=== PATIENT | female | born 1990 | race Two or more races ===

== ENCOUNTER 2024-09-26 23:12 | Emergency (ER) | payer MEDICAID, SELFPAY ==
[2024-09-26 23:12] VITALS: BMI 34.9
[2024-09-26 23:54] VITALS: BP 123/84; PULSE 135; RESP 19; TEMP 36.9; O2SAT 97
--- NOTE | 2024-09-27 00:02 | EKG_ITS ---
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
--- NOTE | 2024-09-27 00:05 | PD.EDRME ---
Rapid Medical Screening Exam RME Arrival date/time: 09/26/24 23:12 Dr. Mcginnis's note at 6 AM: Her EKG shows normal sinus rhythm, tachycardic, no acute ST-T wave changes, normal axis, no ectopy according to my interpretation. Chief Complaint: General Adult/Misc Complain Time Seen by Provider: 09/26/24 23:16 Vital signs: Vital Signs Temperature 98.5 F 09/26/24 23:54 Pulse Rate 135 H 09/26/24 23:54 Respiratory Rate 19 09/26/24 23:54 Blood Pressure 123/84 09/26/24 23:54 Pulse Oximetry (%) 97 09/26/24 23:54 Oxygen Delivery Method Room Air 09/26/24 23:54 Vital signs reviewed by provider: Yes RM Narrative: 34-year-old female presents for evaluation of alcohol withdrawal. She reports that her last drink was at 10 AM this morning. She reports that she normally drinks half bottle of wine daily. She endorses history of alcohol withdrawal without seizure-like activity. She endorses nausea without vomiting and diffuse tremors. Denies AH and VH.
[2024-09-27] MEDS: SODIUM CHLORIDE 0.9% 1000 ML 1,000 ML 999 ML IV ×2 (00:48→05:53)
[2024-09-27 00:53] LABS: Basophils % (Auto) 0 % (0-2.5); Eosinophils # (Auto) 0.1 Thou/mm3 (0.0-0.5); Eosinophils % (Auto) 1 % (0-10); Hematocrit 36.1 % (36.0-46.0); Hemoglobin 11.4 g/dL (12.0-16.0); Immature Granulocytes % (Auto) 0 % (0-0); Immature Granulocytes Auto 0.03 Thou/mm3 (0.00-0.00); Lymphocytes # (Auto) 3.5 Thou/mm3 (1.0-4.8); Lymphocytes % (Auto) 37 % (10-50); Mean Corpuscular HGB Conc 31.6 g/dl (31.0-37.0); Mean Corpuscular Hemoglobin 23.3 pg (25.0-35.0); Mean Corpuscular Volume 74 fL (80-100); Monocytes # (Auto) 0.6 Thou/mm3 (0.0-0.8); Monocytes % (Auto) 7 % (0-12); Neutrophils % (Auto) 54 % (37-80); Nucleated Red Blood Cell % 0 /100 WBC (0); Platelet Count 493 Thou/mm3 (140-440); RDW Standard Deviation 49.1 fL (36.4-46.3); White Blood Count 9.3 Thou/mm3 (3.6-11.0)
[2024-09-27 01:24] LABS: Alanine Aminotransferase 28 U/L (10-49); Albumin, Serum 4.8 gm/dL (3.5-5.0); Albumin/Globulin Ratio 1.2 (1.2-2.2); Alcohol, Blood Medical 12.1 mg/dL (0-10.0); Alkaline Phosphatase 158 U/L (46-116); Anion Gap 15 (7-16); Aspartate Amino Transferase 31 U/L (0-34); BUN/Creatinine Ratio 13 Ratio (12-20); Bilirubin,Total 0.3 mg/dL (0.3-1.2); Blood Urea Nitrogen 10 mg/dL (9-23); Calcium 9.8 mg/dL (8.3-10.6); Calcium (Corrected) 9.8 mg/dL (8.5-10.1); Carbon Dioxide 20.1 mMol/L (20.0-31.0); Chloride 103 mMol/L (98-107); Creatinine (Component) 0.8 mg/dL (0.6-1.3); Estimated Creatinine Clearance 98.3 mL/min (>60); Glucose 121 mg/dL (74-106); Lipase 54 U/L (12-53); Magnesium 1.9 mg/dL (1.6-2.6); Osmolality,Calculated 275 (275-295); Sodium 138 mMol/L (136-145); Total Protein 8.8 gm/dL (5.7-8.2); eGFR > 60 See Note
[2024-09-27] MEDS: LORazepam 2 MG/ML VIAL IVP (01:31)
[2024-09-27] MEDS: THIAMINE INJ 100 MG in SODIUM CHLORIDE 0.9% 100 ML 202 MG IV (01:32)
[2024-09-27 01:37] VITALS: BP 134/79; PULSE 130; RESP 20; O2SAT 100
[2024-09-27 02:00] VITALS: BP 121/78; PULSE 124; RESP 15; O2SAT 96
[2024-09-27 03:00] VITALS: BP 124/78; PULSE 129; RESP 14; O2SAT 96
[2024-09-27 05:00] VITALS: BP 119/76; PULSE 129; RESP 21; TEMP 37; O2SAT 99
--- NOTE | 2024-09-27 05:26 | EDNOTE_ITS ---
ED General RME/HPI General Chief complaint: General Adult/Misc Complain Stated complaint: NOT FEELING WELL Time Seen by Provider: 09/26/24 23:16 Arrival date/time: 09/26/24 23:12 RME / HPI RME / HPI narrative: 34-year-old female presents for evaluation of alcohol withdrawal. She reports that her last drink was at 10 AM this morning. She reports that she normally drinks half bottle of wine daily. She endorses history of alcohol withdrawal without seizure-like activity. She endorses nausea without vomiting and diffuse tremors. Denies AH and VH. ---- Dr. Mcginnis's Main ED Evaluation: 34yo female presents to the ED for a chief complaint of alcohol withdrawals. Patient states she last had a large glass of wine yesterday morning, reporting she's been having withdrawals since. She reports 2 associated episodes of N/V, shortness of breath, dizziness, and lightheadedness. Patient denies any diarrhea, hematemesis, fever, chills, sweating, chest pain, abdominal pain, UTI symptoms, SI, HI, hallucinations or any other associated symptoms. She denies any falls, injuries or loss of consciousness. She denies any illicit drug use. No known allergies. Patient states this is the third time she's tried to wean herself off of alcohol. Patient's sister notes the patient has had hemorrhoids, but has been embarrassed by them and does not want to be seen by a provider for them. PCP: [facility] in [place] Related Data Previous Rx's ?Medication ?Instructions ?Recorded chlordiazepoxide HCl 25 mg capsule 25 mg PO BID #14 caps 06/15/23 famotidine 20 mg tablet 20 mg PO BID #20 tabs 06/15/23 ondansetron 4 mg disintegrating 4 mg PO Q8H #14 tabs 06/15/23 tablet hydrocortisone acetate 25 mg 25 mg [place] BID #6 ea 09/27/24 rectal suppository (Anusol-HC) ondansetron 4 mg disintegrating 4 mg PO TID PRN nausea and 09/27/24 tablet vomiting 4 days #14 tabs Allergies Allergy/AdvReac Type Severity Reaction Status Date / Time No Known Allergies Allergy Verified 06/15/23 11:19 Review of Systems Review of Systems Systems Reviewed: All systems reviewed, normal except as documented Narrative Review of Systems: Gen: No fever, no chills, no weight loss EYES: No discharge, no visual changes, no pain HEENT: No ear pain, no congestion, no sore throat PULM: + shortness of breath, no cough, no congestion CV: No chest pain, no dyspnea on exertion, no palpitations GI: + nausea, + vomiting, no diarrhea, no pain, no constipation : No frequency, no urgency, no dysuria Musc/skel: No joint pain, no back pain Skin: No rash. Warm and dry. Psyc: No hallucinations, no depression Heme/Lymph: No easy bleeding or bruising tendencies Neuro: No weakness, no headache, + dizziness, + lightheadedness Past Medical History Past Medical History NEUROLOGIC: Negative Neurological Disorders CARDIAC: Negative Cardiac Disorders or Congestive Heart Failure RESPIRATORY: Negative Chronic Obstructive Pulmonary Disease (COPD) GASTROINTESTINAL: Negative Gastrointestinal Disorders, Hepatitis or Colorectal Cancer GENITOURINARY: Negative Genitourinary Disorders, Renal Disease or Prostate Cancer REPRODUCTIVE: Positive Previous Pregnancies; Negative Breast Cancer, Endometriosis, Pelvic Inflammatory Disease, Testicular Cancer or Uterine Prolapse MUSCULOSKELETAL: Negative Musculoskeletal Disorders or Bone Cancer ENDOCRINE: Negative Endocrine Disorders, Diabetes Mellitus Type 1 or Diabetes Mellitus Type 2 HEMATOLOGIC: Negative Blood Disorders OTHER HISTORY: Negative Hospitalization, Autoimmune Disease, Down Syndrome, Developmental Delay, Shingles, Falls, Blood Transfusions, Blood Transfusion Reaction, Anesthesia Reactions, Chemotherapy, Radiation Therapy, Hyperbaric Therapy, MRSA, VRSA, Vancomycin-Resistant Enterococci, Human Immunodeficiency Virus (HIV), Chicken Pox, Measles, Mumps, Rubella (Yoruba Measles), Pertussis, Clostridium Difficile, Breast Cancer, Cervical Cancer, Colorectal Cancer, Lung Cancer, Prostate Cancer or Testicular Cancer Family History FAMILY HISTORY: Negative Family Psychiatric Problems, Family Respiratory Disorders, Family Cardiac Disorders, Family Gastrointestinal Problems, Family Cancer, Family Surgery or Family Anesthesia Reaction Surgical History SURGICAL: Negative Section Social History SMOKING STATUS: Never smoker ED Exam Narrative Physical exam: GEN. APPEARANCE: Patient is alert awake oriented x3 under no distress, laying down comfortably at 30-45?; does not look ill/ toxic. Patient has good eye contact. Patient is cooperative. VITALS: All vitals were reviewed and the pulse ox is 96% on room air, which is normal according to my interpretation. HEENT: Normocephalic, atraumatic and nontender. Pupils are equal and reactive to light and accommodation. Oral mucosa are moist. NECK: Supple, nontender, no meningismus, no JVD. CHEST: Nontender on palpation, no deformity and no crepitus. CARDIOVASCULAR: Heart regular rhythm no murmur or gallop rub or extra beats; tachycardic. LUNGS: Clear to auscultation bilaterally with symmetrical chest rise. No laboring tachypnea or wheezing. No intercostal subcostal retraction. No rales and no rhonchi. ABDOMEN: Soft, flat, nontender at all, no guarding or rebound tenderness. There are no abnormal masses palpated. No pulsatile masses or bruits. Active and normal bowel sounds. GENITALIA: Not examined. RECTAL EXAM: Not done. EXTREMITIES: Nontender. No edema. No cyanosis. Patient is able to move all 4 extremities well. SKIN: Warm and dry, no rashes noted. MUSCULOSKELETAL: No lumbar or midline bony tenderness. There is no CVA tenderness. No paraspinal muscle spasm or tenderness. NEURO: Cranial nerves II through XII grossly intact. There is no focalization. GCS is 15. PSYCHIATRIC: Patient is somewhat anxious mood and affect, cooperative. LYMPHATICS: No major lymphadenopathy noted. Course Quality Measures none Orders Category Date Time Status EKG (ED ONLY) *Do not use* NOW Care 09/27/24 00:03 Completed Insert IV NOW Care 09/27/24 00:02 Active EKG (ED Only) Stat Exams 09/27/24 00:02 Draft Alcohol, Blood Medical Stat Lab 09/27/24 00:44 Completed CBC Stat Lab 09/27/24 00:44 Completed CMP [Comprehensive Metabolic Panel] Stat Lab 09/27/24 00:44 Completed HCG Qualitative,Urine Stat Lab 09/27/24 00:02 Ordered Lipase Stat Lab 09/27/24 00:44 Completed Mag [Magnesium] Stat Lab 09/27/24 00:44 Completed LORazepam [Ativan Inj] Med 09/27/24 00:02 Discontinued 2 mg IVP X1 ONE Multivitamin Inj [Infuvite Inj] Med 09/27/24 00:02 Discontinued 10 ml IV X1 ONE Sodium Chloride 0.9% 1000 ml [Ns] 1,000 ml Med 09/27/24 00:02 Discontinued IV 999 mls/hr Thiamine Inj [Vitamin B-1 Inj] 100 mg Med 09/27/24 00:05 Discontinued Sodium Chloride 0.9% [Ns] 100 ml IV X1 Vital Signs Vital signs: Vital Signs Temperature 98.5 F 09/26/24 23:54 Pulse Rate 135 H 09/26/24 23:54 Respiratory Rate 19 09/26/24 23:54 Blood Pressure 123/84 09/26/24 23:54 Pulse Oximetry (%) 97 09/26/24 23:54 Oxygen Delivery Method Room Air 09/26/24 23:54 MDM Patient data External records reviewed:: [facility] previous records (Per chart review, patient was seen here on 06/21/24 for hypokalemia.) Clinical information provided by:: patient Social determinants that could affect healthcare access:: alcohol use Patient has the following chronic illnesses:: none How is presenting disease/condition affected by chronic disease/condition?: no chronic disease Evaluation data The following diagnostics were reviewed and interpreted by me:: lab results and EKG tracing(s) Lab and/or radiology exams considered but not ordered:: none Interpretation Summary: See above under MDM narrative. Medications Medications considered but not ordered:: none Medication administrations:: Medication Administration History Discontinued Medications Sodium Chloride (Ns) 1,000 mls @ 999 mls/hr IV .Q1H1M ONE Stop: 09/27/24 01:02 Last Infusion: 09/27/24 02:17 Dose: Infused Documented By: Admin: 09/27/24 00:48 Dose: 999 mls/hr Documented By: JENIFER Thiamine HCl 100 mg/ Sodium (Chloride) 101 mls @ 202 mls/hr IV X1 ONE Stop: 09/27/24 00:34 Last Infusion: 09/27/24 02:17 Dose: Infused Documented By: Admin: 09/27/24 01:32 Dose: 202 mls/hr Documented By: ZIYAD Lorazepam (Lorazepam 2 Mg/Ml Vial) 2 mg IVP X1 ONE Stop: 09/27/24 00:03 Last Admin: 09/27/24 01:31 Dose: 2 mg Documented By: ZIYAD Multivitamins/Minerals (Multivitamin Inj 10 Ml Vial) 10 ml IV X1 ONE Stop: 09/27/24 00:03 Last Admin: 09/27/24 01:34 Dose: 10 ml Documented By: ZIYAD see above Consultations Consultation(s) initiated? (list below): No Diagnosis Differential Diagnosis ED Complaint MDM: alcohol withdrawal, acidosis, illicit drug abuse, depression, anxiety Most likely diagnosis given after review of the tests above:: see below Admission Indicated Admission indicated?: not indicated Explain why admission is indicated or not indicated:: Patient is stable for outpatient management. Admission Request Was there a request for admission?: No Disposition Plan Disposition Plan: Discharge Discharge Attestation Discharge Attestation: The patient and all family members were given an opportunity to ask questions and understood the discharge instructions. Discharge instructions specifically effects, indications for sooner follow up or return to the emergency department, and the expected course of current diagnosis. Patient condition: Stable Medical Decision Making MDM Narrative MDM Narrative: Scribe Attestation: 09/27/24 - Aleja Castro am scribing for and in the presence of Dr. Mcginnis. Patient comes in accompanied by her sister trying to go through withdrawal of alcohol. Patient is a chronic alcoholic for the last 2 years and she has tried to wean herself off for the third time this time and still cannot do it by himself. She has not followed up with her doctor as an outpatient nor she has had any AA meetings. She has been nauseated and vomited couple times without any diarrhea. Her sister tells me that patient is also suffering of hemorrhoids and passing blood clots from the rectum on and off. She has a cream but it is not helping her hemorrhoids. She denies any abdominal pain or UTI symptoms. She denies any fall or injuries or loss of consciousness. She did feel short of breath and dizzy today but she absolutely denies any suicidal ideations or homicidal ideations or hallucinations. She denies any plans of killing herself. She absolutely denies any drug abuse and her sister confirms that. She says that usually she drinks 3 large glasses of wine every day. She had a similar episode x 2 in the past and the last time was in June when she was here for similar problem. All her lab work is unremarkable. Patient will receive 2 L of fluids and then discharged home but I did tell her that she needs to follow-up with her clinic so they can refer her to a AA meetings. Provider Notation: Although this document has been carefully reviewed, there may still be some phonetic and other typographical errors. These errors are purely grammatical due to imperfections in the software program and should not be construed in any way to compromise the substance of the patient's medical care during this visit. Differential Diagnosis Differential Diagnosis: alcohol withdrawal, acidosis, illicit drug abuse, depression, anxiety Lab Data 09/27/24 00:44 09/27/24 00:44 Labs: Lab Results 09/27/24 Range/Units 00:44 WBC 9.3 (3.6-11.0) Thou/mm3 RBC 4.90 (4.00-5.20) Miln/mm3 Hgb 11.4 L (12.0-16.0) g/dL Hct 36.1 (36.0-46.0) % MCV 74 L (80-100) fL MCH 23.3 L (25.0-35.0) pg MCHC 31.6 (31.0-37.0) g/dl RDW Std Deviation 49.1 H (36.4-46.3) fL Plt Count 493 H (140-440) Thou/mm3 Neut % (Auto) 54 (37-80) % Lymph % (Auto) 37 (10-50) % [place] % (Auto) 7 (0-12) % Eos % (Auto) 1 (0-10) % Baso % (Auto) 0 (0-2.5) % Neut # (Auto) 5.0 (1.8-7.7) Thou/mm3 Lymph # (Auto) 3.5 (1.0-4.8) Thou/mm3 [place] # (Auto) 0.6 (0.0-0.8) Thou/mm3 Eos # (Auto) 0.1 (0.0-0.5) Thou/mm3 Baso # (Auto) 0.0 (0.0-0.2) Thou/mm3 Immature Gran # (Auto) 0.03 H (0.00-0.00) Thou/mm3 Absolute Nucleated RBC 0.00 (0.00-0.00) Thou/mm3 Immature Gran % 0 (0-0) % Nucleated RBC % 0 (0) /100 WBC Sodium 138 (136-145) mMol/L Potassium 4.0 (3.4-5.1) mMol/L Chloride 103 (98-107) mMol/L Carbon Dioxide 20.1 (20.0-31.0) mMol/L Anion Gap 15 (7-16) BUN 10 (9-23) mg/dL Creatinine 0.8 (0.6-1.3) mg/dL Estim Creat Clear Calc 98.3 (>60) mL/min eGFR > 60 (60 - ) See Note BUN/Creatinine Ratio 13 (12-20) Ratio Glucose 121 H (74-106) mg/dL Calculated Osmolality 275 (275-295) Calcium 9.8 (8.3-10.6) mg/dL Corrected Calcium 9.8 (8.5-10.1) mg/dL Magnesium 1.9 (1.6-2.6) mg/dL Total Bilirubin 0.3 (0.3-1.2) mg/dL AST 31 (0-34) U/L ALT 28 (10-49) U/L Alkaline Phosphatase 158 H (46-116) U/L Total Protein 8.8 H (5.7-8.2) gm/dL Albumin 4.8 (3.5-5.0) gm/dL Globulin 4.0 H (2.3-3.5) gm/dL Albumin/Globulin Ratio 1.2 (1.2-2.2) Lipase 54 H (12-53) U/L Ethyl Alcohol 12.1 H (0-10.0) mg/dL Discharge Plan Plan Patient Disposition: HOME (Self Care) Prescriptions/Referrals Prescriptions/Med Rec: New hydrocortisone acetate [Anusol-HC] 25 mg suppository 25 mg MA BID Qty: 6 0RF ondansetron 4 mg tablet,disintegrating 4 mg PO TID PRN (Reason: nausea and vomiting) 4 Days Qty: 14 0RF No Action ondansetron 4 mg tablet,disintegrating 4 mg PO Q8H Qty: 14 0RF chlordiazepoxide HCl 25 mg capsule 25 mg PO BID Qty: 14 0RF famotidine 20 mg tablet 20 mg PO BID Qty: 20 0RF Referrals: [facility] [Outside] - 09/28/24 10:00 am Problem List Clinical Impression: Alcohol withdrawal, Hemorrhoids, internal Patient/Caregiver Discharge Instructions Education Materials: Alcohol Withdrawal: What to Expect Additional Instructions: You need to stop drinking alcohol as soon as possible, before your liver is damaged. Take medications as prescribed for your nausea vomiting and also for your hemorrhoids. Do sitz baths for 20 minutes with warm water and then pat yourself dry and then insert the suppositories. Be sure to follow-up with your clinic and tell your doctors for help to stop drinking alcohol. Print Language: [place] Stand Alone Forms: Nicole Award Info., Patient Portal Info Letter
== END 2024-09-27 08:22 | disposition home or self-care (01) ==
PROVIDERS: Physician Assistant; Emergency Provider Emergency Medicine
DX: F10.939 Alcohol use, unspecified with withdrawal, unspecified (principal); K64.8 Other hemorrhoids; R00.0 Tachycardia, unspecified
CPT/HCPCS: 36415; 80053; 80320; 81025; 83690; 83735; 85025; 93005; 96361; 96365; 96375; 99284; J2060; J3411; J7030; J7050; G0480

== ENCOUNTER 2024-12-31 12:57 | Inpatient (IN) | payer SELFPAY ==
[2024-12-31 12:59] VITALS: BP 129/83; PULSE 128; RESP 18; TEMP 37.2; O2SAT 97
[2024-12-31 13:41] VITALS: PULSE 124; RESP 20; O2SAT 98; BMI 30.2
[2024-12-31 13:42] VITALS: BMI 26.4
--- NOTE | 2024-12-31 14:05 | EDNOTE_ITS ---
<Statement entered by Melodie Guerrier MD - 12/31/24 23:41> As co-signing physician, I was present and available for consult prn. I concur with the plan and care as documented by the midlevel provider. ED Psych RME/HPI General Chief Complaint: Suicidal Stated Complaint: ETOH Time Seen by Provider: 12/31/24 13:53 Arrival date/time: 12/31/24 12:57 RME / HPI RME / HPI Narrative: 34-year-old female patient came in for evaluation regarding suicidal thoughts. Patient told me that she has been having worsening depression, suicidal ideation, for several months, getting worse. Has been drinking every day also c onsuming more than 1 bottle of wine every day. Patient told me that she got more depressed after learning that the is cheating on her. Denies any homicidal ideation. She had no concrete plan to kill herself. Related Data Previous Rx's ?Medication ?Instructions ?Recorded chlordiazepoxide HCl 25 mg capsule 25 mg PO BID #14 ca ps 06/15/23 famotidine 20 mg tablet 20 mg PO BID #20 tabs ondansetron 4 mg disintegrating 4 mg PO Q8H #14 tabs 0 06/15/23 tablet hydrocortisone acetate 25 mg 25 mg [place] BID #6 ea rectal suppository (Anusol-HC) Allergies Allergy/AdvReac Type Severity Reaction Status Date / Time No Known Allergies Allergy Verified 12/31/24 13:45 Review of Systems Review of Systems Narrative Review of Systems: Review of system reviewed and within normal limits except mentioned in HPI Course Quality Measures none Orders Category Date Time Status 1799 Psychiatric Hold NOW Care 12/31/24 14:00 Ordered Acetaminophen Stat Lab 12/31/24 14:10 Completed Alcohol, Blood Medical Stat Lab 12/31/24 14:10 Completed CBC Stat Lab 12/31/24 14:10 Completed CMP [Comprehensive Metabolic Panel] Stat Lab 12/31/24 14:10 Completed Drug Screen,Urine Stat Lab 12/31/24 14:05 Completed HCG Qualitative,Urine Stat Lab 12/31/24 14:05 Completed Salicylate Stat Lab 12/31/24 14:10 Completed Urinalysis Stat Lab 12/31/24 14:05 Completed Vital Signs Vital signs: Vital Signs Temperature 98.9 F 12/31/24 12:59 Pulse Rate 128 H 12/31/24 12:59 Respiratory Rate 18 12/31/24 12:59 Blood Pressure 129/83 12/31/24 12:59 Pulse Oximetry (%) 97 12/31/24 12:59 Oxygen Delivery Method Room Air 12/31/24 12:59 Psych MDM Narrative [facility] Narrative:: 34-year-old female patient came in for evaluation regarding suicidal thoughts. Patient told me that she has been having worsening depression, suicidal ideation , for several months, getting worse. Has been drinking every day also consuming more than 1 bottle of wine every day. Patient told me that she got more depressed after learning that the is cheating on her. Denies any homicidal ideation. She had no concrete plan to kill herself. Patient was noted to have a alcohol level of 497. Negative for drug test AST ALT and alkaline phos slightly elevated may be related to alcohol. Patient is medically cleared for crisis intervention Care transferred to Dr Guerrier at 11 pm for final disposition Patient data External records reviewed:: None Clinical information provided by:: patient Social determinants that could affect healthcare access:: alcohol use Patient has the following chronic illnesses:: Alcohol abuse, depression How is presenting disease/condition affected by chronic disease/condition?: exacerbated by Evaluation data The following diagnostics were reviewed and interpreted by me:: lab results Lab and/or radiology exams considered but not ordered:: None Interpretation Summary: Results see in MDM Medications / Prescriptions Medications or Prescriptions considered but not ordered:: None Medication administrations:: None Consultations Consultation(s) initiated? (list below): No Diagnosis Psych Differential Diagnosis: acute psychosis, suicidal ideation and depression Most likely diagnosis given after review of the tests above:: Chronic alcoholism, suicidal ideation Admission Indicated Admission indicated?: not indicated Admission Request Was there a request for admission?: No Disposition Plan Disposition Plan: other (specify) Discharge Plan Prescriptions/Referrals Prescriptions/Med Rec: No Action ondansetron 4 mg tablet,disintegrating 4 mg PO Q8H Qty: 14 0RF chlordiazepoxide HCl 25 mg capsule 25 mg PO BID Qty: 14 0RF famotidine 20 mg tablet 20 mg PO BID Qty: 20 0RF hydrocortisone acetate [Anusol-HC] 25 mg suppository 25 mg [place] BID Qty: 6 0RF Referrals: No Primary/Family,Physician [Primary Care Provider] - In 1 week Problem List Clinical Impression: Suicidal ideation, Alcoholic intoxication Patient/Caregiver Discharge Instructions Print Language: Mexican
[2024-12-31 14:22] LABS: Collection Type, Urine Clean Catch
[2024-12-31 14:29] VITALS: BP 139/91; PULSE 119; RESP 18; TEMP 36.7; O2SAT 97
[2024-12-31 14:32] LABS: Basophils % (Auto) 1 % (0-2.5); Eosinophils # (Auto) 0.1 Thou/mm3 (0.0-0.5); Eosinophils % (Auto) 1 % (0-10); Hematocrit 33.1 % (36.0-46.0); Hemoglobin 10.5 g/dL (12.0-16.0); Immature Granulocytes % (Auto) 1 % (0-0); Immature Granulocytes Auto 0.03 Thou/mm3 (0.00-0.00); Lymphocytes # (Auto) 1.5 Thou/mm3 (1.0-4.8); Lymphocytes % (Auto) 26 % (10-50); Mean Corpuscular HGB Conc 31.7 g/dl (31.0-37.0); Mean Corpuscular Hemoglobin 23.8 pg (25.0-35.0); Mean Corpuscular Volume 75 fL (80-100); Monocytes # (Auto) 0.4 Thou/mm3 (0.0-0.8); Monocytes % (Auto) 7 % (0-12); Neutrophils # (Auto) 3.8 Thou/mm3 (1.8-7.7); Neutrophils % (Auto) 65 % (37-80); Nucleated Red Blood Cell % 0 /100 WBC (0); Platelet Count 223 Thou/mm3 (140-440); RDW Standard Deviation 47.6 fL (36.4-46.3); Red Blood Count 4.42 Miln/mm3 (4.00-5.20); White Blood Count 5.8 Thou/mm3 (3.6-11.0)
[2024-12-31 14:38] LABS: Bilirubin,Urine Negative (Negative); Blood,Urine Negative (Negative); Clarity,Urine Clear (Clear/Hazy); Glucose, Urine Negative (Negative); Ketones,Urine 1+ (Negative); Leukocyte Esterase,Urine Negative (Negative); Nitrite,Urine Negative (Negative); PH,Urine 6.5 (5.0-7.0); Protein,Urine Negative (Neg - Trace); RBC,Urine 1 /hpf (0-3); Specific Gravity,Urine 1.007 (1.001-1.035); Squamous Epithelial Cell,Urine 2 /hpf (0-5); Urobilinogen,Urine Negative mg/dL (0.0-1.0); WBC,Urine 1 /hpf (0-5)
[2024-12-31 14:41] LABS: HCG Qualitative,Urine Negative
[2024-12-31 14:46] LABS: Amphetamine/Methamp Scrn,U Negative (Negative); Barbiturate Screen,Urine Negative (Negative); Benzodiazepines Screen,Urine Negative (Negative); Benzoylecgonine Screen, Ur Negative (Negative); Fentanyl Screen,Urine Negative (Negative); Opiate Screen,Urine Negative (Negative); THC Screen,Urine Negative (Negative)
--- NOTE | 2024-12-31 14:54 | PC.CC ---
Cdl Dedicated Truck Driver, Rosa informed by highway truck driver-Sara that patient was making suicidal statements. SW met with patient [id number]. Patient appeared intoxicated. She was slurring her words. Patient continuously cried and reported, look at me, I'm ugly. Patient reported that she had four shots of tequila. Patient reported that she is unable to cope with her cheating on her and calling her a loser. Patient reported that she does not know what to do. Patient reported that she does not think she would kill herself because of her two sons (ages: 11 y/o and 6 y/o). Patient reported that her sons are with her , Rowdy Lynch ([phone]). Patient also reported, please don't take them away. It is unclear if her children witnessed patient being intoxicated at home. SW clarified that a MHE would be completed when she was sober.
[2024-12-31 14:57] LABS: Color,Urine Lt-Yellow (Lt Yel-Yel)
[2024-12-31 14:57] LABS: Acetaminophen < 2.0 mcg/mL (10.0-20.0); Alanine Aminotransferase 169 U/L (10-49); Albumin, Serum 4.4 gm/dL (3.5-5.0); Albumin/Globulin Ratio 1.2 (1.2-2.2); Alkaline Phosphatase 123 U/L (46-116); Anion Gap 19 (7-16); Aspartate Amino Transferase 317 U/L (0-34); BUN/Creatinine Ratio 23 Ratio (12-20); Bilirubin,Total 0.5 mg/dL (0.3-1.2); Blood Urea Nitrogen 16 mg/dL (9-23); Calcium 8.7 mg/dL (8.3-10.6); Calcium (Corrected) 8.7 mg/dL (8.5-10.1); Carbon Dioxide 18.3 mMol/L (20.0-31.0); Chloride 104 mMol/L (98-107); Creatinine (Component) 0.7 mg/dL (0.6-1.3); Estimated Creatinine Clearance 97.6 mL/min (>60); Globulin 3.6 gm/dL (2.3-3.5); Glucose 88 mg/dL (74-106); Osmolality,Calculated 281 (275-295); Potassium 3.7 mMol/L (3.4-5.1); Salicylate < 3.0 mg/dL; Sodium 141 mMol/L (136-145); eGFR > 60 See Note
[2024-12-31 14:59] LABS: Alcohol, Blood Medical 497.6 mg/dL (0-10.0)
[2024-12-31 18:15] VITALS: BP 116/84; PULSE 112; RESP 19; TEMP 36.8; O2SAT 98
[2024-12-31 20:44] VITALS: BP 118/78; PULSE 105; RESP 19; TEMP 37.2; O2SAT 96
[2024-12-31 23:49] VITALS: BP 117/72; PULSE 115; RESP 18; TEMP 36.7; O2SAT 97
[2025-01-01] VITALS (13 sets, daily range): BP systolic 122–151; BP diastolic 78–102; PULSE 87–125; RESP 16–24; TEMP 36.5–37.3; O2SAT 95–99; BMI 33.3
--- NOTE | 2025-01-01 00:23 | EKG_ITS ---
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
--- NOTE | 2025-01-01 00:25 | PC.NURSE ---
Pt informed RN she feels her heart beating fast and stating I cant breathing , vitals obtained and HR 115-120'S On vital machine and o2 saturations read 99% on RA. Pt appears anxious, fidgeting with linen, visible tremors noted to sandor hands and legs. pt denies n/v, headache. Pt states she has been drinking for the past few months approx 1 pint of tequila daily but states she only had 3/4 of the bottle of tequila the last time she drank. Informed Dr. Guerrier pt's CIWA is 9. New orders given by Dr. Guerrier.
[2025-01-01] MEDS: LORazepam 0.5 MG TABLET 2 MG PO (00:27)
--- NOTE | 2025-01-01 00:31 | PD.EDADDENDU ---
Emergency Room Addendum Addendum Narrative: 2300: Care assumed from Serena Flaherty. Past medical, surgical, social and family history reviewed. Vitals and home medications reviewed. Results and treatment plan discussed. I will assume the care of the patient at this time and will follow the patient, pending mental health evaluation and final disposition. Please refer to the emergency department record for history and examination from initial visit. The following addendum documentation note is intended to reflect any pending information, findings, or radiology results not included in the patient?s initial chart. Patient in observation for treatment and monitoring of psychiatric symptoms. Treatment plan includes psychiatric consult, reassessments, and possible placement into psychiatric facility. 0600: Care signed out to [facility] provider. Past medical, surgical, social and family history reviewed. Vitals and home medications reviewed. Results and treatment plan discussed. They will assume the care of the patient at this time and will follow the patient, pending mental health evaluation and final disposition. MD Attestation MD Attestation Scribe Attestation: I, David Meyers, am scribing for and in the presence of Dr. Guerrier. Provider Notation: Although this document has been carefully reviewed, there may still be some phonetic and other typographical errors. These errors are purely grammatical due to imperfections in the software program and should not be construed in any way to compromise the substance of the patient's medical care during this visit.
--- NOTE | 2025-01-01 00:50 | PC.NURSE ---
pt amublated with sitter to restroom, while in restroom sitter Carrie informed RN had an episode of emesis after recieving po meds. provider Fareed informed. new orders given.
[2025-01-01] MEDS: LORazepam 2 MG/ML VIAL IVP ×2 (01:04→08:39)
[2025-01-01] MEDS: SODIUM CHLORIDE 0.9% 1000 ML 1,000 ML 999 ML IV ×2 (01:04→13:26)
[2025-01-01] MEDS: ONDANSETRON INJ 2 MG/ML INJ 2 ML 4 MG IV ×2 (01:07→23:33)
--- NOTE | 2025-01-01 07:21 | PD.EDADDENDU ---
Emergency Room Addendum <Roseline Graff - Last Filed: 01/01/25 08:13> Addendum Narrative: 0600: Care assumed from Dr. Guerrier, the previous shift emergency physician. Past medical, surgical, social and family history reviewed. Vitals and home medications reviewed. I will assume the care of the patient at this time, pending mental health evaluation and final disposition. Please refer to the emergency department record for history and examination from initial visit.? Physical exam by me shows patient under no acute distress at this time. 0805: Mental health cleared the patient. Safety plan in place. <Brad Sinclair MD - Last Filed: 01/01/25 08:34> Addendum Narrative: 0600: Care assumed from Dr. Guerrier, the previous shift emergency physician. Past medical, surgical, social and family history reviewed. Vitals and home medications reviewed. I will assume the care of the patient at this time, pending mental health evaluation and final disposition. Please refer to the emergency department record for history and examination from initial visit.? Physical exam by me shows patient under no acute distress at this time. 0805: Mental health cleared the patient. Safety plan in place. At 0810 hrs. I am informed this patient is medically cleared from also informed that her heart rate is 138 and sinus tach on the monitor and I went back in the room the patient has been drinking alcohol heavily for the last several months including vodka tequila and wine and her blood alcohol level last night was 0.497 which is extremely high and patient has not drank any alcohol 24 hours and is starting to show signs of withdrawal with tachycardia tremulousness. Initially she evidently got 2 doses of Ativan earlier and was calm with a CIWA 1 3 hours ago. At 0830 hrs. patient CIWA is 9 despite the 4 mg Ativan we will give her another 2 and we will plan to admit her. Patient is alert awake there is no hallucinations she admits she has a serious alcohol problem and wants to stop drinking. Besides sinus tach she has no respiratory distress she is alert and awake her head and neck are unremarkable. Her breathing is normal. Her abdomen has no complaints. Lower extremities are warm and dry. I spoke with the resident about patient withdrawal and they will come down and admit the patient.
--- NOTE | 2025-01-01 07:34 | PC.CC ---
Patient is a 34 year-old female BIBA from home for Alcohol Intoxication and was reported that she made suicidal statements. ASWKarina made [id number] contact with patient. ASW introduced self, role, and reason for visit. Patient appeared alert and oriented to self, location, and situation.?Patient was tearful and regretful of yesterdays event that lead her to coming into the hospital. Patient was able to engage in assessment and made appropriate eye contact. Patient reports she is going through a separation of her , Rowdy Lynch whom she has been with for the past 12 years. She reports she is sad that this event is occurring in her life which has led her to drink to help her cope with the sadness. Patient does not recall making suicidal statements yesterday. ASW explored with patient is she has suicidal ideations. Patient stated, I have had suicidal thoughts when I am drinking but I would never do it because of my kids. Patient denied current suicidal and homicidal ideations, visual and auditory hallucinations. Patient denied past suicide attempts. Patient has never been placed on a 5150-hold. Patient is not connected to outpatient mental health services. Patient would like to be connected to mental health services. Patient provided consent to make contact with her , Rowdy Lynch for collateral information. Rowdy reports that patient was suppose to have an outing with her aunt, Radha yesterday and when Radha arrived to the home she found the patient heavily intoxicated and called 911. Per , patient has not mental health history and is not currently connected. He reports he and the patient are having relationship issues which has been causing her to drink. Per Rowdy, he is willing to milk pickup driver the patient and take her home. Upon clinical consultation with PACKAGING TECHMela patient does not meet criteria for 5150-hold. Patient and are willing to engage in safety plan. Safety plan is Rowdy will milk pickup driver the patient from the hospital and provide extra supervision for the next 72 hours, remove all sharps and lock medications in the home. Per Rowdy, there are no firearms in the home. Patient will be referred to [facility] for outpatient mental health services and AOD services. SW provided community resources: Warm Line and Crisis Line. ASW provided update discharge safety plan with Dr. Sinclair, Charge Lisset, and bedside RN.
[2025-01-01] MEDS: FOLIC ACID 1 MG TABLET PO ×2 (08:39→20:05)
[2025-01-01] MEDS: THIAMINE INJ 100 MG in SODIUM CHLORIDE 0.9% 100 ML 202 MG IV (08:41)
--- NOTE | 2025-01-01 09:15 | PC.NURSE ---
CONTACTED PHARMACY FOR MULTIVITAMIN. STAFF WILL BRING MEDICATION TO ED
[2025-01-01 09:28] LABS: Basophils % (Auto) 1 % (0-2.5); Eosinophils % (Auto) 1 % (0-10); Hematocrit 29.6 % (36.0-46.0); Hemoglobin 8.9 g/dL (12.0-16.0); Immature Granulocytes % (Auto) 0 % (0-0); Immature Granulocytes Auto 0.01 Thou/mm3 (0.00-0.00); Lymphocytes # (Auto) 0.5 Thou/mm3 (1.0-4.8); Lymphocytes % (Auto) 12 % (10-50); Mean Corpuscular HGB Conc 30.1 g/dl (31.0-37.0); Mean Corpuscular Hemoglobin 23.6 pg (25.0-35.0); Mean Corpuscular Volume 79 fL (80-100); Monocytes # (Auto) 0.3 Thou/mm3 (0.0-0.8); Monocytes % (Auto) 7 % (0-12); Neutrophils # (Auto) 3.5 Thou/mm3 (1.8-7.7); Neutrophils % (Auto) 80 % (37-80); Nucleated Red Blood Cell % 0 /100 WBC (0); Platelet Count 168 Thou/mm3 (140-440); RDW Standard Deviation 49.7 fL (36.4-46.3); Red Blood Count 3.77 Miln/mm3 (4.00-5.20); White Blood Count 4.4 Thou/mm3 (3.6-11.0)
[2025-01-01 09:39] LABS: Partial Thromboplastin Time 22.6 Seconds (22.0-36.0); Prothrombin Time 11.1 Seconds (9.0-12.2)
[2025-01-01 09:44] LABS: Alanine Aminotransferase 156 U/L (10-49); Albumin, Serum 3.9 gm/dL (3.5-5.0); Albumin/Globulin Ratio 1.2 (1.2-2.2); Alkaline Phosphatase 107 U/L (46-116); Anion Gap 18 (7-16); Aspartate Amino Transferase 292 U/L (0-34); BUN/Creatinine Ratio 25 Ratio (12-20); Bilirubin,Total 0.8 mg/dL (0.3-1.2); Blood Urea Nitrogen 15 mg/dL (9-23); Calcium 8.6 mg/dL (8.3-10.6); Calcium (Corrected) 8.7 mg/dL (8.5-10.1); Carbon Dioxide 17.1 mMol/L (20.0-31.0); Chloride 103 mMol/L (98-107); Creatinine (Component) 0.6 mg/dL (0.6-1.3); Estimated Creatinine Clearance 113.9 mL/min (>60); Globulin 3.3 gm/dL (2.3-3.5); Glucose 61 mg/dL (74-106); Osmolality,Calculated 274 (275-295); Potassium 3.7 mMol/L (3.4-5.1); Sodium 138 mMol/L (136-145); Thyroid Stimulating Hormone 3.98 uIU/mL (0.55-4.78); Total Protein 7.2 gm/dL (5.7-8.2); eGFR > 60 See Note
[2025-01-01] MEDS: SODIUM CHLORIDE 0.9% 1000 ML 1,000 ML 75 ML IV ×2 (09:48→17:48)
[2025-01-01] MEDS: chlordiazePOXIDE HCl 25 MG CAPSULE PO ×2 (09:53→20:04)
--- NOTE | 2025-01-01 10:10 | PC.NURSE ---
PATIENT IS RESTING, NO COMPLAINT OF PAIN OR ANXIETY AT THIS TIME. WILL CONTINUE TO MONITOR
[2025-01-01 10:12] LABS: T4 (Thyroxine) 6.6 mcg/dL (4.5-10.9)
--- NOTE | 2025-01-01 12:43 | ESHP_ITS ---
<Statement entered by Prabhjot Solis MD - 01/07/25 07:44> I reviewed above note and agree with findings and plans. I have also personally examined the patient with medicine team and went over assessment and plan with medical team including research program intern and resident physician. Documentation for date of: 01/01/25 HPI History of Present Illness Chief complaint: Alcohol withdrawal History of present illness: 34-year-old female with past medical history of prediabetes and anxiety was admitted to the hospital on 01/01/2025 after coming to the ED with complaints of suicidal ideation, depression, and alcohol withdrawal. Patient was cleared by crisis team today therefore patient was okay to be admitted to the hospital. Patient stated that she has been drinking alcohol for the past 2 months every day. She has been drinking around 2 to 3 glasses of wine every night, but for the last 4 days she has also been drinking around half a bottle of tequila every day. She stated that her last drink was yesterday morning before 11 AM. She mentioned that she has been using alcohol as a coping system for some personal stressors that she has which also has to do with her going through a divorce at this time. Patient mentioned that she was using buspirone for anxiety and propranolol as well, but she discontinued these 2 medications when she started drinking around 2 months ago. She mentions she has been having some nausea and vomiting along with some diarrhea, but all of this has been nonbloody. She stated she has not seen a counselor at this time and that prior to this she used to drink alcohol only socially. At this time she denies any hallucinations both visual or auditory, and states that she is not having any suicidal or homicidal ideation at this time. CIWA score was 9 on assessment. ED course: Initially patient was tachycardic and afebrile. Initial labs were relevant for low hemoglobin (10.5), high anion gap metabolic acidosis (bicarb 18.3), transaminitis (AST 317, ALT 169, alkaline phosphatase 123), and alcohol level of 497.6. Initial imaging included EKG which showed sinus tachycardia. FMH: Mother had diabetes, no history of alcohol abuse in the family Surgical Hx: None as per patient Social Hx: Denies any drugs, smoking, admits alcohol use Allergies: NKDA Medications: Prescribed propranolol Review of Systems Review of Systems Narrative Review of Systems: Constitutional: Denies sweats, Denies weight loss/gain, Denies fever, Denies chills. HEENT: Denies hearing loss, Denies ear pain, Denies postnasal drip, Denies double vision, Denies blurry vision. Respiratory: Denies shortness of breath, Denies cough, Denies wheezing. Cardiovascular: Denies chest pain, Denies palpitations, Denies sudden loss of consciousness. GI: Denies blood in stool, Denies constipation, Denies abdominal pain, Denies difficulty swallowing, Admits diarrhea, nausea and vomit. : Denies urinary incontinence, Denies pain while urinating, Denies increased urinary frequency. MSK: Denies joint pain, Denies joint swelling, Denies numbness. Skin: Denies rash, Denies itching, Denies easy bruising. Neuro: Denies headaches, Denies dizziness, Denies seizures. Past Medical History Past Medical History NEUROLOGIC: Negative Neurological Disorders CARDIAC: Negative Cardiac Disorders or Congestive Heart Failure RESPIRATORY: Negative Chronic Obstructive Pulmonary Disease (COPD) GASTROINTESTINAL: Negative Gastrointestinal Disorders, Hepatitis or Colorectal Cancer GENITOURINARY: Negative Genitourinary Disorders, Renal Disease or Prostate Cancer REPRODUCTIVE: Positive Previous Pregnancies; Negative Breast Cancer, Endometriosis, Pelvic Inflammatory Disease, Testicular Cancer or Uterine Prolapse MUSCULOSKELETAL: Negative Musculoskeletal Disorders or Bone Cancer ENDOCRINE: Negative Endocrine Disorders, Diabetes Mellitus Type 1 or Diabetes Mellitus Type 2 HEMATOLOGIC: Negative Blood Disorders OTHER HISTORY: Negative Hospitalization, Autoimmune Disease, Down Syndrome, Developmental Delay, Shingles, Falls, Blood Transfusions, Blood Transfusion Reaction, Anesthesia Reactions, Chemotherapy, Radiation Therapy, Hyperbaric Therapy, MRSA, VRSA, Vancomycin-Resistant Enterococci, Human Immunodeficiency Virus (HIV), Chicken Pox, Measles, Mumps, Rubella ([place]z Measles), Pertussis, Clostridium Difficile, Breast Cancer, Cervical Cancer, Colorectal Cancer, Lung Cancer, Prostate Cancer or Testicular Cancer Family History FAMILY HISTORY: Negative Family Psychiatric Problems, Family Respiratory Disorders, Family Cardiac Disorders, Family Gastrointestinal Problems, Family Cancer, Family Surgery or Family Anesthesia Reaction Surgical History SURGICAL: Negative Section Social History SMOKING STATUS: Never smoker Exam Vital Signs Temp Pulse Resp BP Pulse Ox O2 Del Method 97.9 F 98 16 140/87 H 98 Room Air 01/01/25 08:19 01/01/25 10:07 01/01/25 10:07 01/01/25 10:01/01/25 10:07 01/01/25 10:07 Narrative Exam General: A/O x3, anxious appearing Eyes: PERRL, EOMI. Anicteric, vision grossly intact. Ears: No ear pain, no ear discharge, Hearing grossly intact. Nose: No nasal discharge. Mouth/Throat: Moist mucous membranes, no redness, no lesions. Neck: Neck supple, non-tender, no cervical lymphadenopathy. Lungs: Clear SHAWNA to auscultation and percussion, No accessory muscle use. Cardio: Normal S1/S2, tachycardic, no murmurs, no JVD. Abdomen: Soft, non-tender, no palpable masses, peristalsis present, no guarding or rebound. Extremities: Symmetrical, no significant deformities, no peripheral edema , non-tender, peripheral pulses presents, visible tremors with extended SHAWNA UE Skin: No rashes, no lesions, warm to touch. Neuro: No focal neurological deficits. motor and sensory intact Psych: Anxious Results: Labs 01/01/25 09:16 01/01/25 09:16 Labs: Short CBC 12/31/24 01/01/25 Range/Units 14:10 09:16 WBC 5.8 4.4 (3.6-11.0) Thou/mm3 Hgb 10.5 L 8.9 L (12.0-16.0) g/dL Hct 33.1 L 29.6 L (36.0-46.0) % Plt Count 223 168 D (140-440) Thou/mm3 BMP 12/31/24 01/01/25 14:10 09:16 Sodium 141 138 Potassium 3.7 3.7 Chloride 104 103 Carbon Dioxide 18.3 L 17.1 L BUN 16 15 Creatinine 0.7 0.6 Glucose 88 61 L Calcium 8.7 8.6 Liver Function 12/31/24 01/01/25 Range/Units 14:10 09:16 Total Bilirubin 0.5 0.8 (0.3-1.2) mg/dL AST 317 H 292 H (0-34) U/L ALT 169 H 156 H (10-49) U/L Alkaline Phosphatase 123 H 107 (46-116) U/L Albumin 4.4 3.9 D (3.5-5.0) gm/dL Urine 12/31/24 Range/Units 14:05 Urine Color Lt-Yellow (Lt Yel-Yel) Urine Clarity Clear (Clear/Hazy) Urine pH 6.5 (5.0-7.0) Ur Specific Telephone 1.007 (1.001-1.035) Urine Protein Negative (Neg - Trace) Urine Glucose (UA) Negative (Negative) Quality Measures Quality Measures none Medications Home Medications and Allergies Allergies Allergy/AdvReac Type Severity Reaction Status Date / Time No Known Allergies Allergy Verified 12/31/24 13:45 Visit Medications Acetaminophen (Acetaminophen 325 Mg Tablet) 650 mg PO Q6H PRN PRN Reason: pain(1-3) and Fever >100.4 Stop: 01/31/25 09:07 Hydrocodone Bitart/Acetaminophen (Hydrocodone/Apap 5/325 Tablet) 1 tab PO Q4HR PRN PRN Reason: PAIN SCALE 4-10(Mod-Sev Stop: 01/06/25 09:07 Chlordiazepoxide HCl (Chlordiazepoxide Hcl 25 Mg Capsule) 25 mg PO BID [facility] Stop: 01/06/25 09:14 Last Admin: 01/01/25 09:53 Dose: 25 mg Folic Acid (Folic Acid 1 Mg Tablet) 1 mg PO BID [facility] Stop: 01/06/25 20:59 Sodium Chloride (Ns) 1,000 mls @ 75 mls/hr IV .[id number] [facility] Stop: 01/31/25 09:14 Last Admin: 01/01/25 09:48 Dose: 75 mls/hr Lorazepam (Lorazepam 2 Mg/Ml Vial) 0.5 mg IV Q2HR PRN PRN Reason: CIWA SCORE 8-13 Stop: 01/06/25 09:07 Lorazepam (Lorazepam 2 Mg/Ml Vial) 1 mg IV Q2HR PRN PRN Reason: CIWA SCORE 14-19 Stop: 01/06/25 09:07 Lorazepam (Lorazepam 2 Mg/Ml Vial) 2 mg IV Q2HR PRN PRN Reason: CIWA SCORE 20-25 Stop: 01/06/25 09:07 Lorazepam (Lorazepam 2 Mg/Ml Vial) 2 mg IVP X1 PRN PRN Reason: Breakthrough Agitation Ondansetron HCl (Ondansetron Inj 2 Mg/Ml Inj 2 Ml) 4 mg IV Q6H PRN; Protocol PRN Reason: NAUSEA OR VOMITING Stop: 01/31/25 09:07 Sennosides (Senna Tablet) 1 tab PO QDAY PRN; Protocol PRN Reason: constipation Stop: 01/31/25 09:07 Thiamine HCl (Thiamine 100 Mg Tablet) 100 mg PO BID CHYNA Stop: 01/06/25 20:59 Discontinued Medications Acetaminophen (Acetaminophen 325 Mg Tablet) 650 mg PO Q6H PRN PRN Reason: pain and Fever >100.4 Stop: 01/31/25 09:07 Folic Acid (Folic Acid 1 Mg Tablet) 1 mg PO X1 ONE Stop: 01/01/25 08:16 Last Admin: 01/01/25 08:39 Dose: 1 mg Sodium Chloride (Ns) 1,000 mls @ 999 mls/hr IV .Q1H1M ONE Stop: 01/01/25 01:48 Last Infusion: 01/01/25 02:10 Dose: Infused Sodium Chloride (Ns) 1,000 mls @ 999 mls/hr IV .Q1H1M ONE Stop: 01/01/25 09:15 Thiamine HCl 100 mg/ Sodium (Chloride) 101 mls @ 202 mls/hr IV X1 ONE Stop: 01/01/25 08:44 Last Infusion: 01/01/25 09:15 Dose: Infused Lorazepam (Lorazepam 0.5 Mg Tablet) 2 mg PO X1 ONE Stop: 01/01/25 00:24 Last Admin: 01/01/25 00:27 Dose: 2 mg Lorazepam (Lorazepam 2 Mg/Ml Vial) 2 mg IVP X1 ONE Stop: 01/01/25 00:49 Last Admin: 01/01/25 01:04 Dose: 2 mg Lorazepam (Lorazepam 2 Mg/Ml Vial) 2 mg IVP X1 ONE Stop: 01/01/25 08:28 Last Admin: 01/01/25 08:39 Dose: 2 mg Multivitamins (Multivitamins Tablet) 1 tab PO X1 ONE Stop: 01/01/25 08:16 Ondansetron HCl (Ondansetron Inj 2 Mg/Ml Inj 2 Ml) 4 mg IV X1 ONE; Protocol Stop: 01/01/25 00:50 Last Admin: 01/01/25 01:07 Dose: 4 mg Assessment & Plan Plan 34-year-old female with past medical history of prediabetes and anxiety was admitted to the hospital on 01/01/2025 for alcohol withdrawal. #Alcohol withdrawal #Transaminitis #Tachycardia #Hypertension ?Patient has been drinking around half a bottle of tequila for the past 4 days and prior to that she was drinking 2 to 3 glasses of wine every night for 2 months. ?AST 317, ALT 169, ALP 123 on admission ? CIWA score 9 on admission ? Visible tremors ? No visual or auditory hallucinations nor any suicidal or homicidal ideation. ?Madrey score -3.3 points Plan: ? Librium 25 mg twice daily ? CIWA protocol ordered ? IV fluids ? Continue to monitor #Prediabetes ?A1c for morning labs #Anxiety ? Will hold off on restarting patient's home medications at this time. Disposition: Patient admitted to [facility] for alcohol withdrawal continue CIWA and librium 25mg BID . Diet: clear liquid GI prophylaxis: protonix DVT prophylaxis: SCD Code: Full Case disclosed with Attending Dr. Will Jonas PGY1
[2025-01-01] MEDS: MULTIVITAMINS TABLET 1 TAB PO (13:26)
[2025-01-01] MEDS: PANTOPRAZOLE INJ 40 MG VIAL IV (15:21)
[2025-01-01] MEDS: THIAMINE 100 MG TABLET PO (20:04)
[2025-01-02] VITALS (8 sets, daily range): BP systolic 128–141; BP diastolic 83–95; PULSE 84–163; RESP 17–20; TEMP 36.2–36.6; O2SAT 97–99
[2025-01-02] MEDS: SODIUM CHLORIDE 0.9% 1000 ML 1,000 ML 75 ML IV ×2 (05:46→19:15)
[2025-01-02 06:11] LABS: Basophils % (Auto) 1 % (0-2.5); Eosinophils # (Auto) 0.1 Thou/mm3 (0.0-0.5); Eosinophils % (Auto) 3 % (0-10); Hematocrit 29.5 % (36.0-46.0); Hemoglobin 9.1 g/dL (12.0-16.0); Immature Granulocytes % (Auto) 0 % (0-0); Immature Granulocytes Auto 0.01 Thou/mm3 (0.00-0.00); Lymphocytes # (Auto) 1.2 Thou/mm3 (1.0-4.8); Lymphocytes % (Auto) 26 % (10-50); Mean Corpuscular HGB Conc 30.8 g/dl (31.0-37.0); Mean Corpuscular Hemoglobin 24.1 pg (25.0-35.0); Mean Corpuscular Volume 78 fL (80-100); Monocytes # (Auto) 0.4 Thou/mm3 (0.0-0.8); Monocytes % (Auto) 9 % (0-12); Neutrophils # (Auto) 2.7 Thou/mm3 (1.8-7.7); Neutrophils % (Auto) 61 % (37-80); Nucleated Red Blood Cell % 0 /100 WBC (0); Platelet Count 182 Thou/mm3 (140-440); RDW Standard Deviation 47.9 fL (36.4-46.3); Red Blood Count 3.78 Miln/mm3 (4.00-5.20); White Blood Count 4.4 Thou/mm3 (3.6-11.0)
[2025-01-02 06:20] LABS: Alanine Aminotransferase 137 U/L (10-49); Albumin/Globulin Ratio 1.3 (1.2-2.2); Alkaline Phosphatase 103 U/L (46-116); Anion Gap 15 (7-16); Aspartate Amino Transferase 228 U/L (0-34); BUN/Creatinine Ratio 20 Ratio (12-20); Bilirubin,Total 1.1 mg/dL (0.3-1.2); Blood Urea Nitrogen 10 mg/dL (9-23); Calcium 8.8 mg/dL (8.3-10.6); Calcium (Corrected) 8.8 mg/dL (8.5-10.1); Carbon Dioxide 20.2 mMol/L (20.0-31.0); Chloride 98 mMol/L (98-107); Cholesterol 225 mg/dL (132-200); Creatinine (Component) 0.5 mg/dL (0.6-1.3); Estimated Creatinine Clearance 153.4 mL/min (>60); Globulin 3.2 gm/dL (2.3-3.5); Glucose 77 mg/dL (74-106); HDL Cholesterol 115 mg/dL (40-60); LDL Cholesterol,Calculated 94 mg/dL (0-130); Magnesium 1.7 mg/dL (1.6-2.6); Osmolality,Calculated 264 (275-295); Potassium 3.9 mMol/L (3.4-5.1); Sodium 133 mMol/L (136-145); Total Protein 7.2 gm/dL (5.7-8.2); Triglycerides 79 mg/dL (30-150); eGFR > 60 See Note
[2025-01-02 06:51] LABS: Glucose Estimated Average 97 mg/dL (80-131)
[2025-01-02] MEDS: FOLIC ACID 1 MG TABLET PO ×2 (08:44→20:44)
[2025-01-02] MEDS: chlordiazePOXIDE HCl 25 MG CAPSULE PO ×2 (08:44→23:49)
[2025-01-02] MEDS: PANTOPRAZOLE INJ 40 MG VIAL IV (08:44)
[2025-01-02] MEDS: THIAMINE 100 MG TABLET PO ×2 (08:44→20:44)
--- NOTE | 2025-01-02 13:31 | ESPR_ITS ---
<Statement entered by Prabhjot Solis MD - 01/07/25 07:46> I reviewed above note and agree with findings and plans. I have also personally examined the patient with medicine team and went over assessment and plan with medical team including internal communications intern and resident physician. <Statement entered by Apoorva Jeter MD - 01/02/25 13:56> I discussed with and supervised my co-resident involved in the care of this patient. I agree with the assessment and plan as documented above. Patient no acute complaints at bedside. Last drink on Thursday. Will continue Librium and ativan per CIWA protocol. Apoorva Jeter MD PGY-3 Documentation for date of: 01/02/25 Subjective Subjective Interval history: Patient seen at bedside. No major complaints, endorsed excessive sweating overnight. CIWA score at bedside 2. Patient is able to get up and ambulate. Vitals are stable. Hemoglobin stable 9?10. No episodes of vomiting, diarrhea, hallucinations. Continue monitoring and scheduled Librium 25 twice daily. Exam Vital Signs Temp Pulse Resp BP Pulse Ox O2 Del Method 97.8 F 94 17 130/95 H 98 Room Air 01/02/25 12:00 01/02/25 12:00 01/02/25 12:00 01/02/25 12:00 01/02/25 12:00 01/02/25 12:00 Narrative Exam General: Young lady, overweight, no acute distress, cooperative HEENT: NCAT, No JVD noted. Mucosa moist. Pupils are equal and reactive to light bilaterally Cardiovascular: Normal S1 and S2. Regular rate and rhythm. Respiratory: Lungs are clear to auscultation bilaterally. No wheezing or crackles heard. Abdomen: Soft, nontender, not distended, normal bowel sounds. Skin: Warm to touch, dry, no rashes noted Musculoskeletal: No gross injuries. Able to move all 4 extremities. No pitting edema Neuro: Alert and oriented x3. No focal neuro deficits. Light tremor felt at fingertips b/L Psych: Normal affect and mood Objective Labs 01/02/25 04:56 01/02/25 04:56 Labs: Laboratory Results - last 24 hr 01/02/25 04:56 WBC 4.4 RBC 3.78 L Hgb 9.1 L Hct 29.5 L MCV 78 L MCH 24.1 L MCHC 30.8 L RDW Std Deviation 47.9 H Plt Count 182 Neut % (Auto) 61 Lymph % (Auto) 26 Hunt % (Auto) 9 Eos % (Auto) 3 Baso % (Auto) 1 Neut # (Auto) 2.7 Lymph # (Auto) 1.2 Hunt # (Auto) 0.4 Eos # (Auto) 0.1 Baso # (Auto) 0.0 Immature Gran # (Auto) 0.01 H Absolute Nucleated RBC 0.00 Immature Gran % 0 Nucleated RBC % 0 Sodium 133 L Potassium 3.9 Chloride 98 Carbon Dioxide 20.2 Anion Gap 15 BUN 10 Creatinine 0.5 L Estim Creat Clear Calc 153.4 eGFR > 60 BUN/Creatinine Ratio [address] Glu mg/dL 97 Hemoglobin A1c 5.0 Calculated Osmolality 264 L Calcium 8.8 Corrected Calcium 8.8 Magnesium 1.7 Total Bilirubin 1.1 AST 228 H ALT 137 H Alkaline Phosphatase 103 Total Protein 7.2 Albumin 4.0 Globulin 3.2 Albumin/Globulin Ratio 1.3 Triglycerides 79 Cholesterol 225 H LDL Cholesterol, Calc 94 HDL Cholesterol 115 H Cholesterol/HDL Ratio 2.0 L Quality Measures Quality Measures none Assessment & Plan Assessment Current Active Medications: Generic Name Dose Route Start Last Admin Trade Name Freq PRN Reason Stop Dose Admin Acetaminophen 650 mg 01/01/25 09:18 Acetaminophen 325 Mg Tablet PO 01/31/25 09:07 Q6H PRN pain(1-3) and Fever >100.4 Hydrocodone Bitart/Acetaminophen 1 tab 01/01/25 09:08 Hydrocodone/Apap 5/325 Tablet PO 01/06/25 09:07 Q4HR PRN PAIN SCALE 4-10(Mod-Sev Chlordiazepoxide HCl 25 mg 01/01/25 09:15 01/02/25 08:44 Chlordiazepoxide Hcl 25 Mg Capsule PO 01/06/25 09:14 25 mg BID CHYNA Administration Folic Acid 1 mg 01/01/25 21:00 01/02/25 08:44 Folic Acid 1 Mg Tablet PO 01/06/25 20:59 1 mg BID CHYNA Administration Sodium Chloride 1,000 mls @ 75 mls/hr 01/01/25 09:15 01/02/25 05:46 Ns IV 01/31/25 09:14 75 mls/hr .[id number] CHYNA Administration Lorazepam 0.5 mg 01/01/25 09:08 Lorazepam 2 Mg/Ml Vial IV 01/06/25 09:07 Q2HR PRN CIWA SCORE 8-13 Lorazepam 1 mg 01/01/25 09:08 Lorazepam 2 Mg/Ml Vial IV 01/06/25 09:07 Q2HR PRN CIWA SCORE 14-19 Lorazepam 2 mg 01/01/25 09:08 Lorazepam 2 Mg/Ml Vial IV 01/06/25 09:07 Q2HR PRN CIWA SCORE 20-25 Lorazepam 2 mg 01/01/25 09:08 Lorazepam 2 Mg/Ml Vial IVP X1 PRN Breakthrough Agitation Ondansetron HCl 4 mg 01/01/25 09:08 01/01/25 23:33 Ondansetron Inj 2 Mg/Ml Inj 2 Ml IV 01/31/25 09:07 4 mg Q6H PRN Administration NAUSEA OR VOMITING Protocol Pantoprazole Sodium 40 mg 01/01/25 13:30 01/02/25 08:44 Pantoprazole Inj 40 Mg Vial IV 01/31/25 13:29 40 mg QDAY CHYNA Administration Sennosides 1 tab 01/01/25 09:08 Senna Tablet PO 01/31/25 09:07 QDAY PRN constipation Protocol Thiamine HCl 100 mg 01/01/25 21:00 01/02/25 08:44 Thiamine 100 Mg Tablet PO 01/06/25 20:59 100 mg BID CHYNA Administration Plan Mary Jo Tinoco is 34-year-old female with past medical history of prediabetes and anxiety was admitted to the hospital on 01/01/2025 for alcohol withdrawal. #Alcohol withdrawal #Transaminitis #Hypertension Patient has been drinking around half a bottle of tequila for the past 4 days and prior to that she was drinking 2 to 3 glasses of wine every night for 2 months. AST 317, ALT 169, ALP 123 on admission. CIWA score 9 on admission. Madrey score -3.3 points ? Librium 25 mg twice daily ?Continue CIWA protocol ? IV fluids ? Continue to monitor #Hx Anxiety ? Will hold off on restarting patient's home medications at this time. Disposition: med [facility] for alcohol withdrawal, CIWA and librium 25mg BID . Diet: clear liquid GI prophylaxis: protonix DVT prophylaxis: SCD Code: Full The patient's management plan was discussed with my attending physician Dr. Obad. Galeas Read, PGY-1
[2025-01-02] MEDS: LORazepam 2 MG/ML VIAL 0.5 MG IV (17:58)
[2025-01-03] VITALS (10 sets, daily range): BP systolic 124–140; BP diastolic 89–94; PULSE 78–162; RESP 15–19; TEMP 36.1–36.9; O2SAT 98–100
--- NOTE | 2025-01-03 05:00 | PC.NURSE ---
tele stormior called rn 2x at [facility]. 1st was due to to=131's pt was in restroom, 2nd time was hd=064's pt was using bedside commode.
[2025-01-03 05:31] LABS: Basophils % (Auto) 1 % (0-2.5); Eosinophils # (Auto) 0.2 Thou/mm3 (0.0-0.5); Eosinophils % (Auto) 5 % (0-10); Hematocrit 28.2 % (36.0-46.0); Immature Granulocytes % (Auto) 0 % (0-0); Immature Granulocytes Auto 0.01 Thou/mm3 (0.00-0.00); Lymphocytes # (Auto) 0.9 Thou/mm3 (1.0-4.8); Lymphocytes % (Auto) 24 % (10-50); Mean Corpuscular HGB Conc 30.5 g/dl (31.0-37.0); Mean Corpuscular Hemoglobin 23.6 pg (25.0-35.0); Mean Corpuscular Volume 78 fL (80-100); Monocytes # (Auto) 0.3 Thou/mm3 (0.0-0.8); Monocytes % (Auto) 8 % (0-12); Neutrophils # (Auto) 2.4 Thou/mm3 (1.8-7.7); Neutrophils % (Auto) 62 % (37-80); Nucleated Red Blood Cell % 0 /100 WBC (0); Platelet Count 146 Thou/mm3 (140-440); RDW Standard Deviation 47.4 fL (36.4-46.3); Red Blood Count 3.64 Miln/mm3 (4.00-5.20); White Blood Count 3.9 Thou/mm3 (3.6-11.0)
[2025-01-03 05:37] LABS: Hemoglobin 8.6 g/dL (12.0-16.0)
[2025-01-03] MEDS: SODIUM CHLORIDE 0.9% 1000 ML 1,000 ML 75 ML IV (06:03)
[2025-01-03] MEDS: chlordiazePOXIDE HCl 25 MG CAPSULE PO ×2 (06:08→23:29)
[2025-01-03 07:16] LABS: Alanine Aminotransferase 132 U/L (10-49); Albumin, Serum 3.5 gm/dL (3.5-5.0); Albumin/Globulin Ratio 1.1 (1.2-2.2); Alkaline Phosphatase 102 U/L (46-116); Anion Gap 12 (7-16); Aspartate Amino Transferase 231 U/L (0-34); BUN/Creatinine Ratio 20 Ratio (12-20); Bilirubin,Total 0.6 mg/dL (0.3-1.2); Blood Urea Nitrogen 10 mg/dL (9-23); Calcium 8.7 mg/dL (8.3-10.6); Calcium (Corrected) 9.1 mg/dL (8.5-10.1); Carbon Dioxide 22.3 mMol/L (20.0-31.0); Chloride 102 mMol/L (98-107); Creatinine (Component) 0.5 mg/dL (0.6-1.3); Estimated Creatinine Clearance 153.4 mL/min (>60); Globulin 3.1 gm/dL (2.3-3.5); Glucose 103 mg/dL (74-106); Magnesium 1.6 mg/dL (1.6-2.6); Osmolality,Calculated 270 (275-295); Potassium 3.6 mMol/L (3.4-5.1); Sodium 136 mMol/L (136-145); Total Protein 6.6 gm/dL (5.7-8.2); eGFR > 60 See Note
[2025-01-03] MEDS: FOLIC ACID 1 MG TABLET PO ×2 (08:44→23:29)
[2025-01-03] MEDS: PANTOPRAZOLE INJ 40 MG VIAL IV (08:44)
[2025-01-03] MEDS: THIAMINE 100 MG TABLET PO ×2 (08:44→23:29)
--- NOTE | 2025-01-03 10:57 | CHAP ---
Patient was visited by a Spiritual Care Volunteer on 01/03/2025 between 0900 and 0948 and received comfort, encouragement, and/or prayer.
--- NOTE | 2025-01-03 11:55 | ESPR_ITS ---
<Statement entered by Prabhjot Solis MD - 01/07/25 07:48> I reviewed above note and agree with findings and plans. I have also personally examined the patient with medicine team and went over assessment and plan with medical team including integrated marketing intern and resident physician. <Statement entered by Apoorva Jeter MD - 01/03/25 13:33> I discussed with and supervised my co-resident involved in the care of this patient. I agree with the assessment and plan as documented above. Patient seen and examined at bedside. Some mild nausea food. No other acute complaints. Was notified does have episodes of tachycardia on the monitor whenever patient gets up, but not sustained and HR returns to normal. Patient wanted to leave today but was recommended to stay to ensure patient is outside of alcohol withdrawal delirium tremens timeframe window. Patient is agreeable. Endorses feeling safe at home. Will discontinue IVF as patient is tolerating oral intake, does not appear dehydrated. Will wean Librium down to 25 BID today and 25mg oral tomorrow before discharge. Apoorva Jeter MD PGY-3 Documentation for date of: 01/03/25 Subjective Subjective Interval history: Patient was seen at bedside this morning. Doing a lot better, but still some mild tremors with extended upper extremities. She was called today was 3. Patient did mention that she had some nausea, but has not vomited. She has no suicidal homicidal ideation and has not been having any hallucination at this time. Will decrease Librium to 25 twice daily today and tomorrow will transition to Librium times 1 in the morning. Patient for possible discharge. Patient wanted to leave today AMA, but agreed to stay to monitor overnight. No other complaints this time. Exam Vital Signs Temp Pulse Resp BP Pulse Ox O2 Del Method 97.7 F 91 16 124/89 H 98 Room Air 01/03/25 07:37 01/03/25 07:37 01/03/25 07:37 01/03/25 07:37 01/03/25 07:37 01/03/25 07:37 Narrative Exam General: A/O x3, no acute distress Eyes: PERRL, EOMI. Anicteric, vision grossly intact. Ears: No ear pain, no ear discharge, Hearing grossly intact. Nose: No nasal discharge. Mouth/Throat: Moist mucous membranes, no redness, no lesions. Neck: Neck supple, non-tender, no cervical lymphadenopathy. Lungs: Clear SHAWNA to auscultation and percussion, No accessory muscle use. Cardio: Normal S1/S2, tachycardic, no murmurs, no JVD. Abdomen: Soft, non-tender, no palpable masses, peristalsis present, no guarding or rebound. Extremities: Symmetrical, no significant deformities, no peripheral edema , non-tender, peripheral pulses presents, visible tremors with extended SHAWNA UE but improving Skin: No rashes, no lesions, warm to touch. Neuro: No focal neurological deficits. motor and sensory intact Psych: Cooperative Objective Labs 01/03/25 04:58 01/03/25 04:58 Labs: Laboratory Results - last 24 hr 01/03/25 04:58 WBC 3.9 RBC 3.64 L Hgb 8.6 L Hct 28.2 L MCV 78 L MCH 23.6 L MCHC 30.5 L RDW Std Deviation 47.4 H Plt Count 146 D Neut % (Auto) 62 Lymph % (Auto) 24 Braxton % (Auto) 8 Eos % (Auto) 5 Baso % (Auto) 1 Neut # (Auto) 2.4 Lymph # (Auto) 0.9 L Braxton # (Auto) 0.3 Eos # (Auto) 0.2 Baso # (Auto) 0.0 Immature Gran # (Auto) 0.01 H Absolute Nucleated RBC 0.00 Immature Gran % 0 Nucleated RBC % 0 Sodium 136 Potassium 3.6 Chloride 102 Carbon Dioxide 22.3 Anion Gap 12 BUN 10 Creatinine 0.5 L Estim Creat Clear Calc 153.4 eGFR > 60 BUN/Creatinine Ratio 20 Glucose 103 Calculated Osmolality 270 L Calcium 8.7 Corrected Calcium 9.1 Magnesium 1.6 Total Bilirubin 0.6 D AST 231 H ALT 132 H Alkaline Phosphatase 102 Total Protein 6.6 Albumin 3.5 D Globulin 3.1 Albumin/Globulin Ratio 1.1 L Quality Measures Quality Measures none Assessment & Plan Assessment Current Active Medications: Generic Name Dose Route Start Last Admin Trade Name Freq PRN Reason Stop Dose Admin Acetaminophen 650 mg 01/01/25 09:18 Acetaminophen 325 Mg Tablet PO 01/31/25 09:07 Q6H PRN pain(1-3) and Fever >100.4 Hydrocodone Bitart/Acetaminophen 1 tab 01/01/25 09:08 Hydrocodone/Apap 5/325 Tablet PO 01/06/25 09:07 Q4HR PRN PAIN SCALE 4-10(Mod-Sev Chlordiazepoxide HCl 25 mg 01/03/25 21:00 Chlordiazepoxide Hcl 25 Mg Capsule PO 01/08/25 20:59 BID CHYNA Folic Acid 1 mg 01/01/25 21:00 01/03/25 08:44 Folic Acid 1 Mg Tablet PO 01/06/25 20:59 1 mg BID CHYNA Administration Lorazepam 0.5 mg 01/01/25 09:08 01/02/25 17:58 Lorazepam 2 Mg/Ml Vial IV 01/06/25 09:07 0.5 mg Q2HR PRN Administration CIWA SCORE 8-13 Lorazepam 1 mg 01/01/25 09:08 Lorazepam 2 Mg/Ml Vial IV 01/06/25 09:07 Q2HR PRN CIWA SCORE 14-19 Lorazepam 2 mg 01/01/25 09:08 Lorazepam 2 Mg/Ml Vial IV 01/06/25 09:07 Q2HR PRN CIWA SCORE 20-25 Lorazepam 2 mg 01/01/25 09:08 Lorazepam 2 Mg/Ml Vial IVP X1 PRN Breakthrough Agitation Ondansetron HCl 4 mg 01/01/25 09:08 01/01/25 23:33 Ondansetron Inj 2 Mg/Ml Inj 2 Ml IV 01/31/25 09:07 4 mg Q6H PRN Administration NAUSEA OR VOMITING Protocol Pantoprazole Sodium 40 mg 01/01/25 13:30 01/03/25 08:44 Pantoprazole Inj 40 Mg Vial IV 01/31/25 13:29 40 mg QDAY CHYNA Administration Sennosides 1 tab 01/01/25 09:08 Senna Tablet PO 01/31/25 09:07 QDAY PRN constipation Protocol Thiamine HCl 100 mg 01/01/25 21:00 01/03/25 08:44 Thiamine 100 Mg Tablet PO 01/06/25 20:59 100 mg BID CHYNA Administration Plan 34-year-old female with past medical history of prediabetes and anxiety was admitted to the hospital on 01/01/2025 for alcohol withdrawal. #Alcohol withdrawal #Transaminitis #Tachycardia #Hypertension ?Patient has been drinking around half a bottle of tequila for the past 4 days and prior to that she was drinking 2 to 3 glasses of wine every night for 2 months. ?AST 317, ALT 169, ALP 123 on admission, downtrending ? CIWA score 3 today ? Visible tremors ? No visual or auditory hallucinations nor any suicidal or homicidal ideation. ?Madrey score -3.3 points Plan: ? Librium 25 mg twice daily, and qday tomorrow ? CIWA protocol ordered ? Continue to monitor #Prediabetes ?A1c 5% 12/2024 #Anxiety ? Will hold off on restarting patient's home medications at this time. Disposition: Pending DC in next 24-48 hrs. Diet: regular GI prophylaxis: protonix DVT prophylaxis: SCD Code: Full Case disclosed with Attending Dr. Solis and my senior Dr. Corona Jonas PGY1
[2025-01-04] VITALS: BP 119/81; PULSE 88; PULSE 91; RESP 17; TEMP 36.4; O2SAT 99
[2025-01-04 04:00] VITALS: BP 121/78; PULSE 90; RESP 17; TEMP 36.6; O2SAT 97
[2025-01-04 05:57] LABS: Basophils % (Auto) 1 % (0-2.5); Eosinophils # (Auto) 0.2 Thou/mm3 (0.0-0.5); Eosinophils % (Auto) 5 % (0-10); Hematocrit 29.3 % (36.0-46.0); Immature Granulocytes % (Auto) 0 % (0-0); Immature Granulocytes Auto 0.01 Thou/mm3 (0.00-0.00); Lymphocytes # (Auto) 1.1 Thou/mm3 (1.0-4.8); Lymphocytes % (Auto) 23 % (10-50); Mean Corpuscular HGB Conc 30.7 g/dl (31.0-37.0); Mean Corpuscular Hemoglobin 23.9 pg (25.0-35.0); Mean Corpuscular Volume 78 fL (80-100); Monocytes # (Auto) 0.4 Thou/mm3 (0.0-0.8); Monocytes % (Auto) 9 % (0-12); Neutrophils # (Auto) 2.9 Thou/mm3 (1.8-7.7); Neutrophils % (Auto) 63 % (37-80); Nucleated Red Blood Cell % 0 /100 WBC (0); Platelet Count 197 Thou/mm3 (140-440); RDW Standard Deviation 46.8 fL (36.4-46.3); Red Blood Count 3.76 Miln/mm3 (4.00-5.20); White Blood Count 4.7 Thou/mm3 (3.6-11.0)
[2025-01-04 06:22] LABS: Alanine Aminotransferase 133 U/L (10-49); Albumin, Serum 3.8 gm/dL (3.5-5.0); Albumin/Globulin Ratio 1.2 (1.2-2.2); Alkaline Phosphatase 107 U/L (46-116); Anion Gap 13 (7-16); Aspartate Amino Transferase 155 U/L (0-34); BUN/Creatinine Ratio 22 Ratio (12-20); Bilirubin,Total 0.5 mg/dL (0.3-1.2); Blood Urea Nitrogen 11 mg/dL (9-23); Calcium 9.2 mg/dL (8.3-10.6); Calcium (Corrected) 9.4 mg/dL (8.5-10.1); Carbon Dioxide 23.3 mMol/L (20.0-31.0); Chloride 102 mMol/L (98-107); Creatinine (Component) 0.5 mg/dL (0.6-1.3); Estimated Creatinine Clearance 153.4 mL/min (>60); Globulin 3.3 gm/dL (2.3-3.5); Glucose 117 mg/dL (74-106); Magnesium 1.6 mg/dL (1.6-2.6); Osmolality,Calculated 276 (275-295); Potassium 3.4 mMol/L (3.4-5.1); Sodium 138 mMol/L (136-145); Total Protein 7.1 gm/dL (5.7-8.2); eGFR > 60 See Note
[2025-01-04 07:45] VITALS: BP 124/84; PULSE 76; RESP 17; TEMP 36.2; O2SAT 97
[2025-01-04 08:00] VITALS: PULSE 77
--- NOTE | 2025-01-04 09:05 | ESDS_ITS ---
<Statement entered by Prabhjot Solis MD - 01/07/25 07:50> I reviewed above note and agree with findings and plans. I have also personally examined the patient with medicine team and went over assessment and plan with medical team including internal salesperson and resident physician. Planned Discharge Date 01/04/25 DS: Providers Provider Date of admission: 01/01/25 09:07 Primary care physician: Physician No Primary/Family Admitting Provider: Prabhjot Solis MD Attending Provider on Admission: Prabhjot Solis MD Consults: 01/01/25 17:44 Health Equity Referral - Utilities Routine Comment: Positive screening for utility assistance needs. Attending Provider on DC: Prabhjot Solis MD Discharging Provider: Prabhjot Solis MD DS: Diagnosis Problem List Completed Was Problem List Reviewed/Reconciled?: Yes Hospital Course Hospital Course Hospital course: 34-year-old female with past medical history of prediabetes and anxiety was admitted to the hospital on 01/01/2025 for alcohol withdrawal. Came in to the ED with complaints of suicidal ideation, depression, and alcohol withdrawal. Initially patient was tachycardic and afebrile. Initial labs were relevant for low hemoglobin (10.5), high anion gap metabolic acidosis (bicarb 18.3), transaminitis (AST 317, ALT 169, alkaline phosphatase 123), and alcohol level of 497.6. Initial imaging included EKG which showed sinus tachycardia. Patient was cleared by crisis team therefore she was admitted to the hospital. She had been drinking for the past 2 months every day around 2-3 wine glasses every night and for the last 4 days prior to admission she had been drinking around half a bottle of tequila. She came in with nausea and vomiting, but no blood. Initial CIWA score was 9. Patient was placed on Librium 25 mg twice daily initially which then was up trended to 3 times daily the next day and then titrated down to daily along with CIWA protocol. During the hospital stay patient remained stable and she did not require high doses of Ativan. On the second day of hospital stay patient wanted to go home, but she agreed to stay 1 more night as we want to keep her overnight to make sure that she did not withdraw she was in the 48 to 72-hour window. She remained stable without hallucination and no tremors. At the time of discharge patient was stable enough to be discharged home. Discharge plan: Please follow-up with your primary care physician within 1 week upon discharge Recommend to follow-up with your primary care physician on the possibility of seeing a counselor as outpatient. Recommend abstaining entirely from alcohol to avoid any further hospitalizations due to alcohol withdrawal or alcohol intoxication Please avoid using alcohol complains of any medication. Please come back to the ER if symptoms persist or worsen Problem list: #Alcohol withdrawal #Transaminitis #Tachycardia #Hypertension #Anxiety Case disclosed with Attending Dr. Solis and My senior Dr. Jeter PGY3. Jose Roberto Jonas PGY1 Status at Discharge Overall status at discharge: patient is progressing back to baseline Time Spent with Patient Time attestation: Total time spent providing and/or coordinating discharge services:>35 min Exam Vital Signs Temp Pulse Resp BP Pulse Ox O2 Del Method 97.2 F 76 17 124/84 97 Room Air 01/04/25 07:45 01/04/25 07:45 01/04/25 07:45 01/04/25 07:45 01/04/25 07:45 01/04/25 07:45 Narrative Exam General: A/O x3, no acute distress Eyes: PERRL, EOMI. Anicteric, vision grossly intact. Ears: No ear pain, no ear discharge, Hearing grossly intact. Nose: No nasal discharge. Mouth/Throat: Moist mucous membranes, no redness, no lesions. Neck: Neck supple, non-tender, no cervical lymphadenopathy. Lungs: Clear SHAWNA to auscultation and percussion, No accessory muscle use. Cardio: Normal S1/S2, tachycardic, no murmurs, no JVD. Abdomen: Soft, non-tender, no palpable masses, peristalsis present, no guarding or rebound. Extremities: Symmetrical, no significant deformities, no peripheral edema , non-tender, peripheral pulses presents, no visible tremors today Skin: No rashes, no lesions, warm to touch. Neuro: No focal neurological deficits. motor and sensory intact Psych: Cooperative Discharge Plan Plan Patient Disposition: HOME (Self Care) Care Plan Goals: Please follow-up with your primary care physician within 1 week upon discharge Recommend to follow-up with your primary care physician on the possibility of seeing a counselor as outpatient. Recommend abstaining entirely from alcohol to avoid any further hospitalizations due to alcohol withdrawal or alcohol intoxication Please avoid using alcohol complains of any medication. Please come back to the ER if symptoms persist or worsen Prescriptions/Referrals Prescriptions/Med Rec: Discontinued ondansetron 4 mg tablet,disintegrating 4 mg PO Q8H Qty: 14 0RF chlordiazepoxide HCl 25 mg capsule 25 mg PO BID Qty: 14 0RF famotidine 20 mg tablet 20 mg PO BID Qty: 20 0RF hydrocortisone acetate [Anusol-HC] 25 mg suppository 25 mg WI BID Qty: 6 0RF Referrals: No Primary/Family,Physician [Primary Care Provider] - Patient/Caregiver Discharge Instructions Other Discharge Activity Instructions:: Please follow-up with your primary care physician within 1 week upon discharge Recommend to follow-up with your primary care physician on the possibility of seeing a counselor as outpatient. Recommend abstaining entirely from alcohol to avoid any further hospitalizations due to alcohol withdrawal or alcohol intoxication Please avoid using alcohol complains of any medication. Please come back to the ER if symptoms persist or worsen Education Materials: ED Alcohol Withdrawal Print Language: Kinyarwanda Stand Alone Forms: Nicole Award Info., Patient Portal Info Letter Discharge Order Discharge Orders: Discharge (Routine); Ordered 01/04/25 Ordered By: Jose Roberto Jonas Quality Discharge Quality Measures VTE prophylaxis
== END 2025-01-04 11:34 | disposition home or self-care (01) | DRG 897 ==
LOC: SERX 01-01 08:26 → SERHOLD 01-01 09:19 → S3SX 01-01 17:22
PROVIDERS: Nurse Practitioner Family; Admitting Provider Internal Medicine; Emergency Provider Emergency Medicine; Visit Provider Internal Medicine
DX: F10.239 Alcohol dependence with withdrawal, unspecified (principal); R45.851 Suicidal ideations; F10.229 Alcohol dependence with intoxication, unspecified; Y90.8 Blood alcohol level of 240 mg/100 ml or more; R73.03 Prediabetes; F41.9 Anxiety disorder, unspecified; F32.A Depression, unspecified; R74.01 Elevation of levels of liver transaminase levels; I10 Essential (primary) hypertension; R25.1 Tremor, unspecified; Z63.5 Disruption of family by separation and divorce
CPT/HCPCS: 36415; 80053; 80061; 80307; 80320; 80329; 81001; 81025; 83036; 83735; 84436; 84443; 85025; 85610; 85730; 90839; 93005; 93225; 96127; 96361; 96365; 96375; 96376; 99285; J2060; J2405; J2470; J3411; J7030; J7050; A9270; G0480

== ENCOUNTER 2025-03-02 07:41 | Emergency (ER) | payer MEDICAID, SELFPAY ==
[2025-03-02 07:42] VITALS: BMI 34.0
[2025-03-02 08:09] VITALS: BP 138/91; PULSE 138; RESP 16; TEMP 37.1; O2SAT 97; BMI 31.8
--- NOTE | 2025-03-02 08:10 | EDNOTE_ITS ---
ED General RME/HPI General Chief complaint: General Adult/Misc Complain Stated complaint: DRINKING ETOH X2DAYS FEELS WEAK NOW Time Seen by Provider: 03/02/25 07:44 Source: patient Arrival date/time: 03/02/25 07:41 35-year-old female with no known medical history presents to the emergency room with a chief complaint of feeling weak and fatigued after drinking a large amount of alcohol 2 days ago. Mode of arrival: ambulatory Limitations: no limitations Related Data Previous Rx's ?Medication ?Instructions ?Recorded ferrous sulfate 325 mg (65 mg 325 mg PO Q OTHER DAY #1 4 tabs 03/02/25 iron) tablet (Iron (ferrous sulfate)) Allergies Allergy/AdvReac Type Severity Reaction Status Date / Time No Known Allergies Allergy Verified 03/02/25 07:44 Review of Systems Review of Systems Systems Reviewed: All systems reviewed, normal except as documented Constitutional Constitutional: Reports system reviewed and no additional complaints, except as documented, Denies fatigue, Denies fever(s), Denies headache(s) and Denies weakness Eyes Eyes: Reports system reviewed and no additional complaints, except as documented, Denies blurry vision and Denies change in vision ENT Ears, Nose, Mouth, and Throat: Reports system reviewed and no additional complaints, except as documented, Denies otalgia, Denies headache(s), Denies nasal congestion, Denies throat swelling and Denies vertigo Cardiovascular Cardiovascular: Reports system reviewed and no additional complaints, except as documented, Denies chest pain, Denies dyspnea and Denies dyspnea on exertion Respiratory Respiratory: Reports system reviewed and no additional complaints, except as documented, Denies chest congestion, Denies cough, Denies dyspnea, Denies dyspnea on exertion and Denies wheezing Gastrointestinal Gastrointestinal: Reports system reviewed and no additional complaints, except as documented, Denies abdominal pain, Denies cramping, Denies nausea and Denies vomiting Genitourinary Genitourinary: Reports system reviewed and no additional complaints, except as documented Musculoskeletal Musculoskeletal: Reports system reviewed and no additional complaints, except as documented and Denies back pain Integumentary/Breasts Skin/Breast: Reports system reviewed and no additional complaints, except as documented and Denies wounds Neurologic Neurologic: Reports system reviewed and no additional complaints, except as documented, Denies confusion, Denies headache(s), Denies lack of coordination, Denies vertigo and Denies weakness Psychiatric Psychiatric: Reports system reviewed and no additional complaints, except as documented, Denies anxiety, Denies confusion, Denies depression, Denies paranoia, Denies suicidal ideation and Denies tactile hallucinations Endocrine Endocrine: Reports system reviewed and no additional complaints, except as documented and Denies fatigue Hematologic/Lymphatic Hematologic/Lymphatic: Reports system reviewed and no additional complaints, except as documented and Denies lymphadenopathy Allergic/Immunologic Allergic/Immunologic: Reports system reviewed and no additional complaints, except as documented, Denies throat swelling, Denies urticaria and Denies wheezing Past Medical History Past Medical History NEUROLOGIC: Negative Neurological Disorders CARDIAC: Negative Cardiac Disorders or Congestive Heart Failure RESPIRATORY: Negative Chronic Obstructive Pulmonary Disease (COPD) GASTROINTESTINAL: Negative Gastrointestinal Disorders, Hepatitis or Colorectal Cancer GENITOURINARY: Negative Genitourinary Disorders, Renal Disease or Prostate Cancer REPRODUCTIVE: Positive Previous Pregnancies; Negative Breast Cancer, Endometriosis, Pelvic Inflammatory Disease, Testicular Cancer or Uterine Prolapse MUSCULOSKELETAL: Negative Musculoskeletal Disorders or Bone Cancer ENDOCRINE: Negative Endocrine Disorders, Diabetes Mellitus Type 1 or Diabetes Mellitus Type 2 HEMATOLOGIC: Negative Blood Disorders OTHER HISTORY: Negative Hospitalization, Autoimmune Disease, Down Syndrome, Developmental Delay, Shingles, Falls, Blood Transfusions, Blood Transfusion Reaction, Anesthesia Reactions, Chemotherapy, Radiation Therapy, Hyperbaric Therapy, MRSA, VRSA, Vancomycin-Resistant Enterococci, Human Immunodeficiency Virus (HIV), Chicken Pox, Measles, Mumps, Rubella ([place] Measles), Pertussis, Clostridium Difficile, Breast Cancer, Cervical Cancer, Colorectal Cancer, Lung Cancer, Prostate Cancer or Testicular Cancer Family History FAMILY HISTORY: Negative Family Psychiatric Problems, Family Respiratory Disorders, Family Cardiac Disorders, Family Gastrointestinal Problems, Family Cancer, Family Surgery or Family Anesthesia Reaction Surgical History SURGICAL: Negative Section Social History SMOKING STATUS: Never smoker ED Exam General Limitations: Present no limitations General appearance: Present alert and in no apparent distress Head Head exam: Present atraumatic Eye Eye exam: Present normal appearance, PERRL and EOMI ENT ENT exam: Present normal exam, normal oropharynx and mucous membranes moist Neck Neck exam: Present normal inspection, full ROM and trachea midline Chest Chest inspection: Present normal inspection and symmetric chest wall rise Respiratory Respiratory exam: Present normal lung sounds bilaterally Cardiovascular Cardiovascular exam: Present regular rate, normal rhythm and normal heart sounds; Absent bradycardia, tachycardia or irregular rhythm Abdominal Exam Abdominal exam: Present soft and normal bowel sounds; Absent distention, tenderness or guarding Extremities Exam Extremities exam: Present normal inspection and full ROM Back Exam Back exam: Present normal inspection and full ROM Neurological Exam Neurological exam: Present alert, oriented X3 and CN II-XII intact Psychiatric Psychiatric exam: Present normal affect and normal mood Skin Skin exam: Present warm, dry, intact and normal color Course Quality Measures none Orders Category Date Time Status Alcohol, Blood Medical Stat Lab 03/02/25 08:19 Completed CBC Stat Lab 03/02/25 08:19 Completed CMP [Comprehensive Metabolic Panel] Stat Lab 03/02/25 08:19 Completed Vital Signs Vital signs: Vital Signs Temperature 98.7 F 03/02/25 08:09 Pulse Rate 138 H 03/02/25 08:09 Respiratory Rate 16 03/02/25 08:09 Blood Pressure 138/91 H 03/02/25 08:09 Pulse Oximetry (%) 97 03/02/25 08:09 Oxygen Delivery Method Room Air 03/02/25 08:09 Discharge Plan Plan Patient Disposition: HOME (Self Care) Disposition Comment: Stable Prescriptions/Referrals Prescriptions/Med Rec: New ferrous sulfate [Iron (ferrous sulfate)] 325 mg (65 mg iron) tablet 325 mg PO Q OTHER DAY Qty: 14 0RF Referrals: No Primary/Family,Physician [Primary Care Provider] - In 1 week Problem List Clinical Impression: Alcoholic intoxication, Iron deficiency anemia Patient/Caregiver Discharge Instructions Education Materials: ED Anemia, Iron-Deficiency (Adult), ED Alcohol Intoxication Additional Instructions: Please follow-up with your primary care provider in the next 24 to 48 hours. Medication was sent to your pharmacy for your anemia please pick it up and take it as indicated as this could be one of the reasons you are having your symptoms. Please avoid drinking alcohol. For any evidence of worsening signs or symptoms return to the emergency room immediately Print Language: Czech Stand Alone Forms: [employer] Award Info., Work/School Release, Patient Portal Info Letter PA/IMPREGNATOR AND DRIER HELPER Supervising Physician PA/BIB Supervising Physician: Dr. Dottie BACA Patient Acuity Low Acuity (complete MDM as needed) Narrative: 35-year-old female with no known medical history presents to the emergency room with a chief complaint of feeling weak and fatigued after drinking a large amount of alcohol 2 days ago. Patient is hemodynamically stable and in no apparent distress. Patient states the large amount of alcohol was 2 days ago. CBC CMP were completed and there is no electrolyte imbalance. CBC does show some iron deficiency anemia anemia. Medication was sent to the patient's pharmacy Patient's alcohol level was still elevated. I had a talk with the patient and told her that she needs to stop drinking alcohol as this is a major cause of all the symptoms in her life right now. Patient at this point states she does not need any help trying to stop alcohol that she does not recreationally. Patient was discharged and educated to follow-up with primary care provider in the next 24 to 48 hours and return to the emergency room for any evidence of worsening signs or symptoms Clinical Information Provided by: none Medical Records reviewed None Meds/Rx considered, not ordered None Labs/Rad/Tests considered, not ordered None Chronic Illness/Social Conditions which may negatively complicate care or outcome(s)-explain: None or not applicable EKG EKG not done Labs Labs: Interpreted by me and none Imaging Imaging interpretation: none or see narrative above Medication Administration(s) none Diagnosis Differential Diagnosis ED Complaint MDM: Iron deficiency anemia/alcohol intoxication/electrolyte imbalance Diagnoses ruled out: Electrolyte imbalance
[2025-03-02 08:31] LABS: Basophils # (Auto) 0.1 Thou/mm3 (0.0-0.2); Basophils % (Auto) 1 % (0-2.5); Eosinophils % (Auto) 1 % (0-10); Hemoglobin 9.9 g/dL (12.0-16.0); Immature Granulocytes % (Auto) 0 % (0-0); Immature Granulocytes Auto 0.01 Thou/mm3 (0.00-0.00); Lymphocytes # (Auto) 1.8 Thou/mm3 (1.0-4.8); Lymphocytes % (Auto) 33 % (10-50); Mean Corpuscular Hemoglobin 20.5 pg (25.0-35.0); Mean Corpuscular Volume 68 fL (80-100); Monocytes # (Auto) 0.3 Thou/mm3 (0.0-0.8); Monocytes % (Auto) 6 % (0-12); Neutrophils # (Auto) 3.3 Thou/mm3 (1.8-7.7); Neutrophils % (Auto) 60 % (37-80); Nucleated Red Blood Cell % 0 /100 WBC (0); Platelet Count 308 Thou/mm3 (140-440); RDW Standard Deviation 40.2 fL (36.4-46.3); Red Blood Count 4.84 Miln/mm3 (4.00-5.20); White Blood Count 5.5 Thou/mm3 (3.6-11.0)
[2025-03-02 08:56] LABS: Alanine Aminotransferase 59 U/L (10-49); Albumin, Serum 4.6 gm/dL (3.5-5.0); Albumin/Globulin Ratio 1.2 (1.2-2.2); Alcohol, Blood Medical 238.2 mg/dL (0-10.0); Alkaline Phosphatase 117 U/L (46-116); Anion Gap 20 (7-16); Aspartate Amino Transferase 91 U/L (0-34); BUN/Creatinine Ratio 20 Ratio (12-20); Bilirubin,Total 0.7 mg/dL (0.3-1.2); Blood Urea Nitrogen 14 mg/dL (9-23); Calcium 8.8 mg/dL (8.3-10.6); Calcium (Corrected) 8.8 mg/dL (8.5-10.1); Carbon Dioxide 16.2 mMol/L (20.0-31.0); Chloride 101 mMol/L (98-107); Creatinine (Component) 0.7 mg/dL (0.6-1.3); Estimated Creatinine Clearance 105.9 mL/min (>60); Globulin 3.7 gm/dL (2.3-3.5); Glucose 77 mg/dL (74-106); Osmolality,Calculated 273 (275-295); Potassium 3.9 mMol/L (3.4-5.1); Sodium 137 mMol/L (136-145); Total Protein 8.3 gm/dL (5.7-8.2); eGFR > 60 See Note
[2025-03-02 10:22] VITALS: BP 118/85; PULSE 122; RESP 19; TEMP 36.7; O2SAT 99
--- NOTE | 2025-03-02 10:23 | PC.NURSE ---
ARIEL ROOF PANEL HANGER NOTIFIED THAT PT'S HR 122 BEFORE DISCHARGE; PER ARIEL GU, PT OK FOR DISCHARGE AT THIS TIME; PT RECOVERING FROM DRINKING ALCOHOL. PT EDUCATED TO DRINK MORE WATER AT HOME PRIOR TO DISCHARGE.
== END 2025-03-02 10:25 | disposition home or self-care (01) ==
PROVIDERS: Nurse Practitioner Family; Emergency Provider Emergency Medicine
DX: F10.129 Alcohol abuse with intoxication, unspecified (principal); D50.9 Iron deficiency anemia, unspecified; Y90.9 Presence of alcohol in blood, level not specified
CPT/HCPCS: 36415; 80053; 80320; 85025; 99283; G0480

== ENCOUNTER 2025-03-02 14:43 | Emergency (ER) | payer MEDICAID, SELFPAY ==
[2025-03-02 14:43] VITALS: BP 135/88; PULSE 124; RESP 19; TEMP 37.1; O2SAT 97
[2025-03-02 15:21] VITALS: PULSE 127; RESP 20; O2SAT 99; BMI 32.1
--- NOTE | 2025-03-02 15:22 | PD.EDSYNC ---
ED Syncope RME/HPI General Chief Complaint: Syncope / Near Syncope Stated Complaint: NEAR SYNCOPE Time Seen by Provider: 03/02/25 15:01 Arrival date/time: 03/02/25 14:43 RME / HPI RME / HPI narrative: 35-year old female patient was brought in by EMS for evaluation regarding near syncope. Patient admits to being alcoholic, last drink yesterday, been complaining of nausea, vomiting, near-syncope, and not feeling well. Patient was seen here earlier today for the same complaints. Patient did not totally lost her consciousness. Patient is denying any headache chest pain abdominal pain. Patient is not planning to stop drinking alcohol. Related Data Previous Rx's ?Medication ?Instructions ?Recorded chlordiazepoxide HCl 25 mg capsule 25 mg PO Q12H PRN alcohol 03/02/25 withdrawal #14 caps ferrous sulfate 325 mg (65 mg 325 mg PO Q OTHER DAY #14 tabs 03/02/25 iron) tablet (Iron (ferrous sulfate)) Allergies Allergy/AdvReac Type Severity Reaction Status Date / Time No Known Allergies Allergy Verified 03/02/25 07:44 Review of Systems Review of Systems Narrative Review of Systems: Review of system reviewed and within normal limits except mentioned in HPI ED Exam Narrative Physical exam: VITAL SIGNS: Reviewed. GENERAL APPEARANCE: Alert and interactive, follows commands, no acute distress, HEAD AND FACE: Non-traumatic. ENT: PERRL, pink conjunctivitis, eyelid no trauma, Mucous membrane moist. NECK: Supple, nontender, no nuchal rigidity. CHEST: No tenderness, no crepitus, no paradoxical movement, no retractions. LUNGS: Clear, well ventilated, symmetric, no rales, no wheezing, no ronchi, no stridor, good breath sounds bilaterally. HEART: Regular rate, regular rhythm, no murmur, no gallops. ABDOMEN: Soft, positive bowel sounds, nondistended, no guarding, nontender, no rebound, no masses, RECTAL: Deferred. GENITAL: Deferred. NEUROLOGICAL: Gross motor function intact sensory function intact, Appropriate for age. MUSCULOSKELETAL: low back nontender, full range of motion. EXTREMITIES: Nontender, full range of motion. SKIN: Color pink, dry, no rash, no lacerations, no abrasions, no contusions. LYMPHATICS: Deferred. Course Quality Measures none Orders Category Date Time Status EKG (ED ONLY) *Do not use* NOW Care 03/02/25 15:28 Completed Insert IV NOW Care 03/02/25 15:28 Active EKG (ED Only) Stat Exams 03/02/25 15:28 Draft Alcohol, Blood Medical Stat Lab 03/02/25 15:40 Completed Diazepam [Valium] Med 03/02/25 15:20 Discontinued 10 mg PO X1 ONE Ibuprofen Tab [Motrin Tab] Med 03/02/25 18:36 Discontinued 800 mg PO X1 ONE Ondansetron Odt [Zofran Odt] Med 03/02/25 15:21 Discontinued 4 mg PO X1 ONE Ringers Lactated 1000 ml [Lactated Ringers] 1,000 ml Med 03/02/25 15:20 Discontinued IV 999 mls/hr Vital Signs Vital signs: Vital Signs Temperature 98.7 F 03/02/25 14:43 Pulse Rate 124 H 03/02/25 14:43 Respiratory Rate 19 03/02/25 14:43 Blood Pressure 135/88 H 03/02/25 14:43 Pulse Oximetry (%) 97 03/02/25 14:43 Oxygen Delivery Method Room Air 03/02/25 14:43 Syncope MDM Narrative MDM Narrative:: 35-year old female patient was brought in by EMS for evaluation regarding near syncope. Patient admits to being alcoholic, last drink yesterday, been complaining of nausea, vomiting, near-syncope, and not feeling well. Patient was seen here earlier today for the same complaints. Patient did not totally lost her consciousness. Patient is denying any headache chest pain abdominal pain. Patient is not planning to stop drinking alcohol. EKG showed sinus tachycardia, ventricular rate of 114 bpm, no ST segment elevation or depression noted. Patient alcohol level was noted to be 40.8. Patient was given IV fluids, and Valium. Was tolerating p.o. fluids in the emergency room. Patient is ready to go home. Patient was advised to stop drinking alcohol. Was given Librium to help with the withdrawal. Patient data External records reviewed:: None Clinical information provided by:: patient Social determinants that could affect healthcare access:: alcohol use Patient has the following chronic illnesses:: Chronic alcoholism How is presenting disease/condition affected by chronic disease/condition?: exacerbated by Evaluation data The following diagnostics were reviewed and interpreted by me:: lab results and radiology exam(s) Lab and/or radiology exams considered but not ordered:: None Interpretation Summary: See results in MDM Medications / Prescriptions Medications or Prescriptions considered but not ordered:: None Medication administrations:: Medication Administration History Discontinued Medications Diazepam (Diazepam 5 Mg Tablet) 10 mg PO X1 ONE Stop: 03/02/25 15:21 Last Admin: 03/02/25 15:55 Dose: 10 mg Documented By: MASSIEL Lactated Ringer's (Lactated Ringers) 1,000 mls @ 999 mls/hr IV .Q1H1M ONE Stop: 03/02/25 16:20 Last Infusion: 03/02/25 16:53 Dose: Infused Documented By: Admin: 03/02/25 15:50 Dose: 999 mls/hr Documented By: MASSIEL Ibuprofen (Ibuprofen Tab 400 Mg Tablet) 800 mg PO X1 ONE Stop: 03/02/25 18:37 Ondansetron HCl (Ondansetron Odt 4 Mg Tabrap) 4 mg PO X1 ONE; Protocol Stop: 03/02/25 15:22 Last Admin: 03/02/25 15:50 Dose: 4 mg Documented By: MASSIEL Valium, IV fluids Motrin and Zofran Consultations Consultation(s) initiated? (list below): No Diagnosis Syncope Differential Diagnosis: vasovagal syncope and other Most likely diagnosis given after review of the tests above:: Dehydration, alcohol intoxication Admission Indicated Admission indicated?: not indicated Admission Request Was there a request for admission?: No Disposition Plan Disposition Plan: Discharge Discharge Attestation Discharge Attestation: The patient was given an opportunity to ask questions and understood the discharge instructions. Discharge instructions specifically effects, indications for sooner follow up or return to the emergency department, and the expected course of current diagnosis. Patient condition: Stable Discharge Plan Plan Patient Disposition: HOME (Self Care) Disposition Comment: Stable Prescriptions/Referrals Prescriptions/Med Rec: New chlordiazepoxide HCl 25 mg capsule 25 mg PO Q12H PRN (Reason: alcohol withdrawal) Qty: 14 0RF No Action ferrous sulfate [Iron (ferrous sulfate)] 325 mg (65 mg iron) tablet 325 mg PO Q OTHER DAY Qty: 14 0RF Referrals: No Primary/Family,Physician [Primary Care Provider] - In 1 week Problem List Clinical Impression: Alcoholic intoxication, Vasovagal syncope Patient/Caregiver Discharge Instructions Discharge Activity: activity as tolerated Education Materials: ED Alcohol Intoxication Additional Instructions: Thank you for the opportunity for serving you today. You are stable for discharged . You are advised to: Follow-up with your PCP in 1 to 2 days Return to ED for worsening of symptoms Increase oral fluids Take medication as prescribed Please stop abusing alcohol Print Language: Tajik Stand Alone Forms: Nicole Award Info., Patient Portal Info Letter PA/SOCIAL WORKER AIDE Supervising Physician JESSICA/SOCIAL WORKER AIDE Supervising Physician: MD Silvio
--- NOTE | 2025-03-02 15:28 | EKG_ITS ---
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
[2025-03-02] MEDS: RINGERS LACTATED 1000 ML 1,000 ML 999 ML IV (15:50)
[2025-03-02] MEDS: ONDANSETRON ODT 4 MG TABRAP PO (15:50)
[2025-03-02] MEDS: DIAZEPAM 5 MG TABLET 10 MG PO (15:55)
[2025-03-02 16:06] VITALS: BP 145/90; PULSE 103; RESP 19; TEMP 37.2; O2SAT 97
[2025-03-02 16:16] LABS: Alcohol, Blood Medical 40.8 mg/dL (0-10.0)
[2025-03-02 18:36] VITALS: BP 143/85; PULSE 116; RESP 17; TEMP 36.7; O2SAT 98
[2025-03-02] MEDS: IBUPROFEN TAB 400 MG TABLET 800 MG PO (19:09)
== END 2025-03-02 19:25 | disposition home or self-care (01) ==
PROVIDERS: Nurse Practitioner Family; Emergency Provider Emergency Medicine
DX: F10.129 Alcohol abuse with intoxication, unspecified (principal); Y90.9 Presence of alcohol in blood, level not specified; R55 Syncope and collapse
CPT/HCPCS: 36415; 80320; 93005; 96360; 99284; J7120; Q0162; A9270; G0480

== ENCOUNTER 2025-03-16 12:16 | Emergency (ER) | payer MEDICAID, SELFPAY ==
[2025-03-16] VITALS (10 sets, daily range): BP systolic 121–148; BP diastolic 75–100; PULSE 107–123; RESP 12–20; TEMP 36.7–37.3; O2SAT 94–99; BMI 32.1
--- NOTE | 2025-03-16 12:30 | PD.EDRME ---
Rapid Medical Screening Exam RME Arrival date/time: 03/16/25 12:16 Vital signs: Vital Signs Temperature 98.8 F 03/16/25 12:28 Pulse Rate 109 H 03/16/25 12:28 Respiratory Rate 16 03/16/25 12:28 Blood Pressure 127/80 03/16/25 12:28 Pulse Oximetry (%) 95 03/16/25 12:28 Oxygen Delivery Method Room Air 03/16/25 12:28 Vital signs reviewed by provider: Yes RME Narrative: 35-year-old female presents to the ED with a complaint of nausea, vomiting, dizziness/lightheadedness. Has been drinking alcohol heavily and has not eaten in the past 3 days.
[2025-03-16 13:05] LABS: Basophils % (Auto) 0 % (0-2.5); Eosinophils % (Auto) 0 % (0-10); Hematocrit 30.8 % (36.0-46.0); Hemoglobin 9.7 g/dL (12.0-16.0); Immature Granulocytes % (Auto) 0 % (0-0); Immature Granulocytes Auto 0.03 Thou/mm3 (0.00-0.00); Lymphocytes # (Auto) 0.8 Thou/mm3 (1.0-4.8); Lymphocytes % (Auto) 11 % (10-50); Mean Corpuscular HGB Conc 31.5 g/dl (31.0-37.0); Mean Corpuscular Volume 67 fL (80-100); Monocytes # (Auto) 0.3 Thou/mm3 (0.0-0.8); Monocytes % (Auto) 5 % (0-12); Neutrophils % (Auto) 84 % (37-80); Nucleated Red Blood Cell % 0 /100 WBC (0); Platelet Count 261 Thou/mm3 (140-440); RDW Standard Deviation 45.6 fL (36.4-46.3); Red Blood Count 4.63 Miln/mm3 (4.00-5.20); White Blood Count 7.1 Thou/mm3 (3.6-11.0)
[2025-03-16] MEDS: ONDANSETRON ODT 4 MG TABRAP PO (13:20)
[2025-03-16 13:27] LABS: Alanine Aminotransferase 229 U/L (10-49); Albumin, Serum 4.3 gm/dL (3.5-5.0); Albumin/Globulin Ratio 1.2 (1.2-2.2); Alcohol, Blood Medical 232.8 mg/dL (0-10.0); Alkaline Phosphatase 177 U/L (46-116); Amylase 30 U/L (30-118); Anion Gap 16 (7-16); Aspartate Amino Transferase 471 U/L (0-34); BUN/Creatinine Ratio 17 Ratio (12-20); Bilirubin,Total 0.9 mg/dL (0.3-1.2); Blood Urea Nitrogen 12 mg/dL (9-23); Calcium 8.5 mg/dL (8.3-10.6); Calcium (Corrected) 8.5 mg/dL (8.5-10.1); Chloride 100 mMol/L (98-107); Creatinine (Component) 0.7 mg/dL (0.6-1.3); Globulin 3.5 gm/dL (2.3-3.5); Glucose 78 mg/dL (74-106); Lipase 60 U/L (12-53); Osmolality,Calculated 270 (275-295); Potassium 4.9 mMol/L (3.4-5.1); Sodium 136 mMol/L (136-145); Total Protein 7.8 gm/dL (5.7-8.2); eGFR > 60 See Note
[2025-03-16 13:34] LABS: Ammonia < 10 uMol/L (11-32)
[2025-03-16 14:02] LABS: Path Review Blood Smear Sent to Pathologist
[2025-03-16] MEDS: THIAMINE 100 MG TABLET PO (15:32)
[2025-03-16] MEDS: FOLIC ACID 1 MG TABLET PO (15:32)
[2025-03-16] MEDS: SODIUM CHLORIDE 0.9% 1000 ML 1,000 ML 999 ML IV ×2 (15:44→18:15)
--- NOTE | 2025-03-16 16:01 | PD.EDADULT ---
ED General RME/HPI General Chief complaint: General Adult/Misc Complain Stated complaint: WEAKNESS, NAUSEA/VOMIT X 3 D AND HYPOTENSIVE Time Seen by Provider: 03/16/25 14:16 Arrival date/time: 03/16/25 12:16 35-year-old female presents to the ED with a complaint of weakness, nausea and vomiting, dizziness and lightheadedness for the past 3 days. She admits to drinking excessive amounts of alcohol. She has also not eaten in the past 3 days. RME / HPI RME / HPI narrative: 35-year-old female presents to the ED with a complaint of nausea, vomiting, dizziness/lightheadedness. Has been drinking alcohol heavily and has not eaten in the past 3 days. Related Data Allergies Allergy/AdvReac Type Severity Reaction Status Date / Time No Known Allergies Allergy Verified 04/15/25 01:07 Review of Systems Review of Systems Systems Reviewed: All systems reviewed, normal except as documented Past Medical History Past Medical History NEUROLOGIC: Negative Neurological Disorders or Seizures CARDIAC: Negative Cardiac Disorders or Congestive Heart Failure RESPIRATORY: Negative Chronic Obstructive Pulmonary Disease (COPD) GASTROINTESTINAL: Positive Ulcerative Colitis and Ulcer; Negative Hepatitis, Cirrhosis or Colorectal Cancer GENITOURINARY: Negative Genitourinary Disorders, Renal Disease or Prostate Cancer REPRODUCTIVE: Positive Previous Pregnancies; Negative Breast Cancer, Endometriosis, Pelvic Inflammatory Disease, Testicular Cancer or Uterine Prolapse MUSCULOSKELETAL: Negative Musculoskeletal Disorders or Bone Cancer ENDOCRINE: Negative Endocrine Disorders, Diabetes Mellitus Type 1 or Diabetes Mellitus Type 2 HEMATOLOGIC: Positive Anemia; Negative Blood Disorders PSYCHO/SOCIAL: Positive Anxiety; Negative Depression OTHER HISTORY: Negative Hospitalization, Autoimmune Disease, Down Syndrome, Developmental Delay, Shingles, Falls, Blood Transfusions, Anesthesia Reactions, Chemotherapy, Radiation Therapy, Hyperbaric Therapy, MRSA, VRSA, Vancomycin-Resistant Enterococci, Human Immunodeficiency Virus (HIV), Chicken Pox, Measles, Mumps, Rubella (Macedonian Measles), Pertussis, Clostridium Difficile, Breast Cancer, Cervical Cancer, Colorectal Cancer, Lung Cancer, Prostate Cancer or Testicular Cancer Family History FAMILY HISTORY: Negative Family Psychiatric Problems, Family Respiratory Disorders, Family Cardiac Disorders, Family Gastrointestinal Problems, Family Cancer, Family Surgery or Family Anesthesia Reaction Surgical History SURGICAL: Negative Section Social History SMOKING STATUS: Never smoker SECOND HAND EXPOSURE: Yes ED Exam General General appearance: Present alert and in no apparent distress Head Head exam: Present atraumatic Eye Eye exam: Present normal appearance, PERRL and EOMI ENT ENT exam: Present normal exam, normal oropharynx and mucous membranes moist Neck Neck exam: Present normal inspection, full ROM and trachea midline Chest Chest inspection: Present normal inspection and symmetric chest wall rise Respiratory Respiratory exam: Present normal lung sounds bilaterally Cardiovascular Cardiovascular exam: Present regular rate, normal rhythm and normal heart sounds; Absent bradycardia, tachycardia or irregular rhythm Abdominal Exam Abdominal exam: Present soft and normal bowel sounds; Absent distention, tenderness or guarding Extremities Exam Extremities exam: Present normal inspection and full ROM Back Exam Back exam: Present normal inspection and full ROM Neurological Exam Neurological exam: Present alert, oriented X3 and CN II-XII intact Psychiatric Psychiatric exam: Present normal affect and normal mood Skin Skin exam: Present warm, dry, intact and normal color Course Course Course Narrative: Labs reveal a normal white count of 7.1, low H&H of 9.7/30.8 with normal platelets. Chemistry panel reveals normal sodium, potassium, chloride, CO2, gap, BUN and creatinine, calcium and magnesium and normal total bilirubin of 0.9. AST/ALT are elevated at 471/229, alk phos elevated at 177, ammonia level less than 10. Amylase is normal at 30 and lipase is minimally elevated at 60. Urinalysis reveals turbid yellow urine with a specific gravity of 1.026 with 1+ protein, 4+ ketones, positive leukocyte esterase, negative nitrites, 45 WBCs, 3 RBCs and no bacteria. Urine hCG is negative. Urine tox screen is positive for benzodiazepines. Ethyl alcohol is significantly elevated at 232.8. Patient was hydrated with 2 L of sodium chloride. She was given folic acid 1 mg p.o., lorazepam 2 mg IVP, ondansetron 4 mg p.o., and thiamine 100 mg p.o. Quality Measures none Orders Category Date Time Status NPO STAT Care 03/16/25 12:31 Completed US abdomen Stat Exams 03/16/25 16:10 Completed Alcohol, Blood Medical Stat Lab 03/16/25 12:58 Completed Ammonia Stat Lab 03/16/25 12:58 Completed Amylase Stat Lab 03/16/25 12:58 Completed CBC Stat Lab 03/16/25 12:58 Completed CMP [Comprehensive Metabolic Panel] Stat Lab 03/16/25 12:58 Completed Drug Screen,Urine Stat Lab 03/16/25 16:25 Completed HCG Qualitative,Urine Stat Lab 03/16/25 16:25 Completed Lipase Stat Lab 03/16/25 12:58 Completed Magnesium Stat Lab 03/16/25 12:58 Completed Path Review Blood Smear Stat Lab 03/16/25 12:58 Completed Urinalysis Stat Lab 03/16/25 16:25 Completed Folic Acid Med 03/16/25 12:31 Discontinued 1 mg PO X1 ONE LORazepam [Ativan Inj] Med 03/16/25 18:02 Discontinued 2 mg IVP X1 ONE Ondansetron Odt [Zofran Odt] Med 03/16/25 12:31 Discontinued 4 mg PO X1 ONE Sodium Chloride 0.9% 1000 ml [Ns] 1,000 ml Med 03/16/25 12:31 Discontinued IV 999 mls/hr Sodium Chloride 0.9% 1000 ml [Ns] 1,000 ml Med 03/16/25 18:04 Discontinued IV 999 mls/hr Thiamine [Vitamin B-1] Med 03/16/25 12:31 Discontinued 100 mg PO X1 ONE Vital Signs Vital signs: Vital Signs Temperature 98.8 F 03/16/25 12:28 Pulse Rate 109 H 03/16/25 12:28 Respiratory Rate 16 03/16/25 12:28 Blood Pressure 127/80 03/16/25 12:28 Pulse Oximetry (%) 95 03/16/25 12:28 Oxygen Delivery Method Room Air 03/16/25 12:28 Discharge Plan Plan Patient Disposition: HOME (Self Care) Discharge Disposition comment: Stable and improved Prescriptions/Referrals Referrals: Rowdy Muse MD [Primary Care Provider] - In 1 week Problem List Clinical Impression: Alcoholic intoxication, 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 Return to the ED for any new or worsening symptoms. Print Language: Vietnamese Stand Alone Forms: Nicole Award Info., Patient Portal Info Letter PA/REPAIRER CONTROLLER TESTER Supervising Physician PA/BIB Supervising Physician: Dr. Cosme MDM Narrative MDM hospital course (for use when minimal MDM required): 35-year-old female presents to the ED with a complaint of weakness, nausea and vomiting, dizziness and lightheadedness for the past 3 days. She admits to drinking excessive amounts of alcohol. She has also not eaten in the past 3 days. Labs reveal a normal white count of 7.1, low H&H of 9.7/30.8 with normal platelets. Chemistry panel reveals normal sodium, potassium, chloride, CO2, gap, BUN and creatinine, calcium and magnesium and normal total bilirubin of 0.9. AST/ALT are elevated at 471/229, alk phos elevated at 177, ammonia level less than 10. Amylase is normal at 30 and lipase is minimally elevated at 60. Urinalysis reveals turbid yellow urine with a specific gravity of 1.026 with 1+ protein, 4+ ketones, positive leukocyte esterase, negative nitrites, 45 WBCs, 3 RBCs and no bacteria. Urine hCG is negative. Urine tox screen is positive for benzodiazepines. Ethyl alcohol is significantly elevated at 232.8. Abdominal ultrasound reveals: Normal gallbladder. Moderate hepatomegaly fatty liver. Patient was hydrated with 2 L of sodium chloride. She was given folic acid 1 mg p.o., lorazepam 2 mg IVP, ondansetron 4 mg p.o., and thiamine 100 mg p.o. She was discharged home in stable and improved condition. Clinical Information Provided by: patient Medical Records reviewed [facility] [place] Meds/Rx considered, not ordered None Labs/Rad/Tests considered, not ordered None Chronic Illness/Social Conditions which may negatively complicate care or outcome(s)-explain: ETOH/drugs/substance abuse and Liver disease Explain: EtOH abuse with fatty liver disease and alcoholic liver disease. EKG EKG not done Labs Lab(s) Interpretation(s): As above Imaging Imaging Interpretation(s): As above Medication Administration(s) Medication Administration History Discontinued Medications Folic Acid (Folic Acid 1 Mg Tablet) 1 mg PO X1 ONE Stop: 03/16/25 12:32 Last Admin: 03/16/25 15:32 Dose: 1 mg Documented By: GM Sodium Chloride (Ns) 1,000 mls @ 999 mls/hr IV .Q1H1M ONE Stop: 03/16/25 13:31 Last Infusion: 03/16/25 17:22 Dose: Infused Documented By: Admin: 03/16/25 15:44 Dose: 999 mls/hr Documented By: GM Sodium Chloride (Ns) 1,000 mls @ 999 mls/hr IV .Q1H1M ONE Stop: 03/16/25 19:04 Last Infusion: 03/16/25 19:24 Dose: Infused Documented By: Admin: 03/16/25 18:15 Dose: 999 mls/hr Documented By: CG Lorazepam (Lorazepam 2 Mg/Ml Vial) 2 mg IVP X1 ONE Stop: 03/16/25 18:03 Last Admin: 03/16/25 18:14 Dose: 2 mg Documented By: CG Ondansetron HCl (Ondansetron Odt 4 Mg Tabrap) 4 mg PO X1 ONE; Protocol Stop: 03/16/25 12:32 Last Admin: 03/16/25 13:20 Dose: 4 mg Documented By: Thiamine HCl (Thiamine 100 Mg Tablet) 100 mg PO X1 ONE Stop: 03/16/25 12:32 Last Admin: 03/16/25 15:32 Dose: 100 mg Documented By: GM As above Diagnosis Differential Diagnosis ED Complaint MDM: Anemia, alcoholic intoxication, liver disease, cholecystitis, pyelonephriti Diagnoses ruled out and/or further discussions: Cholecystitis, pyelonephritis
--- NOTE | 2025-03-16 16:10 | XR_ITS ---
Examination: Abdomen sonogram, complete Date and time of exam: March 16, 2025 1638 hours INDICATIONS: Elevated liver enzymes on laboratory examination today. Technique: Multiple real-time grayscale transabdominal sonographic images of the abdomen have been obtained. Findings: Normal gallbladder. Normal common bile duct 0.3 cm Pancreatic head 3.1 cm Aorta not enlarged. Liver 19.4 cm fatty infiltration Normal hepatopedal portal venous flow Patent IVC Right kidney 12.2 cm the cortex 1.5 cm Left kidney 10.7 cm renal cortex 1.5 cm Spleen 10.7 cm IMPRESSION: Normal gallbladder Moderate hepatomegaly fatty liver
[2025-03-16 16:43] LABS: Collection Type, Urine Clean Catch
[2025-03-16 17:01] LABS: HCG Qualitative,Urine Negative
[2025-03-16 17:03] LABS: Bilirubin,Urine Negative (Negative); Blood,Urine Negative (Negative); Clarity,Urine Turbid (Clear/Hazy); Color,Urine Yellow (Lt Yel-Yel); Glucose, Urine Negative (Negative); Hyaline Casts,Urine < 1 /hpf (0-1); Ketones,Urine 4+ (Negative); Leukocyte Esterase,Urine Positive (Negative); Nitrite,Urine Negative (Negative); Protein,Urine 1+ (Neg - Trace); RBC,Urine 3 /hpf (0-3); Specific Gravity,Urine 1.026 (1.001-1.035); Squamous Epithelial Cell,Urine 16 /hpf (0-5); Urobilinogen,Urine Negative mg/dL (0.0-1.0); WBC,Urine 45 /hpf (0-5)
[2025-03-16 17:19] LABS: Amphetamine/Methamp Scrn,U Negative (Negative); Barbiturate Screen,Urine Negative (Negative); Benzodiazepines Screen,Urine Positive (Negative); Benzoylecgonine Screen, Ur Negative (Negative); Fentanyl Screen,Urine Negative (Negative); Opiate Screen,Urine Negative (Negative); THC Screen,Urine Negative (Negative)
[2025-03-16] MEDS: LORazepam 2 MG/ML VIAL IVP (18:14)
== END 2025-03-16 20:30 | disposition home or self-care (01) ==
PROVIDERS: Physician Assistant; Emergency Provider Family Medicine; PCP Family Medicine
DX: F10.129 Alcohol abuse with intoxication, unspecified (principal); K76.0 Fatty (change of) liver, not elsewhere classified
CPT/HCPCS: 36415; 76700; 80053; 80307; 80320; 81001; 81025; 82140; 82150; 83690; 83735; 85025; 96361; 96374; 99284; J2060; J7030; Q0162; A9270; G0480

== ENCOUNTER 2025-03-28 22:04 | Emergency (ER) | payer MEDICAID, SELFPAY ==
[2025-03-28 22:14] VITALS: PULSE 114; RESP 16; O2SAT 98; BMI 32.1
[2025-03-28 22:23] VITALS: BP 136/76; PULSE 112; RESP 16; TEMP 37; O2SAT 98
--- NOTE | 2025-03-28 22:25 | PD.EDPSYCH ---
ED Psych RME/HPI General Chief Complaint: Psychiatric Symptoms Stated Complaint: VOLUNTARY Arrival date/time: 03/28/25 22:04 Limitations: no limitations RME / HPI RME / HPI Narrative: Dr. Braswell's Main ED Evaluation: 35yo female RIRI from home presents to the ED for a chief complaint of SI. Per EMS, patient has been drinking alcohol tonight and she sent a text message to her friend stating she wanted to harm herself. Patient currently denies any SI. She denies any HI or hallucinations. NKA. Related Data Previous Rx's ?Medication ?Instructions ?Recorded chlordiazepoxide HCl 25 mg capsule 25 mg PO Q12H PRN alcohol 03/02/25 withdrawal #14 caps ferrous sulfate 325 mg (65 mg 325 mg PO Q OTHER DAY #14 tabs 03/02/25 iron) tablet (Iron (ferrous sulfate)) Allergies Allergy/AdvReac Type Severity Reaction Status Date / Time No Known Allergies Allergy Verified 03/28/25 22:14 Review of Systems Review of Systems Systems Reviewed: All systems reviewed, normal except as documented Past Medical History Past Medical History NEUROLOGIC: Negative Neurological Disorders CARDIAC: Negative Cardiac Disorders or Congestive Heart Failure RESPIRATORY: Negative Chronic Obstructive Pulmonary Disease (COPD) GASTROINTESTINAL: Negative Gastrointestinal Disorders, Hepatitis or Colorectal Cancer GENITOURINARY: Negative Genitourinary Disorders, Renal Disease or Prostate Cancer REPRODUCTIVE: Positive Previous Pregnancies; Negative Breast Cancer, Endometriosis, Pelvic Inflammatory Disease, Testicular Cancer or Uterine Prolapse MUSCULOSKELETAL: Negative Musculoskeletal Disorders or Bone Cancer ENDOCRINE: Negative Endocrine Disorders, Diabetes Mellitus Type 1 or Diabetes Mellitus Type 2 HEMATOLOGIC: Positive Anemia; Negative Blood Disorders OTHER HISTORY: Negative Hospitalization, Autoimmune Disease, Down Syndrome, Developmental Delay, Shingles, Falls, Blood Transfusions, Blood Transfusion Reaction, Anesthesia Reactions, Chemotherapy, Radiation Therapy, Hyperbaric Therapy, MRSA, VRSA, Vancomycin-Resistant Enterococci, Human Immunodeficiency Virus (HIV), Chicken Pox, Measles, Mumps, Rubella (Italian Measles), Pertussis, Clostridium Difficile, Breast Cancer, Cervical Cancer, Colorectal Cancer, Lung Cancer, Prostate Cancer or Testicular Cancer Family History FAMILY HISTORY: Negative Family Psychiatric Problems, Family Respiratory Disorders, Family Cardiac Disorders, Family Gastrointestinal Problems, Family Cancer, Family Surgery or Family Anesthesia Reaction Surgical History SURGICAL: Negative Section Social History SMOKING STATUS: Never smoker ED Exam General Limitations: Present no limitations General appearance: Present alert and in no apparent distress Head Head exam: Present atraumatic Eye Eye exam: Present normal appearance, PERRL and EOMI ENT ENT exam: Present normal exam, normal oropharynx and mucous membranes moist Neck Neck exam: Present normal inspection, full ROM and trachea midline Chest Chest inspection: Present normal inspection and symmetric chest wall rise Respiratory Respiratory exam: Present normal lung sounds bilaterally Cardiovascular Cardiovascular exam: Present regular rate, normal rhythm and normal heart sounds Abdominal Exam Abdominal exam: Present soft and normal bowel sounds Extremities Exam Extremities exam: Present normal inspection and full ROM Back Exam Back exam: Present normal inspection and full ROM Neurological Exam Neurological exam: Present alert, oriented X3 and CN II-XII intact Psychiatric Psychiatric exam: Present normal affect and normal mood Skin Skin exam: Present warm, dry, intact and normal color Course Course Course Narrative: The patient was placed in ED observation care at 03/29/25 at 2220 hours. The patient was placed in ED observation care because of pending medical clearance for psychiatric evaluation. The patients past medical history, social history, and family history were reviewed. The plan of care will include serial examinations. Patient awake, alert, and ambulating. She is medically clear for crisis evaluation. 0600: Care signed out to Dr. Sinclair (emergency physician). Past medical, surgical, social and family history reviewed. Vitals and home medications reviewed. Results and treatment plan discussed. They will assume the care of the patient at this time and will follow the patient, pending crisis evaluation. At this time, observation has ended. Total time of observation: 7.5 hours. Quality Measures none Orders Category Date Time Status Alcohol, Blood Medical Stat Lab 03/28/25 23:18 Completed BMP [Basic Metabolic Panel] Stat Lab 03/28/25 23:18 Completed CBC Stat Lab 03/28/25 23:18 Completed Drug Screen,Urine Stat Lab 03/28/25 23:26 Completed Vital Signs Vital signs: Vital Signs Temperature 98.6 F 03/28/25 22:23 Pulse Rate 112 H 03/28/25 22:23 Respiratory Rate 16 03/28/25 22:23 Blood Pressure 136/76 H 03/28/25 22:23 Pulse Oximetry (%) 98 03/28/25 22:23 Oxygen Delivery Method Room Air 03/28/25 22:23 Psych MDM Narrative MDM Narrative:: Scribe Attestation: 03/28/25 - I, Aleja Faustino, am scribing for and in the presence of Dr. Braswell. Patient data External records reviewed:: [facility] previous records (Per chart review, patient was seen here on 03/16/25 for alcohol intoxication.) Clinical information provided by:: patient Social determinants that could affect healthcare access:: none Patient has the following chronic illnesses:: none How is presenting disease/condition affected by chronic disease/condition?: no chronic disease Evaluation data The following diagnostics were reviewed and interpreted by me:: lab results Lab and/or radiology exams considered but not ordered:: none Interpretation Summary: WBC count is normal, HnH 8.7/27.8 (which is chronic), BMP is negative, UDS is positive for benzodiazepines, Blood Alcohol is 356.1, according to my interpretation. Medications / Prescriptions Medications or Prescriptions considered but not ordered:: none Medication administrations:: none Consultations Consultation(s) initiated? (list below): No Diagnosis Psych Differential Diagnosis: suicidal ideation, depression and other (drug intoxication, alcohol intoxication) Most likely diagnosis given after review of the tests above:: see clinical impression below Admission Indicated Admission indicated?: not indicated Admission Request Was there a request for admission?: No Disposition Plan Disposition Plan: other (specify) (Signed out to Dr. Sinclair at 0600 pending crisis evaluation.) Discharge Plan Prescriptions/Referrals Prescriptions/Med Rec: No Action ferrous sulfate [Iron (ferrous sulfate)] 325 mg (65 mg iron) tablet 325 mg PO Q OTHER DAY Qty: 14 0RF chlordiazepoxide HCl 25 mg capsule 25 mg PO Q12H PRN (Reason: alcohol withdrawal) Qty: 14 0RF Referrals: No Primary/Family,Physician [Primary Care Provider] - In 1 week Problem List Clinical Impression: Suicidal ideation Patient/Caregiver Discharge Instructions Print Language: American
[2025-03-28 23:35] LABS: Basophils % (Auto) 1 % (0-2.5); Eosinophils # (Auto) 0.1 Thou/mm3 (0.0-0.5); Eosinophils % (Auto) 2 % (0-10); Hematocrit 27.8 % (36.0-46.0); Immature Granulocytes % (Auto) 0 % (0-0); Immature Granulocytes Auto 0.01 Thou/mm3 (0.00-0.00); Lymphocytes # (Auto) 1.9 Thou/mm3 (1.0-4.8); Lymphocytes % (Auto) 42 % (10-50); Mean Corpuscular HGB Conc 31.3 g/dl (31.0-37.0); Mean Corpuscular Volume 67 fL (80-100); Monocytes # (Auto) 0.3 Thou/mm3 (0.0-0.8); Monocytes % (Auto) 7 % (0-12); Neutrophils # (Auto) 2.1 Thou/mm3 (1.8-7.7); Neutrophils % (Auto) 48 % (37-80); Nucleated Red Blood Cell % 0 /100 WBC (0); Platelet Count 339 Thou/mm3 (140-440); RDW Standard Deviation 56.1 fL (36.4-46.3); Red Blood Count 4.15 Miln/mm3 (4.00-5.20); White Blood Count 4.5 Thou/mm3 (3.6-11.0)
[2025-03-28 23:39] LABS: Hemoglobin 8.7 g/dL (12.0-16.0)
[2025-03-28 23:46] LABS: Anion Gap 15 (7-16); BUN/Creatinine Ratio 12 Ratio (12-20); Blood Urea Nitrogen 7 mg/dL (9-23); Calcium 7.8 mg/dL (8.3-10.6); Carbon Dioxide 23.2 mMol/L (20.0-31.0); Chloride 110 mMol/L (98-107); Creatinine (Component) 0.6 mg/dL (0.6-1.3); Estimated Creatinine Clearance 124.1 mL/min (>60); Glucose 107 mg/dL (74-106); Osmolality,Calculated 292 (275-295); Potassium 3.8 mMol/L (3.4-5.1); Sodium 148 mMol/L (136-145); eGFR > 60 See Note
[2025-03-28 23:48] LABS: Amphetamine/Methamp Scrn,U Negative (Negative); Barbiturate Screen,Urine Negative (Negative); Benzodiazepines Screen,Urine Positive (Negative); Benzoylecgonine Screen, Ur Negative (Negative); Fentanyl Screen,Urine Negative (Negative); Opiate Screen,Urine Negative (Negative); THC Screen,Urine Negative (Negative)
[2025-03-28 23:55] LABS: Alcohol, Blood Medical 356.1 mg/dL (0-10.0)
--- NOTE | 2025-03-29 06:19 | EDNOTE_ITS ---
Emergency Room Addendum <Roseline Graff - Last Filed: 03/29/25 16:45> Addendum Narrative: 0600: Care assumed from Dr. Greco, the previous shift emergency physician. Past medical, surgical, social and family history reviewed. Vitals and home medications reviewed. I will assume the care of the patient at this time, pending mental health evaluation. Please refer to the emergency department record for history and examination from initial visit.? 1040: Patient is medically cleared, ready for mental health evaluation. The patient was placed in ED observation care at 03/29/2025 at 0600 hours. The patient was placed in ED observation care pending mental health evaluation. Then, mental health placed her on 1799 hold at 1110 hours and now on observation care because of undifferentiated decompensated behavioral health evaluation, no behavioral health bed available. The patients past medical history, social history, and family history were reviewed. The plan of care will include serial examinations. While in ED observation the patient will have access to water, food, and personal hygiene. If the patient takes home medication(s), they will be continued in ED observation. Physical exam by me shows patient under no acute distress at this time. 1110: patient on a 1799 hold after making suicidal statements, pending placement. 1240: [facility] Accepts the patient for placement. ETA is 2pm or later. 1334: Patient was already placed, but she began having more anxiety, possibly going through alcohol withdrawals; will keep her for a little more to observe her. 1437: Patient is feels better, not shaky anymore. Heart rate is 94. Patient can go to [facility] now. 1539: EMS here to pick the patient and transport to [facility]. ED observation care ended at 03/29/2025 at 1539 hours. <Brad Sinclair MD - Last Filed: 03/29/25 17:46> Addendum Narrative: 0600: Care assumed from Dr. Greco, the previous shift emergency physician. Past medical, surgical, social and family history reviewed. Vitals and home medications reviewed. I will assume the care of the patient at this time, pending mental health evaluation. Please refer to the emergency department record for history and examination from initial visit.? 1040: Patient is medically cleared, ready for mental health evaluation. The patient was placed in ED observation care at 03/29/2025 at 0600 hours. The patient was placed in ED observation care pending mental health evaluation. Then, mental health placed her on 1799 hold at 1110 hours and now on observation care because of undifferentiated decompensated behavioral health evaluation, no behavioral health bed available. The patients past medical history, social h istory, and family history were reviewed. The plan of care will include serial examinations. While in ED observation the patient will have access to water, food, and personal hygiene. If the patient takes home medication(s), they will be continued in ED observation. Physical exam by me shows patient under no acute distress at this time. 1110: patient on a 1799 hold after making suicidal statements, pending placement. 1240: [facility] Accepts the patient for placement. ETA is 2pm or later. 1334: Patient was already placed, but she began having more anxiety, possibly going through alcohol withdrawals; will keep her for a little more to observe her. 1437: Patient is feels better, not shaky anymore. Heart rate is 94. Patient can go to [facility] now. 1539: EMS here to pick the patient and transport to [facility]. ED observation care ended at 03/29/2025 at 1539 hours. Patient was calm throughout the day. Though the nurse approached me said the CIWA score was elevated after she was informed she was going to be sent to mental health facility for further treatment we observed the patient for 3045 minutes her heart rate was in the 90s she was much more calm it appears to be an anxiety attack and not actual alcohol withdrawal although she is a drinker and does drink.
[2025-03-29 06:26] VITALS: BP 99/64; PULSE 95; RESP 17; TEMP 36.6; O2SAT 98
[2025-03-29] MEDS: SODIUM CHLORIDE 0.9% 1000 ML 1,000 ML 999 ML IV ×2 (06:37→08:28)
--- NOTE | 2025-03-29 07:20 | PC.NURSE ---
PT RESTING W/EYES CLOSED UPON ASSUMPTION OF CARE, DENIES ANY SI AT THIS TIME. SITTER REMAINS IN PLACE.
[2025-03-29 07:47] LABS: B-Type Natriuretic Peptide < 20 pg/mL (0-100)
[2025-03-29 08:01] VITALS: BP 111/76; PULSE 83; RESP 19; TEMP 36.6; O2SAT 100
--- NOTE | 2025-03-29 08:19 | PC.NURSE ---
Pt is refusing breakfast tray. RN is aware
[2025-03-29] MEDS: ACETAMINOPHEN 500 MG TABLET 1000 MG PO (08:28)
--- NOTE | 2025-03-29 10:17 | PC.NURSE ---
PT AMBULATES TO BR W/STEADY GAIT. REFUSED BREAKFAST TRAY
--- NOTE | 2025-03-29 10:29 | PC.SS ---
PASSENGER SERVICE REPRESENTATIVE received phone call from patient's sister, America Tinoco ; stating receiving missed call from staff. PASSENGER SERVICE REPRESENTATIVE informed patient's sister that PASSENGER SERVICE REPRESENTATIVE will reach out to hospital social worker staff to informed assigned social work manager of sister's return call. Once assigned social work manager identified PASSENGER SERVICE REPRESENTATIVE will submit request to return call. PASSENGER SERVICE REPRESENTATIVE contacted ED coordinator left message requesting ED coordinator to follow up with patient's sister, America Tinoco.
[2025-03-29 11:01] VITALS: BP 126/78; PULSE 80; RESP 19; TEMP 36.9; O2SAT 98
--- NOTE | 2025-03-29 11:10 | PC.CC ---
Patient is a 35 year-old female who presents to the [facility] for mental health evaluation do to making suicidal statements to a friend. Patient was placed on a 1799 on 03/29/2025 at 0615. Sapphire and DIRECTOR INVESTOR RELATIONS Student, Karen met with patient [id number] to complete assessment. Patient provided verbal consent for student to remain in the room during assessment. ASW introduced self, role, and reason for assessment. ASW disclosed limits of confidentiality as well. Patient appeared alert and oriented to self, place, and situation. Patient made appropriate eye contact with this short story writer. Patients mood appeared to be euthymic remained engaged throughout assessment, patient had good insight and judgement. No signs of delusions, paranoid or V/h. Patient reports she had been drinking since Thursday and does not recall sending a text message regarding suicidal statements to a friend. Patient reports she made a comment to a friend stating, ?I felt in my life.? ASW explored with patient what she meant from this comment. Patient reports she feels depressed as she is going through a divorce from her of 14 years that was caused by an affair. Patient stated, ?I would never do anything to harm myself.? Mother reports she has two children and shares custody with the father. Per mother, she has an open Child Welfare Services case open. She reports the children are not in her care currently and have not been since Thursday but is supposed to get them back tomorrow as they are with their father. At the time of encounter patient is denying suicidal and homicidal ideations, and visual and auditory hallucinations. Patient reports she is not connected to outpatient mental health services, but would like to get connected. Patient denied past suicide attempts and past 5150-holds. Patient scored Low-Risk on the [place] Screening. Patient reports she would like to be discharged with safety plan; however, is unable to provide a viable safety plan. Patient provided friend Ritu Graves to call and get collateral. Patient has made suicidal statements to more than one person. Karina DE LA ROSA got collateral information from patient?s friend Ritu Graves. Ritu Graves reports that she picked up patient on Thursday and during that time patient continued to make suicidal statements. Patient stated multiple times, ?just let me I want to alone.? Her friend took her to her house where the patient did not have access to alcohol during that time, but yesterday the friend took the patient back home. The friend reports she emptied all the alcohol bottles that the patient had at home put the patient to sleep but two hours later the patient was under the influence of alcohol. Her friend got multiple phone calls from patient?s sister and mother that they were concerned about the patient as she did not sound okay over the phone. Patient?s friend reports she is willing to safety plan but does not know she can keep her safe as the patient is an adult. ASW attempted to get collateral from friend Maggie whom patient had made suicidal statements to but patient did not provide consent to make contact with this friend. Patient provided consent to make contact with her sister, Sam Tinoco . ASW made telephone contact with sister who reports she lives in [place]. She reports she has been contacted by multiple friends on [employer] messenger that they are concerned about the patient as she has been drinking and making suicidal statements. Sister reports the patient has a lot of childhood trauma processed. Sister stated, ?She is a big liar and does not follow through my sister needs help.? ASW filed a CWS SCAR Report with [employer]. ASW faxed report to . Upon clinical consultation with [facility], Deloris Husain patient will be placed on a 5150-hold for Danger to Self. Patient is unable to provide a viable safety plan and her friend Ely is sure she is able to keep patient safe. Patient has made suicidal statements to more than one person. Patient continues to drink excessively and family is concerned she is driving under the influence.
[2025-03-29 11:20] LABS: Lactate (Lactic Acid) 2.4 mMol/L (0.4-2.0)
--- NOTE | 2025-03-29 11:31 | PC.CC ---
ASW provided advisement to patient of [facility] and process. Patient was receptive to advisement. ASW provided update to Dr. Sinclair, fork assembler Shabnam, and bedside RN Roxana of [facility] and d/c plan to [facility] Facility. ASW made telephone contact with patient's sister Sam to provide her with update.
[2025-03-29 11:39] LABS: Alcohol, Blood Medical 60.6 mg/dL (0-10.0); Anion Gap 11 (7-16); BUN/Creatinine Ratio 14 Ratio (12-20); Blood Urea Nitrogen 7 mg/dL (9-23); Calcium 7.5 mg/dL (8.3-10.6); Carbon Dioxide 21.7 mMol/L (20.0-31.0); Chloride 110 mMol/L (98-107); Creatinine (Component) 0.5 mg/dL (0.6-1.3); Glucose 97 mg/dL (74-106); Osmolality,Calculated 282 (275-295); Potassium 4.2 mMol/L (3.4-5.1); Sodium 143 mMol/L (136-145); eGFR > 60 See Note
--- NOTE | 2025-03-29 12:07 | PC.NURSE ---
FRIEND AT BEDSIDE CONVERSATING W/ PT AT THIS TIME. SPOKE W/JIAN FROM [facility] ABOUT POSSIBLE ACCEPTANCE.
[2025-03-29 12:49] VITALS: BP 124/82; PULSE 85; RESP 16; TEMP 36.9; O2SAT 98
--- NOTE | 2025-03-29 13:36 | PC.NURSE ---
SPOKE W/, PT HAS +CIWA SCORE OF 19. PROVIDER CONCERNED IT COULD BE ANXIETY, WOULD LIKE TO MONITOR FOR ONE HOUR TO KNOW IF PT NEEDS TO BE ADMITTED OR CAN GO TO [facility].
--- NOTE | 2025-03-29 13:40 | PC.NURSE ---
Placed pt on cardiac montior
[2025-03-29 14:17] LABS: Reflex Lactate? Y
[2025-03-29 14:20] VITALS: BP 127/69; PULSE 94; RESP 16; TEMP 36.8; O2SAT 100
--- NOTE | 2025-03-29 14:23 | PC.NURSE ---
PT RESTING AFTER FRIEND LEFT, PT CALM, RESTING W/EYES CLOSED EVEN RISE AND FALL OF CHEST, VSS ON TELE. DENIES ANY SYMPTOMS, REPORTS SHE IS FEELING BETTER, BELIEVES SHE GOT WORKED UP WHEN FRIEND WAS HERE. SITTER REMAINS IN PLACE.
--- NOTE | 2025-03-29 14:32 | PC.CC ---
Patient was accepted to [facility]. Accepting information by [place], Dr. Mcclendon is accepting into [address]. ASW provided accepting information to patient and patient was receptive. ASW provided accepting information to Dr. Sinclair, engineering vice president Evelyne, and ANGELINA Cortés. Transportation was arranged with [facility] eta p/u 1530.
[2025-03-29 15:08] VITALS: BP 127/89; PULSE 98; RESP 16; TEMP 36.7; O2SAT 99
== END 2025-03-29 15:40 ==
PROVIDERS: Emergency Medicine; Emergency Provider Emergency Medicine
DX: Z04.6 Encounter for general psychiatric examination, requested by authority (principal); R45.851 Suicidal ideations; F41.0 Panic disorder [episodic paroxysmal anxiety]; Z75.1 Person awaiting admission to adequate facility elsewhere
CPT/HCPCS: 36415; 80048; 80307; 80320; 83605; 83880; 85025; 90839; 96127; 96360; 96361; 99285; J7030; A9270; G0480

== ENCOUNTER 2025-04-14 10:46 | Emergency (ER) | payer MEDICAID, SELFPAY ==
[2025-04-14 10:51] VITALS: BP 131/79; PULSE 100; RESP 18; TEMP 36.8; O2SAT 97
[2025-04-14 11:09] VITALS: PULSE 72; RESP 18; O2SAT 99; BMI 32.1
--- NOTE | 2025-04-14 11:43 | EKG_ITS ---
[facility] Test Date: 2025-04-14 Pat Name: JESSICA ADLER Department: Room: - Gender: Female [employer]: : 1990 Requested By: Juan Delgado Order Number: [id number] Reading MD: Juan Delgado Measurements Intervals [place] Rate: 84 P: 49 SD: 147 QRS: 67 QRSD: 90 T: 16 QT: 379 QTc: 448 Interpretive Statements SINUS RHYTHM WITH SINUS ARRHYTHMIA INDETERMINATE AXIS Compared to ECG 03/02/2025 15:29:59 Indeterminate axis now present Sinus tachycardia no longer present /store/S0/[id number].pdf
--- NOTE | 2025-04-14 11:48 | PD.EDALCOH ---
ED Alcohol RME/HPI General Chief Complaint: Alcohol Stated Complaint: NAUSEA FROM DRINKING Time Seen by Provider: 04/14/25 11:38 Source: patient Arrival date/time: 04/14/25 10:46 35-year-old female with no known medical history presents to the emergency room with a chief complaint of cramping to her hands. Patient states she has been drinking tequila the last 3 days. Mode of arrival: ambulatory Limitations: no limitations Related Data Previous Rx's ?Medication ?Instructions ?Recorded chlordiazepoxide HCl 25 mg capsule 25 mg PO Q12H PRN alcohol 03/02/25 withdrawal #14 caps ferrous sulfate 325 mg (65 mg 325 mg PO Q OTHER DAY #14 tabs 03/02/25 iron) tablet (Iron (ferrous sulfate)) Allergies Allergy/AdvReac Type Severity Reaction Status Date / Time No Known Allergies Allergy Verified 04/14/25 17:13 Review of Systems Review of Systems Systems Reviewed: All systems reviewed, normal except as documented Constitutional Constitutional: Reports system reviewed and no additional complaints, except as documented, Denies fatigue, Denies fever(s), Denies headache(s) and Denies weakness Eyes Eyes: Reports system reviewed and no additional complaints, except as documented, Denies blurry vision and Denies change in vision ENT Ears, Nose, Mouth, and Throat: Reports system reviewed and no additional complaints, except as documented, Denies otalgia, Denies headache(s), Denies nasal congestion, Denies throat swelling and Denies vertigo Cardiovascular Cardiovascular: Reports system reviewed and no additional complaints, except as documented, Denies chest pain, Denies dyspnea and Denies dyspnea on exertion Respiratory Respiratory: Reports system reviewed and no additional complaints, except as documented, Denies chest congestion, Denies cough, Denies dyspnea, Denies dyspnea on exertion and Denies wheezing Gastrointestinal Gastrointestinal: Reports system reviewed and no additional complaints, except as documented, Denies abdominal pain, Denies cramping, Denies nausea and Denies vomiting Genitourinary Genitourinary: Reports system reviewed and no additional complaints, except as documented Musculoskeletal Musculoskeletal: Reports system reviewed and no additional complaints, except as documented and Denies back pain Integumentary/Breasts Skin/Breast: Reports system reviewed and no additional complaints, except as documented and Denies wounds Neurologic Neurologic: Reports system reviewed and no additional complaints, except as documented, Denies confusion, Denies headache(s), Denies lack of coordination, Denies vertigo and Denies weakness Psychiatric Psychiatric: Reports system reviewed and no additional complaints, except as documented, Denies anxiety, Denies confusion, Denies depression, Denies paranoia, Denies suicidal ideation and Denies tactile hallucinations Endocrine Endocrine: Reports system reviewed and no additional complaints, except as documented and Denies fatigue Hematologic/Lymphatic Hematologic/Lymphatic: Reports system reviewed and no additional complaints, except as documented and Denies lymphadenopathy Allergic/Immunologic Allergic/Immunologic: Reports system reviewed and no additional complaints, except as documented, Denies throat swelling, Denies urticaria and Denies wheezing ED Exam General Limitations: Present no limitations General appearance: Present alert, in no apparent distress and appears intoxicated Head Head exam: Present atraumatic, normocephalic and normal inspection Eye Eye exam: Present normal appearance, PERRL and EOMI ENT ENT exam: Present normal exam, normal oropharynx and mucous membranes moist Neck Neck exam: Present normal inspection, full ROM and trachea midline Chest Chest inspection: Present normal inspection and symmetric chest wall rise Respiratory Respiratory exam: Present normal lung sounds bilaterally Cardiovascular Cardiovascular exam: Present regular rate, normal rhythm and normal heart sounds Abdominal Exam Abdominal exam: Present soft and normal bowel sounds; Absent tenderness Extremities Exam Extremities exam: Present normal inspection and full ROM Back Exam Back exam: Present normal inspection and full ROM Neurological Exam Neurological exam: Present alert, oriented X3 and CN II-XII intact Expanded Neurological Exam Patient oriented to: Present person, place and time Speech: Present fluid speech Coma scale eye opening: spontaneous Coma scale motor response: obeys commands Coma scale verbal response: oriented Coma scale total: 15 Psychiatric Psychiatric exam: Present normal affect and normal mood Skin Skin exam: Present warm, dry, intact and normal color Course Quality Measures none Orders Category Date Time Status EKG (ED ONLY) *Do not use* NOW Care 04/14/25 11:43 Completed EKG (ED Only) Stat Exams 04/14/25 11:43 Draft Alcohol, Blood Medical Stat Lab 04/14/25 11:58 Completed B-Type Natriuretic Peptide Stat Lab 04/14/25 11:58 Completed CBC Stat Lab 04/14/25 11:58 Completed Comprehensive Metabolic Panel Stat Lab 04/14/25 11:58 Completed Drug Screen,Urine Stat Lab 04/14/25 12:20 Completed Magnesium Stat Lab 04/14/25 11:58 Completed Troponin I Stat Lab 04/14/25 11:58 Completed Urinalysis Stat Lab 04/14/25 12:20 Completed Vital Signs Vital signs: Vital Signs Temperature 98.2 F 04/14/25 10:51 Pulse Rate 100 04/14/25 10:51 Respiratory Rate 18 04/14/25 10:51 Blood Pressure 131/79 H 04/14/25 10:51 Pulse Oximetry (%) 97 04/14/25 10:51 Oxygen Delivery Method Room Air 04/14/25 10:51 Discharge Plan Plan Patient Disposition: HOME (Self Care) Discharge Disposition comment: Stable Prescriptions/Referrals Prescriptions/Med Rec: No Action ferrous sulfate [Iron (ferrous sulfate)] 325 mg (65 mg iron) tablet 325 mg PO Q OTHER DAY Qty: 14 0RF chlordiazepoxide HCl 25 mg capsule 25 mg PO Q12H PRN (Reason: alcohol withdrawal) Qty: 14 0RF Referrals: No Primary/Family,Physician [Primary Care Provider] - In 1 week Problem List Clinical Impression: Alcoholic intoxication Patient/Caregiver Discharge Instructions Education Materials: ED Alcohol Intoxication Additional Instructions: Please follow-up with your primary care provider in the next 24 to 48 hours For any evidence of worsening signs or symptoms return to the emergency room immediately Print Language: Filipino Stand Alone Forms: [employer] Info., Patient Portal Info Letter PA/PRISON OFFICER Supervising Physician PA/PRISON OFFICER Supervising Physician: Dr. Sinclair Alcohol MDM Narrative MDM Narrative: 35-year-old female with no known medical history presents to the emergency room with a chief complaint of cramping to her hands. Patient states she has been drinking tequila the last 3 days. Patient is hemodynamically stable and in no apparent distress Patient is not tachycardic not tachypneic and O2 saturation is within normal limits. EKG shows normal sinus rhythm at [address] deviation. CBC CMP troponin are within normal limits Alcohol level was significantly elevated. I had the patient call a family member to come and pick her up. Family member came to package pick up the patient and patient was discharged Patient data External records reviewed:: [facility] previous records Clinical information provided by:: patient Social determinants that could affect healthcare access:: none Patient has the following chronic illnesses:: No chronic illness How is presenting disease/condition affected by chronic disease/condition?: no chronic disease Evaluation data The following diagnostics were reviewed and interpreted by me:: lab results and radiology exam(s) Lab and/or radiology exams considered but not ordered:: Labs and radiology exams considered in order Interpretation Summary: N/A Medications / Prescriptions Medications or Prescriptions considered but not ordered:: No medication given Medication administrations:: No medication given Consultations Consultation(s) initiated? (list below): No Diagnosis Differential diagnosis alcohol: alcohol withdrawal delirium, alcohol intoxication, alcohol withdrawal syndrome and alcohol withdrawal seizure Most likely diagnosis given after review of the tests above:: Alcohol intoxication Admission Indicated Admission indicated?: not indicated Admission Request Was there a request for admission?: No Disposition Plan Disposition Plan: Discharge Discharge Attestation Discharge Attestation: The patient and all family members were given an opportunity to ask questions and understood the discharge instructions. Discharge instructions specifically effects, indications for sooner follow up or return to the emergency department, and the expected course of current diagnosis. Patient condition: Stable
[2025-04-14 12:17] LABS: Basophils # (Auto) 0.1 Thou/mm3 (0.0-0.2); Basophils % (Auto) 2 % (0-2.5); Eosinophils # (Auto) 0.1 Thou/mm3 (0.0-0.5); Eosinophils % (Auto) 1 % (0-10); Hemoglobin 10.8 g/dL (12.0-16.0); Immature Granulocytes % (Auto) 0 % (0-0); Immature Granulocytes Auto 0.01 Thou/mm3 (0.00-0.00); Lymphocytes # (Auto) 1.9 Thou/mm3 (1.0-4.8); Lymphocytes % (Auto) 35 % (10-50); Mean Corpuscular Hemoglobin 21.3 pg (25.0-35.0); Mean Corpuscular Volume 71 fL (80-100); Monocytes # (Auto) 0.2 Thou/mm3 (0.0-0.8); Monocytes % (Auto) 4 % (0-12); Neutrophils # (Auto) 3.1 Thou/mm3 (1.8-7.7); Neutrophils % (Auto) 59 % (37-80); Nucleated Red Blood Cell % 0 /100 WBC (0); Platelet Count 496 Thou/mm3 (140-440); Red Blood Count 5.08 Miln/mm3 (4.00-5.20); White Blood Count 5.3 Thou/mm3 (3.6-11.0)
[2025-04-14 12:34] LABS: B-Type Natriuretic Peptide < 20 pg/mL (0-100)
[2025-04-14 12:35] LABS: Collection Type, Urine Clean Catch
[2025-04-14 12:42] LABS: Bilirubin,Urine Negative (Negative); Blood,Urine Negative (Negative); Clarity,Urine Clear (Clear/Hazy); Color,Urine Colorless (Lt Yel-Yel); Glucose, Urine Negative (Negative); Ketones,Urine Trace (Negative); Leukocyte Esterase,Urine Negative (Negative); Nitrite,Urine Negative (Negative); PH,Urine 6.5 (5.0-7.0); Protein,Urine Negative (Neg - Trace); RBC,Urine < 1 /hpf (0-3); Specific Gravity,Urine 1.004 (1.001-1.035); Squamous Epithelial Cell,Urine < 1 /hpf (0-5); Urobilinogen,Urine Negative mg/dL (0.0-1.0); WBC,Urine < 1 /hpf (0-5)
[2025-04-14 12:47] LABS: Alanine Aminotransferase 64 U/L (10-49); Albumin, Serum 4.5 gm/dL (3.5-5.0); Albumin/Globulin Ratio 1.3 (1.2-2.2); Alkaline Phosphatase 109 U/L (46-116); Anion Gap 21 (7-16); Aspartate Amino Transferase 66 U/L (0-34); BUN/Creatinine Ratio 9 Ratio (12-20); Bilirubin,Total 0.3 mg/dL (0.3-1.2); Blood Urea Nitrogen 6 mg/dL (9-23); Calcium 8.7 mg/dL (8.3-10.6); Calcium (Corrected) 8.7 mg/dL (8.5-10.1); Carbon Dioxide 20.7 mMol/L (20.0-31.0); Chloride 106 mMol/L (98-107); Creatinine (Component) 0.7 mg/dL (0.6-1.3); Estimated Creatinine Clearance 106.4 mL/min (>60); Globulin 3.5 gm/dL (2.3-3.5); Glucose 90 mg/dL (74-106); Magnesium 1.9 mg/dL (1.6-2.6); Osmolality,Calculated 291 (275-295); Potassium 3.4 mMol/L (3.4-5.1); Sodium 148 mMol/L (136-145); Troponin I < 0.002 ng/mL (0.0-0.045); eGFR > 60 See Note
[2025-04-14 12:50] LABS: Amphetamine/Methamp Scrn,U Negative (Negative); Barbiturate Screen,Urine Negative (Negative); Benzodiazepines Screen,Urine Negative (Negative); Benzoylecgonine Screen, Ur Negative (Negative); Fentanyl Screen,Urine Negative (Negative); Opiate Screen,Urine Negative (Negative); THC Screen,Urine Negative (Negative)
[2025-04-14 12:51] LABS: Alcohol, Blood Medical 449.4 mg/dL (0-10.0)
== END 2025-04-14 18:48 | disposition home or self-care (01) ==
PROVIDERS: Nurse Practitioner Family; Emergency Provider Emergency Medicine
DX: F10.129 Alcohol abuse with intoxication, unspecified (principal); I49.8 Other specified cardiac arrhythmias; Y90.8 Blood alcohol level of 240 mg/100 ml or more
CPT/HCPCS: 36415; 80053; 80307; 80320; 81001; 83735; 83880; 84484; 85025; 93005; 99283; G0480

== ENCOUNTER 2025-04-14 17:11 | Emergency (ER) | payer MEDICAID, SELFPAY ==
[2025-04-14 17:33] VITALS: BP 125/81; PULSE 116; RESP 18; TEMP 36.9; O2SAT 98; BMI 27.1
--- NOTE | 2025-04-14 17:39 | XR_ITS ---
Examination: CT brain head without contrast. 2-D sagittal coronal reconstructions Date and time of exam:April 14, 2025 1858 hours INDICATIONS: Headaches and visual spots beginning 2 days ago CTDI: vol (mGy):47 DLP: (mGycm):900 Technique: Multiple CT axial sections of the brain have been obtained, 5 mm slice thickness. Contrast has not been administered. 2-D sagittal, coronal reconstructions have been obtained Low dose protocols were performed. One or more of the following dose reduction techniques were used; automated exposure control, adjustment of the mA and/or KV according to patient size, use of iterative reconstruction technique. Findings: No significant ventricular enlargement. Intra-axial or extra-axial hemorrhage density is not seen. No mass effect or midline shift Basal cisterns are not remarkable. Fourth ventricle is midline. Cranial vault intact. Impression: Negative for acute hemorrhage, mass effect or midline shift Advise clinical correlation follow up accordingly
--- NOTE | 2025-04-14 17:40 | PD.EDDIZZY ---
ED Dizzyness RME/HPI General Chief Complaint: Dizziness Stated Complaint: I FEEL LIKE I'M GOING TO PASS OUT Time Seen by Provider: 04/14/25 17:41 Source: patient Arrival date/time: 04/14/25 17:11 35-year-old female with no known medical history presents to the emergency room with a chief complaint of feeling like she is going to pass out. Patient was seen here earlier today with a negative cardiac examination and was discharged with alcohol intoxication. Today the patient states she is having visual spots. Mode of arrival: ambulatory Limitations: no limitations Related Data Previous Rx's ?Medication ?Instructions ?Recorded chlordiazepoxide HCl 25 mg capsule 25 mg PO Q12H PRN alcohol 03/02/25 withdrawal #14 caps ferrous sulfate 325 mg (65 mg 325 mg PO Q OTHER DAY #14 tabs 03/02/25 iron) tablet (Iron (ferrous sulfate)) Allergies Allergy/AdvReac Type Severity Reaction Status Date / Time No Known Allergies Allergy Verified 04/14/25 17:13 Review of Systems Review of Systems Systems Reviewed: All systems reviewed, normal except as documented Constitutional Constitutional: Reports system reviewed and no additional complaints, except as documented, Denies fatigue, Denies fever(s), Denies headache(s) and Denies weakness Eyes Eyes: Reports system reviewed and no additional complaints, except as documented, Denies blurry vision and Denies change in vision ENT Ears, Nose, Mouth, and Throat: Reports system reviewed and no additional complaints, except as documented, Denies otalgia, Denies headache(s), Denies nasal congestion, Denies throat swelling and Denies vertigo Cardiovascular Cardiovascular: Reports system reviewed and no additional complaints, except as documented, Denies chest pain, Denies dyspnea and Denies dyspnea on exertion Respiratory Respiratory: Reports system reviewed and no additional complaints, except as documented, Denies chest congestion, Denies cough, Denies dyspnea, Denies dyspnea on exertion and Denies wheezing Gastrointestinal Gastrointestinal: Reports system reviewed and no additional complaints, except as documented, Denies abdominal pain, Denies cramping, Denies nausea and Denies vomiting Genitourinary Genitourinary: Reports system reviewed and no additional complaints, except as documented Musculoskeletal Musculoskeletal: Reports system reviewed and no additional complaints, except as documented and Denies back pain Integumentary/Breasts Skin/Breast: Reports system reviewed and no additional complaints, except as documented and Denies wounds Neurologic Neurologic: Reports system reviewed and no additional complaints, except as documented, Denies confusion, Denies headache(s), Denies lack of coordination, Denies vertigo and Denies weakness Psychiatric Psychiatric: Reports system reviewed and no additional complaints, except as documented, Denies anxiety, Denies confusion, Denies depression, Denies paranoia, Denies suicidal ideation and Denies tactile hallucinations Endocrine Endocrine: Reports system reviewed and no additional complaints, except as documented and Denies fatigue Hematologic/Lymphatic Hematologic/Lymphatic: Reports system reviewed and no additional complaints, except as documented and Denies lymphadenopathy Allergic/Immunologic Allergic/Immunologic: Reports system reviewed and no additional complaints, except as documented, Denies throat swelling, Denies urticaria and Denies wheezing Past Medical History Past Medical History NEUROLOGIC: Negative Neurological Disorders CARDIAC: Negative Cardiac Disorders or Congestive Heart Failure RESPIRATORY: Negative Chronic Obstructive Pulmonary Disease (COPD) GASTROINTESTINAL: Negative Gastrointestinal Disorders, Hepatitis or Colorectal Cancer GENITOURINARY: Negative Genitourinary Disorders, Renal Disease or Prostate Cancer REPRODUCTIVE: Positive Previous Pregnancies; Negative Breast Cancer, Endometriosis, Pelvic Inflammatory Disease, Testicular Cancer or Uterine Prolapse MUSCULOSKELETAL: Negative Musculoskeletal Disorders or Bone Cancer ENDOCRINE: Negative Endocrine Disorders, Diabetes Mellitus Type 1 or Diabetes Mellitus Type 2 HEMATOLOGIC: Positive Anemia; Negative Blood Disorders OTHER HISTORY: Negative Hospitalization, Autoimmune Disease, Down Syndrome, Developmental Delay, Shingles, Falls, Blood Transfusions, Blood Transfusion Reaction, Anesthesia Reactions, Chemotherapy, Radiation Therapy, Hyperbaric Therapy, MRSA, VRSA, Vancomycin-Resistant Enterococci, Human Immunodeficiency Virus (HIV), Chicken Pox, Measles, Mumps, Rubella ([place] Measles), Pertussis, Clostridium Difficile, Breast Cancer, Cervical Cancer, Colorectal Cancer, Lung Cancer, Prostate Cancer or Testicular Cancer Family History FAMILY HISTORY: Negative Family Psychiatric Problems, Family Respiratory Disorders, Family Cardiac Disorders, Family Gastrointestinal Problems, Family Cancer, Family Surgery or Family Anesthesia Reaction Surgical History SURGICAL: Negative Section Social History SMOKING STATUS: Never smoker ED Exam General Limitations: Present no limitations General appearance: Present alert and in no apparent distress Head Head exam: Present atraumatic, normocephalic and normal inspection Eye Eye exam: Present normal appearance, PERRL and EOMI ENT ENT exam: Present normal exam, normal oropharynx and mucous membranes moist Neck Neck exam: Present normal inspection, full ROM and trachea midline Chest Chest inspection: Present normal inspection and symmetric chest wall rise Respiratory Respiratory exam: Present normal lung sounds bilaterally Cardiovascular Cardiovascular exam: Present regular rate, normal rhythm and normal heart sounds Abdominal Exam Abdominal exam: Present soft and normal bowel sounds Extremities Exam Extremities exam: Present normal inspection and full ROM Back Exam Back exam: Present normal inspection and full ROM Neurological Exam Neurological exam: Present alert, oriented X3, CN II-XII intact, normal gait and reflexes normal Expanded Neurological Exam Patient oriented to: Present person, place and time Speech: Present fluid speech Cerebellar function: Present wide-based gait Coma scale eye opening: spontaneous Coma scale motor response: obeys commands Coma scale verbal response: oriented Coma scale total: 15 Psychiatric Psychiatric exam: Present normal affect and normal mood Skin Skin exam: Present warm, dry, intact and normal color Course Quality Measures none Orders Category Date Time Status CT head/brain wo con Stat Exams 04/14/25 17:39 Completed Vital Signs Vital signs: Vital Signs Temperature 98.4 F 04/14/25 17:33 Pulse Rate 116 H 04/14/25 17:33 Respiratory Rate 18 04/14/25 17:33 Blood Pressure 125/81 04/14/25 17:33 Pulse Oximetry (%) 98 04/14/25 17:33 Oxygen Delivery Method Room Air 04/14/25 17:33 O2 saturation 98% within normal limits Dizziness MDM Narrative MDM Narrative:: 35-year-old female with no known medical history presents to the emergency room with a chief complaint of feeling like she is going to pass out. Patient was seen here earlier today with a negative cardiac examination and was discharged with alcohol intoxication. Today the patient states she is having visual spots. Patient is hemodynamically stable and in no apparent distress Physical examination shows a normal neurological exam. Pupils are PERRLA EOMs are intact the patient is a GCS of 15 she is able to tell me where she is at. Patient states that when she went home she began feeling really dizzy with a headache and states she felt like passing out. The patient was seen here couple of hours ago and had a normal cardiac examination. A CT of the head and brain was ordered and was negative for any acute findings During reevaluation the patient was a lot more sober was able to ambulate normally and was ready for discharge stating that her symptoms of significantly improved Patient was discharged and educated to follow-up with primary care provider in the next 24 to 48 hours and return to the emergency room for any evidence of worsening signs or symptoms Patient data External records reviewed:: [facility] previous records Clinical information provided by:: patient Social determinants that could affect healthcare access:: none Patient has the following chronic illnesses:: No chronic illness How is presenting disease/condition affected by chronic disease/condition?: no chronic disease Evaluation data The following diagnostics were reviewed and interpreted by me:: lab results and radiology exam(s) Lab and/or radiology exams considered but not ordered:: Labs and radiology exams considered in Interpretation Summary: CT head and brain-indings: No significant ventricular enlargement. Intra-axial or extra-axial hemorrhage density is not seen. No mass effect or midline shift Basal cisterns are not remarkable. Fourth ventricle is midline. Cranial vault intact. Impression: Negative for acute hemorrhage, mass effect or midline shift Advise clinical correlation follow up accordingly Medications / Prescriptions Medications or Prescriptions considered but not ordered:: No medication given Medication administrations:: No medication given Consultations Consultation(s) initiated? (list below): No Diagnosis Dizziness Differential Diagnosis: benign paroxysmal positional vertigo, cerebrovascular accident and other Most likely diagnosis given after review of the tests above:: Alcohol intoxication Admission Indicated Admission indicated?: not indicated Admission Request Was there a request for admission?: No Disposition Plan Disposition Plan: Discharge Discharge Attestation Discharge Attestation: The patient and all family members were given an opportunity to ask questions and understood the discharge instructions. Discharge instructions specifically effects, indications for sooner follow up or return to the emergency department, and the expected course of current diagnosis. Patient condition: Stable Discharge Plan Plan Patient Disposition: HOME (Self Care) Discharge Disposition comment: Stable Prescriptions/Referrals Prescriptions/Med Rec: No Action ferrous sulfate [Iron (ferrous sulfate)] 325 mg (65 mg iron) tablet 325 mg PO Q OTHER DAY Qty: 14 0RF chlordiazepoxide HCl 25 mg capsule 25 mg PO Q12H PRN (Reason: alcohol withdrawal) Qty: 14 0RF Referrals: No Primary/Family,Physician [Primary Care Provider] - In 1 week Problem List Clinical Impression: Alcoholic intoxication Patient/Caregiver Discharge Instructions Education Materials: ED Alcohol Intoxication Additional Instructions: Please follow-up with your primary care provider in the next [address] of your head and brain was completed and was negative for any acute findings For any evidence of worsening signs or symptoms return to the emergency room immediately Print Language: Yi Stand Alone Forms: Nicole Award Info., Patient Portal Info Letter PA/AIRPORT UTILITY WORKER Supervising Physician PA/AIRPORT UTILITY WORKER Supervising Physician: Dr. Miranda
== END 2025-04-14 21:28 | disposition home or self-care (01) ==
PROVIDERS: Emergency Provider Emergency Medicine
DX: F10.129 Alcohol abuse with intoxication, unspecified (principal); R51.9 Headache, unspecified; Y90.9 Presence of alcohol in blood, level not specified
CPT/HCPCS: 70450; 99284

== ENCOUNTER 2025-04-15 00:59 | Inpatient (IN) | payer MEDICAID, SELFPAY ==
[2025-04-15] VITALS (9 sets, daily range): BP systolic 113–130; BP diastolic 72–90; PULSE 64–107; RESP 18–22; TEMP 35.9–37.1; O2SAT 97–100; BMI 30.2
--- NOTE | 2025-04-15 01:35 | EKG_ITS ---
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
--- NOTE | 2025-04-15 01:35 | EDNOTE_ITS ---
Nausea/Vomit./Diarrhea-RME/HPI General Chief complaint: Nausea/Vomiting/Diarrhea Stated complaint: NAUSEA VOMITING Time Seen by Provider: 04/15/25 01:28 Arrival date/time: 04/15/25 00:59 35F with history of alcohol abuse presents to ED with N/V, tremors, and generalized weakness. Patient last drank 2 days ago and usually drinks every day. Patient was here twice yesterday with normal head CT. Last lab shows elevated anion-gap. Limitations: no limitations Related Data Previous Rx's ?Medication ?Instructions ?Recorded chlordiazepoxide HCl 25 mg capsule 25 mg PO Q12H PRN a lcohol 03/02/25 withdrawal #14 caps ferrous sulfate 325 mg (65 mg 325 mg PO Q OTHER DAY #1 4 tabs 03/02/25 iron) tablet (Iron (ferrous sulfate)) Allergies Allergy/AdvReac Type Severity Reaction Status Date / Time No Known Allergies Allergy Verified 04/15/25 01:07 Review of Systems Review of Systems Systems Reviewed: All systems reviewed, normal except as documented Constitutional Constitutional: Reports system reviewed and no additional complaints, except as documented, Reports as per HPI, Denies fever(s), Denies headache(s) and Reports weakness ENT Ears, Nose, Mouth, and Throat: Denies disequilibrium and Denies headache(s) Cardiovascular Cardiovascular: Reports system reviewed and no additional complaints, except as documented, Denies chest pain and Denies dyspnea Respiratory Respiratory: Reports system reviewed and no additional complaints, except as documented, Denies cough and Denies dyspnea Gastrointestinal Gastrointestinal: Reports system reviewed and no additional complaints, except as documented, Reports as per HPI, Denies abdominal pain, Reports nausea and Reports vomiting Neurologic Neurologic: Reports system reviewed and no additional complaints, except as documented, Reports as per HPI, Denies confusion, Denies disequilibrium, Denies headache(s), Reports tremor(s) and Reports weakness Psychiatric Psychiatric: Denies confusion Past Medical History Past Medical History NEUROLOGIC: Negative Neurological Disorders CARDIAC: Negative Cardiac Disorders or Congestive Heart Failure RESPIRATORY: Negative Chronic Obstructive Pulmonary Disease (COPD) GASTROINTESTINAL: Negative Gastrointestinal Disorders, Hepatitis or Colorectal Cancer GENITOURINARY: Negative Genitourinary Disorders, Renal Disease or Prostate Cancer REPRODUCTIVE: Positive Previous Pregnancies; Negative Breast Cancer, Endometriosis, Pelvic Inflammatory Disease, Testicular Cancer or Uterine Prolapse MUSCULOSKELETAL: Negative Musculoskeletal Disorders or Bone Cancer ENDOCRINE: Negative Endocrine Disorders, Diabetes Mellitus Type 1 or Diabetes Mellitus Type 2 HEMATOLOGIC: Positive Anemia; Negative Blood Disorders OTHER HISTORY: Negative Hospitalization, Autoimmune Disease, Down Syndrome, Developmental Delay, Shingles, Falls, Blood Transfusions, Blood Transfusion Reaction, Anesthesia Reactions, Chemotherapy, Radiation Therapy, Hyperbaric Therapy, MRSA, VRSA, Vancomycin-Resistant Enterococci, Human Immunodeficiency Virus (HIV), Chicken Pox, Measles, Mumps, Rubella (Bhutanese Measles), Pertussis, Clostridium Difficile, Breast Cancer, Cervical Cancer, Colorectal Cancer, Lung Cancer, Prostate Cancer or Testicular Cancer Family History FAMILY HISTORY: Negative Family Psychiatric Problems, Family Respiratory Disorders, Family Cardiac Disorders, Family Gastrointestinal Problems, Family Cancer, Family Surgery or Family Anesthesia Reaction Surgical History SURGICAL: Negative Section Social History SMOKING STATUS: Current some day smoker ED Exam General Limitations: Present no limitations General appearance: Present alert, appears intoxicated and anxious Head Head exam: Present atraumatic Eye Eye exam: Present normal appearance, PERRL and EOMI ENT ENT exam: Present normal exam, normal oropharynx and mucous membranes moist Neck Neck exam: Present normal inspection, full ROM and trachea midline Chest Chest inspection: Present normal inspection and symmetric chest wall rise Respiratory Respiratory exam: Present normal lung sounds bilaterally Cardiovascular Cardiovascular exam: Present regular rate, normal rhythm and normal heart sounds Abdominal Exam Abdominal exam: Present soft and normal bowel sounds Extremities Exam Extremities exam: Present normal inspection and full ROM Back Exam Back exam: Present normal inspection and full ROM Psychiatric Psychiatric exam: Present normal affect and normal mood Skin Skin exam: Present warm, dry, intact and normal color Course Quality Measures none Orders Category Date Time Status Admit to Inpatient Status Routine Admission 04/15/25 04:34 Active Patient Condition Routine Admission 04/15/25 04:34 Ordered Activity as Tolerated Routine Care 04/15/25 04:35 Ordered COVID-19 Screening Questionnaire NOW Care 04/15/25 04:13 Active Decision to Admit X1 Care 04/15/25 04:13 Active EKG (ED ONLY) *Do not use* NOW Care 04/15/25 01:35 Completed Insert IV NOW Care 04/15/25 01:28 Active Notify provider NEEDED Care 04/15/25 04:34 Active Seizure precautions NOW Care 04/15/25 04:35 Active Diet Regular Diet 04/15/25 Breakfast Active EKG (ED Only) Stat Exams 04/15/25 01:35 Draft Acetaminophen Stat Lab 04/15/25 01:48 Completed Alcohol, Blood Medical Stat Lab 04/15/25 01:48 Completed Ammonia Stat Lab 04/15/25 01:48 Completed Beta Hydroxybutyrate Stat Lab 04/15/25 01:48 Completed CBC AM DRAW Lab 04/15/25 05:00 Ordered CBC AM DRAW Lab 04/16/25 05:00 Ordered CBC AM DRAW Lab 04/17/25 05:00 Ordered CBC Stat Lab 04/15/25 01:48 Completed CMP [Comprehensive Metabolic Panel] Stat Lab 04/15/25 01:48 Completed Comprehensive Metabolic Panel AM DRAW Lab 04/15/25 05:00 Ordered Comprehensive Metabolic Panel AM DRAW Lab 04/16/25 05:00 Ordered Comprehensive Metabolic Panel AM DRAW Lab 04/17/25 05:00 Ordered Drug Screen,Urine Stat Lab 04/15/25 01:29 Ordered HCG Qualitative,Urine Stat Lab 04/15/25 01:29 Ordered Lactate (Lactic Acid) Stat Lab 04/15/25 01:48 Results Lipase Stat Lab 04/15/25 01:48 Completed Magnesium AM DRAW Lab 04/15/25 05:00 Ordered Magnesium AM DRAW Lab 04/16/25 05:00 Ordered Magnesium AM DRAW Lab 04/17/25 05:00 Ordered Magnesium Stat Lab 04/15/25 01:48 Completed Phosphorous AM DRAW Lab 04/16/25 05:00 Ordered Phosphorous AM DRAW Lab 04/17/25 05:00 Ordered Phosphorous AM DRAW Lab 04/18/25 05:00 Ordered Procalcitonin Stat Lab 04/15/25 01:48 Completed Salicylate Stat Lab 04/15/25 01:48 Completed Urinalysis, C/S if Indicated Stat Lab 04/15/25 01:29 Ordered VBG [Venous Blood Gas] Stat Lab 04/15/25 01:48 Completed Acetaminophen Tab [Tylenol Tab] Med 04/15/25 04:34 Ordered 650 mg PO Q6H PRN Dextrose 5%-Ns [D5-Ns] 1,000 ml Med 04/15/25 04:45 Ordered IV 70 mls/hr Folic Acid Med 04/15/25 09:00 Ordered 1 mg PO BID Heparin Inj Med 04/15/25 09:00 Ordered 5,000 unit SC Q12HR LORazepam [Ativan Inj] Med 04/15/25 04:44 Ordered 0.5 mg IV Q2HR PRN LORazepam [Ativan Inj] Med 04/15/25 04:44 Ordered 1 mg IV Q2HR PRN LORazepam [Ativan Inj] Med 04/15/25 04:44 Ordered 2 mg IV Q2HR PRN LORazepam [Ativan Inj] Med 04/15/25 01:28 Discontinued 2 mg IVP X1 ONE LORazepam [Ativan Inj] Med 04/15/25 04:09 Discontinued 2 mg IVP X1 ONE Ondansetron Inj [Zofran Inj] Med 04/15/25 04:34 Ordered 4 mg IVP Q6H PRN Ringers Lactated 1000 ml [Lactated Ringers] 1,000 ml Med 04/15/25 03:04 Discontinued IV 999 mls/hr Thiamine Inj [Vitamin B-1 Inj] 100 mg Med 04/15/25 01:29 Discontinued Sodium Chloride 0.9% [Ns] 100 ml IV X1 Thiamine [Vitamin B-1] Med 04/15/25 09:00 Ordered 100 mg PO BID chlordiazePOXIDE HCl [Librium] Med 04/17/25 04:45 Ordered 25 mg PO Q6HR PRN Code Status Routine Oth 04/15/25 04:34 Ordered Vital Signs Vital signs: Vital Signs Temperature 98.2 F 04/15/25 01:14 Pulse Rate 99 04/15/25 01:14 Respiratory Rate 18 04/15/25 01:14 Blood Pressure 130/90 H 04/15/25 01:14 Pulse Oximetry (%) 99 04/15/25 01:14 Oxygen Delivery Method Room Air 04/15/25 01:14 O2 at 99% on RA and WNLs Nausea/Vomiting/Diarrhea MDM Narrative MDM Narrative:: 35F with history of alcohol abuse presents to ED with N/V, tremors, and generalized weakness. Patient last drank 2 days ago and usually drinks every day. Patient was here twice yesterday with normal head CT. Last lab shows el evated anion-gap. Physical exam reveals mildly dilated pupils, but normal ROM. Tremors noted. Patient is afebrile, intoxicated, and anxious. No leukocytosis. CMP remarkable for elevated anion-gap and mildly low bicarb. K mildly low. Mg mildly low. Lactate 6. CIWA 36. Spoke to IM resident who reports to Dr. Buenrostro, who will admit the patient. Patient data External records reviewed:: [facility] previous records Clinical information provided by:: patient Social determinants that could affect healthcare access:: alcohol use Patient has the following chronic illnesses:: alcohol use How is presenting disease/condition affected by chronic disease/condition?: caused by Evaluation data The following diagnostics were reviewed and interpreted by me:: lab results and EKG tracing(s) Lab and/or radiology exams considered but not ordered:: ordered Interpretation Summary: above Medications / Prescriptions Medications / Prescriptions considered but not ordered:: ordered Medication administrations:: Medication Administration History Acetaminophen (Acetaminophen 325 Mg Tablet) 650 mg PO Q6H PRN PRN Reason: Fever >100.4 or pain Stop: 05/15/25 04:33 Chlordiazepoxide HCl (Chlordiazepoxide Hcl 25 Mg Capsule) 25 mg PO Q6HR PRN PRN Reason: CIWA >9 Stop: 04/18/25 04:44 Folic Acid (Folic Acid 1 Mg Tablet) 1 mg PO BID CHYNA Stop: 04/20/25 08:59 Heparin Sodium (Porcine) (Heparin Sod Inj 5000 Unit/Ml Vial) 5,000 unit SC Q12HR CHYNA Stop: 04/29/25 08:59 Dextrose/Sodium Chloride (D5-Ns) 1,000 mls @ 70 mls/hr IV .[id number] [facility] Stop: 05/15/25 04:44 Lorazepam (Lorazepam 2 Mg/Ml Vial) 0.5 mg IV Q2HR PRN PRN Reason: CIWA SCORE 8-13 Stop: 04/20/25 04:43 Lorazepam (Lorazepam 2 Mg/Ml Vial) 1 mg IV Q2HR PRN PRN Reason: CIWA SCORE 14-19 Stop: 04/20/25 04:43 Lorazepam (Lorazepam 2 Mg/Ml Vial) 2 mg IV Q2HR PRN PRN Reason: CIWA SCORE 20-25 Stop: 04/20/25 04:43 Ondansetron HCl (Ondansetron Inj 2 Mg/Ml Inj 2 Ml) 4 mg IVP Q6H PRN; Protocol PRN Reason: NAUSEA OR VOMITING Stop: 05/15/25 04:33 Thiamine HCl (Thiamine 100 Mg Tablet) 100 mg PO BID CHYNA Stop: 04/20/25 08:59 Discontinued Medications Thiamine HCl 100 mg/ Sodium (Chloride) 101 mls @ 202 mls/hr IV X1 ONE Stop: 04/15/25 01:58 Lactated Ringer's (Lactated Ringers) 1,000 mls @ 999 mls/hr IV .Q1H1M ONE Stop: 04/15/25 04:04 Lorazepam (Lorazepam 2 Mg/Ml Vial) 2 mg IVP X1 ONE Stop: 04/15/25 01:29 Lorazepam (Lorazepam 2 Mg/Ml Vial) 2 mg IVP X1 ONE Stop: 04/15/25 04:10 above Consultations Consultation(s) initiated? (list below): No Diagnosis Nausea Differential Diagnosis: traveler's diarrhea, food poisoning, gastroenteritis, clostridium difficile infection, drug-induced nausea and vomiting, dehydration and other (alcohol withdrawal) Most likely diagnosis given after review of the tests above:: alcohol withdrawal Admission Indicated Admission indicated?: indicated Admission Request Was there a request for admission?: Yes Admission Attestation Admission request attestation: Discussed case with [Dr. Buenrostro] from Hospitalist service regarding admission. Discussed patients ED course, exam findings, labs, and radiology results. The Hospitalist [agrees] to accept the patient for admission. Disposition Plan Disposition Plan: Admit Discharge Plan Plan Patient Disposition: Admit Acute Care w/in Hospital Prescriptions/Referrals Prescriptions/Med Rec: No Action ferrous sulfate [Iron (ferrous sulfate)] 325 mg (65 mg iron) tablet 325 mg PO Q OTHER DAY Qty: 14 0RF chlordiazepoxide HCl 25 mg capsule 25 mg PO Q12H PRN (Reason: alcohol withdrawal) Qty: 14 0RF Referrals: Aleksandra Hogue FNP ([facility]) [Primary Care Provider] - In 1 week Problem List Clinical Impression: Alcohol withdrawal Patient/Caregiver Discharge Instructions Print Language: Hungarian Stand Alone Forms: Nicole Award Info., Patient Portal Info Letter
[2025-04-15 02:03] LABS: Base Excess, Venous -2 (-3-3); O2 Saturation, Venous 97 % (96-97); PCO2, Venous 24 mmHg (36-56); PO2, Venous 72 mmHg (15-58); pH, Venous 7.51 (7.33-7.66)
[2025-04-15 02:08] LABS: Basophils # (Auto) 0.1 Thou/mm3 (0.0-0.2); Basophils % (Auto) 1 % (0-2.5); Eosinophils % (Auto) 0 % (0-10); Hematocrit 32.8 % (36.0-46.0); Hemoglobin 10.1 g/dL (12.0-16.0); Immature Granulocytes % (Auto) 0 % (0-0); Immature Granulocytes Auto 0.01 Thou/mm3 (0.00-0.00); Lymphocytes # (Auto) 1.3 Thou/mm3 (1.0-4.8); Lymphocytes % (Auto) 20 % (10-50); Mean Corpuscular HGB Conc 30.8 g/dl (31.0-37.0); Mean Corpuscular Hemoglobin 21.5 pg (25.0-35.0); Mean Corpuscular Volume 70 fL (80-100); Monocytes # (Auto) 0.3 Thou/mm3 (0.0-0.8); Monocytes % (Auto) 5 % (0-12); Neutrophils # (Auto) 4.5 Thou/mm3 (1.8-7.7); Neutrophils % (Auto) 73 % (37-80); Nucleated Red Blood Cell % 0 /100 WBC (0); Platelet Count 462 Thou/mm3 (140-440); RDW Standard Deviation 61.1 fL (36.4-46.3); White Blood Count 6.1 Thou/mm3 (3.6-11.0)
[2025-04-15 02:31] LABS: Acetaminophen < 2.0 mcg/mL (10.0-20.0); Alanine Aminotransferase 60 U/L (10-49); Albumin, Serum 4.6 gm/dL (3.5-5.0); Albumin/Globulin Ratio 1.4 (1.2-2.2); Alcohol, Blood Medical 16.2 mg/dL (0-10.0); Alkaline Phosphatase 105 U/L (46-116); Ammonia < 10 uMol/L (11-32); Anion Gap 22 (7-16); BUN/Creatinine Ratio 11 Ratio (12-20); Bilirubin,Total 0.5 mg/dL (0.3-1.2); Blood Urea Nitrogen 8 mg/dL (9-23); Calcium 9.6 mg/dL (8.3-10.6); Calcium (Corrected) 9.6 mg/dL (8.5-10.1); Carbon Dioxide 19.8 mMol/L (20.0-31.0); Chloride 105 mMol/L (98-107); Creatinine (Component) 0.7 mg/dL (0.6-1.3); Estimated Creatinine Clearance 103.2 mL/min (>60); Globulin 3.3 gm/dL (2.3-3.5); Glucose 95 mg/dL (74-106); Lipase 54 U/L (12-53); Magnesium 1.5 mg/dL (1.6-2.6); Osmolality,Calculated 290 (275-295); Potassium 3.2 mMol/L (3.4-5.1); Salicylate < 3.0 mg/dL; Sodium 147 mMol/L (136-145); Total Protein 7.9 gm/dL (5.7-8.2); eGFR > 60 See Note
[2025-04-15 03:02] LABS: Beta Hydroxybutyrate 1.2 mmol/L (<0.6); Lactate (Lactic Acid) 6.1 mMol/L (0.4-2.0)
[2025-04-15 03:19] LABS: Procalcitonin 0.05 ng/ml (0.0-0.49)
--- NOTE | 2025-04-15 03:59 | PC.NURSE ---
PT IS IN LOBBY LAYING ON CHAIRS. WAITING FOR RM TO OPEN. CHARGE AWARE. CIWA 36.
--- NOTE | 2025-04-15 04:49 | PD.RESHP ---
Documentation for date of: 04/15/25 HPI History of Present Illness Chief complaint: Nausea, vomiting, tremors History of present illness: 35 y/o F with PMHx significant for alcohol abuse presents with chief complaint of nausea, vomiting, tremors x 1 day. Per patient she had a round of binge drinking that ended with a bottle of tequila night, the following day she developed nausea, vomiting, tremors. Patient presented to ED Thursday morning for the symptoms, reviewed head CT, was sent home but symptoms progressed until patient presented to ED again. Patient denies fever, chills, chest pain, shortness of breath, dysuria. Patient noted previous history of similar symptoms due to alcohol withdrawal in the past, denies any history of hallucinations or seizures. ED COURSE: Labs significant for: Anion gap 22, bicarb 19.8, lactic acid 6.1, ammonia 110, beta hydroxybutyrate 1.2, U tox positive for ethyl alcohol 16.2, serum glucose 95. Imaging significant for: CT head unremarkable. In the ED patient noted to have CIWA score 36, was given thiamine and Ativan. Patient received 1 L bolus normal saline. PMH: Alcohol abuse PSH: None SH: Denies illicit drug use or alcohol use. Endorses frequent alcohol use, binge drinking 1-2 times weekly. Allergies:?NKDA Medications: None Review of Systems Review of Systems Systems Reviewed: All systems reviewed, normal except as documented Past Medical History Past Medical History Comments PMH COMMENT: PMH: Alcohol abuse PSH: None SH: Denies illicit drug use or alcohol use. Endorses frequent alcohol use, binge drinking 1-2 times weekly. Allergies:?NKDA Medications: None Exam Vital Signs Temp Pulse Resp BP Pulse Ox O2 Del Method 98.2 F 99 18 130/90 H 99 Room Air 04/15/25 01:14 04/15/25 01:14 04/15/25 01:14 04/15/25 01:14 04/15/25 01:14 04/15/25 01:14 Narrative Exam PE: Gen: Well-developed and well-nourished. Ill-appearing. HEENT: NCAT, PERRLA, EOMI, MMM, anicteric conjunctivae. CVS: normal S1 and S2. RRR. No M/R/G. Resp: CTA B/L. No rhonchi, rales, crackles or wheezing. Abd: soft, non-tender, non-distended. MSK: Good ROM in BUE & BLE. No edema or rash. Neuro: CN II-XII grossly intact. Strength 5/5 in BUE & BLE. Alert and oriented x3. Significant diffuse tremors. Results: Labs 04/15/25 05:22 04/15/25 05:22 Labs: Short CBC 04/15/25 Range/Units 01:48 WBC 6.1 (3.6-11.0) Thou/mm3 Hgb 10.1 L (12.0-16.0) g/dL Hct 32.8 L (36.0-46.0) % Plt Count 462 H D (140-440) Thou/mm3 BMP 04/15/25 01:48 Sodium 147 H Potassium 3.2 L Chloride 105 Carbon Dioxide 19.8 L BUN 8 L Creatinine 0.7 Glucose 95 Calcium 9.6 Liver Function 04/15/25 Range/Units 01:48 Total Bilirubin 0.5 (0.3-1.2) mg/dL ALT 60 H (10-49) U/L Alkaline Phosphatase 105 (46-116) U/L Albumin 4.6 (3.5-5.0) gm/dL ABG Interpretation ABG results: 04/15/25 01:48 VBG pH 7.51 VBG pCO2 24 L VBG pO2 72 H VBG Base Excess -2 Quality Measures Quality Measures VTE prophylaxis Medications Home Medications and Allergies Allergies Allergy/AdvReac Type Severity Reaction Status Date / Time No Known Allergies Allergy Verified 04/15/25 01:07 Visit Medications Acetaminophen (Acetaminophen 325 Mg Tablet) 650 mg PO Q6H PRN PRN Reason: Fever >100.4 or pain Stop: 05/15/25 04:33 Chlordiazepoxide HCl (Chlordiazepoxide Hcl 25 Mg Capsule) 25 mg PO Q6HR PRN PRN Reason: CIWA >9 Stop: 04/18/25 04:44 Folic Acid (Folic Acid 1 Mg Tablet) 1 mg PO BID CHYNA Stop: 04/20/25 08:59 Heparin Sodium (Porcine) (Heparin Sod Inj 5000 Unit/Ml Vial) 5,000 unit SC Q12HR CHYNA Stop: 04/29/25 08:59 Dextrose/Sodium Chloride (D5-Ns) 1,000 mls @ 70 mls/hr IV .[id number] CHYNA Stop: 05/15/25 04:44 Lorazepam (Lorazepam 2 Mg/Ml Vial) 0.5 mg IV Q2HR PRN PRN Reason: CIWA SCORE 8-13 Stop: 04/20/25 04:43 Lorazepam (Lorazepam 2 Mg/Ml Vial) 1 mg IV Q2HR PRN PRN Reason: CIWA SCORE 14-19 Stop: 04/20/25 04:43 Lorazepam (Lorazepam 2 Mg/Ml Vial) 2 mg IV Q2HR PRN PRN Reason: CIWA SCORE 20-25 Stop: 04/20/25 04:43 Ondansetron HCl (Ondansetron Inj 2 Mg/Ml Inj 2 Ml) 4 mg IVP Q6H PRN; Protocol PRN Reason: NAUSEA OR VOMITING Stop: 05/15/25 04:33 Thiamine HCl (Thiamine 100 Mg Tablet) 100 mg PO BID COUNTS INCLUDE 234 BEDS AT [facility] Stop: 04/20/25 08:59 Discontinued Medications Thiamine HCl 100 mg/ Sodium (Chloride) 101 mls @ 202 mls/hr IV X1 ONE Stop: 04/15/25 01:58 Lactated Ringer's (Lactated Ringers) 1,000 mls @ 999 mls/hr IV .Q1H1M ONE Stop: 04/15/25 04:04 Lorazepam (Lorazepam 2 Mg/Ml Vial) 2 mg IVP X1 ONE Stop: 04/15/25 01:29 Lorazepam (Lorazepam 2 Mg/Ml Vial) 2 mg IVP X1 ONE Stop: 04/15/25 04:10 Assessment & Plan Plan 35 y/o F with PMHx significant for alcohol abuse presents with chief complaint of nausea, vomiting, tremors x 1 day, admitted for alcohol withdrawal with alcoholic ketosis. #Alcohol withdrawal #Alcohol ketosis #High anion gap metabolic acidosis Patient has known history of alcohol abuse. Presented with nausea, vomiting, tremors that started 1 day after her previous strength, 1 whole bottle of tequila. Patient reports history of binge drinking with similar symptoms in the past. Patient denies any history of hallucinations or seizures. Patient has labs showing elevated lactic acid 6.1, beta hydroxybutyrate 1.2, metabolic acidosis 19.8 with anion gap 22. Patient reports poor oral intake due to heavy drinking for the past 3-4 days. Patient received 100 mg thiamine IV x 1 in the ED. - CIWA protocol - Librium 25 mg p.o. 3 times daily - IVF: D5?NS at 70 mL/h - Telemetry - Folic acid 1 mg p.o. twice daily - Thiamine 100 mg p.o. twice daily DVT prophylaxis: Heparin GI prophylaxis: None Diet: Regular Lines: Peripheral IV Code status: Full code Plan of care discussed with attending Dr. Buenrostro. Beto Tovar MD PGY?1 Attending Provider Attestation/Addendum I have examined the patient, reviewed labs and imaging findings, discussed the case with the resident(s), and reviewed entered orders. I agree with the plan of care as outlined in this note, with these additional summaries/recommendations: 35-year-old female with history of alcohol use disorder presented to the ED with chief complaint of worsening tremors, nausea. She reports she has not eaten in several days and has only been drinking alcohol daily. She is interested in quitting and would like to be admitted today for management of alcohol withdrawal. Silviano Buenrostro MD
[2025-04-15] MEDS: RINGERS LACTATED 1000 ML 1,000 ML 999 ML IV (05:10)
[2025-04-15] MEDS: LORazepam 2 MG/ML VIAL IVP (05:10)
[2025-04-15] MEDS: THIAMINE INJ 100 MG in SODIUM CHLORIDE 0.9% 100 ML 202 MG IV (05:12)
[2025-04-15] MEDS: ONDANSETRON INJ 2 MG/ML INJ 2 ML 4 MG IVP ×2 (05:24→12:47)
[2025-04-15 05:38] LABS: Basophils # (Auto) 0.1 Thou/mm3 (0.0-0.2); Basophils % (Auto) 1 % (0-2.5); Eosinophils % (Auto) 0 % (0-10); Hematocrit 28.9 % (36.0-46.0); Immature Granulocytes % (Auto) 0 % (0-0); Immature Granulocytes Auto 0.01 Thou/mm3 (0.00-0.00); Lymphocytes # (Auto) 1.2 Thou/mm3 (1.0-4.8); Lymphocytes % (Auto) 18 % (10-50); Mean Corpuscular HGB Conc 30.4 g/dl (31.0-37.0); Mean Corpuscular Hemoglobin 21.4 pg (25.0-35.0); Mean Corpuscular Volume 70 fL (80-100); Monocytes # (Auto) 0.5 Thou/mm3 (0.0-0.8); Monocytes % (Auto) 8 % (0-12); Neutrophils # (Auto) 4.9 Thou/mm3 (1.8-7.7); Neutrophils % (Auto) 73 % (37-80); Nucleated Red Blood Cell % 0 /100 WBC (0); Platelet Count 403 Thou/mm3 (140-440); RDW Standard Deviation 61.7 fL (36.4-46.3); Red Blood Count 4.12 Miln/mm3 (4.00-5.20); White Blood Count 6.7 Thou/mm3 (3.6-11.0)
[2025-04-15 05:38] LABS: Reflex Lactate? Y
[2025-04-15 05:39] LABS: Hemoglobin 8.8 g/dL (12.0-16.0)
[2025-04-15 05:40] LABS: Lactic Acid, 3 HR 2.3 mMol/L (0.4-2.0)
[2025-04-15 06:17] LABS: Alanine Aminotransferase 49 U/L (10-49); Albumin, Serum 4.1 gm/dL (3.5-5.0); Albumin/Globulin Ratio 1.4 (1.2-2.2); Alkaline Phosphatase 92 U/L (46-116); Anion Gap 15 (7-16); BUN/Creatinine Ratio 11 Ratio (12-20); Bilirubin,Total 0.7 mg/dL (0.3-1.2); Blood Urea Nitrogen 8 mg/dL (9-23); Calcium 9.2 mg/dL (8.3-10.6); Calcium (Corrected) 9.2 mg/dL (8.5-10.1); Carbon Dioxide 25.3 mMol/L (20.0-31.0); Chloride 101 mMol/L (98-107); Creatinine (Component) 0.7 mg/dL (0.6-1.3); Estimated Creatinine Clearance 103.2 mL/min (>60); Globulin 2.9 gm/dL (2.3-3.5); Glucose 101 mg/dL (74-106); Magnesium 1.5 mg/dL (1.6-2.6); Osmolality,Calculated 279 (275-295); Potassium 3.9 mMol/L (3.4-5.1); Sodium 141 mMol/L (136-145); eGFR > 60 See Note
[2025-04-15] MEDS: DEXTROSE 5%-NS 1,000 ML 70 ML IV (06:26)
[2025-04-15] MEDS: THIAMINE 100 MG TABLET PO ×2 (08:25→20:31)
[2025-04-15] MEDS: FOLIC ACID 1 MG TABLET PO ×2 (08:25→20:31)
[2025-04-15] MEDS: HEPARIN SOD INJ 5000 UNIT/ML VIAL SC ×2 (08:25→20:31)
--- NOTE | 2025-04-15 08:26 | XR_ITS ---
Examination: Abdomen AP single view Technique: AP portable supine abdomen, single view Exam date and time: April 15, 2025 0839 hrs. Indications: Abdominal pain beginning 2 days ago. Findings: Mild air and stool throughout the colon. No obstruction No free air Intact osseous structures Impression: Nonobstructive bowel gas pattern
[2025-04-15] MEDS: Magnesium Sulfate 4 GM Ivpb 4 GM/50 ML BAG IV (09:10)
[2025-04-15] MEDS: HYDROmorphone INJ 2 MG/ML VIAL 0.5 MG IVP (09:10)
[2025-04-15] MEDS: DEXTROSE 5%-NS 1,000 ML 120 ML IV ×2 (09:41→17:19)
--- NOTE | 2025-04-15 09:43 | PC.NURSE ---
Pt stated felt numbness and weird in whole body after dilaudid, Dr. Sheth and team at bedside to assess. CIWA 12. BP 124/92 HR 101. Pt alert oriented. O2 sat 97 RA. Ordered to reassess CIWA at 1030 and hold librium until assessment.
[2025-04-15] MEDS: chlordiazePOXIDE HCl 25 MG CAPSULE PO ×3 (12:45→23:36)
--- NOTE | 2025-04-15 13:51 | ESPR_ITS ---
Documentation for date of: 04/15/25 Subjective Subjective Interval history: Patient is an overnight admit. Patient seen and examined at bedside this morning. Patient is very anxious and appears to be nervous about her symptoms. Patient also complaining of right upper quadrant pain KUB was ordered which just showed some gas pattern in the abdomen no signs of perforation or free air. Patient has not received any Ativan since last night her CIWA protocol this morning was 6 and repeat CIWA later was 12. Other than feeling anxious patient has no other complaints. Vitals are stable and labs are reviewed. Exam Vital Signs Temp Pulse Resp BP Pulse Ox O2 Del Method 98.0 F 81 18 121/80 97 Room Air 04/15/25 11:58 04/15/25 11:58 04/15/25 11:58 04/15/25 11:58 04/15/25 11:58 04/15/25 11:58 Narrative Exam GENERAL: young obese female, very anxious, cooperative NEURO: no focal neurological deficits noted other than tremors bilaterally in upper extremities HEENT: Atraumatic, Normocephalic. mucous membranes moist. Eyes open, symmetrical, & clear HEART: Normal Heart Sounds LUNGS: Clear to auscultation with no wheezing or crackles. ABDOMEN: soft, non-distended, non-tender, bowel sounds heard, no guarding or rebound tenderness SKIN: No Rash or ecchymoses EXTREMITIES: No edema, tenderness, able to move all 4 extremities, pedal pulses palpated Objective Labs 04/15/25 05:22 04/15/25 05:22 Labs: Laboratory Results - last 24 hr 04/15/25 04/15/25 04/15/25 01:48 01:48 05:22 WBC 6.1 6.7 RBC 4.70 4.12 Hgb 10.1 L 8.8 L Hct 32.8 L 28.9 L MCV 70 L 70 L MCH 21.5 L 21.4 L MCHC 30.8 L 30.4 L RDW Std Deviation 61.1 H 61.7 H Plt Count 462 H D 403 D Neut % (Auto) 73 73 Lymph % (Auto) 20 18 [place] % (Auto) 5 8 Eos % (Auto) 0 0 Baso % (Auto) 1 1 Neut # (Auto) 4.5 4.9 Lymph # (Auto) 1.3 1.2 [place] # (Auto) 0.3 0.5 Eos # (Auto) 0.0 0.0 Baso # (Auto) 0.1 0.1 Immature Gran # (Auto) 0.01 H 0.01 H Absolute Nucleated RBC 0.00 0.00 Immature Gran % 0 0 Nucleated RBC % 0 0 VBG pH 7.51 VBG pCO2 24 L VBG pO2 72 H VBG O2 Sat ([place]) 97 VBG Base Excess -2 Sodium 147 H 141 Potassium 3.2 L 3.9 D Chloride 105 101 Carbon Dioxide 19.8 L 25.3 Anion Gap 22 H 15 BUN 8 L 8 L Creatinine 0.7 0.7 Estim Creat Clear Calc 103.2 103.2 eGFR > 60 > 60 BUN/Creatinine Ratio 11 L 11 L Glucose 95 101 Calculated Osmolality 290 279 Lactic Acid 6.1 H* 2.3 H Calcium 9.6 9.2 Corrected Calcium 9.6 9.2 Magnesium 1.5 L 1.5 L Total Bilirubin 0.5 0.7 ALT 60 H 49 Alkaline Phosphatase 105 92 Ammonia < 10 L Total Protein 7.9 7.0 Albumin 4.6 4.1 D Globulin 3.3 2.9 Albumin/Globulin Ratio 1.4 1.4 Lipase 54 H Beta-Hydroxybutyrate/Acetoacetate 1.2 H Procalcitonin 0.05 Cancelled Salicylates < 3.0 Acetaminophen < 2.0 L Ethyl Alcohol 16.2 H ABG Interpretation ABG results: 04/15/25 01:48 VBG pH 7.51 VBG pCO2 24 L VBG pO2 72 H VBG Base Excess -2 Quality Measures Quality Measures VTE prophylaxis Assessment & Plan Assessment Current Active Medications: Generic Name Dose Route Start Last Admin Trade Name Osmanq PRN Reason Stop Dose Admin Acetaminophen 650 mg 04/15/25 04:34 Acetaminophen 325 Mg Tablet PO 05/15/25 04:33 Q6H PRN Fever >100.4 or pain Chlordiazepoxide HCl 25 mg 04/15/25 12:00 04/15/25 12:45 Chlordiazepoxide Hcl 25 Mg Capsule PO 04/16/25 11:59 25 mg Q6HR CHYNA Administration Folic Acid 1 mg 04/15/25 09:00 04/15/25 08:25 Folic Acid 1 Mg Tablet PO 04/20/25 08:59 1 mg BID CHYNA Administration Heparin Sodium (Porcine) 5,000 unit 04/15/25 09:00 04/15/25 08:25 Heparin Sod Inj 5000 Unit/Ml Vial SC 04/29/25 08:59 5,000 unit Q12HR CHYNA Administration Dextrose/Sodium Chloride 1,000 mls @ 120 mls/hr 04/15/25 09:17 04/15/25 09:41 D5-Ns IV 05/15/25 09:16 120 mls/hr .Q8H20M CHYNA Administration Lorazepam 0.5 mg 04/15/25 04:44 Lorazepam 2 Mg/Ml Vial IV 04/20/25 04:43 Q2HR PRN CIWA SCORE 8-13 Lorazepam 1 mg 04/15/25 04:44 Lorazepam 2 Mg/Ml Vial IV 04/20/25 04:43 Q2HR PRN CIWA SCORE 14-19 Lorazepam 2 mg 04/15/25 04:44 Lorazepam 2 Mg/Ml Vial IV 04/20/25 04:43 Q2HR PRN CIWA SCORE 20-25 Ondansetron HCl 4 mg 04/15/25 04:34 04/15/25 12:47 Ondansetron Inj 2 Mg/Ml Inj 2 Ml IVP 05/15/25 04:33 4 mg Q6H PRN Administration NAUSEA OR VOMITING Protocol Thiamine HCl 100 mg 04/15/25 09:00 04/15/25 08:25 Thiamine 100 Mg Tablet PO 04/20/25 08:59 100 mg BID CHYNA Administration Plan Ms. Tinoco is a 35 y/o F with PMHx significant for alcohol abuse presents with chief complaint of nausea, vomiting, tremors x 1 day, admitted for alcohol withdrawal with alcoholic ketosis. #Alcohol withdrawal #Alcohol ketosis #High anion gap metabolic acidosis Patient has known history of alcohol abuse. Presented with nausea, vomiting, tremors that started 1 day after her previous strength, 1 whole bottle of tequila. Patient reports history of binge drinking with similar symptoms in the past. Patient denies any history of hallucinations or seizures. Patient has labs showing elevated lactic acid 6.1, beta hydroxybutyrate 1.2, metabolic acidosis 19.8 with anion gap 22. Patient reports poor oral intake due to heavy drinking for the past 3-4 days. Patient received 100 mg thiamine IV x 1 in the ED. Blood alcohol level 16.2 - CIWA protocol in place - Librium 25mg p.o. Q6H (will change to TID tomorrow) - IVF: D5?NS at 70 mL/h - Telemetry monitoring - Folic acid 1 mg p.o. twice daily - Thiamine 100 mg p.o. twice daily #Microcytic Anemia -Hgb 8.8, Hct 28.9, MCV 70 -No signs of active bleeding, Pt denies hemetemesis, melena or hematochezia -Med rec is pending, but pt takes ferrous sulfate at home -Fecal occult ordered -Iron panel ordered DVT prophylaxis: Heparin GI prophylaxis: Protonix 40mg IV Qday Diet: Regular Lines: Peripheral IV Code status: Full code Assessment and plan discussed with my attending physician Dr. Elvia Sheth (PGY-1)- Internal medicine resident Attending Provider Attestation/Addendum I attest that I was physically present for the evaluation, physical examination, lab and imaging review of the patient with the residents. I discussed the case with the residents and agree with the findings and plans of care as documented above. Patient is a 35 years old female with past medical history of alcohol abuse who presented with complaint of nausea, vomiting, tremors. Was admitted overnight for management of alcohol withdrawal. At bedside today, patient was anxious. Her CIWA at that time was 12. Continues to be on CIWA protocol. Will continue with IV fluid D5 NS at 120 cc/h. Noted to have hemoglobin of 8.8, decreasing from 10.1 yesterday, likely dilutional, we will obtain FOBT and monitor hemoglobin level closely. Patient has magnesium of 1.5, repleted accordingly. She endorsed right upper quadrant pain, we will obtain x-ray KUB. Yovani Gan MD
[2025-04-15 16:01] LABS: HCG,Qualitative Serum Negative
[2025-04-15 18:39] LABS: Collection Type, Urine Clean Catch
[2025-04-15 18:54] LABS: HCG Qualitative,Urine Negative
[2025-04-15 18:59] LABS: Amorphous Crystals,Urine Present (Absent); Bacteria,Urine 4+; Bilirubin,Urine Negative (Negative); Blood,Urine Trace (Negative); Clarity,Urine Turbid (Clear/Hazy); Color,Urine Yellow (Lt Yel-Yel); Culture Indicated,Urine Contaminated; Glucose, Urine Negative (Negative); Ketones,Urine 1+ (Negative); Leukocyte Esterase,Urine Positive (Negative); Nitrite,Urine Positive (Negative); Protein,Urine Trace (Neg - Trace); RBC,Urine 7 /hpf (0-3); Specific Gravity,Urine 1.022 (1.001-1.035); Squamous Epithelial Cell,Urine 12 /hpf (0-5); Urobilinogen,Urine Negative mg/dL (0.0-1.0); WBC,Urine 50 /hpf (0-5)
[2025-04-15 19:06] LABS: Amphetamine/Methamp Scrn,U Negative (Negative); Barbiturate Screen,Urine Negative (Negative); Benzodiazepines Screen,Urine Positive (Negative); Benzoylecgonine Screen, Ur Negative (Negative); Fentanyl Screen,Urine Negative (Negative); Opiate Screen,Urine Positive (Negative); THC Screen,Urine Negative (Negative)
--- NOTE | 2025-04-15 19:06 | PC.NURSE ---
Notified Dr. Sheth that patient wants to have plan b pill. Ok to give plan b if patient family brings new box and pharmacy verified. Patients family at bedside with medication, notified Dr. Canales and ordered to hold until clarification with Dr. Mora. Pharmacy verified medication and Dr. Canales verified with Dr. Mora ok to give medication.
[2025-04-15] MEDS: LEVONORGESTREL 1.5 MG PO (19:38)
[2025-04-16] VITALS (7 sets, daily range): BP systolic 103–122; BP diastolic 69–87; PULSE 60–90; RESP 14–19; TEMP 36.3–36.8; O2SAT 98–100; BMI 30.7
[2025-04-16] MEDS: DEXTROSE 5%-NS 1,000 ML 120 ML IV ×3 (01:54→19:05)
[2025-04-16] MEDS: chlordiazePOXIDE HCl 25 MG CAPSULE PO ×3 (05:37→22:23)
[2025-04-16 06:22] LABS: Basophils % (Auto) 1 % (0-2.5); Eosinophils # (Auto) 0.1 Thou/mm3 (0.0-0.5); Eosinophils % (Auto) 4 % (0-10); Hematocrit 26.3 % (36.0-46.0); Immature Granulocytes % (Auto) 0 % (0-0); Immature Granulocytes Auto 0.01 Thou/mm3 (0.00-0.00); Lymphocytes # (Auto) 1.7 Thou/mm3 (1.0-4.8); Lymphocytes % (Auto) 48 % (10-50); Mean Corpuscular Hemoglobin 21.6 pg (25.0-35.0); Mean Corpuscular Volume 72 fL (80-100); Monocytes # (Auto) 0.3 Thou/mm3 (0.0-0.8); Monocytes % (Auto) 8 % (0-12); Neutrophils # (Auto) 1.4 Thou/mm3 (1.8-7.7); Neutrophils % (Auto) 40 % (37-80); Nucleated Red Blood Cell % 0 /100 WBC (0); Platelet Count 326 Thou/mm3 (140-440); RDW Standard Deviation 62.6 fL (36.4-46.3); Red Blood Count 3.66 Miln/mm3 (4.00-5.20); White Blood Count 3.6 Thou/mm3 (3.6-11.0)
[2025-04-16 06:25] LABS: Hemoglobin 7.9 g/dL (12.0-16.0)
[2025-04-16 07:18] LABS: Alanine Aminotransferase 31 U/L (10-49); Albumin, Serum 3.2 gm/dL (3.5-5.0); Albumin/Globulin Ratio 1.3 (1.2-2.2); Alkaline Phosphatase 74 U/L (46-116); Anion Gap 11 (7-16); BUN/Creatinine Ratio 12 Ratio (12-20); Bilirubin,Total 0.4 mg/dL (0.3-1.2); Blood Urea Nitrogen 7 mg/dL (9-23); Calcium 8.2 mg/dL (8.3-10.6); Calcium (Corrected) 8.8 mg/dL (8.5-10.1); Chloride 106 mMol/L (98-107); Creatinine (Component) 0.6 mg/dL (0.6-1.3); Estimated Creatinine Clearance 121.2 mL/min (>60); Globulin 2.5 gm/dL (2.3-3.5); Glucose 119 mg/dL (74-106); Osmolality,Calculated 285 (275-295); Phosphorous 2.9 mg/dL (2.4-5.1); Potassium 3.1 mMol/L (3.4-5.1); Sodium 144 mMol/L (136-145); Total Protein 5.7 gm/dL (5.7-8.2); eGFR > 60 See Note
[2025-04-16 07:34] LABS: Ferritin 15 ng/mL (7.3-270.7); Iron 76 mcg/dL (50-170); Percent Iron Saturation 22 % (20-55); Total Iron Binding Capacity 336 mcg/dL (250-425); Unsaturated Iron Binding 260 (225-295)
[2025-04-16] MEDS: FOLIC ACID 1 MG TABLET PO ×2 (08:14→22:23)
[2025-04-16] MEDS: PANTOPRAZOLE INJ 40 MG VIAL IVP (08:14)
[2025-04-16] MEDS: HEPARIN SOD INJ 5000 UNIT/ML VIAL SC (08:14)
[2025-04-16] MEDS: POTASSIUM CHLORIDE 10% 20 MEQ/15 ML UDC 40 MEQ PO (08:14)
[2025-04-16] MEDS: THIAMINE 100 MG TABLET PO ×2 (08:14→22:23)
[2025-04-16] MEDS: POLYETHYLENE GLYCOL 17 GM PACKET PO (10:57)
--- NOTE | 2025-04-16 13:51 | PC.SS ---
Mary Jo Tinoco is a 35-year-old female admitted to [facility] for Alcohol Withdrawal. SS conducted bedside contact with the patient to complete initial assessment and to discuss discharge planning. Role and reason explained. Patient confirmed demographic information. Patient identifies Rowdy Lynch [phone] as her surrogate decision maker. Pt states she is able to complete all ADL?s independently. No need for any source of DME. Pts PCP is Mariusz Rivero in [place] unsure of PCP. Pharmacy of choice is [facility]. Discharge options discussed and the pt wishes to return home.? Family will provide transportation upon DC. No further intervention required at this time, social service worker would be available to address any further concerns. DC Plan: Home Contact: Rowdy Address: Confirmed on face sheet PCP: Mariusz Clarke
--- NOTE | 2025-04-16 15:06 | ESPR_ITS ---
Documentation for date of: 04/16/25 Subjective Subjective Interval history: No overnight events, patient's CIWA down to 3, we will decrease Librium to 3 times daily. Patient's hemoglobin has continued to drop, it was 10.1 on admission, today 7.9. Patient refers noticing blood in stool in the past, however not recently, FOBT was done today which was positive. Gastroenterology Dr. Montemayor consulted, appreciate recommendations Exam Vital Signs Temp Pulse Resp BP Pulse Ox O2 Del Method 97.7 F 88 18 115/85 H 100 Room Air 04/16/25 12:00 04/16/25 12:00 04/16/25 12:00 04/16/25 12:00 04/16/25 12:00 04/16/25 12:00 Narrative Exam GENERAL: Awake, alert and oriented. No acute distress. HEENT: Normocephalic, atraumatic and nontender.? Pupils are equal and reactive to light and accommodation.? Oral mucosa moist. NECK: Supple without adenopathy. Traquea midline. Nontender, carotid pulse 2+ bilaterally without bruits, no JVD.? CHEST: Heart rate and rythm normal, no murmurs, gallops auscultated. S1 & 2 normal insensity. Nontender on palpation, no deformity and no crepitus. LUNGS: Lung sounds are clear.? No wheezing, rales or ronchi.? No intercostal subcostal retraction. Room air ABDOMEN: Soft,symmetric , nontender, no guarding or rebound tenderness. No abnormal masses palpated.? No pulsatile masses or bruits.? Bowel sounds are normoactive in all 4 quadrants. EXTREMITIES: Nontender.? No pitting edema.? No cyanosis.? Patient is able to move all 4 extremities. SKIN: No rashes noted. NEURO:? Cranial nerves intact.? There is no focalization.? GCS is 15. Objective Labs 04/16/25 05:16 04/16/25 05:16 Labs: Laboratory Results - last 24 hr 04/15/25 04/15/25 04/16/25 15:13 18:00 05:16 WBC 3.6 D RBC 3.66 L Hgb 7.9 L Hct 26.3 L MCV 72 L MCH 21.6 L MCHC 30.0 L RDW Std Deviation 62.6 H Plt Count 326 D Neut % (Auto) 40 Lymph % (Auto) 48 [place] % (Auto) 8 Eos % (Auto) 4 Baso % (Auto) 1 Neut # (Auto) 1.4 L Lymph # (Auto) 1.7 [place] # (Auto) 0.3 Eos # (Auto) 0.1 Baso # (Auto) 0.0 Immature Gran # (Auto) 0.01 H Absolute Nucleated RBC 0.00 Immature Gran % 0 Nucleated RBC % 0 Sodium 144 Potassium 3.1 L D Chloride 106 Carbon Dioxide 27.0 Anion Gap 11 BUN 7 L Creatinine 0.6 Estim Creat Clear Calc 121.2 eGFR > 60 BUN/Creatinine Ratio 12 Glucose 119 H Calculated Osmolality 285 Calcium 8.2 L Corrected Calcium 8.8 Phosphorus 2.9 Magnesium 2.0 Iron 76 TIBC 336 Iron Saturation 22 Unsat Iron Binding 260 Ferritin 15 Total Bilirubin 0.4 ALT 31 Alkaline Phosphatase 74 Total Protein 5.7 Albumin 3.2 L D Globulin 2.5 Albumin/Globulin Ratio 1.3 HCG, Qual Negative Ur Collection Type Clean Catch Urine Color Yellow Urine Clarity Turbid A Urine pH 6.0 Ur Specific [place] 1.022 Urine Protein Trace Urine Glucose (UA) Negative Urine Ketones 1+ A Urine Blood Trace Urine Nitrite Positive Urine Bilirubin Negative Urine Urobilinogen (Auto) Negative Ur Leukocyte Esterase Positive Urine RBC 7 H Urine WBC 50 H Ur Squamous Epith Cells 12 H Amorphous Crystals Present A Urine Bacteria 4+ A Ur Culture Indicated? Contaminated Urine HCG, Qual Negative Urine Opiates Screen Positive A Urine Fentanyl Screen Negative Ur Barbiturates Screen Negative U Amphetamin/Meth Scrn Negative U Benzodiazepines Scrn Positive A U Cocaine Metab Screen Negative U Marijuana (THC) Screen Negative ABG Interpretation ABG results: 04/15/25 01:48 VBG pH 7.51 VBG pCO2 24 L VBG pO2 72 H VBG Base Excess -2 Quality Measures Quality Measures VTE prophylaxis Assessment & Plan Assessment Current Active Medications: Generic Name Dose Route Start Last Admin Trade Name Freq PRN Reason Stop Dose Admin Acetaminophen 650 mg 04/15/25 04:34 Acetaminophen 325 Mg Tablet PO 05/15/25 04:33 Q6H PRN Fever >100.4 or pain Chlordiazepoxide HCl 25 mg 04/16/25 14:00 04/16/25 13:24 Chlordiazepoxide Hcl 25 Mg Capsule PO 04/17/25 13:59 25 mg TID CYHNA Administration Folic Acid 1 mg 06/07/25 09:00 04/16/25 08:14 Folic Acid 1 Mg Tablet PO 04/20/25 08:59 1 mg BID CHYNA Administration Heparin Sodium (Porcine) 5,000 unit 04/15/25 09:00 04/16/25 08:14 Heparin Sod Inj 5000 Unit/Ml Vial SC 04/29/25 08:59 5,000 unit Q12HR CHYNA Administration Dextrose/Sodium Chloride 1,000 mls @ 120 mls/hr 04/15/25 09:17 04/16/25 10:29 D5-Ns IV 05/15/25 09:16 120 mls/hr .Q8H20M CHYNA Administration Lorazepam 0.5 mg 04/15/25 04:44 Lorazepam 2 Mg/Ml Vial IV 04/20/25 04:43 Q2HR PRN CIWA SCORE 8-13 Lorazepam 1 mg 04/15/25 04:44 Lorazepam 2 Mg/Ml Vial IV 04/20/25 04:43 Q2HR PRN CIWA SCORE 14-19 Lorazepam 2 mg 04/15/25 04:44 Lorazepam 2 Mg/Ml Vial IV 04/20/25 04:43 Q2HR PRN CIWA SCORE 20-25 Ondansetron HCl 4 mg 04/15/25 04:34 04/15/25 12:47 Ondansetron Inj 2 Mg/Ml Inj 2 Ml IVP 05/15/25 04:33 4 mg Q6H PRN Administration NAUSEA OR VOMITING Protocol Pantoprazole Sodium 40 mg 04/17/25 09:00 Pantoprazole 40 Mg Tablet PO 05/17/25 08:59 QDAY CHYNA Protocol Thiamine HCl 100 mg 04/15/25 09:00 04/16/25 08:14 Thiamine 100 Mg Tablet PO 04/20/25 08:59 100 mg BID CHYNA Administration Plan Ms. Tinoco is a 35 y/o F with PMHx significant for alcohol abuse presents with chief complaint of nausea, vomiting, tremors x 1 day, admitted for alcohol withdrawal with alcoholic ketosis. #Acute Anemia -Hemglobin 10.1 on admission, today 7.9. Patient refers noticing blood in stool in the past, however not recently, -FOBT was done today which was positive. -Iron panel WNL -Gastroenterology Dr. Montemayor consulted, appreciate recommendations #Alcohol withdrawal #Alcohol ketosis, resolved #High anion gap metabolic acidosis, resolved Patient has known history of alcohol abuse. Presented with nausea, vomiting, tremors that started 1 day after her previous strength, 1 whole bottle of tequila. Patient reports history of binge drinking with similar symptoms in the past. Patient denies any history of hallucinations or seizures. Patient has labs showing elevated lactic acid 6.1, beta hydroxybutyrate 1.2, metabolic acidosis 19.8 with anion gap 22. Patient reports poor oral intake due to heavy drinking for the past 3-4 days. Patient received 100 mg thiamine IV x 1 in the ED. Blood alcohol level 16.2 - CIWA protocol in place - Librium 25mg p.o. TID - IVF: D5?NS at 120 mL/h - Telemetry monitoring - Folic acid 1 mg p.o. twice daily - Thiamine 100 mg p.o. twice daily DVT prophylaxis: Heparin GI prophylaxis: Protonix 40mg IV Qday Diet: Regular Lines: Peripheral IV Code status: Full code Assessment and plan discussed with my attending physician Dr. Elvia Estrada MD PGY3 Attending Provider Attestation/Addendum I attest that I was physically present for the evaluation, physical examination, lab and imaging review of the patient with the residents. I discussed the case with the residents and agree with the findings and plans of care as documented above. At bedside today, patient states she is feeling much better and denies new complaints. CIWA score this morning has been 3. We will decrease Librium dosing to 25 mg 3 times daily. Hemoglobin continued to downtrend, 7.9 today. Patient stated that she had noticed some blood in stool but not recently. FOBT was done today, was positive. We will monitor her hemoglobin closely and get GI consult. Continues to be on CIWA protocol along with IV hydration. Yovani Gan MD
--- NOTE | 2025-04-16 20:28 | PD.IMCONS ---
HPI Data of Consult Requesting Physician: Silviano Buenrostro MD Primary Care Provider: Physician No Primary/Family Consult Narrative Reason for consult: Nausea vomiting tremors History of present illness: 35 years old female presented to the hospital with nausea vomiting tremors and weakness Patient has been binge drinking tequila She was subsequently admitted Head CT was negative on the prior visit Abdominal ultrasound done on 03/16/2025 showed liver size to be 19.4 cm and fatty liver cc:: cc: Silviano Buenrostro MD Review of Systems Review of Systems ROS Unobtainable: unobtainable due to medical condition Past Medical History Surgical History OTHER SURGICAL HX: As in the history of present illness Meds Home Medications and Allergies Home Medications ?Medication ?Instructions ?Recorded ?Confirmed ?Type propranolol 20 mg tablet 20 mg PO QDAY PRN anxiety 04/16/25 04/16/25 History Allergies Allergy/AdvReac Type Severity Reaction Status Date / Time No Known Allergies Allergy Verified 04/15/25 01:07 Exam Vital Signs Temp Pulse Resp BP Pulse Ox O2 Del Method 97.3 F 68 19 122/82 98 Room Air 04/16/25 18:55 04/16/25 19:33 04/16/25 18:55 04/16/25 18:55 04/16/25 18:55 04/16/25 18:55 Routine Respiratory Exam Comments: Normal to auscultation Routine Abdominal Exam Comments: Soft nontender positive bowel sounds Results Labs 04/16/25 05:16 04/16/25 05:16 Labs: Short CBC 04/16/25 Range/Units 05:16 WBC 3.6 D (3.6-11.0) Thou/mm3 Hgb 7.9 L (12.0-16.0) g/dL Hct 26.3 L (36.0-46.0) % Plt Count 326 D (140-440) Thou/mm3 BMP 04/16/25 05:16 Sodium 144 Potassium 3.1 L D Chloride 106 Carbon Dioxide 27.0 BUN 7 L Creatinine 0.6 Glucose 119 H Calcium 8.2 L Liver Function 04/16/25 Range/Units 05:16 Total Bilirubin 0.4 (0.3-1.2) mg/dL ALT 31 (10-49) U/L Alkaline Phosphatase 74 (46-116) U/L Albumin 3.2 L D (3.5-5.0) gm/dL ABG Interpretation ABG results: 04/15/25 01:48 VBG pH 7.51 VBG pCO2 24 L VBG pO2 72 H VBG Base Excess -2 Assessment and Plan Additional Assessment & Plan Additional Plan: # Alcohol withdrawal manifesting as tremors # Nausea vomiting with drop in hemoglobin hematocrit but no clear evidence of bleeding plan # Fatty liver with hepatomegaly Plan Continue current management once more stable and out of alcohol withdrawal will consider upper endoscopy prior to discharge advised complete abstinence from alcohol Thank you very much for the opportunity to participate in the care of this patient
--- NOTE | 2025-04-16 21:22 | PC.NURSE ---
seen and examined by Dr. Hair greenberg/ bushra made and carried out.
[2025-04-17] VITALS (9 sets, daily range): BP systolic 115–136; BP diastolic 79–88; PULSE 57–82; RESP 17–18; TEMP 36.1–37; O2SAT 99–100; BMI 31.4
[2025-04-17] MEDS: DEXTROSE 5%-NS 1,000 ML 120 ML IV ×3 (03:36→21:57)
[2025-04-17 05:44] LABS: Basophils % (Auto) 1 % (0-2.5); Eosinophils # (Auto) 0.3 Thou/mm3 (0.0-0.5); Eosinophils % (Auto) 6 % (0-10); Hematocrit 26.7 % (36.0-46.0); Immature Granulocytes % (Auto) 0 % (0-0); Immature Granulocytes Auto 0.01 Thou/mm3 (0.00-0.00); Lymphocytes # (Auto) 1.9 Thou/mm3 (1.0-4.8); Lymphocytes % (Auto) 47 % (10-50); Mean Corpuscular HGB Conc 31.1 g/dl (31.0-37.0); Mean Corpuscular Hemoglobin 21.6 pg (25.0-35.0); Mean Corpuscular Volume 69 fL (80-100); Monocytes # (Auto) 0.3 Thou/mm3 (0.0-0.8); Monocytes % (Auto) 7 % (0-12); Neutrophils # (Auto) 1.6 Thou/mm3 (1.8-7.7); Neutrophils % (Auto) 39 % (37-80); Nucleated Red Blood Cell % 0 /100 WBC (0); Platelet Count 334 Thou/mm3 (140-440); RDW Standard Deviation 60.9 fL (36.4-46.3); Red Blood Count 3.85 Miln/mm3 (4.00-5.20)
[2025-04-17 06:04] LABS: Alanine Aminotransferase 26 U/L (10-49); Albumin, Serum 3.3 gm/dL (3.5-5.0); Albumin/Globulin Ratio 1.3 (1.2-2.2); Alkaline Phosphatase 74 U/L (46-116); Anion Gap 11 (7-16); BUN/Creatinine Ratio 10 Ratio (12-20); Bilirubin,Total 0.3 mg/dL (0.3-1.2); Blood Urea Nitrogen < 5 mg/dL (9-23); Calcium 8.4 mg/dL (8.3-10.6); Carbon Dioxide 23.4 mMol/L (20.0-31.0); Chloride 109 mMol/L (98-107); Creatinine (Component) 0.5 mg/dL (0.6-1.3); Estimated Creatinine Clearance 145.5 mL/min (>60); Globulin 2.5 gm/dL (2.3-3.5); Glucose 108 mg/dL (74-106); Magnesium 1.7 mg/dL (1.6-2.6); Osmolality,Calculated 283 (275-295); Potassium 3.4 mMol/L (3.4-5.1); Sodium 143 mMol/L (136-145); Total Protein 5.8 gm/dL (5.7-8.2); eGFR > 60 See Note
[2025-04-17 06:16] LABS: Hemoglobin 8.3 g/dL (12.0-16.0)
[2025-04-17] MEDS: chlordiazePOXIDE HCl 25 MG CAPSULE PO ×2 (06:53→21:25)
[2025-04-17 07:20] LABS: OBS Card Lot # 23001; OBS Developer Lot # 75023G; OBS Performed By MILLB; OBS QC OK? Yes; Occult Blood, Stool Positive (Negative)
[2025-04-17] MEDS: THIAMINE 100 MG TABLET PO ×2 (08:18→21:25)
[2025-04-17] MEDS: PANTOPRAZOLE 40 MG TABLET PO (08:18)
[2025-04-17] MEDS: FOLIC ACID 1 MG TABLET PO ×2 (08:18→21:25)
--- NOTE | 2025-04-17 09:45 | ESPR_ITS ---
Documentation for date of: 04/17/25 Subjective Subjective Interval history: No acute overnight events reported. Patient seen and examined at bedside this morning morning overnight events. Patient CIWA today is 0, decrease Librium to twice daily and will do Librium x 1 tomorrow. Patient states she feels significantly better denies any alcohol withdrawal symptoms. Patient is educated on staying abstinence from alcohol which patient is agreeable to. Patient is very remorseful regarding her drinking habit and wants to make permanent changes. Due to hemoglobin steadily dropping patient will undergo EGD today with Dr. Montemayor. Currently hemoglobin is 8.3 hematocrit 26.7 MCV 69. Will continue to monitor. Although patient does not have liver cirrhosis on imagining. Vitals are stable and labs are reviewed. Exam Vital Signs Temp Pulse Resp BP Pulse Ox O2 Del Method 97.0 F 75 18 127/87 H 100 Room Air 04/17/25 08:00 04/17/25 08:00 04/17/25 08:00 04/17/25 08:00 04/17/25 08:00 04/17/25 08:00 Narrative Exam GENERAL: young obese female, cooperative and calm, is not in acute distress. NEURO: no focal neurological deficits noted other than tremors bilaterally in upper extremities HEENT: Atraumatic, Normocephalic. mucous membranes moist. Eyes open, symmetrical, & clear HEART: Normal Heart Sounds LUNGS: Clear to auscultation with no wheezing or crackles. ABDOMEN: soft, non-distended, non-tender, bowel sounds heard, no guarding or rebound tenderness SKIN: No Rash or ecchymoses EXTREMITIES: No edema, tenderness, able to move all 4 extremities, pedal pulses palpated Objective Labs 04/18/25 04:52 04/18/25 04:52 Labs: Laboratory Results - last 24 hr 04/16/25 04/17/25 11:34 05:12 WBC 4.0 RBC 3.85 L Hgb 8.3 L Hct 26.7 L MCV 69 L MCH 21.6 L MCHC 31.1 RDW Std Deviation 60.9 H Plt Count 334 Neut % (Auto) 39 Lymph % (Auto) 47 [place] % (Auto) 7 Eos % (Auto) 6 Baso % (Auto) 1 Neut # (Auto) 1.6 L Lymph # (Auto) 1.9 [place] # (Auto) 0.3 Eos # (Auto) 0.3 Baso # (Auto) 0.0 Immature Gran # (Auto) 0.01 H Absolute Nucleated RBC 0.00 Immature Gran % 0 Nucleated RBC % 0 Sodium 143 Potassium 3.4 Chloride 109 H Carbon Dioxide 23.4 Anion Gap 11 BUN < 5 L Creatinine 0.5 L Estim Creat Clear Calc 145.5 eGFR > 60 BUN/Creatinine Ratio 10 L Glucose 108 H Calculated Osmolality 283 Calcium 8.4 Corrected Calcium 9.0 Phosphorus 3.0 Magnesium 1.7 Total Bilirubin 0.3 ALT 26 Alkaline Phosphatase 74 Total Protein 5.8 Albumin 3.3 L Globulin 2.5 Albumin/Globulin Ratio 1.3 Stool Occult Blood Positive A ABG Interpretation ABG results: 04/15/25 01:48 VBG pH 7.51 VBG pCO2 24 L VBG pO2 72 H VBG Base Excess -2 Quality Measures Quality Measures VTE prophylaxis Assessment & Plan Assessment Current Active Medications: Generic Name Dose Route Start Last Admin Trade Name Freq PRN Reason Stop Dose Admin Acetaminophen 650 mg 04/15/25 04:34 Acetaminophen 325 Mg Tablet PO 05/15/25 04:33 Q6H PRN Fever >100.4 or pain Chlordiazepoxide HCl 25 mg 04/17/25 21:00 Chlordiazepoxide Hcl 25 Mg Capsule PO 04/18/25 20:59 BID CHYNA Folic Acid 1 mg 04/15/25 09:00 04/17/25 08:18 Folic Acid 1 Mg Tablet PO 04/20/25 08:59 1 mg BID CHYNA Administration Heparin Sodium (Porcine) 5,000 unit 04/15/25 09:00 04/16/25 08:14 Heparin Sod Inj 5000 Unit/Ml Vial SC 04/29/25 08:59 5,000 unit Q12HR CHYNA Administration Dextrose/Sodium Chloride 1,000 mls @ 120 mls/hr 04/15/25 09:17 04/17/25 03:36 D5-Ns IV 05/15/25 09:16 120 mls/hr .Q8H20M CHYNA Administration Lorazepam 0.5 mg 04/15/25 04:44 Lorazepam 2 Mg/Ml Vial IV 04/20/25 04:43 Q2HR PRN CIWA SCORE 8-13 Lorazepam 1 mg 04/15/25 04:44 Lorazepam 2 Mg/Ml Vial IV 04/20/25 04:43 Q2HR PRN CIWA SCORE 14-19 Lorazepam 2 mg 04/15/25 04:44 Lorazepam 2 Mg/Ml Vial IV 04/20/25 04:43 Q2HR PRN CIWA SCORE 20-25 Ondansetron HCl 4 mg 04/15/25 04:34 04/15/25 12:47 Ondansetron Inj 2 Mg/Ml Inj 2 Ml IVP 05/15/25 04:33 4 mg Q6H PRN Administration NAUSEA OR VOMITING Protocol Pantoprazole Sodium 40 mg 04/17/25 09:00 04/17/25 08:18 Pantoprazole 40 Mg Tablet PO 05/17/25 08:59 40 mg QDAY CHYNA Administration Protocol Thiamine HCl 100 mg 04/15/25 09:00 04/17/25 08:18 Thiamine 100 Mg Tablet PO 04/20/25 08:59 100 mg BID CHYNA Administration Plan Ms. Tinoco is a 35 y/o F with PMHx significant for alcohol abuse presents with chief complaint of nausea, vomiting, tremors x 1 day, admitted for alcohol withdrawal with alcoholic ketosis. #Microcytic Anemia -Hgb 8.8, Hct 28.9, MCV 70 -No signs of active bleeding, Pt denies hemetemesis, melena or hematochezia -Pt. takes ferrous sulfate at home -Fecal occult positive -Iron panel within normal limit -Gastroenterology Dr. Montemayor consulted, appreciate recommendations -EGD pending #Alcohol withdrawal #Alcohol ketosis, resolved #High anion gap metabolic acidosis, resolved Patient has known history of alcohol abuse. Presented with nausea, vomiting, tremors that started 1 day after her previous strength, 1 whole bottle of tequila. Patient reports history of binge drinking with similar symptoms in the past. Patient denies any history of hallucinations or seizures. Patient has labs showing elevated lactic acid 6.1, beta hydroxybutyrate 1.2, metabolic acidosis 19.8 with anion gap 22. Patient reports poor oral intake due to heavy drinking for the past 3-4 days. Patient received 100 mg thiamine IV x 1 in the ED. Blood alcohol level 16.2 - CIWA protocol in place - Librium 25mg p.o. BID - Folic acid 1 mg p.o. twice daily - Thiamine 100 mg p.o. twice daily DVT prophylaxis: Heparin GI prophylaxis: Protonix 40mg IV Qday Diet: Regular Lines: Peripheral IV Code status: Full code Assessment and plan discussed with my attending physician Dr. Elvia Sheth (PGY-1)- Internal medicine resident Attending Provider Attestation/Addendum I attest that I was physically present for the evaluation, physical examination, lab and imaging review of the patient with the residents. I discussed the case with the residents and agree with the findings and plans of care as documented above. Yovani Gan MD
--- NOTE | 2025-04-17 10:03 | PC.SS ---
Follow up note: Still withdrawing. On CWAL protocol. GI consulting. Possible EGD tomorrow. Pt will return home upon dc.
--- NOTE | 2025-04-17 19:38 | ESPR_ITS ---
Documentation for date of: 04/17/25 Subjective Subjective Interval history: Patient was scheduled for an upper endoscopy She ate ice cream 2 hours ago I canceled the procedure because of that Clear liquid diet Endoscopy scheduled for tomorrow Exam Vital Signs Temp Pulse Resp BP Pulse Ox O2 Del Method 97.3 F 82 18 121/83 100 Room Air 04/17/25 16:00 04/17/25 16:00 04/17/25 16:00 04/17/25 16:00 04/17/25 16:00 04/17/25 12:00 Objective Labs 04/17/25 05:12 04/17/25 05:12 Labs: Laboratory Results - last 24 hr 04/16/25 04/17/25 11:34 05:12 WBC 4.0 RBC 3.85 L Hgb 8.3 L Hct 26.7 L MCV 69 L MCH 21.6 L MCHC 31.1 RDW Std Deviation 60.9 H Plt Count 334 Neut % (Auto) 39 Lymph % (Auto) 47 [place] % (Auto) 7 Eos % (Auto) 6 Baso % (Auto) 1 Neut # (Auto) 1.6 L Lymph # (Auto) 1.9 [place] # (Auto) 0.3 Eos # (Auto) 0.3 Baso # (Auto) 0.0 Immature Gran # (Auto) 0.01 H Absolute Nucleated RBC 0.00 Immature Gran % 0 Nucleated RBC % 0 Sodium 143 Potassium 3.4 Chloride 109 H Carbon Dioxide 23.4 Anion Gap 11 BUN < 5 L Creatinine 0.5 L Estim Creat Clear Calc 145.5 eGFR > 60 BUN/Creatinine Ratio 10 L Glucose 108 H Calculated Osmolality 283 Calcium 8.4 Corrected Calcium 9.0 Phosphorus 3.0 Magnesium 1.7 Total Bilirubin 0.3 ALT 26 Alkaline Phosphatase 74 Total Protein 5.8 Albumin 3.3 L Globulin 2.5 Albumin/Globulin Ratio 1.3 Stool Occult Blood Positive A Impressions Impression: # Nausea vomiting #alcohol withdrawal manifesting as tremors # Fatty liver Plan Clear liquid diet N.p.o. midnight tonight except p.o. meds ABG Interpretation ABG results: 04/15/25 01:48 VBG pH 7.51 VBG pCO2 24 L VBG pO2 72 H VBG Base Excess -2 Assessment & Plan A&P Narrative # Alcohol withdrawal manifesting as tremors # Nausea vomiting with drop in hemoglobin hematocrit but no clear evidence of bleeding plan # Fatty liver with hepatomegaly Plan Continue current management once more stable and out of alcohol withdrawal will consider upper endoscopy prior to discharge advised complete abstinence from alcohol Thank you very much for the opportunity to participate in the care of this patient Time Spent With Patient Time: Total time spent is greater than 50% in coordination of care (as documented) at patient's floor/unit and/or counseling patient:
--- NOTE | 2025-04-17 22:44 | PC.NURSE ---
Per Dr. Montemayor, patient to remain on clear liquid diet until 04/18/25 at 1100 and will be NPO thereafter.
[2025-04-18] VITALS (19 sets, daily range): BP systolic 100–131; BP diastolic 59–91; PULSE 60–88; RESP 13–20; TEMP 36.1–37.1; O2SAT 99–100; BMI 31.5
[2025-04-18 05:59] LABS: Phosphorous 3.7 mg/dL (2.4-5.1)
[2025-04-18] MEDS: DEXTROSE 5%-NS 1,000 ML 120 ML IV ×2 (06:24→14:39)
[2025-04-18] MEDS: PANTOPRAZOLE 40 MG TABLET PO (08:16)
[2025-04-18] MEDS: chlordiazePOXIDE HCl 25 MG CAPSULE PO (08:16)
[2025-04-18] MEDS: FOLIC ACID 1 MG TABLET PO ×2 (08:16→21:06)
[2025-04-18] MEDS: THIAMINE 100 MG TABLET PO ×2 (08:16→21:06)
[2025-04-18 08:35] LABS: Basophils % (Auto) 1 % (0-2.5); Eosinophils # (Auto) 0.2 Thou/mm3 (0.0-0.5); Eosinophils % (Auto) 6 % (0-10); Hematocrit 26.2 % (36.0-46.0); Immature Granulocytes % (Auto) 1 % (0-0); Immature Granulocytes Auto 0.02 Thou/mm3 (0.00-0.00); Lymphocytes # (Auto) 1.9 Thou/mm3 (1.0-4.8); Lymphocytes % (Auto) 47 % (10-50); Mean Corpuscular HGB Conc 30.9 g/dl (31.0-37.0); Mean Corpuscular Hemoglobin 21.3 pg (25.0-35.0); Mean Corpuscular Volume 69 fL (80-100); Monocytes # (Auto) 0.4 Thou/mm3 (0.0-0.8); Monocytes % (Auto) 9 % (0-12); Neutrophils # (Auto) 1.6 Thou/mm3 (1.8-7.7); Neutrophils % (Auto) 38 % (37-80); Nucleated Red Blood Cell % 0 /100 WBC (0); Platelet Count 291 Thou/mm3 (140-440); RDW Standard Deviation 60.4 fL (36.4-46.3); White Blood Count 4.1 Thou/mm3 (3.6-11.0)
--- NOTE | 2025-04-18 08:40 | CHAP ---
Visited briefly with patient and had prayer.
[2025-04-18 08:47] LABS: Alanine Aminotransferase 24 U/L (10-49); Albumin/Globulin Ratio 1.4 (1.2-2.2); Alkaline Phosphatase 70 U/L (46-116); Anion Gap 11 (7-16); BUN/Creatinine Ratio 8 Ratio (12-20); Bilirubin,Total 0.3 mg/dL (0.3-1.2); Blood Urea Nitrogen < 5 mg/dL (9-23); Calcium 7.9 mg/dL (8.3-10.6); Calcium (Corrected) 8.7 mg/dL (8.5-10.1); Carbon Dioxide 23.4 mMol/L (20.0-31.0); Chloride 111 mMol/L (98-107); Creatinine (Component) 0.6 mg/dL (0.6-1.3); Globulin 2.2 gm/dL (2.3-3.5); Glucose 187 mg/dL (74-106); Osmolality,Calculated 290 (275-295); Potassium 3.4 mMol/L (3.4-5.1); Sodium 145 mMol/L (136-145); Total Protein 5.2 gm/dL (5.7-8.2); eGFR > 60 See Note
[2025-04-18 08:57] LABS: Hemoglobin 8.1 g/dL (12.0-16.0)
[2025-04-18] MEDS: POTASSIUM CHLORIDE 20 mEq TABCR 40 MEQ PO (10:29)
--- NOTE | 2025-04-18 17:32 | PD.RESPRO ---
Documentation for date of: 04/18/25 Subjective Subjective Interval history: No acute overnight events reported. Patient seen and examined at bedside this morning. Patient has EGD yesterday was rescheduled for today because patient stated she ate ice cream by mistake. Patient was scheduled for EGD today. Patient CIWA score is 0 currently saturating on room air feeling great and does not complaints labs are reviewed. Exam Vital Signs Temp Pulse Resp BP Pulse Ox O2 Del Method 97.9 F 72 18 130/91 H 100 Room Air 04/18/25 16:00 04/18/25 16:04/18/25 16:04/18/25 16:04/18/25 16:04/18/25 16:00 Narrative Exam GENERAL: young obese female, cooperative and calm, is not in acute distress. NEURO: no focal neurological deficits noted other than tremors bilaterally in upper extremities HEENT: Atraumatic, Normocephalic. mucous membranes moist. Eyes open, symmetrical, & clear HEART: Normal Heart Sounds LUNGS: Clear to auscultation with no wheezing or crackles. ABDOMEN: soft, non-distended, non-tender, bowel sounds heard, no guarding or rebound tenderness SKIN: No Rash or ecchymoses EXTREMITIES: No edema, tenderness, able to move all 4 extremities, pedal pulses palpated Objective Labs 04/19/25 05:01 04/19/25 05:01 Labs: Laboratory Results - last 24 hr 04/18/25 04/18/25 04:52 04:54 WBC 4.1 RBC 3.80 L Hgb 8.1 L Hct 26.2 L MCV 69 L MCH 21.3 L MCHC 30.9 L RDW Std Deviation 60.4 H Plt Count 291 D Neut % (Auto) 38 Lymph % (Auto) 47 [place] % (Auto) 9 Eos % (Auto) 6 Baso % (Auto) 1 Neut # (Auto) 1.6 L Lymph # (Auto) 1.9 [place] # (Auto) 0.4 Eos # (Auto) 0.2 Baso # (Auto) 0.0 Immature Gran # (Auto) 0.02 H Absolute Nucleated RBC 0.00 Immature Gran % 1 H Nucleated RBC % 0 Sodium 145 Potassium 3.4 Chloride 111 H Carbon Dioxide 23.4 Anion Gap 11 BUN < 5 L Creatinine 0.6 Estim Creat Clear Calc 123.0 eGFR > 60 BUN/Creatinine Ratio 8 L Glucose 187 H D Calculated Osmolality 290 Calcium 7.9 L Corrected Calcium 8.7 Phosphorus 3.7 Total Bilirubin 0.3 ALT 24 Alkaline Phosphatase 70 Total Protein 5.2 L Albumin 3.0 L Globulin 2.2 L Albumin/Globulin Ratio 1.4 ABG Interpretation ABG results: 04/15/25 01:48 VBG pH 7.51 VBG pCO2 24 L VBG pO2 72 H VBG Base Excess -2 Quality Measures Quality Measures VTE prophylaxis Assessment & Plan Assessment Current Active Medications: Generic Name Dose Route Start Last Admin Trade Name Freq PRN Reason Stop Dose Admin Acetaminophen 650 mg 04/15/25 04:34 Acetaminophen 325 Mg Tablet PO 05/15/25 04:33 Q6H PRN Fever >100.4 or pain Chlordiazepoxide HCl 25 mg 04/17/25 21:00 04/18/25 08:16 Chlordiazepoxide Hcl 25 Mg Capsule PO 04/18/25 20:59 25 mg BID CHYNA Administration Folic Acid 1 mg 04/15/25 09:00 04/18/25 08:16 Folic Acid 1 Mg Tablet PO 04/20/25 08:59 1 mg BID CHYNA Administration Heparin Sodium (Porcine) 5,000 unit 04/15/25 09:00 04/16/25 08:14 Heparin Sod Inj 5000 Unit/Ml Vial SC 04/29/25 08:59 5,000 unit Q12HR CHYNA Administration Dextrose/Sodium Chloride 1,000 mls @ 120 mls/hr 04/15/25 09:17 04/18/25 14:39 D5-Ns IV 05/15/25 09:16 120 mls/hr .Q8H20M CHYNA Administration Lorazepam 0.5 mg 04/15/25 04:44 Lorazepam 2 Mg/Ml Vial IV 04/20/25 04:43 Q2HR PRN CIWA SCORE 8-13 Lorazepam 1 mg 04/15/25 04:44 Lorazepam 2 Mg/Ml Vial IV 04/20/25 04:43 Q2HR PRN CIWA SCORE 14-19 Lorazepam 2 mg 04/15/25 04:44 Lorazepam 2 Mg/Ml Vial IV 04/20/25 04:43 Q2HR PRN CIWA SCORE 20-25 Ondansetron HCl 4 mg 04/15/25 04:34 04/15/25 12:47 Ondansetron Inj 2 Mg/Ml Inj 2 Ml IVP 05/15/25 04:33 4 mg Q6H PRN Administration NAUSEA OR VOMITING Protocol Pantoprazole Sodium 40 mg 04/17/25 09:00 04/18/25 08:16 Pantoprazole 40 Mg Tablet PO 05/17/25 08:59 40 mg QDAY CHYNA Administration Protocol Thiamine HCl 100 mg 04/15/25 09:00 04/18/25 08:16 Thiamine 100 Mg Tablet PO 04/20/25 08:59 100 mg BID CHYNA Administration Plan Ms. Tinoco is a 35 y/o F with PMHx significant for alcohol abuse presents with chief complaint of nausea, vomiting, tremors x 1 day, admitted for alcohol withdrawal with alcoholic ketosis. #Microcytic Anemia -Hgb 8.8, Hct 28.9, MCV 70 -No signs of active bleeding, Pt denies hemetemesis, melena or hematochezia -Pt. takes ferrous sulfate at home -Fecal occult positive -Iron panel within normal limit -Gastroenterology Dr. Montemayor consulted, appreciate recommendations -EGD pending #Alcohol withdrawal #Alcohol ketosis, resolved #High anion gap metabolic acidosis, resolved Patient has known history of alcohol abuse. Presented with nausea, vomiting, tremors that started 1 day after her previous strength, 1 whole bottle of tequila. Patient reports history of binge drinking with similar symptoms in the past. Patient denies any history of hallucinations or seizures. Patient has labs showing elevated lactic acid 6.1, beta hydroxybutyrate 1.2, metabolic acidosis 19.8 with anion gap 22. Patient reports poor oral intake due to heavy drinking for the past 3-4 days. Patient received 100 mg thiamine IV x 1 in the ED. Blood alcohol level 16.2 - CIWA protocol in place - Discontinued Librium 25mg - Folic acid 1 mg p.o. twice daily - Thiamine 100 mg p.o. twice daily DVT prophylaxis: Heparin GI prophylaxis: Protonix 40mg IV Qday Diet: Regular Lines: Peripheral IV Code status: Full code Assessment and plan discussed with my attending physician Dr. Elvia Sheth (PGY-1)- Internal medicine resident Attending Provider Attestation/Addendum I attest that I was physically present for the evaluation, physical examination, lab and imaging review of the patient with the residents. I discussed the case with the residents and agree with the findings and plans of care as documented above. Yovani Gan MD
--- NOTE | 2025-04-18 18:51 | SUR.PHASEI ---
1851: Pt. AAOx4, vitals stable, breathing unlabored, no complaint of pain or nausea, no dressing in place, no active bleed noted, report received from Briseyda ALFARO.
--- NOTE | 2025-04-18 19:20 | SUR.PHASEI ---
1920: Pt. AAOx4, vitals stable, breathing unlabored, no complaint of pain or nausea, no dressing in place, no active bleed noted, report given to Xiang ALFARO prior to transfer to room 364.
[2025-04-19] VITALS: BP 95/61; PULSE 66; PULSE 70; RESP 15; TEMP 36.8; O2SAT 99
[2025-04-19] MEDS: DEXTROSE 5%-NS 1,000 ML 120 ML IV (01:00)
[2025-04-19 04:00] VITALS: BP 107/79; PULSE 66; PULSE 76; RESP 19; TEMP 36.3; O2SAT 100
[2025-04-19 05:26] VITALS: BMI 31.4
[2025-04-19 06:02] LABS: Basophils % (Auto) 1 % (0-2.5); Eosinophils # (Auto) 0.3 Thou/mm3 (0.0-0.5); Eosinophils % (Auto) 6 % (0-10); Hematocrit 27.7 % (36.0-46.0); Immature Granulocytes % (Auto) 0 % (0-0); Immature Granulocytes Auto 0.01 Thou/mm3 (0.00-0.00); Lymphocytes # (Auto) 2.1 Thou/mm3 (1.0-4.8); Lymphocytes % (Auto) 47 % (10-50); Mean Corpuscular Hemoglobin 21.7 pg (25.0-35.0); Mean Corpuscular Volume 70 fL (80-100); Monocytes # (Auto) 0.4 Thou/mm3 (0.0-0.8); Monocytes % (Auto) 8 % (0-12); Neutrophils # (Auto) 1.7 Thou/mm3 (1.8-7.7); Neutrophils % (Auto) 38 % (37-80); Nucleated Red Blood Cell % 0 /100 WBC (0); Platelet Count 292 Thou/mm3 (140-440); RDW Standard Deviation 62.2 fL (36.4-46.3); Red Blood Count 3.96 Miln/mm3 (4.00-5.20); White Blood Count 4.5 Thou/mm3 (3.6-11.0)
[2025-04-19 06:08] LABS: Hemoglobin 8.6 g/dL (12.0-16.0)
[2025-04-19 06:26] LABS: Alanine Aminotransferase 23 U/L (10-49); Albumin, Serum 3.2 gm/dL (3.5-5.0); Albumin/Globulin Ratio 1.4 (1.2-2.2); Alkaline Phosphatase 69 U/L (46-116); Anion Gap 10 (7-16); BUN/Creatinine Ratio 7 Ratio (12-20); Bilirubin,Total 0.3 mg/dL (0.3-1.2); Blood Urea Nitrogen < 5 mg/dL (9-23); Calcium 8.1 mg/dL (8.3-10.6); Calcium (Corrected) 8.7 mg/dL (8.5-10.1); Carbon Dioxide 23.8 mMol/L (20.0-31.0); Chloride 111 mMol/L (98-107); Creatinine (Component) 0.7 mg/dL (0.6-1.3); Estimated Creatinine Clearance 105.3 mL/min (>60); Globulin 2.3 gm/dL (2.3-3.5); Glucose 143 mg/dL (74-106); Osmolality,Calculated 287 (275-295); Potassium 3.9 mMol/L (3.4-5.1); Sodium 145 mMol/L (136-145); Total Protein 5.5 gm/dL (5.7-8.2); eGFR > 60 See Note
[2025-04-19 07:43] VITALS: PULSE 91
[2025-04-19 08:00] VITALS: BP 114/73; PULSE 79; RESP 18; TEMP 36.2; O2SAT 100
[2025-04-19] MEDS: FOLIC ACID 1 MG TABLET PO (08:48)
[2025-04-19] MEDS: PANTOPRAZOLE 40 MG TABLET PO (08:48)
[2025-04-19] MEDS: THIAMINE 100 MG TABLET PO (08:48)
--- NOTE | 2025-04-19 10:06 | PC.NURSE ---
Per MD patient is not ready for discharge yet, will be ready for discharge after team rounding, around noon.
--- NOTE | 2025-04-19 10:31 | ESPR_ITS ---
Documentation for date of: 04/19/25 Exam Vital Signs Temp Pulse Resp BP Pulse Ox O2 Del Method O2 Flow Rate 97.1 F 79 18 114/73 100 Room Air 3 04/19/25 08:00 04/19/25 08:00 04/19/25 08:00 04/19/25 08:00 04/19/25 08:00 04/19/25 08:00 04/18/25 18:45 Objective Labs 04/19/25 05:01 04/19/25 05:01 Labs: Laboratory Results - last 24 hr 04/19/25 05:01 WBC 4.5 RBC 3.96 L Hgb 8.6 L Hct 27.7 L MCV 70 L MCH 21.7 L MCHC 31.0 RDW Std Deviation 62.2 H Plt Count 292 Neut % (Auto) 38 Lymph % (Auto) 47 [place] % (Auto) 8 Eos % (Auto) 6 Baso % (Auto) 1 Neut # (Auto) 1.7 L Lymph # (Auto) 2.1 [place] # (Auto) 0.4 Eos # (Auto) 0.3 Baso # (Auto) 0.0 Immature Gran # (Auto) 0.01 H Absolute Nucleated RBC 0.00 Immature Gran % 0 Nucleated RBC % 0 Sodium 145 Potassium 3.9 D Chloride 111 H Carbon Dioxide 23.8 Anion Gap 10 BUN < 5 L Creatinine 0.7 Estim Creat Clear Calc 105.3 eGFR > 60 BUN/Creatinine Ratio 7 L Glucose 143 H Calculated Osmolality 287 Calcium 8.1 L Corrected Calcium 8.7 Total Bilirubin 0.3 ALT 23 Alkaline Phosphatase 69 Total Protein 5.5 L Albumin 3.2 L Globulin 2.3 Albumin/Globulin Ratio 1.4 ABG Interpretation ABG results: 04/15/25 01:48 VBG pH 7.51 VBG pCO2 24 L VBG pO2 72 H VBG Base Excess -2 Assessment & Plan A&P Narrative # Alcohol withdrawal manifesting as tremors # Nausea vomiting with drop in hemoglobin hematocrit but no clear evidence of bleeding plan # Fatty liver with hepatomegaly Plan Continue current management once more stable and out of alcohol withdrawal will consider upper endoscopy prior to discharge advised complete abstinence from alcohol Thank you very much for the opportunity to participate in the care of this patient Time Spent With Patient Time: Total time spent is greater than 50% in coordination of care (as documented) at patient's floor/unit and/or counseling patient:
[2025-04-19 11:56] VITALS: BP 123/88; PULSE 86; RESP 18; TEMP 36.3; O2SAT 100
--- NOTE | 2025-04-19 16:07 | PC.SS ---
SS met with pt and provided her with [facility]. Pt states she is aware of AA meetings and plans to attend.
--- NOTE | 2025-04-19 17:28 | ESDS_ITS ---
<Statement entered by Prabhjot Solis MD - 04/28/25 15:03> I reviewed above note and agree with findings and plans. I have also personally examined the patient with medicine team and went over assessment and plan with medical team including international manager and resident physician. Planned Discharge Date 04/19/25 DS: Providers Provider Date of admission: 04/15/25 04:34 Primary care physician: Physician No Primary/Family Admitting Provider: Silviano Buenrostro MD Attending Provider on Admission: Prabhjot Solis MD Consults: 04/16/25 11:39 Consult to Gastroenterology Routine Comment: rule out gi bleed Consulting Provider: Josette Montemayor Attending Provider on DC: Enrike Sheth MD Discharging Provider: Enrike Sheth MD DS: Diagnosis Problem List Completed Was Problem List Reviewed/Reconciled?: Yes Hospital Course Hospital Course Hospital course: Ms. Tinoco is a 35-year-old female with past medical history significant for alcohol abuse presents to [facility] ED on 04/15/2025 due to nausea, vomiting and tremors. Patient had been binge drinking for 2 days. Patient is admitted to the hospital for alcohol withdrawal. Patient was placed on CIWA protocol and received Librium. Patient's withdrawal symptoms subsided however over the course of hospitalization patient's hemoglobin was downtrending, due to concern for esophageal varices in the setting of alcohol abuse solutions executive [employer] was consulted patient underwent EGD on 04/18/2025. Findings were consistent with esophageal ulcers, esophagitis, and patchy severe inflammation and erosion in the stomach. Patient also had diffusing erythematous mucosa without any active bleeding in the duodenum. Patient's was started on pantoprazole twice daily and biopsies were taken. Patient is hemodynamically stable, labs are stable, CIWA protocol has remained 0 for 2 days, tolerating oral diet and ready to be discharged to home to self- care. Patient is advised if her symptoms worsen or return to probably return to the ED. Discharge Recommendations -Follow up outpatient with your primary care within 1 week after discharge -Please stop drinking alcohol completely -You have been prescribed pantoprazole to prevent gastric ulcers, please take the medication 30 minutes before eating -Return to the ED or call EMS if symptoms return and/or worsen Hospitalization Diagnosis #Microcytic Anemia #Alcohol withdrawal- resolved #Alcohol ketosis, resolved #High anion gap metabolic acidosis, resolved Assessment and plan discussed with my attending physician Dr. Will Sheth (PGY-1)- Internal medicine resident Time Spent with Patient Time attestation: Total time spent providing and/or coordinating discharge services: Time spent: Greater than 30 minutes Exam Vital Signs Temp Pulse Resp BP Pulse Ox O2 Del Method O2 Flow Rate 97.4 F 86 18 123/88 H 100 Room Air 3 04/19/25 11:56 04/19/25 11:56 04/19/25 11:56 04/19/25 11:56 04/19/25 11:56 04/19/25 11:56 04/18/25 18:45 Narrative Exam GENERAL: young obese female, cooperative and calm, is not in acute distress. NEURO: no focal neurological deficits noted other than tremors bilaterally in upper extremities HEENT: Atraumatic, Normocephalic. mucous membranes moist. Eyes open, symmetrical, & clear HEART: Normal Heart Sounds LUNGS: Clear to auscultation with no wheezing or crackles. ABDOMEN: soft, non-distended, non-tender, bowel sounds heard, no guarding or rebound tenderness SKIN: No Rash or ecchymoses EXTREMITIES: No edema, tenderness, able to move all 4 extremities, pedal pulses palpated Discharge Plan Plan Patient Disposition: HOME (Self Care) Care Plan Goals: -Follow up outpatient with your primary care within 1 week after discharge -Please stop drinking alcohol completely -You have been prescribed pantoprazole to prevent gastric ulcers, please take the medication 30 minutes before eating -Return to the ED or call EMS if symptoms return and/or worsen Prescriptions/Referrals Prescriptions/Med Rec: New pantoprazole [Protonix] 40 mg tablet,delayed release (DR/EC) 40 mg PO QDAY 30 Days Qty: 30 3RF Continued propranolol 20 mg tablet 20 mg PO QDAY PRN (Reason: anxiety) Patient Comments: TAKE 1 TABLET BY MOUTH EVERY DAY NEEDED ferrous sulfate [Iron (ferrous sulfate)] 325 mg (65 mg iron) tablet 325 mg PO Q OTHER DAY 30 Days Qty: 30 0RF Referrals: No Primary/Family,Physician [Primary Care Provider] - Patient/Caregiver Discharge Instructions Education Materials: Alcohol Withdrawal: What to Expect Print Language: Italian Stand Alone Forms: Nicole Award Info., Patient Portal Info Letter Discharge Order Discharge Orders: Discharge (Routine); Ordered 04/19/25 Ordered By: Enrike Sheth Quality Discharge Quality Measures VTE prophylaxis
== END 2025-04-19 13:22 | disposition home or self-care (01) | DRG 775 ==
LOC: SERX 04:18 → SERHOLD 05:30 → S2NX 06:01 → S3NX 04-17 06:27
PROVIDERS: Physician Assistant; Specialist; Admitting Provider Student in an Organized Health Care Education/Training Program; Emergency Provider Emergency Medicine; Visit Provider Internal Medicine
PROC: 0DB18ZX Excision of Upper Esophagus, Via Natural or Artificial Opening Endoscopic, Diagnostic (ICD-10-PCS; CPT 43239; principal; 2025-04-18 19:00)
DX: F10.139 Alcohol abuse with withdrawal, unspecified (principal); K22.11 Ulcer of esophagus with bleeding; E87.20 Acidosis, unspecified; D50.9 Iron deficiency anemia, unspecified; Y90.0 Blood alcohol level of less than 20 mg/100 ml; K76.0 Fatty (change of) liver, not elsewhere classified; F17.200 Nicotine dependence, unspecified, uncomplicated; K29.71 Gastritis, unspecified, with bleeding
CPT/HCPCS: 36415; 74018; 80053; 80307; 80320; 80329; 81001; 81025; 82010; 82140; 82270; 82728; 82803; 83540; 83550; 83605; 83690; 83735; 84100; 84145; 84703; 85025; 87081; 93005; 96374; 96375; 99285; J1171; J1200; J1644; J2060; J2250; J2405; J2470; J3010; J3411; J3475; J7042; J7050; J7120; A9270; G0480

== ENCOUNTER 2025-04-26 20:47 | Emergency (ER) | payer MEDICAID, SELFPAY ==
[2025-04-26 20:48] VITALS: BP 123/82; PULSE 101; RESP 18; TEMP 36.8; O2SAT 97
[2025-04-26 21:00] VITALS: BP 112/88; PULSE 105; RESP 18; TEMP 36.7; O2SAT 100
[2025-04-26] MEDS: RINGERS LACTATED 1000 ML 1,000 ML 999 ML IV (21:21)
--- NOTE | 2025-04-26 21:43 | PD.EDALCOH ---
ED Alcohol RME/HPI General Chief Complaint: Alcohol Stated Complaint: FEELS ILL Time Seen by Provider: 04/26/25 21:43 Arrival date/time: 04/26/25 20:47 RME / HPI RME / HPI narrative: 35-year-old female patient came in for evaluation regarding generalized body weakness. And not feeling well after patient was drinking a lot of tequila today. Patient denies any other complaints. Patient came with ambulance. Related Data Home Medications ?Medication ?Instructions ?Recorded ?Confirmed propranolol 20 mg tablet 20 mg PO QDAY PRN anxiety 04/16/25 04/16/25 Previous Rx's ?Medication ?Instructions ?Recorded ferrous sulfate 325 mg (65 mg 325 mg PO Q OTHER DAY 30 days #30 04/19/25 iron) tablet (Iron (ferrous tabs sulfate)) pantoprazole 40 mg tablet,delayed 40 mg PO QDAY 30 days #30 tabs 04/19/25 release (Protonix) ondansetron HCl 4 mg tablet 4 mg PO Q8H PRN nausea and 04/26/25 vomiting 5 days #10 tabs Allergies Allergy/AdvReac Type Severity Reaction Status Date / Time No Known Allergies Allergy Verified 04/15/25 01:07 Review of Systems Review of Systems Narrative Review of Systems: Review of system reviewed and within normal limits except mentioned in HPI ED Exam Narrative Physical exam: VITAL SIGNS: Reviewed. GENERAL APPEARANCE: Alert and interactive, follows commands, no acute distress, HEAD AND FACE: Non-traumatic. ENT: PERRL, pink conjunctivitis, eyelid no trauma, Mucous membrane moist. NECK: Supple, nontender, no nuchal rigidity. CHEST: No tenderness, no crepitus, no paradoxical movement, no retractions. LUNGS: Clear, well ventilated, symmetric, no rales, no wheezing, no ronchi, no stridor, good breath sounds bilaterally. HEART: Regular rate, regular rhythm, no murmur, no gallops. ABDOMEN: Soft, positive bowel sounds, nondistended, no guarding, nontender, no rebound, no masses, RECTAL: Deferred. GENITAL: Deferred. NEUROLOGICAL: Gross motor function intact sensory function intact, Appropriate for age. MUSCULOSKELETAL: low back nontender, full range of motion. EXTREMITIES: Nontender, full range of motion. SKIN: Color pink, dry, no rash, no lacerations, no abrasions, no contusions. LYMPHATICS: Deferred. Course Quality Measures none Orders Category Date Time Status Insert IV NOW Care 04/26/25 20:51 Active HCG,Qualitative Serum Stat Lab 04/26/25 21:10 Completed Ringers Lactated 1000 ml [Lactated Ringers] 1,000 ml Med 04/26/25 20:52 Discontinued IV 999 mls/hr Vital Signs Vital signs: Vital Signs Temperature 98.2 F 04/26/25 20:48 Pulse Rate 101 H 04/26/25 20:48 Respiratory Rate 18 04/26/25 20:48 Blood Pressure 123/82 04/26/25 20:48 Pulse Oximetry (%) 97 04/26/25 20:48 Oxygen Delivery Method Room Air 04/26/25 20:48 Discharge Plan Plan Patient Disposition: HOME (Self Care) Discharge Disposition comment: Stable Prescriptions/Referrals Prescriptions/Med Rec: New ondansetron HCl 4 mg tablet 4 mg PO Q8H PRN (Reason: nausea and vomiting) 5 Days Qty: 10 0RF No Action propranolol 20 mg tablet 20 mg PO QDAY PRN (Reason: anxiety) Patient Comments: TAKE 1 TABLET BY MOUTH EVERY DAY NEEDED pantoprazole [Protonix] 40 mg tablet,delayed release (DR/EC) 40 mg PO QDAY 30 Days Qty: 30 3RF ferrous sulfate [Iron (ferrous sulfate)] 325 mg (65 mg iron) tablet 325 mg PO Q OTHER DAY 30 Days Qty: 30 0RF Referrals: No Primary/Family,Physician [Primary Care Provider] - In 1 week Problem List Clinical Impression: Hangover effect Patient/Caregiver Discharge Instructions Discharge Activity: activity as tolerated Education Materials: ED Alcohol Abuse Additional Instructions: Thank you for the opportunity for serving you today. You are stable for discharged . You are advised to: Follow-up with your PCP in 1 to 2 days Return to ED for worsening of symptoms Increase oral fluids Take medication as prescribed Stop abusing alcohol Print Language: Yoruba Stand Alone Forms: Nicole Award Info., Patient Portal Info Letter PA/BIRDCAGE ASSEMBLER Supervising Physician JESSICA/BIRDCAGE ASSEMBLER Supervising Physician: MD Karen Alcohol MDM Narrative MDM Narrative: 35-year-old female patient came in for evaluation regarding generalized body weakness. And not feeling well after patient was drinking a lot of tequila today. Patient denies any other complaints. Patient came with ambulance. Patient history is for . Patient received IV fluids. With significant improvement of symptoms. Patient data External records reviewed:: None Clinical information provided by:: patient Social determinants that could affect healthcare access:: alcohol use Patient has the following chronic illnesses:: None How is presenting disease/condition affected by chronic disease/condition?: exacerbated by Evaluation data The following diagnostics were reviewed and interpreted by me:: lab results Lab and/or radiology exams considered but not ordered:: None Interpretation Summary: Negative for Medications / Prescriptions Medications or Prescriptions considered but not ordered:: none Medication administrations:: Medication Administration History Discontinued Medications Lactated Ringer's (Lactated Ringers) 1,000 mls @ 999 mls/hr IV .Q1H1M ONE Stop: 04/26/25 21:52 Last Infusion: 04/26/25 22:26 Dose: Infused Documented By: Admin: 04/26/25 21:21 Dose: 999 mls/hr Documented By: CVL IV fluids for hydration Consultations Consultation(s) initiated? (list below): No Diagnosis Differential diagnosis alcohol: alcohol intoxication and alcohol withdrawal seizure Most likely diagnosis given after review of the tests above:: Hangover effect Admission Indicated Admission indicated?: not indicated Admission Request Was there a request for admission?: No Disposition Plan Disposition Plan: Discharge Discharge Attestation Discharge Attestation: The patient was given an opportunity to ask questions and understood the discharge instructions. Discharge instructions specifically effects, indications for sooner follow up or return to the emergency department, and the expected course of current diagnosis. Patient condition: Stable
[2025-04-26 21:48] LABS: HCG,Qualitative Serum Negative
[2025-04-27 00:20] VITALS: BP 112/72; PULSE 97; RESP 16; TEMP 36.8; O2SAT 99
== END 2025-04-27 00:21 | disposition home or self-care (01) ==
PROVIDERS: Emergency Provider Emergency Medicine
DX: F10.129 Alcohol abuse with intoxication, unspecified (principal); Y90.9 Presence of alcohol in blood, level not specified
CPT/HCPCS: 36415; 84703; 96360; 99284; J7120

== ENCOUNTER 2025-04-27 19:57 | Emergency (ER) | payer MEDICAID, SELFPAY ==
[2025-04-27 19:58] VITALS: PULSE 116; O2SAT 97
[2025-04-27 21:25] VITALS: BP 132/85; PULSE 111; RESP 18; TEMP 36.4; O2SAT 95
[2025-04-27 22:39] VITALS: BP 126/91; PULSE 103; RESP 17; TEMP 36.3; O2SAT 98
--- NOTE | 2025-04-27 23:38 | EDRME_ITS ---
Rapid Medical Screening Exam [facility] Arrival date/time: 04/27/25 19:57 35F with history of psych/drug/alcohol abuse presents to ED with heart palps and SOB after drinking a lot of alcohol. Chief Complaint: Alcohol Vital signs: Vital Signs Temperature 97.5 F 04/27/25 21:25 Pulse Rate 111 H 04/27/25 21:25 Respiratory Rate 18 04/27/25 21:25 Blood Pressure 132/85 H 04/27/25 21:25 Pulse Oximetry (%) 95 04/27/25 21:25 Oxygen Delivery Method Room Air 04/27/25 21:25
--- NOTE | 2025-04-27 23:38 | EKG_ITS ---
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
[2025-04-28 00:54] LABS: Basophils % (Auto) 1 % (0-2.5); Eosinophils # (Auto) 0.1 Thou/mm3 (0.0-0.5); Eosinophils % (Auto) 1 % (0-10); Hematocrit 30.6 % (36.0-46.0); Hemoglobin 9.7 g/dL (12.0-16.0); Immature Granulocytes % (Auto) 0 % (0-0); Immature Granulocytes Auto 0.01 Thou/mm3 (0.00-0.00); Lymphocytes # (Auto) 2.2 Thou/mm3 (1.0-4.8); Lymphocytes % (Auto) 50 % (10-50); Mean Corpuscular HGB Conc 31.7 g/dl (31.0-37.0); Mean Corpuscular Hemoglobin 21.4 pg (25.0-35.0); Mean Corpuscular Volume 68 fL (80-100); Monocytes # (Auto) 0.4 Thou/mm3 (0.0-0.8); Monocytes % (Auto) 8 % (0-12); Neutrophils # (Auto) 1.7 Thou/mm3 (1.8-7.7); Neutrophils % (Auto) 40 % (37-80); Nucleated Red Blood Cell % 0 /100 WBC (0); Platelet Count 271 Thou/mm3 (140-440); Red Blood Count 4.53 Miln/mm3 (4.00-5.20); White Blood Count 4.3 Thou/mm3 (3.6-11.0)
[2025-04-28 01:17] LABS: Alanine Aminotransferase 114 U/L (10-49); Albumin, Serum 4.5 gm/dL (3.5-5.0); Albumin/Globulin Ratio 1.4 (1.2-2.2); Alcohol, Blood Medical 299.8 mg/dL (0-10.0); Alkaline Phosphatase 124 U/L (46-116); Anion Gap 15 (7-16); Aspartate Amino Transferase 156 U/L (0-34); BUN/Creatinine Ratio 13 Ratio (12-20); Bilirubin,Total 0.3 mg/dL (0.3-1.2); Blood Urea Nitrogen 8 mg/dL (9-23); Calcium 8.5 mg/dL (8.3-10.6); Calcium (Corrected) 8.5 mg/dL (8.5-10.1); Carbon Dioxide 21.5 mMol/L (20.0-31.0); Chloride 104 mMol/L (98-107); Creatinine (Component) 0.6 mg/dL (0.6-1.3); Globulin 3.3 gm/dL (2.3-3.5); Glucose 75 mg/dL (74-106); Osmolality,Calculated 276 (275-295); Potassium 3.6 mMol/L (3.4-5.1); Sodium 140 mMol/L (136-145); Total Protein 7.8 gm/dL (5.7-8.2); eGFR > 60 See Note
[2025-04-28 01:25] VITALS: BP 126/82; PULSE 100; RESP 18; TEMP 36.9; O2SAT 98
--- NOTE | 2025-04-28 01:42 | XR_ITS ---
Examination: PA lateral chest 2 views TECHNIQUE: Upright PA lateral chest 2 views Date and time: April 28, 2025 0152 hours INDICATIONS: Shortness breath chest pain today. FINDINGS: Normal heart size Lungs are clear. The osseous structures are intact IMPRESSION: No active disease
[2025-04-28] MEDS: DIAZEPAM 5 MG TABLET PO (01:49)
[2025-04-28 02:10] LABS: Troponin I < 0.002 ng/mL (0.0-0.045)
--- NOTE | 2025-04-28 02:41 | PD.EDALCOH ---
ED Alcohol RME/HPI General Chief Complaint: Alcohol Stated Complaint: TOO MUCH TO DRINK Arrival date/time: 04/27/25 19:57 RME / HPI RME / HPI narrative: 04/27/25 19:57 35F with history of psych/drug/alcohol abuse presents to ED with heart palps and SOB after drinking a lot of alcohol. DR. JONES MAIN ED EVALUATION: 35 y/o female with Hx of alcohol abuse presents to ED BIBA c/o dizziness, nausea, and shortness of breath. Patient has been drinking each day for approximately 3 months now, but is interested in becoming sober. She istates she would like assistance in becoming sober and in attending AA meetings to help with the sobering process. Patient usually takes 6-7 shots of liquor per day, reports he does it to feel better because she wakes up feeling unwell. No other concerns or complaints expressed at this time. Last drink: Just Prior to Arrival Related Data Previous Rx's ?Medication ?Instructions ?Recorded bismuth subcit K 140 3 cap PO Q6HR 10 days #120 caps 05/02/25 mg-metronidazole 125 mg-tetracycline 125 mg cap (Pylera) lansoprazole 30 mg capsule,delayed 30 mg PO BID 10 days #20 caps 05/02/25 release Allergies Allergy/AdvReac Type Severity Reaction Status Date / Time No Known Allergies Allergy Verified 04/15/25 01:07 Review of Systems Review of Systems Systems Reviewed: All systems reviewed, normal except as documented Past Medical History Past Medical History REPRODUCTIVE: Positive Previous Pregnancies HEMATOLOGIC: Positive Anemia Social History ALCOHOL: Current ALCOHOL FREQUENCY: 3 or More Drinks per Day ALCOHOL LAST INTAKE: Just Prior to Arrival ED Exam Narrative Physical exam: GEN. APPEARANCE: The patient is alert awake oriented X-3 in no distress, lying down comfortably, does not look ill/toxic. Patient has good eye contact. Patient is cooperative. Appears anxious. VITALS: All vitals were reviewed and the pulse ox is 98% on room air which is normal according to my interpretation. HEENT: Normocephalic, atraumatic. Pupils are equal and reactive. Oral mucosa is moist. Patent Nares NECK: Supple, nontender, no thyromegaly, no meningismus, no JVD CHEST: Symmetrical, atraumatic, and with equal expansion , Nontender on palpation no deformity and no crepitus. CARDIOVASCULAR: Heart regular rhythm no murmur or gallop rub or extra beats. LUNGS: Clear to auscultation bilaterally with symmetrical chest rise. No laboring tachypnea or wheezing. No intercostal subcostal retraction. No rales and no rhonchi. ABDOMEN: Soft, flat, nontender to palpation, no guarding or rebound tenderness. There are no abnormal masses palpated. Active and normal bowel sounds. EXTREMITIES: Nontender. No edema. No cyanosis. Patient is able to move all 4 extremities well, with full ROM and good CSM. SKIN: Warm and dry, no jaundice or rashes noted. NEURO: Patient is HALEY x 4, Cranial nerves II through XII grossly intact. There is no focal neurologic deficits noted. GCS is 15, PNS and INK BLENDER appear grossly intact. PSYCHIATRIC: Patient is in normal mood and affect. Course Course Course Narrative: CXR is ordered for determining the etiology of shortness of breath. Quality Measures none Orders Category Date Time Status EKG (ED ONLY) *Do not use* NOW Care 04/27/25 23:38 Completed CXR2 [XR chest 2V] Stat Exams 04/28/25 01:42 Completed EKG (ED Only) Stat Exams 04/27/25 23:38 Draft Alcohol, Blood Medical Stat Lab 04/27/25 00:37 Completed CBC Stat Lab 04/27/25 00:37 Completed CMP [Comprehensive Metabolic Panel] Stat Lab 04/27/25 00:37 Completed HCG,Qualitative Serum Stat Lab 04/27/25 00:37 Completed Troponin I Stat Lab 04/27/25 00:37 Completed Diazepam [Valium] Med 04/28/25 01:40 Discontinued 5 mg PO X1 ONE Vital Signs Vital signs: Vital Signs Temperature 97.5 F 04/27/25 21:25 Pulse Rate 111 H 04/27/25 21:25 Respiratory Rate 18 04/27/25 21:25 Blood Pressure 132/85 H 04/27/25 21:25 Pulse Oximetry (%) 95 04/27/25 21:25 Oxygen Delivery Method Room Air 04/27/25 21:25 Discharge Plan Plan Patient Disposition: HOME (Self Care) Prescriptions/Referrals Prescriptions/Med Rec: No Action bismuth subcit E-tcgpyojtg-aam [Pylera] 140-125-125 mg capsule 3 cap PO Q6HR 10 Days Qty: 120 0RF lansoprazole 30 mg capsule,delayed release(DR/EC) 30 mg PO BID 10 Days Qty: 20 0RF Referrals: No Primary/Family,Physician [Primary Care Provider] - In 1 week Problem List Clinical Impression: Alcohol use disorder, Transaminitis, Shortness of breath Patient/Caregiver Discharge Instructions Education Materials: Alcohol Addiction Additional Instructions: I recommend that you talk to her primary care doctor about resources for sobriety. I also recommend that you look up local alcoholic Anonymous meetings and plan on consistently following through with things to help you with your journey toward sobriety. Return immediately if you have worsening symptoms or new symptoms of concern Print Language: Maltese Stand Alone Forms: Nicole Award Info., Patient Portal Info Letter Alcohol MDM Narrative MDM Narrative: Scribe Attestation: I, Sis Saleh, am scribing for and in the presence of Dr. Jones. Provider Notation: Although this document has been carefully reviewed, there may still be some phonetic and other typographical errors.? These errors are purely grammatical due to imperfections in the software program and should not be construed in any way to? compromise the substance of the patient's medical care during this visit. No hematological abnormalities, no significant electrolyte abnormality. Does have a transgeminitis, drinks daily, no belly pain. Patient had a negative test yesterday in ED. She has an elevated blod alcohol level today however patient is clinically sober. Patient feels anxious right now. Providing medication for symptom relief. Feels like it is hard for her to breath. Ordered CXR and Troponin I. Troponin I normal. CXR with no cardiopulmonary abnormalities. Patient is hematologically and metabolically stable, tolerates PO well, and ambulates without difficulty. Patient data External records reviewed:: [facility] previous records (Reviewed prior ED records from 04/26/25. Patient was seen for Hangover effect.) and EMS form Clinical information provided by:: patient Social determinants that could affect healthcare access:: alcohol use Patient has the following chronic illnesses:: Alcohol use, Anemia How is presenting disease/condition affected by chronic disease/condition?: exacerbated by Evaluation data The following diagnostics were reviewed and interpreted by me:: lab results, radiology exam(s) and EKG tracing(s) (EKG done at 2342, 98 bpm, normal intervals, non-specific T-wave changes, not a cardiac alert. - Interpreted by Dr. Ena Jones.) Lab and/or radiology exams considered but not ordered:: None Interpretation Summary: RADIOLOGY Chest X-Ray: Pending official radiology report. Medications / Prescriptions Medications or Prescriptions considered but not ordered:: None Medication administrations:: Medication Administration History Discontinued Medications Diazepam (Diazepam 5 Mg Tablet) 5 mg PO X1 ONE Stop: 04/28/25 01:41 Last Admin: 04/28/25 01:49 Dose: 5 mg Documented By: CVL See above if any Consultations Consultation(s) initiated? (list below): No Diagnosis Differential diagnosis alcohol: alcohol withdrawal delirium, hypomagnesemia, alcohol intoxication, alcohol ketoacidosis and alcohol withdrawal syndrome Most likely diagnosis given after review of the tests above:: Transaminitis, Alcohol use disorder, shortness of breath. Admission Indicated Admission indicated?: not indicated Explain why admission is indicated or not indicated:: Patient does not meet admission criteria Admission Request Was there a request for admission?: No Disposition Plan Disposition Plan: Discharge Discharge Attestation Discharge Attestation: The patient and all family members were given an opportunity to ask questions and understood the discharge instructions. Discharge instructions specifically effects, indications for sooner follow up or return to the emergency department, and the expected course of current diagnosis. Patient condition: Stable
[2025-04-28 02:47] LABS: HCG,Qualitative Serum Negative
[2025-04-28 06:34] VITALS: RESP 16
--- NOTE | 2025-04-28 06:35 | PC.NURSE ---
PT BEEN SLEEPING AT [employer] WITHOUT PROBLEM.
== END 2025-04-28 06:36 | disposition home or self-care (01) ==
PROVIDERS: Physician Assistant; Emergency Provider Emergency Medicine
DX: F10.20 Alcohol dependence, uncomplicated (principal); R74.01 Elevation of levels of liver transaminase levels; R94.31 Abnormal electrocardiogram [ECG] [EKG]; R06.02 Shortness of breath; R07.9 Chest pain, unspecified; Y90.8 Blood alcohol level of 240 mg/100 ml or more
CPT/HCPCS: 36415; 71046; 80053; 80320; 84484; 84703; 85025; 93005; 99283; A9270; G0480

== ENCOUNTER 2025-04-28 14:00 | Emergency (ER) | payer MEDICAID, SELFPAY ==
[2025-04-28 14:02] VITALS: PULSE 108; RESP 18; O2SAT 98; BMI 26.6
[2025-04-28 14:22] VITALS: BP 124/82; PULSE 95; RESP 19; TEMP 36.9; O2SAT 97; BMI 30.2
--- NOTE | 2025-04-28 14:28 | PD.EDADULT ---
ED General RME/HPI General Chief complaint: Alcohol Stated complaint: ETOH Time Seen by Provider: 04/28/25 14:28 Arrival date/time: 04/28/25 14:00 RME / HPI RME / HPI narrative: DR. STEPHEN MAIN ED EVALUATION: 35 year old female with past medical history significant for alcoholism and liver problems presents to the Emergency Department [facility] with complaint of not feeling well after drinking x4 shots of Tequila today prior to arrival. She states that she wants to quit and needs help. She states she had an endoscopy a week ago here and that she vomiting blood yesterday morning. No fevers, chills, runny nose, congestion, cough, leg swelling, shortness of breath, fall, injury, loss of consciousness, or other symptoms at this time. Related Data Home Medications ?Medication ?Instructions ?Recorded ?Confirmed propranolol 20 mg tablet 20 mg PO QDAY PRN anxiety 04/16/25 04/16/25 Previous Rx's ?Medication ?Instructions ?Recorded ferrous sulfate 325 mg (65 mg 325 mg PO Q OTHER DAY 30 days #30 04/19/25 iron) tablet (Iron (ferrous tabs sulfate)) pantoprazole 40 mg tablet,delayed 40 mg PO QDAY 30 days #30 tabs 04/19/25 release (Protonix) ondansetron HCl 4 mg tablet 4 mg PO Q8H PRN nausea and 04/26/25 vomiting 5 days #10 tabs Allergies Allergy/AdvReac Type Severity Reaction Status Date / Time No Known Allergies Allergy Verified 04/15/25 01:07 Review of Systems Review of Systems Systems Reviewed: All systems reviewed, normal except as documented Narrative Review of Systems: Constitutional: DENIES: fevers; Eyes: DENIES: loss of vision; Head/Ear/Nose: DENIES: loss of hearing. Throat: DENIES: dysphagia. Cardiovascular: DENIES: chest pain, dyspnea, or syncope. Respiratory: DENIES: shortness of breath; Gastrointestinal: POSITIVES: vomiting blood yesterday morning (see HPI) DENIES: rectal bleeding or melena. Genitourinary: DENIES: dysuria (painful or difficult urination); Musculoskeletal: DENIES: arthralgia (pain in a joint); Skin: DENIES: rash; Neurological: DENIES: loss of function or movement; Psychiatric: DENIES: recent major life stressor, emotional problem, illicit drug use or abuse; Endocrinology: DENIES: weight change,; Hematologic/Lymphatic: DENIES: abnormal bruising. Allergic/Immunologic: DENIES: urticaria (hives). Past Medical History Past Medical History REPRODUCTIVE: Positive Previous Pregnancies HEMATOLOGIC: Positive Anemia Social History SMOKING STATUS: Never smoker ALCOHOL: Current ALCOHOL FREQUENCY: 3 or More Drinks per Day (4 shots of vodka) ALCOHOL LAST INTAKE: Just Prior to Arrival ED Exam Narrative Physical exam: Physical Exam: General: The vital signs were reviewed. Slurring her words appears under the influence of something engaging the patient is non-toxic, in no apparent distress and appears healthy with a patent airway, no respiratory distress and has no apparent circulatory problems. Head & Scalp: Normocephalic, atraumatic. Face: Appears normal and is without lesions, deformity. Ears: Left external pinna appears normal. Right external pinna appears normal. Eyes: The sclera is anicteric. No obvious photophobia. The Left and Right Orbit/Lid/Conjunctiva appears normal without swelling, discoloration or injection. Nose: The nose is without deformity, discharge or tenderness; Throat: Appears normal. The mucous membranes are pink and moist without exudates, redness or mass seen. The tongue appears normal. Neck: The neck is supple and no apparent mass or adenopathy. Chest: The chest wall is normal in size and symmetry and has no chest wall tenderness or crepitus. The patient displays normal ventilator effort without retractions, accessory muscle use and has adequate air movement bilaterally with no wheezes and no rales. Cardiovascular: Regular rate and rhythm; No murmurs, rubs, or gallops; Gastrointestinal: The abdomen appears normal. No obvious hernias or mass. The abdomen is soft and benign, non-distended, with no pain, no guarding and no rebound tenderness. Bowel sounds are present and normal sounding. No CVA tenderness. Genitourinary: Back/Spine: Nontender Extremities/Musculoskeletal/lymphatic: The bilateral upper and lower extremities are warm. There is no evidence of arterial insufficiency. There is no evidence of venous insufficiency/edema. The patient spontaneously moves bilateral upper and lower extremities with no pain and no limitation of movement. There is no apparent, injury or trauma. Skin: The skin is warm, dry and intact. No rashes. No petechia. No purpura. No abnormal bruising. The color is appropriate with no cyanosis. Mental status/Psychiatric: Mental status is appropriate for age. The patient has no apparent delusions, visual hallucinations, no apparent audible hallucinations. The patient has no apparent suicidal thoughts/ideation and no apparent homicidal thoughts/ideation. Neurological: The patient is awake, alert, interactive, cordial, cooperative and is oriented to name and situation. The patient follows commands and answers historical question with no impairment. There is no visual disturbance apparent. The pupils are equal and reactive bilaterally with normal eye movements and no diplopia The bilateral upper and lower extremities have normal strength, normal range of motion and normal functioning. The gait, station and balance were not tested due to the patient is highly likely to be alcohol intoxicated Course Quality Measures none Orders Category Date Time Status Insert IV NOW Care 04/28/25 14:29 Active Insert IV NOW Care 04/28/25 14:29 Active Miscellaneous Nursing Order NOW Care 04/28/25 14:29 Active XR chest 1V portable Stat Exams 04/28/25 14:29 Completed Blood Culture (Lab) Stat Lab 04/28/25 15:20 Received CBC Stat Lab 04/28/25 15:09 Completed Comprehensive Metabolic Panel Stat Lab 04/28/25 15:09 Completed Lactate (Lactic Acid) Stat Lab 04/28/25 15:09 Results Lipase Stat Lab 04/28/25 15:09 Completed Prothrombin Time with INR Stat Lab 04/28/25 16:00 Completed Type and Screen Stat Lab 04/28/25 16:00 Received Urinalysis Stat Lab 04/28/25 15:00 Completed Venous Blood Gas Stat Lab 04/28/25 15:09 Completed Folic Acid Med 04/28/25 14:28 Discontinued 1 mg PO X1 ONE Multivitamin. Med 04/28/25 14:28 Discontinued 1 tab PO X1 ONE Sodium Chloride 0.9% 1000 ml [Ns] 1,000 ml Med 04/28/25 14:28 Discontinued IV 999 mls/hr Sodium Chloride 0.9% 1000 ml [Ns] 1,000 ml Med 04/28/25 14:28 Discontinued IV 999 mls/hr Thiamine Inj [Vitamin B-1 Inj] Med 04/28/25 14:28 Discontinued 100 mg IVP X1 ONE Vital Signs Vital signs: Vital Signs Temperature 98.4 F 04/28/25 14:22 Pulse Rate 95 04/28/25 14:22 Respiratory Rate 19 04/28/25 14:22 Blood Pressure 124/82 04/28/25 14:22 Pulse Oximetry (%) 97 04/28/25 14:22 Oxygen Delivery Method Room Air 04/28/25 14:22 Discharge Plan Prescriptions/Referrals Prescriptions/Med Rec: No Action propranolol 20 mg tablet 20 mg PO QDAY PRN (Reason: anxiety) Patient Comments: TAKE 1 TABLET BY MOUTH EVERY DAY NEEDED pantoprazole [Protonix] 40 mg tablet,delayed release (DR/EC) 40 mg PO QDAY 30 Days Qty: 30 3RF ferrous sulfate [Iron (ferrous sulfate)] 325 mg (65 mg iron) tablet 325 mg PO Q OTHER DAY 30 Days Qty: 30 0RF ondansetron HCl 4 mg tablet 4 mg PO Q8H PRN (Reason: nausea and vomiting) 5 Days Qty: 10 0RF Referrals: No Primary/Family,Physician [Primary Care Provider] - In 1 week Problem List Clinical Impression: Alcoholic intoxication, Acute dehydration, Elevated lactic acid level, Chronic anemia, Elevated transaminase level, History of behavioral and mental health problems Patient/Caregiver Discharge Instructions Print Language: St Helenian MDM Narrative MDM hospital course: Patient was here late last night and evidently left and her blood alcohol was 0.299 and she comes back appears to be still intoxicated. She has got a chronic microcytic anemia with a hemoglobin of 9.7 MCV is 68. PT/INR within normal limits pH is 7.38 and pCO2 of 40 and a venous blood gas chemistry show sodium 143 potassium 5.1 chloride 107 CO2 21.7 anion gap is 14 BUN is 5 creatinine is 0.6 lactic acid is elevated at 3.2 there is mild transaminase elevation with AST 153 and ALT of 113. Total bilirubin is normal at 0.5. Lipase is minimally above the negative range at 69. Urinalysis shows specific gravity to be dilute at 1.003. Chest x-ray shows no infiltrates no effusion normal heart. This patient reported having cortical coffee-ground emesis when she arrived but states she has never had a GI bleed before there was no evidence of coffee-ground or blood on her face or body. So she will need a second hemoglobin as she appears to have a chronic anemia and the hemoglobin is basically in the same range as always. And will need to be observed until her lactic acid normalizes. Care will go to Dr. Miranda at 1800 hrs. to follow-up on the lactic acid to confirm there is no GI bleeding and observe her until she is sober. She we note this patient was recently here a month ago was sent to mental health facility and currently is not claiming any suicidal or homicidal thoughts. Care to Dr. Miranda at 1800 hrs. as mentioned above. Clinical Information Provided by patient and EMS Medical Records Reviewed [facility] and EMS Meds/Rx Considered, not Ordered None Labs/Rad/Tests considered, not Ordered None Chronic Illness/Social Conditions Add or document further as needed: alcoholism and liver problems EKG EKG not done Lab Interpretation Labs: see narrative above Imaging Imaging interpretation: see narrative above Radiology reports / interpretation(s): Procedure(s): XR chest 1V portable Accession Number(s): [id number] cc: Brad Stephen MD; Brandin Kelsey MD~ Examination: AP chest single view TECHNIQUE: AP portable upright chest single view Date and time: April 28, 2025 1522 hours INDICATIONS: Fever chest pain shortness of breath beginning today FINDINGS: Normal heart size Lungs are clear The osseous structures are mildly demineralized IMPRESSION: No active disease Dictated By: Brandin Kelsey MD Medication Administration(s) Medication Administration History Discontinued Medications Folic Acid (Folic Acid 1 Mg Tablet) 1 mg PO X1 ONE Stop: 04/28/25 14:29 Last Admin: 04/28/25 15:29 Dose: 1 mg Documented By: ER Sodium Chloride (Ns) 1,000 mls @ 999 mls/hr IV .Q1H1M ONE Stop: 04/28/25 15:28 Last Admin: 04/28/25 15:26 Dose: 999 mls/hr Documented By: ER Sodium Chloride (Ns) 1,000 mls @ 999 mls/hr IV .Q1H1M ONE Stop: 04/28/25 15:28 Last Admin: 04/28/25 15:26 Dose: 999 mls/hr Documented By: ER Multivitamins (Multivitamins Tablet) 1 tab PO X1 ONE Stop: 04/28/25 14:29 Last Admin: 04/28/25 16:19 Dose: 1 tab Documented By: Thiamine HCl (Thiamine Inj 100 Mg/Ml Vial 2 Ml) 100 mg IVP X1 ONE Stop: 04/28/25 14:29 Last Admin: 04/28/25 15:27 Dose: 100 mg Documented By: ER Diagnosis Differential diagnosis: alcoholism, liver cirrhosis, dehydration
[2025-04-28 15:06] VITALS: BP 143/77; PULSE 94; RESP 18; TEMP 36.6; O2SAT 98
[2025-04-28 15:10] LABS: Collection Type, Urine Clean Catch
[2025-04-28] MEDS: SODIUM CHLORIDE 0.9% 1000 ML 1,000 ML 999 ML IV ×2 (15:26)
[2025-04-28 15:27] LABS: Base Excess, Venous -2 (-3-3); O2 Saturation, Venous 66 % (96-97); PCO2, Venous 40 mmHg (36-56); PO2, Venous 41 mmHg (15-58); pH, Venous 7.38 (7.33-7.66)
[2025-04-28] MEDS: THIAMINE INJ 100 MG/ML VIAL 2 ML IVP (15:27)
[2025-04-28 15:28] LABS: Lactate (Lactic Acid) 3.2 mMol/L (0.4-2.0)
[2025-04-28] MEDS: FOLIC ACID 1 MG TABLET PO (15:29)
[2025-04-28 15:34] LABS: Basophils # (Auto) 0.1 Thou/mm3 (0.0-0.2); Basophils % (Auto) 1 % (0-2.5); Eosinophils # (Auto) 0.1 Thou/mm3 (0.0-0.5); Eosinophils % (Auto) 2 % (0-10); Hematocrit 31.3 % (36.0-46.0); Hemoglobin 9.7 g/dL (12.0-16.0); Immature Granulocytes % (Auto) 0 % (0-0); Immature Granulocytes Auto 0.02 Thou/mm3 (0.00-0.00); Lymphocytes # (Auto) 2.3 Thou/mm3 (1.0-4.8); Lymphocytes % (Auto) 43 % (10-50); Mean Corpuscular Hemoglobin 21.2 pg (25.0-35.0); Mean Corpuscular Volume 68 fL (80-100); Monocytes # (Auto) 0.3 Thou/mm3 (0.0-0.8); Monocytes % (Auto) 6 % (0-12); Neutrophils # (Auto) 2.6 Thou/mm3 (1.8-7.7); Neutrophils % (Auto) 48 % (37-80); Nucleated Red Blood Cell % 0 /100 WBC (0); Platelet Count 274 Thou/mm3 (140-440); RDW Standard Deviation 60.1 fL (36.4-46.3); Red Blood Count 4.58 Miln/mm3 (4.00-5.20); White Blood Count 5.3 Thou/mm3 (3.6-11.0)
--- NOTE | 2025-04-28 15:41 | PC.NURSE ---
CONTACTED PHARMACY FOR MULTIVITAMIN. RASHAD STATES SHE WILL SEND TO ED.
[2025-04-28 15:46] LABS: Alanine Aminotransferase 113 U/L (10-49); Albumin, Serum 4.5 gm/dL (3.5-5.0); Albumin/Globulin Ratio 1.4 (1.2-2.2); Alkaline Phosphatase 120 U/L (46-116); Anion Gap 14 (7-16); Aspartate Amino Transferase 157 U/L (0-34); BUN/Creatinine Ratio 8 Ratio (12-20); Bilirubin,Total 0.5 mg/dL (0.3-1.2); Blood Urea Nitrogen 5 mg/dL (9-23); Calcium 8.7 mg/dL (8.3-10.6); Calcium (Corrected) 8.7 mg/dL (8.5-10.1); Carbon Dioxide 21.7 mMol/L (20.0-31.0); Chloride 107 mMol/L (98-107); Creatinine (Component) 0.6 mg/dL (0.6-1.3); Estimated Creatinine Clearance 120.4 mL/min (>60); Globulin 3.3 gm/dL (2.3-3.5); Glucose 75 mg/dL (74-106); Lipase 69 U/L (12-53); Osmolality,Calculated 281 (275-295); Potassium 5.1 mMol/L (3.4-5.1); Sodium 143 mMol/L (136-145); Total Protein 7.8 gm/dL (5.7-8.2); eGFR > 60 See Note
[2025-04-28 16:06] LABS: Bilirubin,Urine Negative (Negative); Blood,Urine Negative (Negative); Clarity,Urine Clear (Clear/Hazy); Color,Urine Colorless (Lt Yel-Yel); Glucose, Urine Negative (Negative); Ketones,Urine 1+ (Negative); Leukocyte Esterase,Urine Negative (Negative); Nitrite,Urine Negative (Negative); PH,Urine 6.5 (5.0-7.0); Protein,Urine Negative (Neg - Trace); RBC,Urine 1 /hpf (0-3); Specific Gravity,Urine 1.003 (1.001-1.035); Squamous Epithelial Cell,Urine < 1 /hpf (0-5); Urobilinogen,Urine Negative mg/dL (0.0-1.0); WBC,Urine < 1 /hpf (0-5)
[2025-04-28 16:19] VITALS: BP 125/88; PULSE 92; RESP 16; TEMP 36.4; O2SAT 100
[2025-04-28] MEDS: MULTIVITAMINS TABLET 1 TAB PO (16:19)
[2025-04-28 16:37] LABS: Prothrombin Time 10.9 Seconds (9.0-12.2)
[2025-04-28 17:45] LABS: Ferritin 16 ng/mL (7.3-270.7); Iron 21 mcg/dL (50-170); Total Iron Binding Capacity 425 mcg/dL (250-425)
[2025-04-28 17:46] LABS: Folate 10.51 ng/mL (>5.38); Vitamin B12 865 pg/mL (211-911)
--- NOTE | 2025-04-28 18:04 | PD.EDADDENDU ---
Emergency Room Addendum <Aleja Harmon - Last Filed: 04/29/25 04:57> Addendum Narrative: I took over the care from Dr. Sinclair at 6 PM on 04/28/2025, see his notes for complete H&P and ED course. I was asked to take over the patient pending metabolize to freedom. Patient has remained stable while under my observation. Patient is signed out to Dr. Sinclair at 0600 on 04/29/2025 pending metabolize to freedom. <Anastacio Miranda MD - Last Filed: 04/29/25 05:38> Addendum Narrative: I took over the care from Dr. Sinclair at 6 PM on 04/28/2025, see his notes for complete H&P and ED course. Diagnoses include alcohol intoxication. Care of the patient transferred to Dr. Sinclair at 0600 on 04/29/2025. During my watch, the patient received more IV fluid and remained stable. Anastacio Miranda MD
[2025-04-28 18:12] LABS: Alcohol, Blood Medical 449.6 mg/dL (0-10.0)
--- NOTE | 2025-04-28 18:17 | PC.NURSE ---
PATIENT SLEEPING AT THIS TIME WITH NO COMPLAINTS
[2025-04-28 18:23] LABS: Reflex Lactate? Y
[2025-04-28 18:38] VITALS: BP 124/79; PULSE 86; RESP 18; TEMP 36.6; O2SAT 100
[2025-04-28 18:59] LABS: Lactic Acid, 3 HR 2.4 mMol/L (0.4-2.0)
--- NOTE | 2025-04-28 19:44 | PC.NURSE ---
ASSUMED CARE OF PATIENT, PT APPEARS TO BE ASLEEP AND IN NO ACUTE DISTRESS, PT WAITING FOR RE-EVAL FROM ER MD AND TO METABOLIZE HER ALCOHOL. WILL CONTINUE WITH PLAN OF CARE
[2025-04-28 22:51] VITALS: BP 108/75; PULSE 87; RESP 18; TEMP 36.5; O2SAT 100
[2025-04-29] VITALS (8 sets, daily range): BP systolic 106–135; BP diastolic 65–90; PULSE 78–108; RESP 15–18; TEMP 36.2–37.1; O2SAT 96–99
[2025-04-29] MEDS: SODIUM CHLORIDE 0.9% 1000 ML 1,000 ML 999 ML IV (00:44)
--- NOTE | 2025-04-29 06:20 | PC.NURSE ---
NO ISSUES OCCURED THROUGHOUT THE NIGHT, WAITING FOR PATIENT TO METABOLIZE THE ALCOHOL AND THEN HAVE SOME ONE PICK HER UP. WILL CONTINUE WITH PLAN OF CARE
--- NOTE | 2025-04-29 06:32 | PD.EDADDENDU ---
Emergency Room Addendum <Roseline Graff - Last Filed: 04/29/25 06:32> Addendum Narrative: 0600: Care assumed from Dr. Miranda, the previous shift emergency physician. Past medical, surgical, social and family history reviewed. Vitals and home medications reviewed. I will assume the care of the patient at this time. Please refer to the emergency department record for history and examination from initial visit.? Physical exam by me shows patient under no acute distress at this time. <Brad Sinclair MD - Last Filed: 04/29/25 11:39> Addendum Narrative: 0600: Care assumed from Dr. Miranda, the previous shift emergency physician. Past medical, surgical, social and family history reviewed. Vitals and home medications reviewed. I will assume the care of the patient at this time. Please refer to the emergency department record for history and examination from initial visit.? Physical exam by me shows patient under no acute distress at this time. Patient was sleeping most of the night is comfortable this morning she is concerned about withdrawals her blood alcohol level was rechecked and is now down to 0.074 and last night it was 0.15. Patient at the time of discharge she has been drinking fluids walking around appears to be safe for discharge. She has no suicidal homicidal thoughts as of 1130 hrs.
[2025-04-29 10:24] LABS: Alcohol, Blood Medical 73.5 mg/dL (0-10.0)
[2025-04-29] MEDS: ACETAMINOPHEN 500 MG TABLET 1000 MG PO (10:56)
== END 2025-04-29 12:47 | disposition home or self-care (01) ==
PROVIDERS: Emergency Medicine; Emergency Provider Emergency Medicine
DX: F10.129 Alcohol abuse with intoxication, unspecified (principal); E86.0 Dehydration; R74.02 Elevation of levels of lactic acid dehydrogenase [LDH]; E87.20 Acidosis, unspecified; D64.9 Anemia, unspecified; R74.01 Elevation of levels of liver transaminase levels; R50.9 Fever, unspecified; R07.9 Chest pain, unspecified; R06.02 Shortness of breath; Y90.3 Blood alcohol level of 60-79 mg/100 ml
CPT/HCPCS: 36415; 71045; 80053; 80320; 81001; 82607; 82728; 82746; 82803; 83540; 83550; 83605; 83690; 85025; 85610; 86850; 86900; 86901; 87040; 96361; 96374; 99284; J3411; J7030; A9270; G0480

== ENCOUNTER 2025-04-29 20:23 | Inpatient (IN) | payer MEDICAID, SELFPAY ==
[2025-04-29 20:27] VITALS: BP 144/73; PULSE 103; PULSE 93; RESP 18; O2SAT 98
[2025-04-29 21:32] VITALS: BMI 30.2
[2025-04-29 22:26] VITALS: BP 138/97; PULSE 94; RESP 17; TEMP 37.2; O2SAT 97
--- NOTE | 2025-04-29 22:50 | EDNOTE_ITS ---
ED Abdominal Pain RME/HPI General Chief Complaint: Alcohol Stated complaint: ALCOHOL WITHDRAWALS Time seen by provider: 04/29/25 21:52 Arrival date/time: 04/29/25 20:23 RME / HPI RME / HPI narrative: This section includes all my notes and documentations, including HPI, PE, and ED course. Anastacio Miranda MD HPI: 35 y/o female with Hx of Alcohol use disorder, Cirrhosis, Anxiety, and Depression presents with severe RUQ abdominal pain that radiates to the back and vomiting x few hours. Reports severe shaking. Patient's last drink was yesterday, denies any today. Denies sugical history of the abdomen and any chance of being . Denies history of seizure due to alcohol withdrawal. Reports drinking heavily daily for about a month, except yesterday. Denies visual or auditory hallucinations. Denies HI/SI. No other complaints. ROS: All negative except as documented in HPI. Physical Exam: General:? Alert and oriented.? Severe tremors noted. Eyes:? Conjunctivae and lids clear.? EOMI.? PERRL. ENT:? No nasal congestion.? Neck:? Supple.? No carotid bruit.? No JVD.?? Heart: Sinus tachycardia noted. Lungs:? No respiratory distress.? Good air movement.? No rhonchi, wheezing, rales.?? Abdomen:? Soft and nontender.? Normal bowel sounds.? No distension.? No rebound or guarding.?? Back:? No CVA tenderness.?? Skin:? Warm and dry.?? Neuro:? Alert and oriented X 3.? Cranial Nerves II-XII grossly intact.? No peripheral motor deficits. Musculoskeletal:? All major joints and bones are not tender with no limited ROM. I reviewed all diagnostic test results: My review of the US report is no acute distress. My review of the Chest/Abdomen/Pelvis CT report is no acute distress Blood tests and urine tests remarkable for K 3.3, anion gap 20, beta hydroxybutyrate 6.2, and LFT elevation. VBG showed pH 7.28 and pCO2 14.3. Influenza: Negative. At this point, diagnoses include: Starvation ketoacidosis, Alcohol withdrawal. Treatment here included: Ativan 2 mg IV, thiamine 100 mg IV, Zofran 4 mg IV, and IV fluid. I discussed the case with our hospitalist. About the presentation and exam and diagnostics and treatments here. And need of further care in the hospital. Will accept the patient. Anastacio Miranda MD Related Data Home Medications ?Medication ?Instructions ?Recorded ?Confirmed propranolol 20 mg tablet 20 mg PO QDAY PRN anxiety 04/16/25 Previous Rx's ?Medication ?Instructions ?Recorded ferrous sulfate 325 mg (65 mg 325 mg PO Q OTHER DAY 30 days #30 04/19/25 iron) tablet (Iron (ferrous tabs sulfate)) pantoprazole 40 mg tablet,delayed 40 mg PO QDAY 30 day s #30 tabs 04/19/25 release (Protonix) ondansetron HCl 4 mg tablet 4 mg PO Q8H PRN nausea and 04/26/25 vomiting 5 days #10 tabs Allergies Allergy/AdvReac Type Severity Reaction Status Date / Time No Known Allergies Allergy Verified 04/15/25 01:07 Review of Systems Review of Systems Systems Reviewed: All systems reviewed, normal except as documented Past Medical History Past Medical History GASTROINTESTINAL: Positive Cirrhosis and Ulcerative Colitis REPRODUCTIVE: Positive Previous Pregnancies HEMATOLOGIC: Positive Anemia PSYCHO/SOCIAL: Positive Depression and Anxiety ED Exam Narrative Physical exam: Refer to HPI. Course Quality Measures none Orders Category Date Time Status Bedside Influenza A&B Antigen Test NOW Care 04/29/25 22:50 Completed COVID-19 Screening Questionnaire NOW Care 04/30/25 03:04 Active Decision to Admit X1 Care 04/30/25 03:04 Completed Saline [Insert IV] NOW Care 04/29/25 22:[address] chest abdomen pelvis wo Stat Exams 04/29/25 22:52 Completed US gall bladder Stat Exams 04/30/25 02:38 Completed Acetaminophen Stat Lab 04/29/25 23:12 Completed Alcohol, Blood Medical Stat Lab 04/29/25 23:12 Completed Ammonia Stat Lab 04/29/25 23:12 Completed Amylase Stat Lab 04/29/25 23:12 Completed BNP [B-Type Natriuretic Peptide] Stat Lab 04/29/25 23:12 Completed Beta Hydroxybutyrate Stat Lab 04/29/25 23:12 Completed Bilirubin,Direct Stat Lab 04/29/25 23:12 Completed Blood Culture (Lab) Stat Lab 04/29/25 23:17 Received CBC Stat Lab 04/29/25 23:12 Completed CMP [Comprehensive Metabolic Panel] Stat Lab 04/29/25 23:12 Completed CRP [C-Reactive Protein] Stat Lab 04/29/25 23:12 Completed Drug Screen,Urine Stat Lab 04/30/25 01:07 Completed ESR [Sed Rate (ESR)] Stat Lab 04/29/25 23:12 Completed Free T4 (Free Thyroxine) Stat Lab 04/29/25 23:12 Completed HCG Qualitative,Urine Stat Lab 04/30/25 01:07 Completed HCG,Qualitative Serum Stat Lab 04/29/25 23:12 Completed Lactate (Lactic Acid) Stat Lab 04/29/25 23:12 Completed Lipase Stat Lab 04/29/25 23:12 Completed Magnesium Stat Lab 04/29/25 23:12 Completed PT [Prothrombin Time with INR] Stat Lab 04/29/25 23:12 Completed PTT [Partial Thromboplastin Time] Stat Lab 04/29/25 23:12 Completed Procalcitonin Stat Lab 04/29/25 23:12 Completed Salicylate Stat Lab 04/29/25 23:12 Completed TSH [Thyroid Stimulating Hormone] Stat Lab 04/29/25 23:12 Completed UA, C/S IF [Urinalysis, C/S if Indicated] Stat Lab 04/30/25 01:07 Completed VBG [Venous Blood Gas] Stat Lab 04/29/25 23:12 Completed LORazepam [Ativan Inj] Med 04/29/25 22:50 Discontinued 2 mg IVP X1 ONE Ondansetron Inj [Zofran Inj] Med 04/29/25 22:50 Discontinued 4 mg IVP X1 ONE POTASSIUM CHL 10 mEq IVPB [Kcl Ivpb] Med 04/30/25 02:36 Discontinued 10 meq in 100 ml IV X1 Sodium Chloride 0.9% 1000 ml [Ns] 1,000 ml Med 04/29/25 22:50 Discontinued IV 999 mls/hr Thiamine Inj [Vitamin B-1 Inj] 100 mg Med 04/29/25 22:50 Discontinued Sodium Chloride 0.9% [Ns] 100 ml IV X1 Vital Signs Vital signs: Vital Signs Pulse Rate 93 04/29/25 20:27 Respiratory Rate 18 04/29/25 20:27 Blood Pressure 144/73 H 04/29/25 20:27 Pulse Oximetry (%) 98 04/29/25 20:27 Oxygen Delivery Method Room Air 04/29/25 20:27 Abdominal Pain MDM MDM Narrative MDM Narrative:: Scribe Attestation: I, Sis Saleh, am scribing for and in the presence of Dr. Miranda. Provider Notation: Although this document has been carefully reviewed, there may still be some phonetic and other typographical errors.? These errors are purely grammatical due to imperfections in the software program and should not be construed in any way to? compromise the substance of the patient's medical care during this visit. 35 y/o female with Hx of Alcohol use disorder, Cirrhosis, Anxiety, and Depression presents with severe RUQ abdominal pain that radiates to the back and vomiting x few hours. Reports severe shaking. Patient's last drink was yesterday, denies any today. Denies sugical history of the abdomen and any chance of being . Denies history of seizure due to alcohol withdrawal. Reports drinking heavily daily for about a month, except yesterday. Denies visual or auditory hallucinations. Denies HI/SI. No other complaints. Patient data External records reviewed:: [facility] previous records (Reviewed prior ED records from 04/29/2025. Patient as seen for Acute dehydration.) Clinical information provided by:: patient Social determinants that could affect healthcare access:: alcohol use Patient has the following chronic illnesses:: Cirrhosis, Ulcerative Colitis, Anemia, Depression and Anxiety How is presenting disease/condition affected by chronic disease/condition?: exacerbated by Evaluation data The following diagnostics were reviewed and interpreted by me:: lab results and radiology exam(s) Lab and/or radiology exams considered but not ordered:: None Interpretation Summary: I reviewed all diagnostic test results: My review of the US report is no acute distress. My review of the Chest/Abdomen/Pelvis CT report is no acute distress Blood tests and urine tests remarkable for K 3.3, anion gap 20, beta hydroxybutyrate 6.2, and LFT elevation. VBG showed pH 7.28 and pCO2 14.3. Influenza: Negative. Medications / Prescriptions Medications or Prescriptions considered but not ordered:: None Medication administrations:: Medication Administration History Acetaminophen (Acetaminophen 325 Mg Tablet) 650 mg PO Q6H PRN PRN Reason: Fever >99.5 Stop: 05/30/25 04:04 Acetaminophen (Acetaminophen 325 Mg Tablet) 1,000 mg PO Q6H PRN PRN Reason: PAIN SCALE 1-3 (mild Stop: 05/30/25 04:04 Bismuth Subsalicylate (Bismuth Subsalicyl 1 Tablet (Pepto-Bismol)) 2 tab PO Q6HR CHYNA Stop: 05/14/25 11:59 Last Admin: 04/30/25 17:39 Dose: 2 tab Documented By: Admin: 04/30/25 12:55 Dose: 2 tab Documented By: EF Chlordiazepoxide HCl (Chlordiazepoxide Hcl 25 Mg Capsule) 25 mg PO Q6HR [facility] Stop: 05/05/25 11:59 Last Admin: 04/30/25 17:39 Dose: 25 mg Documented By: Admin: 04/30/25 12:54 Dose: 25 mg Documented By: EF Folic Acid (Folic Acid 1 Mg Tablet) 1 mg PO BID [facility] Stop: 05/05/25 08:59 Last Admin: 04/30/25 10:24 Dose: 1 mg Documented By: DO Dextrose/Sodium Chloride (D5-Ns) 1,000 mls @ 125 mls/hr IV .Q8H [facility] Stop: 05/31/25 09:59 Last Admin: 04/30/25 19:23 Dose: 125 mls/hr Documented By: BETHANY(2) Infusion: 04/30/25 18:29 Dose: Infused Documented By: BETHANY(2) Admin: 04/30/25 10:29 Dose: 125 mls/hr Documented By: DO Lansoprazole (Lansoprazole 30 Mg Tab.Rap) 30 mg PO BID [facility] Stop: 05/14/25 10:14 Last Admin: 04/30/25 12:55 Dose: 30 mg Documented By: EF Lorazepam (Lorazepam 0.5 Mg Tablet) 0.5 mg PO Q4HR PRN PRN Reason: CIWA Score 2-6 Stop: 05/05/25 04:06 Last Admin: 04/30/25 08:55 Dose: 0.5 mg Documented By: LF Lorazepam (Lorazepam 2 Mg/Ml Vial) 0.5 mg IV Q2HR PRN PRN Reason: CIWA SCORE 7-13 Stop: 05/05/25 04:06 Lorazepam (Lorazepam 2 Mg/Ml Vial) 1 mg IV Q2HR PRN PRN Reason: CIWA SCORE 14-19 Stop: 05/05/25 04:06 Lorazepam (Lorazepam 2 Mg/Ml Vial) 2 mg IV Q2HR PRN PRN Reason: CIWA SCORE - Stop: 05/05/25 04:06 Metronidazole (Metronidazole 250 Mg Tablet) 500 mg PO QID [facility] Stop: 05/14/25 11:59 Last Admin: 04/30/25 17:39 Dose: 500 mg Documented By: Admin: 04/30/25 12:54 Dose: 500 mg Documented By: EF Ondansetron HCl (Ondansetron Inj 2 Mg/Ml Inj 2 Ml) 4 mg IVP Q6H PRN; Protocol PRN Reason: NAUSEA OR VOMITING Stop: 05/30/25 04:04 Last Admin: 04/30/25 08:55 Dose: 4 mg Documented By: DOREEN Tetracycline HCl (Tetracycline 250 Mg Capsule) 500 mg PO QID [facility] Stop: 05/14/25 11:59 Last Admin: 04/30/25 17:40 Dose: 500 mg Documented By: Admin: 04/30/25 12:56 Dose: 500 mg Documented By: HERB Thiamine HCl (Thiamine 100 Mg Tablet) 100 mg PO BID [facility] Stop: 05/05/25 08:59 Last Admin: 04/30/25 10:24 Dose: 100 mg Documented By: DO Discontinued Medications Sodium Chloride (Ns) 1,000 mls @ 999 mls/hr IV .Q1H1M ONE Stop: 04/29/25 23:50 Last Infusion: 04/30/25 00:22 Dose: Infused Documented By: Admin: 04/29/25 23:16 Dose: 999 mls/hr Documented By: LASHONDA Thiamine HCl 100 mg/ Sodium (Chloride) 101 mls @ 202 mls/hr IV X1 ONE Stop: 04/29/25 23:19 Last Infusion: 04/29/25 23:53 Dose: Infused Documented By: Admin: 04/29/25 23:15 Dose: 202 mls/hr Documented By: LASHONDA Potassium Chloride (Kcl Ivpb) 10 meq in 100 mls @ 100 mls/hr IV X1 ONE Stop: 04/30/25 03:35 Last Infusion: 04/30/25 04:06 Dose: Infused Documented By: Admin: 04/30/25 03:02 Dose: 100 mls/hr Documented By: LASHONDA Sodium Chloride (Ns) 1,000 mls @ 100 mls/hr IV .Q10H [facility] Stop: 05/30/25 04:14 Lactated Ringer's (Lactated Ringers) 1,000 mls @ 125 mls/hr IV .Q8H [facility] Stop: 05/30/25 04:07 Last Infusion: 04/30/25 14:15 Dose: Infused Documented By: Admin: 04/30/25 05:57 Dose: 125 mls/hr Documented By: LASHONDA Lorazepam (Lorazepam 2 Mg/Ml Vial) 2 mg IVP X1 ONE Stop: 04/29/25 22:51 Last Admin: 04/29/25 23:15 Dose: 2 mg Documented By: LASHONDA Ondansetron HCl (Ondansetron Inj 2 Mg/Ml Inj 2 Ml) 4 mg IVP X1 ONE; Protocol Stop: 04/29/25 22:51 Last Admin: 04/29/25 23:17 Dose: 4 mg Documented By: LASHONDA Pantoprazole Sodium (Pantoprazole Inj 40 Mg Vial) 40 mg IVP QDAY [facility] Stop: 05/30/25 08:59 Last Admin: 04/30/25 14:15 Dose: Not Given Documented By: BETHANY Non-Admin Reason: Cancelled by Provider Treatment here from me included: Ativan 2 mg IV, thiamine 100 mg IV, Zofran 4 mg IV, and IV fluid. I discussed the case with our hospitalist. About the presentation and exam and diagnostics and treatments here. And need of further care in the hospital. Will accept the patient. Consultations Consultation(s) initiated? (list below): Yes Consultation #1 (Physician, Specialty, Details): I discussed the case with our hospitalist. About the presentation and exam and diagnostics and treatments here. And need of further care in the hospital. Will accept the patient. Diagnosis Differential diagnosis abdominal pain: abdominal pain, acute appendicitis, calculus of kidney, constipation, diverticulitis, endometriosis, gastroenteritis, pancreatitis and small bowel obstruction Most likely diagnosis given after review of the tests above:: Starvation ketoacidosis, Alcohol withdrawal. Admission Indicated Admission indicated?: indicated Explain why admission is indicated or not indicated:: Starvation ketoacidosis, Alcohol withdrawal. Admission Request Was there a request for admission?: Yes Admission Attestation Admission request attestation: Discussed case with Hospitalist service regarding admission. Discussed patients ED course, exam findings, labs, and radiology results. The Hospitalist [agrees] to accept the patient for admission. Disposition Plan Disposition Plan: Admit Discharge Plan Plan Patient Disposition: Admit Acute Care w/in Hospital Problem List Clinical Impression: Starvation ketoacidosis, Alcohol withdrawal
--- NOTE | 2025-04-29 22:52 | XR_ITS ---
Examination: CT chest, without intravenous contrast. CT abdomen, without intravenous contrast. CT pelvis, without intravenous contrast. 2-D sagittal and coronal reconstructions. 3-D reconstructions. Date and time of exam:April 30, 2025 0055 hours INDICATIONS: Generalized abdominal pain shortness of the chest pain today CTDI vol (mgy) 7.13 DLP (MGycm)529 Technique: Multiple CT images, 3.0 mm slice thickness, obtained chest, abdomen, pelvis, with the high-resolution 64 slice scanner.. Sagittal and coronal 2-D reconstructions are obtained. 3-D reconstructions Low dose protocols were performed. One or more of the following dose reduction techniques were used; automated exposure control, adjustment of the mA and/or KV according to patient size, use of iterative reconstruction technique. Findings: No thoracic aortic aneurysm dilatation Pulmonary artery segments are not enlarged No paratracheal tracheobronchial or bronchopulmonary adenopathy. No pneumonia or pulmonary edema or pleural disease Severe fatty infiltration throughout the liver Hyperdense gallbladder Spleen not enlarged No pancreatic mass No renal or ureteral calculi, no hydronephrosis 15 mm fat-containing umbilical hernia Normal appendix Distended urinary bladder No pelvic mass Intact osseous structures IMPRESSION: No mediastinal lymphadenopathy. No pneumonia pulmonary edema or pleural disease Severe fatty infiltration throughout the liver. Recommend hepatobiliary sonography follow-up to assess hyperdense gallbladder
[2025-04-29] MEDS: LORazepam 2 MG/ML VIAL IVP (23:15)
[2025-04-29] MEDS: THIAMINE INJ 100 MG in SODIUM CHLORIDE 0.9% 100 ML 202 MG IV (23:15)
[2025-04-29] MEDS: SODIUM CHLORIDE 0.9% 1000 ML 1,000 ML 999 ML IV (23:16)
[2025-04-29] MEDS: ONDANSETRON INJ 2 MG/ML INJ 2 ML 4 MG IVP (23:17)
[2025-04-29 23:23] LABS: Lactate (Lactic Acid) 1.4 mMol/L (0.4-2.0)
[2025-04-29 23:32] LABS: Beta Hydroxybutyrate 6.2 mmol/L (<0.6)
[2025-04-29 23:36] LABS: Basophils # (Auto) 0.1 Thou/mm3 (0.0-0.2); Basophils % (Auto) 1 % (0-2.5); Eosinophils # (Auto) 0.1 Thou/mm3 (0.0-0.5); Eosinophils % (Auto) 1 % (0-10); Hematocrit 32.4 % (36.0-46.0); Hemoglobin 9.7 g/dL (12.0-16.0); Immature Granulocytes % (Auto) 0 % (0-0); Immature Granulocytes Auto 0.02 Thou/mm3 (0.00-0.00); Lymphocytes % (Auto) 28 % (10-50); Mean Corpuscular HGB Conc 29.9 g/dl (31.0-37.0); Mean Corpuscular Hemoglobin 21.1 pg (25.0-35.0); Mean Corpuscular Volume 71 fL (80-100); Monocytes # (Auto) 0.5 Thou/mm3 (0.0-0.8); Monocytes % (Auto) 6 % (0-12); Neutrophils # (Auto) 4.5 Thou/mm3 (1.8-7.7); Neutrophils % (Auto) 64 % (37-80); Nucleated Red Blood Cell % 0 /100 WBC (0); Platelet Count 274 Thou/mm3 (140-440); Red Blood Count 4.59 Miln/mm3 (4.00-5.20); White Blood Count 7.1 Thou/mm3 (3.6-11.0)
[2025-04-29 23:42] LABS: Sed Rate (ESR) 97 mm/hr (0-20)
[2025-04-29 23:43] LABS: B-Type Natriuretic Peptide < 20 pg/mL (0-100)
[2025-04-29 23:44] LABS: INR 1.1 (0.9-1.3); Partial Thromboplastin Time 22.8 Seconds (22.0-36.0); Prothrombin Time 11.5 Seconds (9.0-12.2)
[2025-04-30] VITALS (13 sets, daily range): BP systolic 125–139; BP diastolic 82–96; PULSE 76–98; RESP 14–100; TEMP 36–37.1; O2SAT 96–100
[2025-04-30 00:06] LABS: HCG,Qualitative Serum Negative
[2025-04-30 00:07] LABS: Ammonia < 10 uMol/L (11-32)
[2025-04-30 00:57] LABS: Base Excess, Venous -12 (-3-3); O2 Saturation, Venous 60 % (96-97); PCO2, Venous 30 mmHg (36-56); PO2, Venous 36 mmHg (15-58); pH, Venous 7.28 (7.33-7.66)
[2025-04-30 01:03] LABS: Acetaminophen < 2.0 mcg/mL (10.0-20.0); Alanine Aminotransferase 135 U/L (10-49); Albumin/Globulin Ratio 1.4 (1.2-2.2); Alcohol, Blood Medical < 3.0 mg/dL (0-10.0); Alkaline Phosphatase 125 U/L (46-116); Anion Gap 20 (7-16); Aspartate Amino Transferase 164 U/L (0-34); BUN/Creatinine Ratio 8 Ratio (12-20); Bilirubin,Direct 0.4 mg/dL (0.0-0.3); Bilirubin,Total 1.2 mg/dL (0.3-1.2); Blood Urea Nitrogen 6 mg/dL (9-23); Calcium 10.9 mg/dL (8.3-10.6); Calcium (Corrected) 10.9 mg/dL (8.5-10.1); Chloride 97 mMol/L (98-107); Creatinine (Component) 0.8 mg/dL (0.6-1.3); Estimated Creatinine Clearance 90.3 mL/min (>60); Free T4 (Free Thyroxine) 1.33 ng/dL (0.89-1.76); Globulin 3.5 gm/dL (2.3-3.5); Glucose 72 mg/dL (74-106); Lipase 56 U/L (12-53); Magnesium 1.8 mg/dL (1.6-2.6); Osmolality,Calculated 259 (275-295); Potassium 3.3 mMol/L (3.4-5.1); Procalcitonin 0.12 ng/ml (0.0-0.49); Salicylate < 3.0 mg/dL; Sodium 131 mMol/L (136-145); Thyroid Stimulating Hormone 6.75 uIU/mL (0.55-4.78); Total Protein 8.5 gm/dL (5.7-8.2); eGFR > 60 See Note
[2025-04-30 01:33] LABS: Collection Type, Urine Clean Catch
[2025-04-30 01:43] LABS: Bilirubin,Urine Negative (Negative); Blood,Urine Negative (Negative); Clarity,Urine Clear (Clear/Hazy); Color,Urine Lt-Yellow (Lt Yel-Yel); Culture Indicated,Urine Not Indicated; Glucose, Urine Negative (Negative); Hyaline Casts,Urine < 1 /hpf (0-1); Ketones,Urine 4+ (Negative); Leukocyte Esterase,Urine Negative (Negative); Nitrite,Urine Negative (Negative); PH,Urine 6.5 (5.0-7.0); Protein,Urine 1+ (Neg - Trace); RBC,Urine 3 /hpf (0-3); Specific Gravity,Urine 1.024 (1.001-1.035); Squamous Epithelial Cell,Urine 1 /hpf (0-5); Urobilinogen,Urine Negative mg/dL (0.0-1.0); WBC,Urine 4 /hpf (0-5)
[2025-04-30 01:53] LABS: HCG Qualitative,Urine Negative
[2025-04-30 01:54] LABS: Amphetamine/Methamp Scrn,U Negative (Negative); Barbiturate Screen,Urine Negative (Negative); Benzodiazepines Screen,Urine Positive (Negative); Benzoylecgonine Screen, Ur Negative (Negative); Fentanyl Screen,Urine Negative (Negative); Opiate Screen,Urine Negative (Negative); THC Screen,Urine Negative (Negative)
[2025-04-30 01:54] LABS: Amylase 31 U/L (30-118); C-Reactive Protein < 0.5 mg/dL (0.0-0.9)
[2025-04-30 02:32] LABS: Carbon Dioxide 14.3 mMol/L (20.0-31.0)
--- NOTE | 2025-04-30 02:36 | PRELIM_ITS ---
CT scan of the chest, abdomen and pelvis without intravenous contrast (axial sections with sagittal and coronal reformats) April 30, 2025 at 0055 hours Clinical History: Chest/abdominal pain. Comparison: No prior study is available for comparison. Findings: The lungs are clear. There is no pleural effusion or pneumothorax. The aorta is unremarkable on this noncontrast study. No evidence of mediastinal mass or lymphadenopathy. There is no pericardial effusion. There is mild hepatomegaly with fatty infiltration. Gallbladder is partially distended. There is small hyperdense lesion in the right kidney measuring 4 mm, possibly hyperdense cyst. No evidence of renal/ureteric calculus or hydroureteronephrosis. The spleen, pancreas and adrenals are unremarkable on t his noncontrast study. A small hiatal hernia is present. No evidence of bowel obstruction. The appendix is within normal limits (axial images [id number]). The urinary bladder is unremarkable. Uterus and adnexa are within normal limits. There is a hypodense elongated air containing structure in the cervical canal, possibly a tampoon. There is no free fluid or free air. There is transitional vertebra at lumbosacral junction with pseudoarticulation of L5 transverse process with sacrum on the left side. Impression: 1. No evidence of acute intrathoracic, intraabdominal or pelvic pathology on this noncontrast study. 2. Hepatic steatosis. 3. Other findings as described above. Report Electronically Signed By: Miguel Salinas 04/30/2025 2:35:30 AM [EST]
--- NOTE | 2025-04-30 02:38 | XR_ITS ---
Examination: Abdomen sonogram, Limited Date and time of exam: April 30, 2025 0247 hours INDICATIONS: Right upper abdominal pain beginning 2 days ago Technique: Real-time turner scale transabdominal sonographic images of the upper abdomen obtained. Findings: Normal gallbladder Normal common bile duct 0.3 cm Pancreatic a 2.8 cm Liver 18.0 cm fatty infiltration Normal hepatopedal portal venous flow Patent IVC IMPRESSION: Hepatomegaly with fatty liver
[2025-04-30] MEDS: POTASSIUM CHL 10 mEq IVPB 10 MEQ/100 ML BAG 100 MEQ IV (03:02)
--- NOTE | 2025-04-30 04:06 | PRELIM_ITS ---
Right upper quadrant abdominal ultrasound. April 30, 2025 0247 hours Clinical history: Right upper quadrant tenderness Technique: Grayscale and color flow images of the right upper quadrant are provided. Hepatic and portal veins were also imaged with color flow images. Comparison: Correlated with prior CT chest, abdomen and pelvis study performed earlier today. Findings: The liver is enlarged, measuring 18 cm in length and demonstrates increased echogenicity. The main portal vein is patent and demonstrates hepatopetal flow. No intrahepatic biliary ductal dilatation. No gallbladder calculus, wall thickening or pericholecystic fluid is demonstrated. The common bile duct is normal in caliber at 3 mm. The pancreas is unremarkable to the extent visualized. The inferior vena cava is patent. Impression: No sonographic evidence of cholelithiasis, acute cholecystitis or biliary obstruction. Mild hepatomegaly with fatty infiltration. Report Electronically Signed By: Miguel Salinas 04/30/2025 4:05:41 AM [EST]
--- NOTE | 2025-04-30 04:09 | ESHP_ITS ---
<Statement entered by Capri Sheth MD - 04/30/25 07:15> I Capri Sheth MD reviewed the note and agree with the resident's assessment & plan with exceptions as below. I have personally reviewed labs, imaging, home meds/prior records, examined the patient, formulated and discussed management plan with the IM team. 35-year-old female with history of EtOH use, fatty liver presented to ED with right upper quadrant abdominal pain along with recent history of melanic stools and some evidence of hematemesis though had no summer blood. She is noted to have tachycardia, significant anemia with hemoglobin 8.4 and electrolyte derangements. Beta hydroxybutyrate elevated likely related to starvation ketosis. Admitted for alcohol withdrawal and intractable right upper quadrant pain with a recent history of melena concerning for upper GI bleed. Will place on CIWA protocol, continue IV fluid resuscitation with aggressive electrolyte replacement. Resume home dose of propranolol, consider GI consult for potential endoscopy to evaluate for anemia caused by gastritis/esophagitis/PUD. Obtain iron studies to evaluate for IV iron infusions. Documentation for date of: 04/30/25 HPI History of Present Illness Chief complaint: Abdominal pain History of present illness: 35-year-old female with past medical history of anemia, gastritis, alcohol use disorder who presented to the ED due to abdominal pain. Patient states that she has been drinking for the past 2 weeks at least 5 shots a day. Patient has been coming to the hospital almost every day during this month. Last admission patient came in with low hemoglobin had GI workup done found with esophageal ulcers and gastritis. She also endorses some chills but no fevers and some shortness of breath due to the abdominal pain. She also states that she sees bugs crawling around her skin as well as some visual hallucinations at nighttime evaluation. At this time patient denies fever, chest pain, palpitations, sick contacts, recent travel. ED course: ED vitals: BP 1 4473, HR 93, saturating 98% on room air ED labs: Hemoglobin 9.7, ESR 97, VBG shows acidosis, 7.931, potassium 3.3, bicarb 14.3, glucose 72, corrected calcium 10.9, direct bili 0.4, AST 164, ALT 135, alk phos 125, ammonia less than 10, lipase 56, BHB 6.2 CT abdomen pelvis and gallbladder ultrasound just showed fatty liver PMHx: As above SX Hx: None Social Hx: Drinks at least 5 shots daily, denies cigarette use, denies illicit substances including THC FH X: Unknown Review of Systems Review of Systems Systems Reviewed: All systems reviewed, normal except as documented Narrative Review of Systems: All 12 systems reviewed and found negative unless otherwise stated in the HPI. Exam Vital Signs Temp Pulse Resp BP Pulse Ox O2 Del Method 98.7 F 78 18 127/90 H 100 Room Air 04/30/25 02:10 04/30/25 03:07 04/30/25 03:07 04/30/25 03:07 04/30/25 03:07 04/30/25 03:07 Narrative Exam Physical Exam GENERAL: NAD, AAOx3, CIWA: 10?12 HEENT: Moist mucosa. Eyes open, symmetrical, & clear CARDIO: Heart RRR, no obvious murmurs PULM: No noted coughing/dyspnea CTA B/L, no R/W/R GI: Abdomen soft, nondistended, pain on palpation on all 4 quadrants. BSx4 SKIN/MSK/EXT: No wounds/rashes/edema/amputations, no pain on palpation. Pedal pulses present B/L Results: Labs 04/29/25 23:12 04/29/25 23:12 Labs: Short CBC 04/29/25 Range/Units 23:12 WBC 7.1 (3.6-11.0) Thou/mm3 Hgb 9.7 L (12.0-16.0) g/dL Hct 32.4 L (36.0-46.0) % Plt Count 274 (140-440) Thou/mm3 BMP 04/29/25 23:12 Sodium 131 L D Potassium 3.3 L D Chloride 97 L Carbon Dioxide 14.3 L* BUN 6 L Creatinine 0.8 Glucose 72 L Calcium 10.9 H D Liver Function 04/29/25 Range/Units 23:12 Total Bilirubin 1.2 D (0.3-1.2) mg/dL Direct Bilirubin 0.4 H (0.0-0.3) mg/dL AST 164 H (0-34) U/L ALT 135 H (10-49) U/L Alkaline Phosphatase 125 H (46-116) U/L Albumin 5.0 D (3.5-5.0) gm/dL Urine 04/30/25 Range/Units 01:07 Urine Color Lt-Yellow (Lt Yel-Yel) Urine Clarity Clear (Clear/Hazy) Urine pH 6.5 (5.0-7.0) Ur Specific [place] 1.024 (1.001-1.035) Urine Protein 1+ A (Neg - Trace) Urine Glucose (UA) Negative (Negative) ABG Interpretation ABG results: 04/29/25 23:12 VBG pH 7.28 L VBG pCO2 30 L D VBG pO2 36 VBG Base Excess -12 L Quality Measures Quality Measures none Medications Home Medications and Allergies Home Medications ?Medication ?Instructions ?Recorded ?Confirmed ?Type propranolol 20 mg tablet 20 mg PO QDAY PRN anxiety 04/16/25 History Allergies Allergy/AdvReac Type Severity Reaction Status Date / Time No Known Allergies Allergy Verified 04/15/25 01:07 Visit Medications Acetaminophen (Acetaminophen 325 Mg Tablet) 650 mg PO Q6H PRN PRN Reason: Fever >99.5 Stop: 05/30/25 04:04 Acetaminophen (Acetaminophen 325 Mg Tablet) 1,000 mg PO Q6H PRN PRN Reason: PAIN SCALE 1-3 (mild Stop: 05/30/25 04:04 Folic Acid (Folic Acid 1 Mg Tablet) 1 mg PO BID CHYNA Stop: 05/05/25 08:59 Lactated Ringer's (Lactated Ringers) 1,000 mls @ 125 mls/hr IV .Q8H CHYNA Stop: 05/30/25 04:07 Lorazepam (Lorazepam 0.5 Mg Tablet) 0.5 mg PO Q4HR PRN PRN Reason: CIWA Score 2-6 Stop: 05/05/25 04:06 Lorazepam (Lorazepam 2 Mg/Ml Vial) 0.5 mg IV Q2HR PRN PRN Reason: CIWA SCORE 7-13 Stop: 05/05/25 04:06 Lorazepam (Lorazepam 2 Mg/Ml Vial) 1 mg IV Q2HR PRN PRN Reason: CIWA SCORE 14-19 Stop: 05/05/25 04:06 Lorazepam (Lorazepam 2 Mg/Ml Vial) 2 mg IV Q2HR PRN PRN Reason: CIWA SCORE 20-25 Stop: 05/05/25 04:06 Ondansetron HCl (Ondansetron Inj 2 Mg/Ml Inj 2 Ml) 4 mg IVP Q6H PRN; Protocol PRN Reason: NAUSEA OR VOMITING Stop: 05/30/25 04:04 Pantoprazole Sodium (Pantoprazole Inj 40 Mg Vial) 40 mg IVP QDAY [facility] Stop: 05/30/25 08:59 Thiamine HCl (Thiamine 100 Mg Tablet) 100 mg PO BID CHYNA Stop: 05/05/25 08:59 Discontinued Medications Sodium Chloride (Ns) 1,000 mls @ 999 mls/hr IV .Q1H1M ONE Stop: 04/29/25 23:50 Last Infusion: 04/30/25 00:22 Dose: Infused Thiamine HCl 100 mg/ Sodium (Chloride) 101 mls @ 202 mls/hr IV X1 ONE Stop: 04/29/25 23:19 Last Infusion: 04/29/25 23:53 Dose: Infused Potassium Chloride (Kcl Ivpb) 10 meq in 100 mls @ 100 mls/hr IV X1 ONE Stop: 04/30/25 03:35 Last Infusion: 04/30/25 04:06 Dose: Infused Sodium Chloride (Ns) 1,000 mls @ 100 mls/hr IV .Q10H CHYNA Stop: 05/30/25 04:14 Lorazepam (Lorazepam 2 Mg/Ml Vial) 2 mg IVP X1 ONE Stop: 04/29/25 22:51 Last Admin: 04/29/25 23:15 Dose: 2 mg Ondansetron HCl (Ondansetron Inj 2 Mg/Ml Inj 2 Ml) 4 mg IVP X1 ONE; Protocol Stop: 04/29/25 22:51 Last Admin: 04/29/25 23:17 Dose: 4 mg Assessment & Plan Plan 35-year-old female with past medical history of gastritis and anemia who presented to the ED due to abdominal pain. Patient will be admitted for alcohol withdrawal. #Alcohol use disorder #Starvation ketosis #Elevated liver enzymes Patient has been drinking every day for the past 2 weeks drinks at least 5 shots daily Presented with generalized abdominal pain, nausea, vomiting with decreased p.o. intake for the past [address] abdomen pelvis shows fatty liver Gallbladder ultrasound shows fatty liver Current CIWA at my time evaluation of 10?12, currently seeing things in the room feeling bugs crawling around her skin ? LR at 125 cc/h ? Thiamine ? Folic acid ? CIWA protocol in place #Microcytic anemia Patient had previous very recent admission and had GI workup done showed esophageal ulceration and gastritis Currently stable at this time compared to the past few days ? Monitor for now Health Maintenance: Disposition: Telemetry, CIWA protocol Fluids: LR Feeding: Regular Thrombo prophylaxis: SCDs Gastric Ulcer prophylaxis: Pantoprazole CODE STATUS: Full code Case discussed with my attending Dr. Domenic Harmon MD PGY-1 Disclaimer: Despite multiple revisions, due to the dictation software being used, the document bellow may not be free of grammatical errors including phonetic/typographic errors. However, this does not deter from our commitment to providing health care in the patient's best interest in mind.
[2025-04-30 05:14] LABS: Basophils % (Auto) 1 % (0-2.5); Eosinophils # (Auto) 0.1 Thou/mm3 (0.0-0.5); Eosinophils % (Auto) 2 % (0-10); Immature Granulocytes % (Auto) 0 % (0-0); Monocytes # (Auto) 0.4 Thou/mm3 (0.0-0.8); Nucleated Red Blood Cell % 0 /100 WBC (0); White Blood Count 4.9 Thou/mm3 (3.6-11.0)
[2025-04-30 05:16] LABS: Hematocrit 28.3 % (36.0-46.0); Hemoglobin 8.4 g/dL (12.0-16.0); Immature Granulocytes Auto 0.01 Thou/mm3 (0.00-0.00); Lymphocytes # (Auto) 1.1 Thou/mm3 (1.0-4.8); Lymphocytes % (Auto) 23 % (10-50); Mean Corpuscular HGB Conc 29.7 g/dl (31.0-37.0); Mean Corpuscular Hemoglobin 21.2 pg (25.0-35.0); Mean Corpuscular Volume 72 fL (80-100); Monocytes % (Auto) 7 % (0-12); Neutrophils # (Auto) 3.3 Thou/mm3 (1.8-7.7); Neutrophils % (Auto) 67 % (37-80); Platelet Count 198 Thou/mm3 (140-440); RDW Standard Deviation 60.8 fL (36.4-46.3); Red Blood Count 3.96 Miln/mm3 (4.00-5.20)
[2025-04-30 05:52] LABS: Alanine Aminotransferase 98 U/L (10-49); Albumin, Serum 3.9 gm/dL (3.5-5.0); Albumin/Globulin Ratio 1.4 (1.2-2.2); Alkaline Phosphatase 100 U/L (46-116); Anion Gap 15 (7-16); Aspartate Amino Transferase 105 U/L (0-34); BUN/Creatinine Ratio 7 Ratio (12-20); Bilirubin,Total 0.8 mg/dL (0.3-1.2); Blood Urea Nitrogen < 5 mg/dL (9-23); Calcium 8.9 mg/dL (8.3-10.6); Carbon Dioxide 16.7 mMol/L (20.0-31.0); Chloride 103 mMol/L (98-107); Creatinine (Component) 0.7 mg/dL (0.6-1.3); Estimated Creatinine Clearance 103.2 mL/min (>60); Globulin 2.8 gm/dL (2.3-3.5); Glucose 72 mg/dL (74-106); Magnesium 1.6 mg/dL (1.6-2.6); Osmolality,Calculated 266 (275-295); Sodium 135 mMol/L (136-145); Total Protein 6.7 gm/dL (5.7-8.2); eGFR > 60 See Note
[2025-04-30] MEDS: RINGERS LACTATED 1000 ML 1,000 ML 125 ML IV (05:57)
[2025-04-30] MEDS: ONDANSETRON INJ 2 MG/ML INJ 2 ML 4 MG IVP (08:55)
[2025-04-30] MEDS: LORazepam 0.5 MG TABLET PO (08:55)
--- NOTE | 2025-04-30 09:56 | ESPR_ITS ---
Documentation for date of: 04/30/25 Subjective Subjective Interval history: Overnight admission. Seen and examined at bedside in ED and patient has very slight tremor when holding hands outstretched and endorses bugs crawling on her skin . Thus far CIWA scores have been 10 and 6 and was started on chlordiazepoxide every 6 hours scheduled and will likely start tapering tomorrow. Additionally, pathology report from previous admission EGD showed intestinal metaplasia at stomach antrum as well as suspicion for rare H. pylori- like organisms by immunohistochemistry and so patient was started on bismuth quadruple therapy. Exam Vital Signs Temp Pulse Resp BP Pulse Ox O2 Del Method 98.6 F 96 16 137/94 H 99 Room Air 04/30/25 07:58 04/30/25 07:58 04/30/25 07:58 04/30/25 07:58 04/30/25 07:58 04/30/25 07:58 Narrative Exam General: AOx3, no acute distress, able to speak full sentences HEENT: NC/AT, mucous membranes moist, bilateral sclera anicteric Cardiovascular: regular rate and rhythm, S1/S2 present, no murmurs appreciated Pulmonary: clear to auscultation bilaterally, no rales/rhonchi/wheezes Abdominal: Jones's positive, epigastric tenderness, non-distended, no rebound/guarding, normal bowel sounds present Musculoskeletal: normal ROM, no peripheral edema Skin: warm and dry, intact, no rashes Neuro: CN II-XII intact, no focal deficits Objective Labs 04/30/25 05:00 04/30/25 05:00 Labs: Laboratory Results - last 24 hr 04/29/25 04/30/25 04/30/25 23:12 01:07 05:00 WBC 7.1 4.9 RBC 4.59 3.96 L Hgb 9.7 L 8.4 L Hct 32.4 L 28.3 L MCV 71 L 72 L MCH 21.1 L 21.2 L MCHC 29.9 L 29.7 L RDW Std Deviation 62.0 H 60.8 H Plt Count 274 198 D Neut % (Auto) 64 67 Lymph % (Auto) 28 23 [place] % (Auto) 6 7 Eos % (Auto) 1 2 Baso % (Auto) 1 1 Neut # (Auto) 4.5 3.3 Lymph # (Auto) 2.0 1.1 [place] # (Auto) 0.5 0.4 Eos # (Auto) 0.1 0.1 Baso # (Auto) 0.1 0.0 Immature Gran # (Auto) 0.02 H 0.01 H Absolute Nucleated RBC 0.00 0.00 Immature Gran % 0 0 Nucleated RBC % 0 0 ESR 97 H PT 11.5 INR 1.1 APTT 22.8 VBG pH 7.28 L VBG pCO2 30 L D VBG pO2 36 VBG O2 Sat ([place]) 60 L VBG Base Excess -12 L Sodium 131 L D 135 L Potassium 3.3 L D 4.0 D Chloride 97 L 103 Carbon Dioxide 14.3 L* 16.7 L Anion Gap 20 H 15 BUN 6 L < 5 L Creatinine 0.8 0.7 Estim Creat Clear Calc 90.3 103.2 eGFR > 60 > 60 BUN/Creatinine Ratio 8 L 7 L Glucose 72 L 72 L Calculated Osmolality 259 L 266 L Lactic Acid 1.4 Calcium 10.9 H D 8.9 D Corrected Calcium 10.9 H D 9.0 D Magnesium 1.8 1.6 Total Bilirubin 1.2 D 0.8 Direct Bilirubin 0.4 H AST 164 H 105 H ALT 135 H 98 H Alkaline Phosphatase 125 H 100 D Ammonia < 10 L C-Reactive Prot, Quant < 0.5 B-Natriuretic Peptide < 20 Total Protein 8.5 H 6.7 Albumin 5.0 D 3.9 D Globulin 3.5 2.8 Albumin/Globulin Ratio 1.4 1.4 Amylase 31 Lipase 56 H Beta-Hydroxybutyrate/Acetoacetate 6.2 H Procalcitonin 0.12 TSH 6.75 H Free T4 1.33 HCG, Qual Negative Ur Collection Type Clean Catch Urine Color Lt-Yellow Urine Clarity Clear Urine pH 6.5 Ur Specific [place] 1.024 Urine Protein 1+ A Urine Glucose (UA) Negative Urine Ketones 4+ A Urine Blood Negative Urine Nitrite Negative Urine Bilirubin Negative Urine Urobilinogen (Auto) Negative Ur Leukocyte Esterase Negative Urine RBC 3 Urine WBC 4 Ur Squamous Epith Cells 1 Urine Bacteria None Hyaline Casts < 1 Ur Culture Indicated? Not Indicated Urine HCG, Qual Negative Salicylates < 3.0 Urine Opiates Screen Negative Urine Fentanyl Screen Negative Acetaminophen < 2.0 L Ur Barbiturates Screen Negative U Amphetamin/Meth Scrn Negative U Benzodiazepines Scrn Positive A U Cocaine Metab Screen Negative U Marijuana (THC) Screen Negative Ethyl Alcohol < 3.0 ABG Interpretation ABG results: 04/29/25 23:12 VBG pH 7.28 L VBG pCO2 30 L D VBG pO2 36 VBG Base Excess -12 L Quality Measures Quality Measures none Assessment & Plan Assessment Current Active Medications: Generic Name Dose Route Start Last Admin Trade Name Freq PRN Reason Stop Dose Admin Acetaminophen 650 mg 04/30/25 04:05 Acetaminophen 325 Mg Tablet PO 05/30/25 04:04 Q6H PRN Fever >99.5 Acetaminophen 1,000 mg 04/30/25 04:05 Acetaminophen 325 Mg Tablet PO 05/30/25 04:04 Q6H PRN PAIN SCALE 1-3 (mild Folic Acid 1 mg 04/30/25 09:00 Folic Acid 1 Mg Tablet PO 05/05/25 08:59 BID CHYNA Lactated Ringer's 1,000 mls @ 125 mls/hr 04/30/25 04:08 04/30/25 05:57 Lactated Ringers IV 05/30/25 04:07 125 mls/hr .Q8H CHYNA Administration Lorazepam 0.5 mg 04/30/25 04:07 04/30/25 08:55 Lorazepam 0.5 Mg Tablet PO 05/05/25 04:06 0.5 mg Q4HR PRN Administration CIWA Score 2-6 Lorazepam 0.5 mg 04/30/25 04:07 Lorazepam 2 Mg/Ml Vial IV 05/05/25 04:06 Q2HR PRN CIWA SCORE 7-13 Lorazepam 1 mg 04/30/25 04:07 Lorazepam 2 Mg/Ml Vial IV 05/05/25 04:06 Q2HR PRN CIWA SCORE 14-19 Lorazepam 2 mg 04/30/25 04:07 Lorazepam 2 Mg/Ml Vial IV 05/05/25 04:06 Q2HR PRN CIWA SCORE 20-25 Ondansetron HCl 4 mg 04/30/25 04:05 04/30/25 08:55 Ondansetron Inj 2 Mg/Ml Inj 2 Ml IVP 05/30/25 04:04 4 mg Q6H PRN Administration NAUSEA OR VOMITING Protocol Pantoprazole Sodium 40 mg 04/30/25 09:00 Pantoprazole Inj 40 Mg Vial IVP 05/30/25 08:59 QDAY CHYNA Thiamine HCl 100 mg 04/30/25 09:00 Thiamine 100 Mg Tablet PO 05/05/25 08:59 BID CHYNA Plan Mary Jo Tinoco is [id number] female with past medical history of gastritis and anemia who presented to the ED due to abdominal pain nausea, vomiting and admitted for alcohol drawl. #Alcohol use disorder #Alcohol withdrawal #Starvation versus alcoholic ketosis #Elevated liver enzymes Last drink was on Thursday, drank 6 shots of tequila. Presents with generalized abdominal pain, nausea, and nonbloody emesis with decreased p.o. intake. CT A/P showed fatty liver and gallbladder ultrasound showed fatty liver as well. Initial HCO3 14, AG 20, beta hydroxybutyrate 6.2. HCO3 and AG improved after IVF. ? CIWA protocol, thiamine and folic acid daily ? Chlordiazepoxide 25 mg p.o. every 6 hours ? D5/NS at 125 cc/h #Helicobacter pylori #Gastric ulcer #Gastritis Pathology report from previous admission EGD showed intestinal metaplasia at stomach antrum as well as suspicion for rare H. pylori-like organisms by immunohistochemistry. ? Bismuth quadruple therapy (04/30-05/14): ? Bismuth subsalicylate 2 tabs p.o. every 6 hours ? Lansoprazole 30 mg p.o. twice daily ? Metronidazole 5 mg p.o. 4 times daily ? Tetracycline 500 mg p.o. 4 times daily #Microcytic anemia Patient had recent admission and had GI workup done showed esophageal ulceration and gastritis Currently stable at this time compared to the past few days ? Monitor for now Health Maintenance: Disposition: Telemetry, CIWA protocol Fluids: D5/NS Feeding: Regular Thrombo prophylaxis: SCDs Gastric Ulcer prophylaxis: Lansoprazole CODE STATUS: Full code ----- Plan discussed with attending physician Dr. Elvia Burns MD PGY-1 Internal Medicine Attending Provider Attestation/Addendum I attest that I was physically present for the evaluation, physical examination, lab and imaging review of the patient with the residents. I discussed the case with the residents and agree with the findings and plans of care as documented above. Patient is a 35 years old female with past medical history of anemia, gastritis, alcohol abuse who presented to the ED with complaint of abdominal pain. She was then admitted overnight for alcohol abuse, starvation ketoacidosis. At bedside today, she states that her abdominal pain have been improving. Continues to have some withdrawal symptoms including tactile hallucinations. CIWA score overnight was 10, improved to 6 this morning. Vital signs are stable. Lab results show hemoglobin of 8.4 compared to 9.7 yesterday. No signs of active bleeding. Potassium level improved from 3.3-4.0. Bicarbonate is 14.3 yesterday, improved to 16.7 today. Initially had lactic acidosis, improved after fluid. Liver function slightly improved compared to presentation. Lipase was 56. Started on chlordiazepoxide 25 mg 4 times daily. We will continue with IV hydration D5 NS at 125 cc/h. Continues to be on CIWA protocol. Her pathology report from last endoscopy shows suspicion for H. pylori-like organisms by immunohistochemistry and positive intestinal metaplasia. We will start her on quadruple therapy. Yovani Gan MD
[2025-04-30] MEDS: FOLIC ACID 1 MG TABLET PO ×2 (10:24→21:27)
[2025-04-30] MEDS: THIAMINE 100 MG TABLET PO ×2 (10:24→21:27)
[2025-04-30] MEDS: DEXTROSE 5%-NS 1,000 ML 125 ML IV ×2 (10:29→19:23)
[2025-04-30] MEDS: chlordiazePOXIDE HCl 25 MG CAPSULE PO ×3 (12:54→23:46)
[2025-04-30] MEDS: metroNIDAZOLE 250 MG TABLET 500 MG PO ×3 (12:54→21:27)
[2025-04-30] MEDS: BISMUTH SUBSALICYL 1 TABLET (Pepto-Bismol) 2 TAB PO ×3 (12:55→23:46)
[2025-04-30] MEDS: LANSOPRAZOLE 30 MG TAB.RAP.DR PO ×2 (12:55→21:27)
[2025-04-30] MEDS: TETRACYCLINE 250 MG CAPSULE 500 MG PO ×3 (12:56→21:27)
[2025-05-01] VITALS (8 sets, daily range): BP systolic 117–148; BP diastolic 71–103; PULSE 76–110; RESP 14–100; TEMP 36.2–36.9; O2SAT 97–99; BMI 31.4
[2025-05-01] MEDS: DEXTROSE 5%-NS 1,000 ML 125 ML IV ×3 (03:37→22:22)
[2025-05-01] MEDS: TETRACYCLINE 250 MG CAPSULE 500 MG PO ×4 (05:08→21:34)
[2025-05-01] MEDS: chlordiazePOXIDE HCl 25 MG CAPSULE PO ×3 (05:08→21:36)
[2025-05-01] MEDS: metroNIDAZOLE 250 MG TABLET 500 MG PO ×4 (05:08→21:35)
[2025-05-01] MEDS: BISMUTH SUBSALICYL 1 TABLET (Pepto-Bismol) 2 TAB PO ×3 (05:08→18:00)
[2025-05-01 07:17] LABS: Basophils % (Auto) 1 % (0-2.5); Eosinophils # (Auto) 0.2 Thou/mm3 (0.0-0.5); Eosinophils % (Auto) 5 % (0-10); Hematocrit 26.5 % (36.0-46.0); Immature Granulocytes % (Auto) 0 % (0-0); Immature Granulocytes Auto 0.01 Thou/mm3 (0.00-0.00); Lymphocytes # (Auto) 1.3 Thou/mm3 (1.0-4.8); Lymphocytes % (Auto) 28 % (10-50); Mean Corpuscular HGB Conc 31.3 g/dl (31.0-37.0); Mean Corpuscular Hemoglobin 21.3 pg (25.0-35.0); Mean Corpuscular Volume 68 fL (80-100); Monocytes # (Auto) 0.3 Thou/mm3 (0.0-0.8); Monocytes % (Auto) 7 % (0-12); Neutrophils # (Auto) 2.6 Thou/mm3 (1.8-7.7); Neutrophils % (Auto) 60 % (37-80); Nucleated Red Blood Cell % 0 /100 WBC (0); Platelet Count 198 Thou/mm3 (140-440); RDW Standard Deviation 58.4 fL (36.4-46.3); Red Blood Count 3.89 Miln/mm3 (4.00-5.20); White Blood Count 4.4 Thou/mm3 (3.6-11.0)
[2025-05-01 07:21] LABS: Hemoglobin 8.3 g/dL (12.0-16.0)
[2025-05-01 07:25] LABS: Alanine Aminotransferase 69 U/L (10-49); Albumin, Serum 3.7 gm/dL (3.5-5.0); Albumin/Globulin Ratio 1.3 (1.2-2.2); Alkaline Phosphatase 92 U/L (46-116); Anion Gap 10 (7-16); Aspartate Amino Transferase 53 U/L (0-34); BUN/Creatinine Ratio 10 Ratio (12-20); Bilirubin,Total 0.4 mg/dL (0.3-1.2); Blood Urea Nitrogen < 5 mg/dL (9-23); Calcium 8.4 mg/dL (8.3-10.6); Calcium (Corrected) 8.6 mg/dL (8.5-10.1); Carbon Dioxide 22.7 mMol/L (20.0-31.0); Chloride 106 mMol/L (98-107); Creatinine (Component) 0.5 mg/dL (0.6-1.3); Estimated Creatinine Clearance 147.3 mL/min (>60); Globulin 2.8 gm/dL (2.3-3.5); Glucose 127 mg/dL (74-106); Magnesium 1.2 mg/dL (1.6-2.6); Osmolality,Calculated 276 (275-295); Phosphorous 2.2 mg/dL (2.4-5.1); Potassium 3.4 mMol/L (3.4-5.1); Sodium 139 mMol/L (136-145); Total Protein 6.5 gm/dL (5.7-8.2); eGFR > 60 See Note
[2025-05-01 08:25] LABS: Ferritin 28 ng/mL (7.3-270.7); Iron 22 mcg/dL (50-170); Percent Iron Saturation 5 % (20-55); Total Iron Binding Capacity 375 mcg/dL (250-425); Unsaturated Iron Binding 353 (225-295)
[2025-05-01] MEDS: NAPH,KPH MBDB 1 PACKET (1.5 GM) PO (08:55)
--- NOTE | 2025-05-01 09:06 | ESPR_ITS ---
Documentation for date of: 05/01/25 Subjective Subjective Interval history: No acute overnight events. Seen and examined at bedside and patient states that she still has some abdominal pain but denies any visual, auditory, or tactile hallucinations, mild tremor when holding hands upward. Will continue with CIWA protocol but CIWA scores have been minimal so will decrease librium from QID to BID and likely will continue to downtrend tomorrow. Given that her CIWA scores have been minimal, anticipate discharge within next 24-48 hours. Noted to have HR 109 but otherwise VSS. CBC panel stable/unremarkable. Chem panel showed resolution in acidosis and low phosphorus and magnesium that were repleted. Exam Vital Signs Temp Pulse Resp BP Pulse Ox O2 Del Method 97.4 F 78 16 148/103 H 99 Room Air 05/01/25 08:00 05/01/25 08:00 05/01/25 08:00 05/01/25 08:00 05/01/25 08:00 05/01/25 08:00 Narrative Exam General: AOx3, no acute distress, able to speak full sentences HEENT: NC/AT, mucous membranes moist, bilateral sclera anicteric Cardiovascular: regular rate and rhythm, S1/S2 present, no murmurs appreciated Pulmonary: clear to auscultation bilaterally, no rales/rhonchi/wheezes Abdominal: RUQ and epigastric tenderness, non-distended, no rebound/guarding, normal bowel sounds present Musculoskeletal: normal ROM, no peripheral edema Skin: warm and dry, intact, no rashes Neuro: CN II-XII intact, no focal deficits Objective Labs 05/01/25 06:36 05/01/25 06:36 Labs: Laboratory Results - last 24 hr 05/01/25 05/01/25 04:59 06:36 WBC 4.4 RBC 3.89 L Hgb 8.3 L Hct 26.5 L MCV 68 L MCH 21.3 L MCHC 31.3 RDW Std Deviation 58.4 H Plt Count 198 Neut % (Auto) 60 Lymph % (Auto) 28 [place] % (Auto) 7 Eos % (Auto) 5 Baso % (Auto) 1 Neut # (Auto) 2.6 Lymph # (Auto) 1.3 [place] # (Auto) 0.3 Eos # (Auto) 0.2 Baso # (Auto) 0.0 Immature Gran # (Auto) 0.01 H Absolute Nucleated RBC 0.00 Immature Gran % 0 Nucleated RBC % 0 Sodium 139 Potassium 3.4 D Chloride 106 Carbon Dioxide 22.7 Anion Gap 10 BUN < 5 L Creatinine 0.5 L Estim Creat Clear Calc 147.3 eGFR > 60 BUN/Creatinine Ratio 10 L Glucose 127 H D Calculated Osmolality 276 Calcium 8.4 Corrected Calcium 8.6 Phosphorus 2.2 L Magnesium 1.2 L Iron 22 L TIBC 375 Iron Saturation 5 L Unsat Iron Binding 353 H Ferritin 28 Total Bilirubin 0.4 AST 53 H ALT 69 H Alkaline Phosphatase 92 Total Protein 6.5 Albumin 3.7 Globulin 2.8 Albumin/Globulin Ratio 1.3 ABG Interpretation ABG results: 04/29/25 23:12 VBG pH 7.28 L VBG pCO2 30 L D VBG pO2 36 VBG Base Excess -12 L Quality Measures Quality Measures none Assessment & Plan Assessment Current Active Medications: Generic Name Dose Route Start Last Admin Trade Name Freq PRN Reason Stop Dose Admin Acetaminophen 650 mg 04/30/25 04:05 Acetaminophen 325 Mg Tablet PO 05/30/25 04:04 Q6H PRN Fever >99.5 Acetaminophen 1,000 mg 05/01/25 06:54 Acetaminophen 500 Mg Tablet PO 05/30/25 04:04 Q6H PRN PAIN SCALE 1-3 (mild Bismuth Subsalicylate 2 tab 04/30/25 12:00 05/01/25 05:08 Bismuth Subsalicyl 1 Tablet (Pepto-Bismol) PO 05/14/25 11:59 2 tab Q6HR CHYNA Administration Chlordiazepoxide HCl 25 mg 05/01/25 10:00 Chlordiazepoxide Hcl 25 Mg Capsule PO 05/06/25 09:59 Q12HR CHYNA Folic Acid 1 mg 04/30/25 09:00 04/30/25 21:27 Folic Acid 1 Mg Tablet PO 05/05/25 08:59 1 mg BID CHYNA Administration Dextrose/Sodium Chloride 1,000 mls @ 125 mls/hr 04/30/25 10:00 05/01/25 03:37 D5-Ns IV 05/31/25 09:59 125 mls/hr .Q8H CHYNA Administration Magnesium Sulfate 4 gm in 50 mls @ 12.5 mls/hr 05/01/25 07:58 Magnesium Sulfate Ivpb IV 05/01/25 11:57 X1 ONE Lansoprazole 30 mg 04/30/25 10:15 04/30/25 21:27 Lansoprazole 30 Mg Tab.Rap.Dr PO 05/14/25 10:14 30 mg BID CHYNA Administration Lorazepam 0.5 mg 04/30/25 04:07 04/30/25 08:55 Lorazepam 0.5 Mg Tablet PO 05/05/25 04:06 0.5 mg Q4HR PRN Administration CIWA Score 2-6 Lorazepam 1 mg 04/30/25 04:07 Lorazepam 2 Mg/Ml Vial IV 05/05/25 04:06 Q2HR PRN CIWA SCORE 14-19 Lorazepam 2 mg 04/30/25 04:07 Lorazepam 2 Mg/Ml Vial IV 05/05/25 04:06 Q2HR PRN CIWA SCORE 20-25 Lorazepam 0.5 mg 05/01/25 06:56 Lorazepam 2 Mg/Ml Vial IV 05/05/25 04:06 Q2HR PRN CIWA SCORE 7-13 Metronidazole 500 mg 04/30/25 12:00 05/01/25 05:08 Metronidazole 250 Mg Tablet PO 05/14/25 11:59 500 mg QID CHYNA Administration Ondansetron HCl 4 mg 04/30/25 04:05 04/30/25 08:55 Ondansetron Inj 2 Mg/Ml Inj 2 Ml IVP 05/30/25 04:04 4 mg Q6H PRN Administration NAUSEA OR VOMITING Protocol Tetracycline HCl 500 mg 04/30/25 12:00 05/01/25 05:08 Tetracycline 250 Mg Capsule PO 05/14/25 11:59 500 mg QID CHYNA Administration Thiamine HCl 100 mg 04/30/25 09:00 04/30/25 21:27 Thiamine 100 Mg Tablet PO 05/05/25 08:59 100 mg BID CHYNA Administration Plan Mary Jo Tinoco is [id number] female with past medical history of gastritis and anemia who presented to the ED due to abdominal pain nausea, vomiting and admitted for alcohol drawl. #Alcohol use disorder #Alcohol withdrawal #Starvation versus alcoholic ketosis #Elevated liver enzymes Last drink was on Thursday, drank 6 shots of tequila. Presents with generalized abdominal pain, nausea, and nonbloody emesis with decreased p.o. intake. CT A/P showed fatty liver and gallbladder ultrasound showed fatty liver as well. Initial HCO3 14, AG 20, beta hydroxybutyrate 6.2. HCO3 and AG improved after IVF. ? CIWA protocol, thiamine and folic acid daily ? Chlordiazepoxide 25 mg p.o. BID #Helicobacter pylori #Gastric ulcer #Gastritis Pathology report from previous admission EGD showed intestinal metaplasia at stomach antrum as well as suspicion for rare H. pylori-like organisms by immunohistochemistry. ? Bismuth quadruple therapy (04/30-05/14): ? Bismuth subsalicylate 2 tabs p.o. every 6 hours ? Lansoprazole 30 mg p.o. twice daily ? Metronidazole 5 mg p.o. 4 times daily ? Tetracycline 500 mg p.o. 4 times daily #Microcytic anemia Patient had recent admission and had GI workup done showed esophageal ulceration and gastritis. Currently stable at this time compared to the past few days. Iron panel showed iron of 22, normal TIBC, elevated unsaturated iron binding, and ferritin wnl. ? Monitor for now Health Maintenance: Disposition: Telemetry, CIWA protocol Fluids: D5/NS Feeding: Regular Thrombo prophylaxis: SCDs Gastric Ulcer prophylaxis: Lansoprazole CODE STATUS: Full code ----- Plan discussed with attending physician Dr. Elvia Burns MD PGY-1 Internal Medicine Attending Provider Attestation/Addendum I attest that I was physically present for the evaluation, physical examination, lab and imaging review of the patient with the residents. I discussed the case with the residents and agree with the findings and plans of care as documented above. At bedside today, patient states she is feeling better and denies any new complaints. Her abdominal tenderness has also decreased. Denies any nausea or vomiting. Has been tolerating diet well. Her tactile hallucination have resolved. CIWA score this morning was 1. We will decrease chlordiazepoxide dosing to 25 mg twice daily, continues to be on CIWA protocol, IV hydration, we will monitor her closely. Noted to have multiple electrolyte imbalances including hypokalemia, hypomagnesemia and hypophosphatemia, repleted accordingly. Yovani Gan MD
[2025-05-01] MEDS: LANSOPRAZOLE 30 MG TAB.RAP.DR PO ×2 (09:23→21:37)
[2025-05-01] MEDS: THIAMINE 100 MG TABLET PO ×2 (09:23→21:36)
[2025-05-01] MEDS: POTASSIUM CHLORIDE 20 mEq TABCR PO (09:30)
[2025-05-01] MEDS: FOLIC ACID 1 MG TABLET PO ×2 (09:30→21:37)
[2025-05-01] MEDS: Magnesium Sulfate 4 GM Ivpb 4 GM/50 ML BAG IV (11:00)
--- NOTE | 2025-05-01 11:31 | PC.SS ---
Rounding: Pt still on CIWA protocol, DC plan home when ready
--- NOTE | 2025-05-01 15:10 | PC.SS ---
Mary Jo Tinoco is a 35-year-old female admitted to Med Surg for Alcohol. SS conducted bedside contact with the patient to complete initial assessment and to discuss discharge planning. Role and reason explained. Patient confirmed demographic information. Patient identifies Rowdy Lynch [phone] as her surrogate decision maker. Pt states she is able to complete all ADL?s independently. No need for any source of DME. Pts PCP is Mariusz Ferrell. Pharmacy of choice is [facility]. Discharge options discussed and the pt wishes to return home. AOD resources talked about, pt not interested at this time Family will provide transportation upon DC. No further intervention required at this time, social services manager would be available to address any further concerns. DC Plan: Home Contact: Rowdy Address: Confirmed on face sheet PCP: Mariusz
[2025-05-02] VITALS: BP 127/80; PULSE 96; PULSE 98; RESP 15; TEMP 36.4; O2SAT 99
[2025-05-02] MEDS: BISMUTH SUBSALICYL 1 TABLET (Pepto-Bismol) 2 TAB PO ×2 (02:24→06:12)
[2025-05-02 04:00] VITALS: BP 122/86; PULSE 71; PULSE 79; RESP 19; TEMP 36.1; O2SAT 99
[2025-05-02 05:28] LABS: Basophils % (Auto) 0 % (0-2.5); Eosinophils # (Auto) 0.2 Thou/mm3 (0.0-0.5); Eosinophils % (Auto) 4 % (0-10); Hematocrit 24.3 % (36.0-46.0); Immature Granulocytes % (Auto) 0 % (0-0); Immature Granulocytes Auto 0.01 Thou/mm3 (0.00-0.00); Lymphocytes # (Auto) 1.4 Thou/mm3 (1.0-4.8); Lymphocytes % (Auto) 26 % (10-50); Mean Corpuscular HGB Conc 31.3 g/dl (31.0-37.0); Mean Corpuscular Hemoglobin 21.9 pg (25.0-35.0); Mean Corpuscular Volume 70 fL (80-100); Monocytes # (Auto) 0.4 Thou/mm3 (0.0-0.8); Monocytes % (Auto) 7 % (0-12); Neutrophils # (Auto) 3.4 Thou/mm3 (1.8-7.7); Neutrophils % (Auto) 62 % (37-80); Nucleated Red Blood Cell % 0 /100 WBC (0); Platelet Count 163 Thou/mm3 (140-440); RDW Standard Deviation 59.7 fL (36.4-46.3); Red Blood Count 3.47 Miln/mm3 (4.00-5.20); White Blood Count 5.5 Thou/mm3 (3.6-11.0)
[2025-05-02 05:35] LABS: Alanine Aminotransferase 53 U/L (10-49); Albumin, Serum 3.4 gm/dL (3.5-5.0); Albumin/Globulin Ratio 1.4 (1.2-2.2); Alkaline Phosphatase 83 U/L (46-116); Anion Gap 8 (7-16); Aspartate Amino Transferase 38 U/L (0-34); BUN/Creatinine Ratio 10 Ratio (12-20); Bilirubin,Total 0.2 mg/dL (0.3-1.2); Blood Urea Nitrogen < 5 mg/dL (9-23); Calcium 8.2 mg/dL (8.3-10.6); Calcium (Corrected) 8.7 mg/dL (8.5-10.1); Carbon Dioxide 24.3 mMol/L (20.0-31.0); Chloride 109 mMol/L (98-107); Creatinine (Component) 0.5 mg/dL (0.6-1.3); Estimated Creatinine Clearance 147.3 mL/min (>60); Globulin 2.5 gm/dL (2.3-3.5); Glucose 125 mg/dL (74-106); Magnesium 1.9 mg/dL (1.6-2.6); Osmolality,Calculated 279 (275-295); Phosphorous 2.9 mg/dL (2.4-5.1); Potassium 3.3 mMol/L (3.4-5.1); Sodium 141 mMol/L (136-145); Total Protein 5.9 gm/dL (5.7-8.2); eGFR > 60 See Note
[2025-05-02 05:37] LABS: Hemoglobin 7.6 g/dL (12.0-16.0)
[2025-05-02] MEDS: TETRACYCLINE 250 MG CAPSULE 500 MG PO (06:12)
[2025-05-02] MEDS: metroNIDAZOLE 250 MG TABLET 500 MG PO (06:12)
[2025-05-02 06:40] VITALS: PULSE 83; RESP 100; RESP 15
[2025-05-02 07:47] VITALS: BP 125/86; PULSE 92; RESP 15; TEMP 36.3; O2SAT 99
[2025-05-02 08:00] VITALS: PULSE 77
[2025-05-02] MEDS: POTASSIUM CHLORIDE 20 mEq TABCR 40 MEQ PO (09:51)
[2025-05-02] MEDS: LANSOPRAZOLE 30 MG TAB.RAP.DR PO (09:52)
[2025-05-02] MEDS: FOLIC ACID 1 MG TABLET PO (09:52)
[2025-05-02] MEDS: THIAMINE 100 MG TABLET PO (09:52)
--- NOTE | 2025-05-02 10:31 | PD.RESDS ---
Planned Discharge Date 05/02/25 DS: Providers Provider Date of admission: 04/30/25 04:05 Primary care physician: Physician No Primary/Family Admitting Provider: Capri Sheth MD Attending Provider on Admission: Oj Ramirez MD Attending Provider on DC: Heriberto Burns MD Discharging Provider: Heriberto Burns MD DS: Diagnosis Problem List Completed Was Problem List Reviewed/Reconciled?: Yes Hospital Course Hospital Course Hospital course: Mary Jo Tinoco is a 35-year-old female with past medical history of gastritis and anemia who presented to the ED due to abdominal pain nausea, vomiting and admitted for alcohol drawl. Specifically endorsed RUQ pain with recent history of melanotic stools and nonbloody emesis. Also noted to have been drinking about 5 shots of tequila per day for the last two weeks and initial CIWA of 10-12 and endorsed bugs crawling on her skin. She was started on CIWA protocol with addition of librium afterwards but was able to be weaned off within two days throughout hospital course. Of note, she was previously admitted and underwent EGD that showed linear esophageal ulcers at GE junction, esophagitis in lower third of esophagus, and patchy inflammation in entire stomach. Biopsies eventually showed suspicion for rare H. pylori-like organisms by immunohistochemistry and intestinal metaplasia in stomach antrum so patient was started on Bismuth quadruple therapy. No acute events occurred through hospitalizatoin and after initiaion of librium, CIWA was essentially zero and deemed stable for discharge but with strong recommendation to abstain from alcohol consumption. Additionally, instructed to follow-up with her PCP for follow-up regarding eradication of H. pylori especially since intestinal metaplasia was proven on biopsy. Prescribed 10 day course of Pylera and lansoprazole for treatment of H. pylori and recommend obtaining CBC within 1 week. Diagnoses during admission: #Alcohol use disorder #Alcohol withdrawal #Starvation versus alcoholic ketosis #Elevated liver enzymes #Helicobacter pylori #Gastric ulcer #Gastritis #Microcytic anemia Discharge instructions: ? Take bismuth quadruple therapy (3 capsules total) with lansoprazole four times per day for a total of 10 more days ? Continue taking all other home medications as prescribed ? Recommend to obtain CBC within 1 week ? Follow-up with PCP within 1-2 weeks of discharge to ensure that H. pylori infection is eradicated ? If you do not have a PCP, you can follow-up at the [facility] (you can call [phone] to make an appointment) ? If you wish to follow-up with Dr. Burns, schedule appointment on Thursday ? Return to ED if symptoms worsen or recur ----- Plan discussed with attending physician Dr. James Burns MD PGY-1 Internal Medicine Time Spent with Patient Time attestation: Total time spent providing and/or coordinating discharge services: Time spent: Greater than 30 minutes Exam Vital Signs Temp Pulse Resp BP Pulse Ox O2 Del Method 97.4 F 92 15 125/86 H 99 Room Air 05/02/25 07:47 05/02/25 07:47 05/02/25 07:47 05/02/25 07:47 05/02/25 07:47 05/02/25 07:47 Narrative Exam General: AOx3, no acute distress, able to speak full sentences HEENT: NC/AT, mucous membranes moist, bilateral sclera anicteric Cardiovascular: regular rate and rhythm, S1/S2 present, no murmurs appreciated Pulmonary: clear to auscultation bilaterally, no rales/rhonchi/wheezes Abdominal: RUQ and epigastric tenderness, non-distended, no rebound/guarding, normal bowel sounds present Musculoskeletal: normal ROM, no peripheral edema Skin: warm and dry, intact, no rashes Neuro: CN II-XII intact, no focal deficits Discharge Plan Plan Patient Disposition: HOME (Self Care) Care Plan Goals: ? Take bismuth quadruple therapy (3 capsules total) with lansoprazole four times per day for a total of 10 more days ? Continue taking all other home medications as prescribed ? Recommend to obtain CBC within 1 week ? Follow-up with PCP within 1-2 weeks of discharge to ensure that H. pylori infection is eradicated ? If you do not have a PCP, you can follow-up at the [facility] (you can call [phone] to make an appointment) ? If you wish to follow-up with Dr. Burns, schedule appointment on Thursday ? Return to ED if symptoms worsen or recur Prescriptions/Referrals Prescriptions/Med Rec: New bismuth subcit H-vefijhlzf-ywn [Pylera] 140-125-125 mg capsule 3 cap PO Q6HR 10 Days Qty: 120 0RF lansoprazole 30 mg capsule,delayed release(DR/EC) 30 mg PO BID 10 Days Qty: 20 0RF Referrals: No Primary/Family,Physician [Primary Care Provider] - Patient/Caregiver Discharge Instructions Education Materials: Alcohol Withdrawal: What to Expect Print Language: Luxembourger Stand Alone Forms: Nicole Award Info., Patient Portal Info Letter Discharge Order Discharge Orders: Discharge (Routine); Ordered 05/02/25 Ordered By: Heriberto Burns Quality Discharge Quality Measures VTE prophylaxis MD Attestestation MD Attestation I have examined the patient, reviewed labs and imaging findings, discussed the case with the resident(s), and reviewed entered orders. I agree with the plan of care as outlined in this note. Time Spent: [address] James MD
[2025-05-02 12:00] VITALS: BP 124/88; PULSE 98; RESP 16; TEMP 36.5; O2SAT 99
== END 2025-05-02 12:10 | disposition home or self-care (01) | DRG 775 ==
LOC: SERX 04-30 03:05 → SERHOLD 04-30 05:09 → S2NX 04-30 13:20 → S3NX 05-01 22:30
PROVIDERS: Student in an Organized Health Care Education/Training Program; Admitting Provider Student in an Organized Health Care Education/Training Program; Emergency Provider Emergency Medicine; Visit Provider Student in an Organized Health Care Education/Training Program
DX: F10.139 Alcohol abuse with withdrawal, unspecified (principal); K76.0 Fatty (change of) liver, not elsewhere classified; D50.9 Iron deficiency anemia, unspecified; E83.39 Other disorders of phosphorus metabolism; E83.42 Hypomagnesemia; E87.29 Other acidosis; E87.6 Hypokalemia; K25.9 Gastric ulcer, unspecified as acute or chronic, without hemorrhage or perforation; K29.70 Gastritis, unspecified, without bleeding; B96.81 Helicobacter pylori [H. pylori] as the cause of diseases classified elsewhere; K44.9 Diaphragmatic hernia without obstruction or gangrene
CPT/HCPCS: 36415; 71250; 74176; 76705; 80053; 80307; 80320; 80329; 81001; 81025; 82010; 82140; 82150; 82248; 82728; 82803; 83540; 83550; 83605; 83690; 83735; 83880; 84100; 84145; 84439; 84443; 84703; 85025; 85610; 85652; 85730; 86140; 87040; 87081; 87400; 93225; 96361; 96365; 96375; 96376; 99285; J2060; J2405; J3411; J3475; J3480; J7030; J7042; J7050; J7120; A9270; G0480

== ENCOUNTER 2025-05-25 01:09 | Emergency (ER) | payer MEDICAID, SELFPAY ==
[2025-05-25 01:15] VITALS: PULSE 127; RESP 17; O2SAT 96
[2025-05-25 01:18] VITALS: BP 123/85; PULSE 135; RESP 20; TEMP 37.2; O2SAT 95; BMI 30.2
--- NOTE | 2025-05-25 01:39 | EKG_ITS ---
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
--- NOTE | 2025-05-25 02:06 | XR_ITS ---
Examination: PA chest single view TECHNIQUE: Upright PA chest single view Date and time: May 25, 2025 0232 hours Comparison April 28, 2025 INDICATIONS: Epigastric pain today FINDINGS: Normal heart size Lungs are clear. Mild osteopenia IMPRESSION: No active disease.
--- NOTE | 2025-05-25 02:15 | PD.EDNV ---
Nausea/Vomit./Diarrhea-RME/HPI General Chief complaint: General Adult/Misc Complain Stated complaint: SOB Time Seen by Provider: 05/25/25 02:05 Arrival date/time: 05/25/25 01:09 35F with history of alcohol abuse presents to ED with epigastric pain and bloody N/V. This has been ongoing for her, most recently last month when she had EGD that showed ulceration and inflammation in UGI areas. Patient continues to drink alcohol. This time, patient has some SOB. . Limitations: no limitations Related Data Allergies Allergy/AdvReac Type Severity Reaction Status Date / Time No Known Allergies Allergy Verified 05/25/25 01:20 Review of Systems Review of Systems Systems Reviewed: All systems reviewed, normal except as documented Constitutional Constitutional: Reports system reviewed and no additional complaints, except as documented, Denies fever(s) and Denies headache(s) ENT Ears, Nose, Mouth, and Throat: Denies disequilibrium and Denies headache(s) Cardiovascular Cardiovascular: Reports system reviewed and no additional complaints, except as documented, Denies chest pain and Denies dyspnea Respiratory Respiratory: Reports system reviewed and no additional complaints, except as documented, Denies cough and Denies dyspnea Gastrointestinal Gastrointestinal: Reports system reviewed and no additional complaints, except as documented, Reports as per HPI, Reports abdominal pain, Reports nausea and Reports vomiting Neurologic Neurologic: Reports system reviewed and no additional complaints, except as documented, Denies confusion, Denies disequilibrium and Denies headache(s) Psychiatric Psychiatric: Denies confusion Past Medical History Past Medical History NEUROLOGIC: Negative Neurological Disorders or Seizures CARDIAC: Negative Cardiac Disorders or Congestive Heart Failure RESPIRATORY: Negative Chronic Obstructive Pulmonary Disease (COPD) GASTROINTESTINAL: Positive Ulcerative Colitis and Ulcer; Negative Hepatitis, Cirrhosis or Colorectal Cancer GENITOURINARY: Negative Genitourinary Disorders, Renal Disease or Prostate Cancer REPRODUCTIVE: Positive Previous Pregnancies; Negative Breast Cancer, Endometriosis, Pelvic Inflammatory Disease, Testicular Cancer or Uterine Prolapse MUSCULOSKELETAL: Negative Musculoskeletal Disorders or Bone Cancer ENDOCRINE: Negative Endocrine Disorders, Diabetes Mellitus Type 1 or Diabetes Mellitus Type 2 HEMATOLOGIC: Positive Anemia; Negative Blood Disorders PSYCHO/SOCIAL: Positive Anxiety; Negative Depression OTHER HISTORY: Negative Hospitalization, Autoimmune Disease, Down Syndrome, Developmental Delay, Shingles, Falls, Blood Transfusions, Anesthesia Reactions, Chemotherapy, Radiation Therapy, Hyperbaric Therapy, MRSA, VRSA, Vancomycin-Resistant Enterococci, Human Immunodeficiency Virus (HIV), Chicken Pox, Measles, Mumps, Rubella (Indonesian Measles), Pertussis, Clostridium Difficile, Breast Cancer, Cervical Cancer, Colorectal Cancer, Lung Cancer, Prostate Cancer or Testicular Cancer Family History FAMILY HISTORY: Negative Family Psychiatric Problems, Family Respiratory Disorders, Family Cardiac Disorders, Family Gastrointestinal Problems, Family Cancer, Family Surgery or Family Anesthesia Reaction Surgical History SURGICAL: Negative Section Social History SMOKING STATUS: Never smoker SECOND HAND EXPOSURE: Yes ED Exam General Limitations: Present no limitations General appearance: Present alert, in no apparent distress and anxious Head Head exam: Present atraumatic Eye Eye exam: Present normal appearance, PERRL and EOMI ENT ENT exam: Present normal exam, normal oropharynx and mucous membranes moist Neck Neck exam: Present normal inspection, full ROM and trachea midline Chest Chest inspection: Present normal inspection and symmetric chest wall rise Respiratory Respiratory exam: Present normal lung sounds bilaterally Cardiovascular Cardiovascular exam: Present regular rate, normal rhythm and normal heart sounds Abdominal Exam Abdominal exam: Present soft and normal bowel sounds Extremities Exam Extremities exam: Present normal inspection and full ROM Back Exam Back exam: Present normal inspection and full ROM Neurological Exam Neurological exam: Present alert, oriented X3 and CN II-XII intact Psychiatric Psychiatric exam: Present normal affect and normal mood Skin Skin exam: Present warm, dry, intact and normal color Course Quality Measures none Orders Category Date Time Status CT Screening NOW Care 05/25/25 03:57 Completed EKG (ED ONLY) *Do not use* NOW Care 05/25/25 01:39 Completed Insert IV NOW Care 05/25/25 02:[address] angio chest Stat Exams 05/25/25 03:57 Completed EKG (ED Only) Stat Exams 05/25/25 01:39 Draft XR chest 1V portable Stat Exams 05/25/25 02:06 Completed Alcohol, Blood Medical Stat Lab 05/25/25 02:40 Completed CBC Stat Lab 05/25/25 02:40 Completed Comprehensive Metabolic Panel Stat Lab 05/25/25 02:40 Completed D-Dimer Stat Lab 05/25/25 02:40 Completed HCG Qualitative,Urine Stat Lab 05/25/25 02:20 Completed Lipase Stat Lab 05/25/25 02:40 Completed Magnesium Stat Lab 05/25/25 02:40 Completed Partial Thromboplastin Time Stat Lab 05/25/25 02:40 Completed Path Review Blood Smear Stat Lab 05/25/25 02:40 Completed Prothrombin Time with INR Stat Lab 05/25/25 02:40 Completed Troponin I Stat Lab 05/25/25 02:40 Completed Urinalysis, C/S if Indicated Stat Lab 05/25/25 02:20 Completed VBG [Venous Blood Gas] Stat Lab 05/25/25 04:55 Completed LORazepam [Ativan Inj] Med 05/25/25 06:19 Discontinued 1 mg IVP X1 ONE Ondansetron Inj [Zofran Inj] Med 05/25/25 02:06 Discontinued 4 mg IV X1 ONE Pantoprazole Inj [Protonix Inj] Med 05/25/25 02:06 Discontinued 80 mg IVP X1 ONE Sodium Chloride 0.9% 1000 ml [Ns] 1,000 ml Med 05/25/25 02:07 Discontinued IV 999 mls/hr Sodium Chloride 0.9% 1000 ml [Ns] 1,000 ml Med 05/25/25 06:20 Discontinued IV 999 mls/hr Vital Signs Vital signs: Vital Signs Temperature 99.0 F 05/25/25 01:18 Pulse Rate 135 H 05/25/25 01:18 Respiratory Rate 20 05/25/25 01:18 Blood Pressure 123/85 H 05/25/25 01:18 Pulse Oximetry (%) 95 05/25/25 01:18 Oxygen Delivery Method Room Air 05/25/25 01:18 O2 at 95% on RA and WNLs Nausea/Vomiting/Diarrhea MDM Narrative MDM Narrative:: 35F with history of alcohol abuse presents to ED with epigastric pain and bloody N/V. This has been ongoing for her, most recently last month when she had EGD that showed ulceration and inflammation in UGI areas. Patient continues to drink alcohol. This time, patient has some SOB. Physical exam reveals anxious female. Patient is afebrile and alert. EKG is sinus tach of 119. No leukocytosis. Minimal anemia with HgB of 10. Coags normal. CMP unremarkable except for elevated anion-gap, but blood pH normal. Glucose normal. Alcohol elevated. Normal trop. D-dimer elevated. CIWA = 4. Care signed out to colleague pending CTA and dispo. Patient data External records reviewed:: [facility] previous records Clinical information provided by:: patient Social determinants that could affect healthcare access:: alcohol use Patient has the following chronic illnesses:: alcohol abuse How is presenting disease/condition affected by chronic disease/condition?: exacerbated by Evaluation data The following diagnostics were reviewed and interpreted by me:: lab results, radiology exam(s) and EKG tracing(s) Lab and/or radiology exams considered but not ordered:: ordered Interpretation Summary: above Medications / Prescriptions Medications / Prescriptions considered but not ordered:: ordered Medication administrations:: Medication Administration History Discontinued Medications Sodium Chloride (Ns) 1,000 mls @ 999 mls/hr IV .Q1H1M ONE Stop: 05/25/25 03:07 Last Infusion: 05/25/25 05:01 Dose: Infused Documented By: Admin: 05/25/25 03:42 Dose: 999 mls/hr Documented By: FF Sodium Chloride (Ns) 1,000 mls @ 999 mls/hr IV .Q1H1M ONE Stop: 05/25/25 07:20 Last Admin: 05/25/25 06:28 Dose: 999 mls/hr Documented By: NABEEL Lorazepam (Lorazepam 2 Mg/Ml Vial) 1 mg IVP X1 ONE Stop: 05/25/25 06:20 Last Admin: 05/25/25 06:27 Dose: 1 mg Documented By: NABEEL Ondansetron HCl (Ondansetron Inj 2 Mg/Ml Inj 2 Ml) 4 mg IV X1 ONE; Protocol Stop: 05/25/25 02:07 Last Admin: 05/25/25 03:35 Dose: 4 mg Documented By: NABEEL Pantoprazole Sodium (Pantoprazole Inj 40 Mg Vial) 80 mg IVP X1 ONE Stop: 05/25/25 02:07 Last Admin: 05/25/25 03:35 Dose: 80 mg Documented By: NABEEL above Consultations Consultation(s) initiated? (list below): No Diagnosis Nausea Differential Diagnosis: traveler's diarrhea, food poisoning, gastroenteritis, clostridium difficile infection, drug-induced nausea and vomiting, dehydration and other (gastritis, PE, alcohol abuse) Most likely diagnosis given after review of the tests above:: alcohol abuse Admission Indicated Admission indicated?: not indicated Admission Request Was there a request for admission?: No Disposition Plan Disposition Plan: Discharge Discharge Attestation Discharge Attestation: The patient and all family members were given an opportunity to ask questions and understood the discharge instructions. Discharge instructions specifically effects, indications for sooner follow up or return to the emergency department, and the expected course of current diagnosis. Patient condition: Stable Discharge Plan Plan Patient Disposition: HOME (Self Care) Discharge Disposition comment: Stable Prescriptions/Referrals Referrals: No Primary/Family,Physician [Primary Care Provider] - In 1 week Problem List Clinical Impression: Alcohol abuse Patient/Caregiver Discharge Instructions Education Materials: Alcohol Abuse Life [facility] [employer] Additional Instructions: Please follow up with your primary care doctor in the next 24-48hrs for any worsening symptoms return here immediately Print Language: Faroese Stand Alone Forms: Nicole Award Info., Patient Portal Info Letter PA/BIG DATA ADMIN Supervising Physician PA/BIG DATA ADMIN Supervising Physician: Dr. gotti
[2025-05-25 02:50] LABS: Collection Type, Urine Clean Catch; WBC,Urine 0 /hpf (0-5)
[2025-05-25 02:51] LABS: Basophils # (Auto) 0.1 Thou/mm3 (0.0-0.2); Basophils % (Auto) 1 % (0-2.5); Eosinophils # (Auto) 0.0 Thou/mm3 (0.0-0.5); Eosinophils % (Auto) 1 % (0-10); Hematocrit 33.3 % (36.0-46.0); Hemoglobin 10.3 g/dL (12.0-16.0); Immature Granulocytes Auto 0.01 Thou/mm3 (0.00-0.00); Lymphocytes # (Auto) 1.5 Thou/mm3 (1.0-4.8); Lymphocytes % (Auto) 25 % (10-50); Mean Corpuscular HGB Conc 30.9 g/dl (31.0-37.0); Mean Corpuscular Hemoglobin 20.7 pg (25.0-35.0); Mean Corpuscular Volume 67 fL (80-100); Monocytes # (Auto) 0.3 Thou/mm3 (0.0-0.8); Monocytes % (Auto) 5 % (0-12); Neutrophils # (Auto) 3.9 Thou/mm3 (1.8-7.7); Neutrophils % (Auto) 68 % (37-80); Nucleated Red Blood Cell # 0.00 Thou/mm3 (0.00-0.00); Nucleated Red Blood Cell % 0 /100 WBC (0); Platelet Count 493 Thou/mm3 (140-440); RDW Standard Deviation 53.2 fL (36.4-46.3); Red Blood Count 4.97 Miln/mm3 (4.00-5.20); White Blood Count 5.7 Thou/mm3 (3.6-11.0)
[2025-05-25 03:06] LABS: INR 1.0 (0.9-1.3); Partial Thromboplastin Time 23.4 Seconds (22.0-36.0); Prothrombin Time 11.0 Seconds (9.0-12.2)
[2025-05-25 03:16] LABS: Bacteria,Urine Rare; Bilirubin,Urine Negative (Negative); Blood,Urine 1+ (Negative); Clarity,Urine Turbid (Clear/Hazy); Color,Urine Yellow (Lt Yel-Yel); Culture Indicated,Urine Not Indicated; Glucose, Urine Negative (Negative); Hyaline Casts,Urine < 1 /hpf (0-1); Ketones,Urine 2+ (Negative); Leukocyte Esterase,Urine Negative (Negative); Nitrite,Urine Negative (Negative); PH,Urine 5.5 (5.0-7.0); Protein,Urine 1+ (Neg - Trace); RBC,Urine 4 /hpf (0-3); Specific Gravity,Urine 1.016 (1.001-1.035); Squamous Epithelial Cell,Urine 5 /hpf (0-5); Urobilinogen,Urine Negative mg/dL (0.0-1.0)
[2025-05-25 03:18] LABS: HCG Qualitative,Urine Negative
[2025-05-25 03:27] LABS: Alanine Aminotransferase 58 U/L (10-49); Albumin, Serum 5.0 gm/dL (3.5-5.0); Albumin/Globulin Ratio 1.2 (1.2-2.2); Alcohol, Blood Medical 295.8 mg/dL (0-10.0); Alkaline Phosphatase 147 U/L (46-116); Anion Gap 21 (7-16); Aspartate Amino Transferase 73 U/L (0-34); BUN/Creatinine Ratio 10 Ratio (12-20); Bilirubin,Total 0.5 mg/dL (0.3-1.2); Blood Urea Nitrogen 9 mg/dL (9-23); Calcium 9.2 mg/dL (8.3-10.6); Calcium (Corrected) 9.2 mg/dL (8.5-10.1); Carbon Dioxide 19.6 mMol/L (20.0-31.0); Chloride 100 mMol/L (98-107); Creatinine (Component) 0.9 mg/dL (0.6-1.3); Estimated Creatinine Clearance 80.2 mL/min (>60); Globulin 4.2 gm/dL (2.3-3.5); Glucose 82 mg/dL (74-106); Lipase 48 U/L (12-53); Magnesium 1.9 mg/dL (1.6-2.6); Osmolality,Calculated 278 (275-295); Potassium 4.2 mMol/L (3.4-5.1); Sodium 141 mMol/L (136-145); Total Protein 9.2 gm/dL (5.7-8.2); Troponin I < 0.020 ng/mL (0.0-0.045); eGFR > 60 See Note
[2025-05-25] MEDS: ONDANSETRON INJ 2 MG/ML INJ 2 ML 4 MG IV (03:35)
[2025-05-25] MEDS: SODIUM CHLORIDE 0.9% 1000 ML 1,000 ML 999 ML IV ×2 (03:42→06:28)
[2025-05-25 03:43] LABS: Path Review Blood Smear Sent to Pathologist
[2025-05-25 03:45] LABS: D-Dimer 1440 ng/mL (<600)
--- NOTE | 2025-05-25 03:57 | XR_ITS ---
Examination: CTA chest with intravenous contrast 2-D reconstructions 3-D reconstructions, vascular Date and time of exam: May 25, 2025 at 1745 hours INDICATIONS: Onset epigastric pain chest pain shortness of breath today CTDI: vol (mGy) 6.99. DLP: (mGycm) 246. Technique: Multiple axial sections of the thorax have been obtained. 3 mm slice thickness, from below the hemidiaphragms to above the apices of the lungs. Mediastinal and lung density settings have been obtained. 2-D sagittal and coronal reconstructions. 3-D angiographic renderings, 3-D volume renderings, 3D post processing, vascular maximum intensity projections obtained. Contrast administered is 100 cc Isovue-370.. Low dose protocols were performed. One or more of the following dose reduction techniques were used; automated exposure control, adjustment of the mA and/or KV according to patient size, use of iterative reconstruction technique. Findings: No thoracic aortic aneurysm dilatation or dissection. Pulmonary artery segments are not enlarged. No pulmonary artery filling defects. No paratracheal tracheobronchial or bronchopulmonary adenopathy. No pneumonia or pulmonary edema or pleural disease. Significant fatty infiltration throughout the liver Mildly hyperdense gallbladder No hydronephrosis Intact osseous structures IMPRESSION: Negative for pulmonary artery emboli No thoracic aortic aneurysmal dilatation or dissection. No pneumonia, pulmonary edema or pleural disease
[2025-05-25 04:45] VITALS: BP 118/79; PULSE 120; RESP 18; TEMP 36.8; O2SAT 99
[2025-05-25 05:16] LABS: Base Excess, Venous -5 (-3-3); O2 Saturation, Venous 66 % (96-97); PCO2, Venous 37 mmHg (36-56); PO2, Venous 41 mmHg (15-58); pH, Venous 7.35 (7.33-7.66)
[2025-05-25] MEDS: LORazepam 2 MG/ML VIAL 1 MG IVP (06:27)
[2025-05-25 07:13] VITALS: BP 118/77; PULSE 98; RESP 17; TEMP 36.7; O2SAT 97
--- NOTE | 2025-05-25 07:45 | PD.EDADDENDU ---
Emergency Room Addendum Addendum Narrative: 0600: Care assumed from my colleague. Past medical, surgical, social and family history reviewed. Vitals and home medications reviewed. I will assume the care of the patient at this time. At this time per my colleague we are waiting on CT angiogram to be resulted. Lab work no acute emergent findings noted Clinically patient well-appearing patient is not appear ill or toxic patient appears to be mildly anxious patient was given a liter of IV fluids as well as 1 mg of IV Ativan. At time of reevaluation patient hemodynamically stable heart rate is now 98 blood pressure 118/77 patient has no tachypnea or dyspnea no increased work of breathing CT angio resulted no acute emergent findings noted patient be discharged home at this time At time of discharge patient has no tremors no evidence of withdrawals I stressed to the patient that she needs to refrain from alcohol abuse and eventually if she does not this can kill her. At time of discharge patient walks steady gait no acute distress Patient discharged home in no distress to follow-up with primary care doctor in the next 24 to 48 hours and for any worsening symptoms to return to the ER immediately
[2025-05-25 08:17] VITALS: BP 123/87; PULSE 95; RESP 16; TEMP 36.7; O2SAT 96
--- NOTE | 2025-05-25 08:20 | PC.CC ---
ASWKarina was consulted by ANGELINA Polk for transportation for patient back home. Patient confirmed address on demographics. ASW attempted to set up [facility] but the lines are closed. [facility].
== END 2025-05-25 08:29 | disposition home or self-care (01) ==
PROVIDERS: Physician Assistant; Emergency Provider Emergency Medicine
DX: F10.10 Alcohol abuse, uncomplicated (principal); R10.13 Epigastric pain; R07.9 Chest pain, unspecified; R06.02 Shortness of breath; R00.0 Tachycardia, unspecified; Y90.8 Blood alcohol level of 240 mg/100 ml or more
CPT/HCPCS: 36415; 71045; 71275; 80053; 80320; 81001; 81025; 82803; 83690; 83735; 84484; 85025; 85379; 85610; 85730; 93005; 96374; 96375; 99284; A4649; J2060; J2405; J2470; J7030; Q9967; G0480

== ENCOUNTER 2025-06-06 04:52 | Inpatient (IN) | payer MEDICAID, SELFPAY ==
[2025-06-06] VITALS (15 sets, daily range): BP systolic 101–132; BP diastolic 67–88; PULSE 94–119; RESP 13–96; TEMP 36.3–37.2; O2SAT 96–99; BMI 30.2; BMI 30.3
--- NOTE | 2025-06-06 05:18 | EDRME_ITS ---
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 Patient reports abdominal pain has been ongoing for the last 2 years. Patient admits to alcohol consumption yesterday and feeling unwell, but insists it is not due to the alcohol.
--- NOTE | 2025-06-06 06:34 | EKG_ITS ---
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
--- NOTE | 2025-06-06 07:33 | PD.EDABDPN ---
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 Patient reports abdominal pain has been ongoing for the last 2 years. Patient admits to alcohol consumption yesterday and feeling unwell, but insists it is not due to the alcohol. DR. QUINTERO MAIN ED EVALUATION 35 year old female patient with history of anemia, gastritis, alcohol use disorder presents to the ED for evaluation of abdominal pain beginning 2 days ago. Described as aching in sensation that is located most across upper abdomen with radiation up her chest and mid back. States she has had similar pain intermittently over the last 2 years and has yet to find the cause of pain. Denies vomiting, diarrhea, constipation. Denies fever, chills, sweating. Denies cough, shortness of breath. Denies dysuria, urinary frequency and urgency. Related Data Allergies Allergy/AdvReac Type Severity Reaction Status Date / Time No Known Allergies Allergy Verified 05/25/25 01:20 Review of Systems Review of Systems Systems Reviewed: All systems reviewed, normal except as documented Past Medical History Past Medical History GASTROINTESTINAL: Positive Ulcerative Colitis and Ulcer REPRODUCTIVE: Positive Previous Pregnancies HEMATOLOGIC: Positive Blood Disorders and Anemia PSYCHO/SOCIAL: Positive Anxiety Family History FAMILY HISTORY: Negative Family Psychiatric Problems, Family Respiratory Disorders, Family Cardiac Disorders, Family Gastrointestinal Problems, Family Cancer, Family Surgery or Family Anesthesia Reaction Surgical History SURGICAL: Negative Section Social History SMOKING STATUS: Never smoker SECOND HAND EXPOSURE: Yes ED Exam Narrative Physical exam: GENERAL APPEARANCE: alert and oriented x 4, well-developed, well-nourished, no acute distress HEENT: Normocephalic, atraumatic; pupils equal, round, reactive to light; EOMI; mucous membranes pink, moist; oropharynx clear NECK: Supple LUNGS: CTABL; no wheezes, no rales, no rhonchi HEART: Regular rate, regular rhythm; normal S1, S2; no murmurs ABDOMEN: non distended; normal BS; soft, no tenderness, no guarding, no rebound; no masses, no organomegaly, no hernia BACK: no CVA tenderness EXTREMITIES: atraumatic; no edema NEUROLOGIC: awake; alert and oriented x4; cranial nerves II-XII grossly intact; no focal sensory or motor deficits PSYCHIATRIC: appropriate mood and affect SKIN: warm, dry, normal color; no rashes Course Quality Measures none Orders Category Date Time Status Admit to Inpatient Status Routine Admission 06/06/25 14:56 Active Patient Condition Routine Admission 06/06/25 14:56 Ordered Bedrest NOW Care 06/06/25 14:59 Active Pipe Fitter Supervisor NOW Care 06/06/25 06:30 Active EKG (ED ONLY) *Do not use* NOW Care 06/06/25 06:34 Completed Insert IV NOW Care 06/06/25 07:33 Active Miscellaneous Nursing Order NOW Care 06/06/25 15:05 Active NPO NOW Care 06/06/25 14:59 Active Neuro Check Q4H Care 06/06/25 14:56 Active Notify provider NEEDED Care 06/06/25 14:56 Active Obtain weight X1 Care 06/06/25 14:56 Active Seizure precautions NEEDED Care 06/06/25 14:59 Active Strict Intake and Output Routine Care 06/06/25 14:58 Ordered Vital Signs, Non-Routine Q4H Care 06/06/25 15:00 Ordered Vital Signs, Non-Routine Q4H Care 06/06/25 19:00 Ordered Vital Signs, Non-Routine Q4H Care 06/06/25 23:00 Ordered Diet NPO (NOW) Diet 06/06/25 14:59 Active EKG (ED Only) Stat Exams 06/06/25 06:34 Draft Alcohol, Blood Medical Stat Lab 06/06/25 07:25 Completed CBC AM DRAW Lab 06/07/25 05:00 Ordered CBC AM DRAW Lab 06/08/25 05:00 Ordered CBC AM DRAW Lab 06/09/25 05:00 Ordered CBC Stat Lab 06/06/25 07:25 Completed Comprehensive Metabolic Panel AM DRAW Lab 06/07/25 05:00 Ordered Comprehensive Metabolic Panel AM DRAW Lab 06/08/25 05:00 Ordered Comprehensive Metabolic Panel AM DRAW Lab 06/09/25 05:00 Ordered Comprehensive Metabolic Panel Stat Lab 06/06/25 07:25 Completed Drug Screen,Urine Stat Lab 06/06/25 07:55 Completed HCG Qualitative,Urine Stat Lab 06/06/25 07:55 Completed Hemoglobin A1C [Glycohemoglobin w (eAG)] AM DRAW Lab 06/07/25 05:00 Ordered Lactate (Lactic Acid) Stat Lab 06/06/25 07:25 Completed Lactic Acid, 3 HR Stat Lab 06/06/25 10:57 Completed Lipase Stat Lab 06/06/25 07:25 Completed Lipid Panel AM DRAW Lab 06/07/25 05:00 Ordered Magnesium AM DRAW Lab 06/07/25 05:00 Ordered Magnesium AM DRAW Lab 06/08/25 05:00 Ordered Magnesium AM DRAW Lab 06/09/25 05:00 Ordered Magnesium Stat Lab 06/06/25 07:25 Completed Partial Thromboplastin Time AM DRAW Lab 06/07/25 05:00 Ordered Phosphorous AM DRAW Lab 06/07/25 05:00 Ordered Phosphorous AM DRAW Lab 06/08/25 05:00 Ordered Phosphorous AM DRAW Lab 06/09/25 05:00 Ordered Prothrombin Time with INR AM DRAW Lab 06/07/25 05:00 Ordered Thyroid Stimulating Hormone AM DRAW Lab 06/07/25 05:00 Ordered UA, C/S IF [Urinalysis, C/S if Indicated] Stat Lab 06/06/25 07:55 Completed Acetaminophen Tab [Tylenol Tab] Med 06/06/25 14:56 Active 650 mg PO Q6H PRN Diazepam Inj [Valium Inj] Med 06/06/25 15:05 Active 10 mg IVP Q2HR PRN Diazepam Inj [Valium Inj] Med 06/06/25 15:05 Active 2.5 mg IVP Q2HR PRN Diazepam Inj [Valium Inj] Med 06/06/25 15:05 Active 5 mg IVP Q2HR PRN Docusate Sod [Colace] Med 06/06/25 15:01 Active 100 mg PO QDAY PRN HYDROcodone*/APAP 5/325 [[place] 5/325] Med 06/06/25 15:01 Active 1 tab PO Q4HR PRN Ibuprofen Tab [Motrin Tab] Med 06/06/25 07:15 Discontinued 600 mg PO X1 ONE LORazepam [Ativan] Med 06/06/25 11:39 Discontinued 2 mg PO X1 ONE Lidocaine 2% Viscous [Xylocaine 2% Viscous] Med 06/06/25 10:07 Discontinued 15 ml PO X1 ONE Morphine Inj Med 06/06/25 15:01 Active 2 mg IVP Q4HR PRN Ondansetron Inj [Zofran Inj] Med 06/06/25 15:01 Active 4 mg IVP Q6H PRN Pantoprazole Inj [Protonix Inj] Med 06/06/25 21:00 Active 40 mg IVP BID Ringers Lactated 1000 ml [Lactated Ringers] 1,000 ml Med 06/06/25 15:00 Active IV 150 mls/hr Sodium Chloride 0.9% 1000 ml [Ns] 1,000 ml Med 06/06/25 08:28 Discontinued IV 999 mls/hr Sodium Chloride 0.9% 1000 ml [Ns] 1,000 ml Med 06/06/25 08:28 Discontinued IV 999 mls/hr mg Hyd/Al Hyd/Ernestina Susp [Maalox Susp] Med 06/06/25 10:07 Discontinued 30 ml PO X1 ONE Code Status Routine Oth 06/06/25 14:56 Ordered Oxygen Delivery DAILY RT 06/06/25 14:59 Active Reevaluation(s) Reevaluation #1: Patient remains clinically stable throughout the emergency department visit. We reviewed all the results, analysis, and treatment plans. Strict return precautions were outlined. Time: 10:08 Reevaluation #2: Made aware by RN that the patient is now shaking and feels she is withdrawing from alcohol. HR 111 on telemetry. Patient reported while standing she felt very faint and dizzy. Denies having withdrawal seizures in the past. Plan to order 2mg po Ativan and reassess. Time: 11:36 Reevaluation #3: Patient was sleeping comfortably. Reports feeling improved. Will have RN stand and walk patient. Time: 12:45 Additional Reevaluation(s): 1315: RN reported the patient had complained of feeling dizzy while standing. Vital Signs Vital signs: Vital Signs Temperature 98.2 F 06/06/25 05:12 Pulse Rate 119 H 06/06/25 05:12 Respiratory Rate 19 06/06/25 05:12 Blood Pressure 130/88 H 06/06/25 05:12 Pulse Oximetry (%) 98 06/06/25 05:12 Oxygen Delivery Method Room Air 06/06/25 05:12 Pulse ox is 98% on room air which is adequate. Abdominal Pain MDM MDM Narrative MDM Narrative:: Naya Castro am scribing for and in the presence of Dr. Quintero. Patient data External records reviewed:: [facility] previous records (I reviewed ED visit from 05/25/2025 for alcohol abuse ) Clinical information provided by:: patient Social determinants that could affect healthcare access:: alcohol use Patient has the following chronic illnesses:: anemia, gastritis, alcohol use disorder How is presenting disease/condition affected by chronic disease/condition?: exacerbated by Evaluation data The following diagnostics were reviewed and interpreted by me:: lab results and EKG tracing(s) (06/06/2025 @ 06:48 AM. Sinus rhythm, rate 96, Q-wave in V1, flattening of ST segment in lead III and V1, poor R-wave progression, no acute ischemia. ) Lab and/or radiology exams considered but not ordered:: None Interpretation Summary: Urinalysis negative for infection Elevated alcohol level No leukocytosis, hgb 10.3 and chronically low Medications / Prescriptions Medications or Prescriptions considered but not ordered:: none Medication administrations:: Medication Administration History Acetaminophen (Acetaminophen 325 Mg Tablet) 650 mg PO Q6H PRN PRN Reason: Fever >100.4 or Pain 1-3 Stop: 07/06/25 14:55 Hydrocodone Bitart/Acetaminophen (Hydrocodone/Apap 5/325 Tablet) 1 tab PO Q4HR PRN PRN Reason: PAIN SCALE 4-6 (Moderate Stop: 06/11/25 15:00 Diazepam (Diazepam Inj 5 Mg/Ml Vial 2 Ml) 2.5 mg IVP Q2HR PRN PRN Reason: CIWA SCORE 8-13 Stop: 06/11/25 15:04 Diazepam (Diazepam Inj 5 Mg/Ml Vial 2 Ml) 5 mg IVP Q2HR PRN PRN Reason: CIWA SCORE 14-19 Stop: 06/11/25 15:04 Diazepam (Diazepam Inj 5 Mg/Ml Vial 2 Ml) 10 mg IVP Q2HR PRN PRN Reason: CIWA SCORE 20-25 Stop: 06/11/25 15:04 Docusate Sodium (Docusate Sod 100 Mg Capsule) 100 mg PO QDAY PRN; Protocol PRN Reason: CONSTIPATION Stop: 07/06/25 15:00 Lactated Ringer's (Lactated Ringers) 1,000 mls @ 150 mls/hr IV .Q6H40M CHYNA Stop: 07/06/25 14:59 Last Admin: 06/06/25 15:49 Dose: 150 mls/hr Documented By: GAYE Morphine Sulfate (Morphine Sulf Inj 10 Mg/Ml Vial) 2 mg IVP Q4HR PRN PRN Reason: PAIN SCALE 7-10 (Severe Stop: 06/11/25 15:00 Ondansetron HCl (Ondansetron Inj 2 Mg/Ml Inj 2 Ml) 4 mg IVP Q6H PRN; Protocol PRN Reason: NAUSEA OR VOMITING Stop: 07/06/25 15:00 Pantoprazole Sodium (Pantoprazole Inj 40 Mg Vial) 40 mg IVP BID CHYNA Stop: 07/06/25 20:59 Discontinued Medications Al Hydrox/Mg Hydrox/Simethicone (Mg Hyd/Al Hyd/Ernestina (Maalox Reg) Susp 30 Ml Udc) 30 ml PO X1 ONE Stop: 06/06/25 10:08 Last Admin: 06/06/25 10:23 Dose: 30 ml Documented By: MARIAH Sodium Chloride (Ns) 1,000 mls @ 999 mls/hr IV .Q1H1M ONE Stop: 06/06/25 09:28 Last Infusion: 06/06/25 11:00 Dose: Infused Documented By: Admin: 06/06/25 09:00 Dose: 999 mls/hr Documented By: MARIAH Sodium Chloride (Ns) 1,000 mls @ 999 mls/hr IV .Q1H1M ONE Stop: 06/06/25 09:28 Last Admin: 06/06/25 10:18 Dose: Not Given Documented By: GAYE Non-Admin Reason: Cancelled by Provider Ibuprofen (Ibuprofen Tab 600 Mg Tablet) 600 mg PO X1 ONE Stop: 06/06/25 07:16 Last Admin: 06/06/25 07:39 Dose: 600 mg Documented By: MARIAH Lidocaine HCl (Lidocaine Viscous 2% 15 Ml Udc) 15 ml PO X1 ONE Stop: 06/06/25 10:08 Last Admin: 06/06/25 10:23 Dose: 15 ml Documented By: MARIAH Lorazepam (Lorazepam 0.5 Mg Tablet) 2 mg PO X1 ONE Stop: 06/06/25 11:40 Last Admin: 06/06/25 11:42 Dose: 2 mg Documented By: GAYE See above Consultations Consultation(s) initiated? (list below): Yes Consultation #1 (Physician, Specialty, Details): Discussed test HPI, PMHx, lab, radiology results and/or management with resident working with the hospitalist. Will admit for further evaluation and management. Accepts patient for admission. Time: 14:50 Diagnosis Differential diagnosis abdominal pain: abdominal pain, gastroenteritis, pancreatitis and other (gastritis ) Most likely diagnosis given after review of the tests above:: Abdominal pain Alcohol intoxication Admission Indicated Admission indicated?: indicated Admission Request Was there a request for admission?: Yes Admission Attestation Admission request attestation: Discussed case with [] from Hospitalist service regarding admission. Discussed patients ED course, exam findings, labs, and radiology results. The Hospitalist [agrees,declines] to accept the patient for admission. Disposition Plan Disposition Plan: Admit Discharge Plan Plan Patient Disposition: Admit Acute Care w/in Hospital Problem List Clinical Impression: Abdominal pain, Alcohol intoxication
[2025-06-06 07:35] LABS: Lactate (Lactic Acid) 3.3 mMol/L (0.4-2.0)
[2025-06-06 07:37] LABS: Basophils # (Auto) 0.1 Thou/mm3 (0.0-0.2); Basophils % (Auto) 1 % (0-2.5); Eosinophils # (Auto) 0.0 Thou/mm3 (0.0-0.5); Eosinophils % (Auto) 1 % (0-10); Hematocrit 34.8 % (36.0-46.0); Hemoglobin 10.3 g/dL (12.0-16.0); Immature Granulocytes Auto 0.01 Thou/mm3 (0.00-0.00); Lymphocytes # (Auto) 1.7 Thou/mm3 (1.0-4.8); Lymphocytes % (Auto) 45 % (10-50); Mean Corpuscular HGB Conc 29.6 g/dl (31.0-37.0); Mean Corpuscular Hemoglobin 20.6 pg (25.0-35.0); Mean Corpuscular Volume 70 fL (80-100); Monocytes # (Auto) 0.2 Thou/mm3 (0.0-0.8); Monocytes % (Auto) 6 % (0-12); Neutrophils # (Auto) 1.7 Thou/mm3 (1.8-7.7); Neutrophils % (Auto) 47 % (37-80); Nucleated Red Blood Cell # 0.00 Thou/mm3 (0.00-0.00); Nucleated Red Blood Cell % 0 /100 WBC (0); Platelet Count 306 Thou/mm3 (140-440); RDW Standard Deviation 55.0 fL (36.4-46.3); Red Blood Count 5.00 Miln/mm3 (4.00-5.20); White Blood Count 3.7 Thou/mm3 (3.6-11.0)
[2025-06-06] MEDS: IBUPROFEN TAB 600 MG TABLET PO (07:39)
[2025-06-06 08:05] LABS: Collection Type, Urine Clean Catch
[2025-06-06 08:06] LABS: Alanine Aminotransferase 48 U/L (10-49); Albumin, Serum 4.8 gm/dL (3.5-5.0); Albumin/Globulin Ratio 1.1 (1.2-2.2); Alcohol, Blood Medical 312.8 mg/dL (0-10.0); Alkaline Phosphatase 155 U/L (46-116); Anion Gap 15 (7-16); Aspartate Amino Transferase 59 U/L (0-34); BUN/Creatinine Ratio 10 Ratio (12-20); Bilirubin,Total 0.3 mg/dL (0.3-1.2); Blood Urea Nitrogen 7 mg/dL (9-23); Calcium 8.9 mg/dL (8.3-10.6); Calcium (Corrected) 8.9 mg/dL (8.5-10.1); Carbon Dioxide 23.6 mMol/L (20.0-31.0); Chloride 104 mMol/L (98-107); Creatinine (Component) 0.7 mg/dL (0.6-1.3); Estimated Creatinine Clearance 103.2 mL/min (>60); Globulin 4.2 gm/dL (2.3-3.5); Glucose 90 mg/dL (74-106); Lipase 58 U/L (12-53); Magnesium 2.1 mg/dL (1.6-2.6); Osmolality,Calculated 282 (275-295); Potassium 4.5 mMol/L (3.4-5.1); Sodium 143 mMol/L (136-145); Total Protein 9.0 gm/dL (5.7-8.2); eGFR > 60 See Note
[2025-06-06 08:16] LABS: Bilirubin,Urine Negative (Negative); Blood,Urine Negative (Negative); Clarity,Urine Clear (Clear/Hazy); Color,Urine Lt-Yellow (Lt Yel-Yel); Culture Indicated,Urine Not Indicated; Glucose, Urine Negative (Negative); Hyaline Casts,Urine < 1 /hpf (0-1); Ketones,Urine Negative (Negative); Leukocyte Esterase,Urine Negative (Negative); Nitrite,Urine Negative (Negative); PH,Urine 5.5 (5.0-7.0); Protein,Urine Negative (Neg - Trace); RBC,Urine 1 /hpf (0-3); Specific Gravity,Urine 1.015 (1.001-1.035); Squamous Epithelial Cell,Urine 2 /hpf (0-5); Urobilinogen,Urine Negative mg/dL (0.0-1.0); WBC,Urine 1 /hpf (0-5)
[2025-06-06 08:37] LABS: HCG Qualitative,Urine Negative
[2025-06-06 08:53] LABS: Amphetamine/Methamp Scrn,U Negative (Negative); Barbiturate Screen,Urine Negative (Negative); Benzodiazepines Screen,Urine Negative (Negative); Benzoylecgonine Screen, Ur Negative (Negative); Fentanyl Screen,Urine Negative (Negative); Opiate Screen,Urine Negative (Negative); THC Screen,Urine Negative (Negative)
[2025-06-06] MEDS: SODIUM CHLORIDE 0.9% 1000 ML 1,000 ML 999 ML IV (09:00)
[2025-06-06] MEDS: MG HYD/AL HYD/SIME (Maalox Reg) SUSP 30 ML UDC PO (10:23)
[2025-06-06] MEDS: LIDOCAINE VISCOUS 2% 15 ML UDC PO (10:23)
[2025-06-06 10:35] LABS: Reflex Lactate? Y
[2025-06-06 11:09] LABS: Lactic Acid, 3 HR 2.5 mMol/L (0.4-2.0)
--- NOTE | 2025-06-06 11:19 | PC.CC ---
Addendum entered by Laverne Arechiga 06/06/25 12:28: ASW attempted to contact [employer] to cancel the transport 3 separate times, but no answer. [employer] arrived and ASW informed the driver education road instructor of the attempted cancelation and the driver education road instructor understood. Original Note: ASW arranged transportation for the pt via [employer] and spoke with Shadi Caballero to schedule the ride. Per Shadi, the pt will be picked up in about an hour or less. 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 Estimated p/u ETA 1230
--- NOTE | 2025-06-06 11:35 | PC.NURSE ---
Hold off on disharge per Dr. Guerrier, new orders recieved.
--- NOTE | 2025-06-06 11:35 | PC.LAC ---
Upon discharge, patient c/o feeling like she is gonna pass out, Dr. Guerrier made aware and will go to bedside, patient provided with water per her request.
--- NOTE | 2025-06-06 13:42 | PC.NURSE ---
Per Dr. Guerrier will call hospitalists to evaluate patient for admission for alcohol withdrawal, patient made aware and is ok with that.
--- NOTE | 2025-06-06 15:17 | ESHP_ITS ---
<Statement entered by Ama Richardson MD - 06/06/25 21:51> 35-year-old female coming with alcohol intoxication in the building likely acute GERD exacerbation versus pancreatitis, in addition to mild lactic acidosis. Continued on CIWA, fluids and PROTONIX. Initially she has a history of H. pylori diagnosed last month, we initiated treatment. I?ve reviewed the note and agree with the resident's assessment and plan, with the exceptions outlined above. I personally went over the labs, imaging, home medications, and prior records, and examined the patient. The case was also reviewed with the attending physician. Please note: this document was transcribed using voice recognition technology; minor inaccuracies may be present. Ama Richardson DO PGY II Documentation for date of: 06/06/25 HPI History of Present Illness History of present illness: 35-year-old female with a history of anemia, gastritis, esophagitis and alcohol use disorder, H. pylori incomplete treatment, presents to the Emergency Department for evaluation of abdominal pain that started two days ago. She describes the pain as an aching sensation located across her upper abdomen, which radiates to her ribs, mid-back, and upper back. She clarifies the abdominal pain is intermittent, coming and going, and is not worsened with eating. Last night, the pain was 7/10 in severity, though she denies any abdominal pain currently. She reports consuming three bottles of white wine in the past three days. She has experienced similar pain intermittently over the last two years and has yet to find a definitive cause. She was hospitalized one month ago for similar symptoms and was discharged with a 14-day treatment course for H. pylori, but she only completed three days of the prescribed regimen. She denies associated vomiting, diarrhea, constipation, fever, chills, sweating, cough, or shortness of breath. She also denies dysuria, urinary frequency, or urgency. She notes no blood in her stool, and her last meal was two days ago. Her last menstrual period was one month ago, and her periods are typically irregular. Past medical history: As stated above Past surgical history: No surgical history. Social history: Lives at home. Lives by herself with 2 kids. Currently not working. Lots of stressors in life, recently from since December of this year. [place] Prior to this week patient was drinking approximately 1 to 2 glasses of wine per day. No smoking, no drug use history. Family history: No family history of cancer ED course: Initial vitals T 98.2, HR 119, RR 19, O2 sat 98% on RA. Notable labs include hemoglobin 10.3, MCV 70, creatinine 0.7, lactic acid 3.3 --> 2.5, AST 59, alk phos 155, lipase 58. While in ED patient received ibuprofen 600 mg x 1, 1 L of NaCl bolus, lidocaine patch, lorazepam 2 mg x 1. Patient admitted for alcohol withdrawal and suspicion of pancreatitis. Review of Systems Review of Systems Narrative Review of Systems: All systems reviewed, negative unless stated otherwise above. Exam Vital Signs Temp Pulse Resp BP Pulse Ox O2 Del Method 98.3 F 97 16 119/80 98 Room Air 06/06/25 15:10 06/06/25 15:10 06/06/25 15:10 06/06/25 15:10 06/06/25 15:10 06/06/25 15:10 Narrative Exam GENERAL APPEARANCE: alert and oriented x 4, well-developed, well-nourished, no acute distress HEENT: Normocephalic, atraumatic; pupils equal, round, reactive to light; EOMI; mucous membranes pink, moist; oropharynx clear NECK: Supple LUNGS: CTABL; no wheezes, no rales, no rhonchi HEART: Regular rate, regular rhythm; normal S1, S2; no murmurs ABDOMEN: non distended; normal BS; soft, no tenderness, no guarding, no rebound; no masses, no organomegaly, no hernia BACK: no CVA tenderness EXTREMITIES: atraumatic; no edema NEUROLOGIC: awake; alert and oriented x4; cranial nerves II-XII grossly intact; no focal sensory or motor deficits PSYCHIATRIC: appropriate mood and affect SKIN: warm, dry, normal color; no rashes Results: Labs 06/07/25 04:28 06/07/25 04:28 Labs: Short CBC 06/06/25 Range/Units 07: WBC 3.7 (3.6-11.0) Thou/mm3 Hgb 10.3 L (12.0-16.0) g/dL Hct 34.8 L (36.0-46.0) % Plt Count 306 D (140-440) Thou/mm3 BMP 06/06/25 07:25 Sodium 143 Potassium 4.5 Chloride 104 Carbon Dioxide 23.6 BUN 7 L Creatinine 0.7 Glucose 90 Calcium 8.9 Liver Function 06/06/25 Range/Units 07:25 Total Bilirubin 0.3 (0.3-1.2) mg/dL AST 59 H (0-34) U/L ALT 48 (10-49) U/L Alkaline Phosphatase 155 H (46-116) U/L Albumin 4.8 (3.5-5.0) gm/dL Urine 06/06/25 Range/Units 07:55 Urine Color Lt-Yellow (Lt Yel-Yel) Urine Clarity Clear (Clear/Hazy) Urine pH 5.5 (5.0-7.0) Ur Specific [place] 1.015 (1.001-1.035) Urine Protein Negative (Neg - Trace) Urine Glucose (UA) Negative (Negative) Quality Measures Quality Measures none Medications Home Medications and Allergies Home Medications ?Medication ?Instructions ?Recorded ?Confirmed ?Type No Known Home Medications 06/06/2505/10 History Allergies Allergy/AdvReac Type Severity Reaction Status Date / Time No Known Allergies Allergy Verified 05/25/25 01:20 Visit Medications Acetaminophen (Acetaminophen 325 Mg Tablet) 650 mg PO Q6H PRN PRN Reason: Fever >100.4 or Pain 1-3 Stop: 07/06/25 14:55 Hydrocodone Bitart/Acetaminophen (Hydrocodone/Apap 5/325 Tablet) 1 tab PO Q4HR PRN PRN Reason: PAIN SCALE 4-6 (Moderate Stop: 06/11/25 15:00 Diazepam (Diazepam Inj 5 Mg/Ml Vial 2 Ml) 2.5 mg IVP Q2HR PRN PRN Reason: CIWA SCORE 8-13 Stop: 06/11/25 15:04 Diazepam (Diazepam Inj 5 Mg/Ml Vial 2 Ml) 5 mg IVP Q2HR PRN PRN Reason: CIWA SCORE 14-19 Stop: 06/11/25 15:04 Diazepam (Diazepam Inj 5 Mg/Ml Vial 2 Ml) 10 mg IVP Q2HR PRN PRN Reason: CIWA SCORE 20-25 Stop: 06/11/25 15:04 Docusate Sodium (Docusate Sod 100 Mg Capsule) 100 mg PO QDAY PRN; Protocol PRN Reason: CONSTIPATION Stop: 07/06/25 15:00 Lactated Ringer's (Lactated Ringers) 1,000 mls @ 150 mls/hr IV .Q6H40M CHYNA Stop: 07/06/25 14:59 Morphine Sulfate (Morphine Sulf Inj 10 Mg/Ml Vial) 2 mg IVP Q4HR PRN PRN Reason: PAIN SCALE 7-10 (Severe Stop: 06/11/25 15:00 Ondansetron HCl (Ondansetron Inj 2 Mg/Ml Inj 2 Ml) 4 mg IVP Q6H PRN; Protocol PRN Reason: NAUSEA OR VOMITING Stop: 07/06/25 15:00 Pantoprazole Sodium (Pantoprazole Inj 40 Mg Vial) 40 mg IVP BID CHYNA Stop: 07/06/25 20:59 Discontinued Medications Al Hydrox/Mg Hydrox/Simethicone (Mg Hyd/Al Hyd/Ernestina (Maalox Reg) Susp 30 Ml Udc) 30 ml PO X1 ONE Stop: 06/06/25 10:08 Last Admin: 06/06/25 10:23 Dose: 30 ml Sodium Chloride (Ns) 1,000 mls @ 999 mls/hr IV .Q1H1M ONE Stop: 06/06/25 09:28 Last Infusion: 06/06/25 11:00 Dose: Infused Sodium Chloride (Ns) 1,000 mls @ 999 mls/hr IV .Q1H1M ONE Stop: 06/06/25 09:28 Last Admin: 06/06/25 10:18 Dose: Not Given Ibuprofen (Ibuprofen Tab 600 Mg Tablet) 600 mg PO X1 ONE Stop: 06/06/25 07:16 Last Admin: 06/06/25 07:39 Dose: 600 mg Lidocaine HCl (Lidocaine Viscous 2% 15 Ml Udc) 15 ml PO X1 ONE Stop: 06/06/25 10:08 Last Admin: 06/06/25 10:23 Dose: 15 ml Lorazepam (Lorazepam 0.5 Mg Tablet) 2 mg PO X1 ONE Stop: 06/06/25 11:40 Last Admin: 06/06/25 11:42 Dose: 2 mg Assessment & Plan Plan Assessment: 35-year-old female with a history of anemia, gastritis, esophagitis and alcohol use disorder, H. pylori incomplete treatment admitted for alcohol withdrawal management and potential pancreatitis. #Alcohol withdrawal Patient has been consuming three bottles of white wine in the past three days. Currently no nausea/vomiting No tremors Plan ? CIWA protocol ? Neurochecks every 4 hours ? Seizure prophylaxis #?Pancreatitis Epigastric pain radiating to the back Lipase 58 No previous history of pancreatitis Plan ? Normal saline 150 cc an hour ? Lipid panel in a.m. ? No plan of CT abdomen at this stage, may consider later #History of H. pylori?incomplete eradication Patient did not complete H. pylori antibiotic course last month Plan ? Patient is currently n.p.o. ? Will resume antibiotics for eradication once out of n.p.o. ? Protonix 40 mg twice daily #Anemia #Likely iron deficiency Patient states has a history of iron deficiency anemia Plan ? Follow-up on iron panel ? Trend CBC Health Maintenance: Diet: N.p.o. GI prophylaxis: Protonix 40 mg twice daily DVT prophylaxis: None as Bebo score 0 Antibiotics: None at this stage CODE STATUS: Full Disposition: [facility] Case discussed with my attending Dr. Edwards, and senior resident, Dr. Debra Mccallum MD PGY-1 Attending Provider Attestation/Addendum 35-year-old female with alcohol use disorder admitted for epigastric pain radiating to her back. The patient has pancreatitis. She has history of H. pylori infection. She is also being admitted for alcohol withdrawal symptoms. I discussed with and supervised the resident physician who took care of this patient. I agree with the assessment and plan as above.
[2025-06-06] MEDS: RINGERS LACTATED 1000 ML 1,000 ML 150 ML IV ×2 (15:49→23:59)
--- NOTE | 2025-06-06 15:50 | PC.NURSE ---
Patient lying in gurney quietly with eyes closed, patient arouses to voice, patient alert, calm and cooperative, skin is warm dry and slightly pale, patient denies pain, patient admitted and is awaiting bed on floor, call light within reach, patient has no other needs at this time.
[2025-06-06] MEDS: DIAZEPAM INJ 5 MG/ML VIAL 2 ML 2.5 MG IVP (19:39)
--- NOTE | 2025-06-06 19:59 | PC.NURSE ---
Pt stating I feel like my heart is racing, current vital signs HR 110-113 blood pressure 132/83 RR 16, CIWA 8. Provided pt with Vaium per order and placed pt on pulse ox.
[2025-06-07] VITALS (7 sets, daily range): BP systolic 111–131; BP diastolic 82–85; PULSE 80–94; RESP 16–18; TEMP 36.2–36.8; O2SAT 97–100; BMI 30.3
[2025-06-07 05:33] LABS: Basophils # (Auto) 0.0 Thou/mm3 (0.0-0.2); Basophils % (Auto) 1 % (0-2.5); Eosinophils # (Auto) 0.0 Thou/mm3 (0.0-0.5); Eosinophils % (Auto) 1 % (0-10); Hematocrit 26.7 % (36.0-46.0); Immature Granulocytes Auto 0.01 Thou/mm3 (0.00-0.00); Lymphocytes # (Auto) 1.0 Thou/mm3 (1.0-4.8); Lymphocytes % (Auto) 33 % (10-50); Mean Corpuscular HGB Conc 30.3 g/dl (31.0-37.0); Mean Corpuscular Hemoglobin 21.3 pg (25.0-35.0); Mean Corpuscular Volume 70 fL (80-100); Monocytes # (Auto) 0.4 Thou/mm3 (0.0-0.8); Monocytes % (Auto) 12 % (0-12); Neutrophils # (Auto) 1.7 Thou/mm3 (1.8-7.7); Neutrophils % (Auto) 53 % (37-80); Nucleated Red Blood Cell # 0.00 Thou/mm3 (0.00-0.00); Nucleated Red Blood Cell % 0 /100 WBC (0); Platelet Count 219 Thou/mm3 (140-440); RDW Standard Deviation 54.8 fL (36.4-46.3); Red Blood Count 3.80 Miln/mm3 (4.00-5.20); White Blood Count 3.1 Thou/mm3 (3.6-11.0)
[2025-06-07 05:36] LABS: Glucose Estimated Average 120 mg/dL (80-131); Hemoglobin 8.1 g/dL (12.0-16.0); Hemoglobin A1C 5.8 % Hgb (4.8-6.0)
[2025-06-07 05:42] LABS: INR 1.0 (0.9-1.3); Partial Thromboplastin Time 24.2 Seconds (22.0-36.0); Prothrombin Time 11.4 Seconds (9.0-12.2)
[2025-06-07 06:05] LABS: Alanine Aminotransferase 30 U/L (10-49); Albumin, Serum 3.7 gm/dL (3.5-5.0); Albumin/Globulin Ratio 1.1 (1.2-2.2); Alkaline Phosphatase 115 U/L (46-116); Anion Gap 13 (7-16); Aspartate Amino Transferase 38 U/L (0-34); BUN/Creatinine Ratio 15 Ratio (12-20); Bilirubin,Total 0.9 mg/dL (0.3-1.2); Blood Urea Nitrogen 9 mg/dL (9-23); Calcium 8.6 mg/dL (8.3-10.6); Calcium (Corrected) 8.8 mg/dL (8.5-10.1); Carbon Dioxide 22.5 mMol/L (20.0-31.0); Cardiac Risk Estimate 2.1 RATIO (3.7-5.6); Chloride 103 mMol/L (98-107); Cholesterol 160 mg/dL (132-200); Creatinine (Component) 0.6 mg/dL (0.6-1.3); Estimated Creatinine Clearance 120.6 mL/min (>60); Globulin 3.3 gm/dL (2.3-3.5); Glucose 78 mg/dL (74-106); HDL Cholesterol 77 mg/dL (40-60); LDL Cholesterol,Calculated 77 mg/dL (0-130); Magnesium 1.5 mg/dL (1.6-2.6); Osmolality,Calculated 273 (275-295); Phosphorous 2.8 mg/dL (2.4-5.1); Potassium 4.0 mMol/L (3.4-5.1); Sodium 138 mMol/L (136-145); Thyroid Stimulating Hormone 5.38 uIU/mL (0.55-4.78); Total Protein 7.0 gm/dL (5.7-8.2); Triglycerides 31 mg/dL (30-150); eGFR > 60 See Note
[2025-06-07] MEDS: RINGERS LACTATED 1000 ML 1,000 ML 150 ML IV ×3 (06:24→21:26)
[2025-06-07] MEDS: DIAZEPAM INJ 5 MG/ML VIAL 2 ML 2.5 MG IVP (07:29)
[2025-06-07] MEDS: Magnesium Sulfate 2 GM Ivpb 2 GM/50 ML BAG IV (07:29)
[2025-06-07 08:23] LABS: Free T4 (Free Thyroxine) 1.31 ng/dL (0.89-1.76)
[2025-06-07 10:10] LABS: Iron 55 mcg/dL (50-170); Percent Iron Saturation 13 % (20-55); Total Iron Binding Capacity 412 mcg/dL (250-425); Unsaturated Iron Binding 357 (225-295)
--- NOTE | 2025-06-07 11:18 | XR_ITS ---
Examination: CT abdomen and pelvis without contrast. Coronal 3-D reconstructions. Sagittal 2-D reconstructions. Date and time of exam:June 07, [address] chest abdomen pelvis April 30, 2025 INDICATIONS: Generalized abdominal pain today CTDI: vol (mGy): 8.57 DLP: (mGycm): 482 Technique: Axial images of the abdomen have been obtained, 3 mm slice thickness Intravenous contrast material has not been administered. Low dose protocols were performed. One or more of the following dose reduction techniques were used; automated exposure control, adjustment of the mA and/or KV according to patient size, use of iterative reconstruction technique. Findings: Hepatomegaly 19 cm with severe diffuse fatty infiltration throughout the liver Contracted gallbladder No splenic pancreatic or adrenal mass No renal or ureteral calculi, no hydronephrosis Aorta normal size Normal appendix No bowel obstruction 6 mm fat-containing umbilical hernia No diverticulitis Anteverted uterus Contracted urinary bladder The osseous structures are intact IMPRESSION: Hepatomegaly, 19 cm with severe diffuse fatty infiltration throughout the liver No renal or ureteral calculi, no hydronephrosis Normal appendix No bowel obstruction diverticulitis or free air
--- NOTE | 2025-06-07 11:26 | ESPR_ITS ---
<Statement entered by Melissa Vincent MD - 06/08/25 15:29> I have reviewed the note and agree with the resident's assessment & plan with exceptions as below. I have personally reviewed labs, imaging, home meds/prior records, examined the patient, formulated and discussed management plan with the IM team. Patient examined bedside today. Patient reports she is doing well, and has been drinking more lately as she is going through some life stressors. Will advance patient's diet at this time with liquids. Will continue with IV fluids and will decrease rate. Will order CT abdomen pelvis as this was not ordered previously. There are some suspicion for pancreatitis, however we will continue to treat patient for it at this time. Repeat hematology and chemistry in the a.m. Melissa Vincent, PGY-2 Internal Medicine Documentation for date of: 06/07/25 Subjective Subjective Interval history: Patient seen at bedside. No acute overnight events. Patient denies any chest pain, shortness of breath, abdominal pain, nausea, vomiting, dizziness. Exam Vital Signs Temp Pulse Resp BP Pulse Ox O2 Del Method 97.9 F 85 16 131/84 H 99 Room Air 06/07/25 08:00 06/07/25 08:00 06/07/25 08:00 06/07/25 08:00 06/07/25 08:00 06/07/25 08:00 Narrative Exam GENERAL APPEARANCE: alert and oriented x 4, well-developed, well-nourished, no acute distress HEENT: Normocephalic, atraumatic; pupils equal, round, reactive to light; EOMI; mucous membranes pink, moist; oropharynx clear NECK: Supple LUNGS: CTABL; no wheezes, no rales, no rhonchi HEART: Regular rate, regular rhythm; normal S1, S2; no murmurs ABDOMEN: non distended; normal BS; soft, no tenderness, no guarding, no rebound; no masses, no organomegaly, no hernia BACK: no CVA tenderness EXTREMITIES: atraumatic; no edema NEUROLOGIC: awake; alert and oriented x4; cranial nerves II-XII grossly intact; no focal sensory or motor deficits PSYCHIATRIC: appropriate mood and affect SKIN: warm, dry, normal color; no rashes Objective Labs 06/08/25 04:20 06/08/25 04:20 Labs: Laboratory Results - last 24 hr 06/07/25 04:28 WBC 3.1 L RBC 3.80 L Hgb 8.1 L D Hct 26.7 L MCV 70 L MCH 21.3 L MCHC 30.3 L RDW Std Deviation 54.8 H Plt Count 219 D Neut % (Auto) 53 Lymph % (Auto) 33 Swift % (Auto) 12 Eos % (Auto) 1 Baso % (Auto) 1 Neut # (Auto) 1.7 L Lymph # (Auto) 1.0 Swift # (Auto) 0.4 Eos # (Auto) 0.0 Baso # (Auto) 0.0 Immature Gran # (Auto) 0.01 H Absolute Nucleated RBC 0.00 Immature Gran % 0 Nucleated RBC % 0 PT 11.4 INR 1.0 APTT 24.2 Sodium 138 Potassium 4.0 D Chloride 103 Carbon Dioxide 22.5 Anion Gap 13 BUN 9 Creatinine 0.6 Estim Creat Clear Calc 120.6 eGFR > 60 BUN/Creatinine Ratio [address] Glu mg/dL 120 Hemoglobin A1c 5.8 Calculated Osmolality 273 L Calcium 8.6 Corrected Calcium 8.8 Phosphorus 2.8 Magnesium 1.5 L Iron 55 TIBC 412 Iron Saturation 13 L Unsat Iron Binding 357 H Total Bilirubin 0.9 D AST 38 H ALT 30 Alkaline Phosphatase 115 D Total Protein 7.0 Albumin 3.7 D Globulin 3.3 Albumin/Globulin Ratio 1.1 L Triglycerides 31 Cholesterol 160 LDL Cholesterol, Calc 77 HDL Cholesterol 77 H Cholesterol/HDL Ratio 2.1 L TSH 5.38 H Free T4 1.31 Quality Measures Quality Measures none Assessment & Plan Assessment Current Active Medications: Generic Name Dose Route Start Last Admin Trade Name Sofi PRN Reason Stop Dose Admin Acetaminophen 650 mg 06/06/25 14:56 Acetaminophen 325 Mg Tablet PO 07/06/25 14:55 Q6H PRN Fever >100.4 or Pain 1-3 Hydrocodone Bitart/Acetaminophen 1 tab 06/06/25 15:01 Hydrocodone/Apap 5/325 Tablet PO 06/11/25 15:00 Q4HR PRN PAIN SCALE 4-6 (Moderate Diazepam 2.5 mg 06/06/25 15:05 06/07/25 07:29 Diazepam Inj 5 Mg/Ml Vial 2 Ml IVP 06/11/25 15:04 2.5 mg Q2HR PRN Administration CIWA SCORE 8-13 Diazepam 5 mg 06/06/25 15:05 Diazepam Inj 5 Mg/Ml Vial 2 Ml IVP 06/11/25 15:04 Q2HR PRN CIWA SCORE 14-19 Diazepam 10 mg 06/06/25 15:05 Diazepam Inj 5 Mg/Ml Vial 2 Ml IVP 06/11/25 15:04 Q2HR PRN CIWA SCORE 20-25 Docusate Sodium 100 mg 06/06/25 15:01 Docusate Sod 100 Mg Capsule PO 07/06/25 15:00 QDAY PRN CONSTIPATION Protocol Lactated Ringer's 1,000 mls @ 150 mls/hr 06/06/25 15:00 06/07/25 06:24 Lactated Ringers IV 07/06/25 14:59 150 mls/hr .Q6H40M CHYNA Administration Lorazepam 0.5 mg 06/07/25 09:52 Lorazepam 0.5 Mg Tablet PO 06/12/25 09:51 Q4HR PRN CIWA Score 2-6 Morphine Sulfate 2 mg 06/06/25 15:01 Morphine Sulf Inj 10 Mg/Ml Vial IVP 06/11/25 15:00 Q4HR PRN PAIN SCALE 7-10 (Severe Ondansetron HCl 4 mg 06/06/25 15:01 Ondansetron Inj 2 Mg/Ml Inj 2 Ml IVP 07/06/25 15:00 Q6H PRN NAUSEA OR VOMITING Protocol Pantoprazole Sodium 40 mg 06/06/25 21:00 06/07/25 08:20 Pantoprazole Inj 40 Mg Vial IVP 07/06/25 20:59 40 mg BID CHYNA Administration Plan Assessment: 35-year-old female with a history of anemia, gastritis, esophagitis and alcohol use disorder, H. pylori incomplete treatment admitted for alcohol withdrawal management and potential pancreatitis. #Alcohol withdrawal Patient has been consuming three bottles of white wine in the past three days. Currently no nausea/vomiting No tremors Plan ? CIWA protocol ? Neurochecks every 4 hours ? Seizure prophylaxis #Pancreatitis, improving Epigastric pain radiating to the back Lipase 58 No previous history of pancreatitis Lipid panel, normal CT abdomen showed: Hepatomegaly 19 cm with severe diffuse fatty infiltration throughout the liver Plan ? Normal saline 150 cc an hour, continue for 48hr in total #History of H. pylori?incomplete eradication Patient did not complete H. pylori antibiotic course last month Plan ? Started quadruple therapy (Bismuth, Metronidazole, Pantoprazole, Tetracycline) - Tetracycline to start tomorrow due to Pharm shortage #Anemia #Likely iron deficiency Patient states has a history of iron deficiency anemia Plan ? Follow-up on iron panel ? Trend CBC Health Maintenance: Diet: CLD, advance as tolerted GI prophylaxis: Protonix 40 mg twice daily DVT prophylaxis: None as Bebo score 0 Antibiotics: None at this stage CODE STATUS: Full Disposition: [facility] Case discussed with my attending Dr. Edwards, and senior resident, Dr. Debra Mccallum MD PGY-1 Attending Provider Attestation/Addendum Patient admitted for abdominal pain she has alcoholism and possible pancreatitis. CT scan showed fatty infiltration of the liver. Patient has no GI bleed. She has no melena. She has no jaundice. The patient is not encephalopathic. She was told to continue treatment for H. pylori infection. She will need to follow-up in the clinic. I discussed with and supervised the resident physician who took care of this patient. I agree with the assessment and plan as above.
--- NOTE | 2025-06-07 11:52 | PC.SS ---
Patient is alert/oriented. Patient was able to verify demographics. Patient states she resides with . Patient is independent with ADL's. No DME. Patient was admitted for ETOH withdrawal. Patient states she has not been in any alcohol rehab for in patient services or out patient services. Patient states she has a history of mental illness and has been on medication prior. Patient states she has been drinking more alcohol lately due to her going through a divorce. Patient states she's been drinking a lot of wine. She's been binge drinking. Patient states she has family to lean on for support. PCP: Mariusz Rivero in [place]. Last appt. was a year. Pharmacy: [facility]. D/c plan: home with family. transportation: family alt medical decision maker: , Rowdy Lynch,
[2025-06-07] MEDS: BISMUTH SUBSALICYL 1 TABLET (Pepto-Bismol) 1 TAB PO ×3 (12:55→21:25)
[2025-06-07] MEDS: PANTOPRAZOLE 40 MG TABLET PO (21:25)
[2025-06-08] VITALS: BP 124/89; PULSE 81; RESP 16; TEMP 36.3; O2SAT 99
[2025-06-08] MEDS: RINGERS LACTATED 1000 ML 1,000 ML 150 ML IV (03:45)
[2025-06-08 04:00] VITALS: BP 122/87; PULSE 82; RESP 16; TEMP 36.4; O2SAT 98
[2025-06-08 04:53] VITALS: PULSE 90; RESP 18; O2SAT 98
[2025-06-08 05:29] LABS: Basophils # (Auto) 0.0 Thou/mm3 (0.0-0.2); Basophils % (Auto) 1 % (0-2.5); Eosinophils # (Auto) 0.2 Thou/mm3 (0.0-0.5); Eosinophils % (Auto) 3 % (0-10); Hematocrit 27.4 % (36.0-46.0); Immature Granulocytes Auto 0.01 Thou/mm3 (0.00-0.00); Lymphocytes # (Auto) 1.0 Thou/mm3 (1.0-4.8); Lymphocytes % (Auto) 23 % (10-50); Mean Corpuscular HGB Conc 29.6 g/dl (31.0-37.0); Mean Corpuscular Hemoglobin 20.7 pg (25.0-35.0); Mean Corpuscular Volume 70 fL (80-100); Monocytes # (Auto) 0.4 Thou/mm3 (0.0-0.8); Monocytes % (Auto) 8 % (0-12); Neutrophils # (Auto) 2.9 Thou/mm3 (1.8-7.7); Neutrophils % (Auto) 65 % (37-80); Nucleated Red Blood Cell # 0.00 Thou/mm3 (0.00-0.00); Nucleated Red Blood Cell % 0 /100 WBC (0); Platelet Count 207 Thou/mm3 (140-440); RDW Standard Deviation 53.6 fL (36.4-46.3); Red Blood Count 3.92 Miln/mm3 (4.00-5.20); White Blood Count 4.4 Thou/mm3 (3.6-11.0)
[2025-06-08 05:56] LABS: Alanine Aminotransferase 26 U/L (10-49); Albumin, Serum 3.7 gm/dL (3.5-5.0); Albumin/Globulin Ratio 1.1 (1.2-2.2); Alkaline Phosphatase 107 U/L (46-116); Anion Gap 10 (7-16); Aspartate Amino Transferase 34 U/L (0-34); BUN/Creatinine Ratio 8 Ratio (12-20); Bilirubin,Total 0.6 mg/dL (0.3-1.2); Blood Urea Nitrogen < 5 mg/dL (9-23); Calcium 8.8 mg/dL (8.3-10.6); Calcium (Corrected) 9.0 mg/dL (8.5-10.1); Carbon Dioxide 23.7 mMol/L (20.0-31.0); Chloride 102 mMol/L (98-107); Creatinine (Component) 0.6 mg/dL (0.6-1.3); Estimated Creatinine Clearance 120.6 mL/min (>60); Globulin 3.3 gm/dL (2.3-3.5); Glucose 89 mg/dL (74-106); Magnesium 1.5 mg/dL (1.6-2.6); Osmolality,Calculated 268 (275-295); Phosphorous 2.5 mg/dL (2.4-5.1); Potassium 3.7 mMol/L (3.4-5.1); Sodium 136 mMol/L (136-145); Total Protein 7.0 gm/dL (5.7-8.2); eGFR > 60 See Note
[2025-06-08 05:57] LABS: Hemoglobin 8.1 g/dL (12.0-16.0)
[2025-06-08] MEDS: BISMUTH SUBSALICYL 1 TABLET (Pepto-Bismol) 1 TAB PO ×2 (06:07→12:13)
[2025-06-08 08:00] VITALS: BP 133/89; PULSE 84; RESP 18; TEMP 36.5; O2SAT 99
[2025-06-08] MEDS: PANTOPRAZOLE 40 MG TABLET PO (08:02)
[2025-06-08] MEDS: Magnesium Sulfate 2 GM Ivpb 2 GM/50 ML BAG IV (09:29)
[2025-06-08 12:00] VITALS: BP 129/83; PULSE 90; RESP 17; TEMP 36.4; O2SAT 99
--- NOTE | 2025-06-08 13:38 | ESDS_ITS ---
<Statement entered by Melissa Vincent MD - 06/08/25 15:44> I have reviewed the note and agree with the resident's assessment & plan with exceptions as below. I have personally reviewed labs, imaging, home meds/prior records, examined the patient, formulated and discussed management plan with the IM team. Patient examined at bedside today. Patient counseled on alcohol use and to avoid it, patient did not have withdrawal symptoms while inpatient but however patient still consult to stop alcohol. Patient reports drinking more as she is going through some life stressors at this time. Patient CT scan did not show pancreatitis findings, therefore the diagnosis of pancreatitis is unlikely at this time as patient only had abdominal pain rating to the back and lipase was not significantly elevated (3 times above normal limit). Patient to continue with quadruple therapy for H. pylori as it was resent to her pharmacy. Patient also informed to retest within 2 to 4 weeks after completing therapy at this can predispose her to future ulcers and worst-case scenario Jak Melissa Vincent, PGY-2 Internal Medicine Planned Discharge Date 06/08/25 DS: Providers Provider Date of admission: 06/06/25 15:22 Primary care physician: Physician No Primary/Family Admitting Provider: Jarvis Edwards MD Attending Provider on Admission: Jarvis Edwards MD Attending Provider on DC: Jarvis Edwards MD Discharging Provider: Jarvis Edwards MD DS: Diagnosis Problem List Completed Was Problem List Reviewed/Reconciled?: Yes Hospital Course Hospital Course Hospital course: 35-year-old female with a history of anemia, gastritis, esophagitis and alcohol use disorder, and H. pylori incomplete treatment admitted for alcohol withdrawal management and acute pancreatitis. Initial vitals in ED T 98.2, HR 119, RR 19, O2 sat 98% on RA. Notable labs include hemoglobin 10.3, MCV 70, creatinine 0.7, lactic acid 3.3, AST 59, alk phos 155, lipase 58. While in ED patient received ibuprofen 600 mg x 1, 1 L of NaCl bolus, lidocaine patch, lorazepam 2 mg x 1. Patient received supportive management for pancreatitis with fluid resuscitation and recovered well. Patient was started on quadruple therapy while inpatient with tetracycline, metronidazole, bismuth, pantoprazole and will continue this outpatient for total duration of 10 days. At time of discharge patient is stable. Patient advised to complete antibiotic course for eradication of H. pylori as prescribed and then check for test of cure 2 weeks after completion of antibiotic course. Patient has also been advised to stop drinking alcohol. Discharge Instructions: Follow up with your PCP within 1-2 weeks Take your medicines as prescribed I am resending you your h pylori medicines, take as prescribed Make sure you retest for h pylori with a urea breath test or a stool test within 2-4 weeks of completing h pylori Return to ER if your symptoms worsen or return Avoid drinking alcohol at all costs Admission diagnoses: #Alcohol withdrawal #Pancreatitis, resolved #Hx of H. pylori, incomplete eradication #Hx of Anemia Case discussed with my attending Dr. Edwards, and senior resident, Dr. Melisa Mccallum MD PGY-1 Time Spent with Patient Time attestation: Total time spent providing and/or coordinating discharge services: Time spent: Greater than 30 minutes Exam Vital Signs Temp Pulse Resp BP Pulse Ox O2 Del Method 97.5 F 90 17 129/83 99 Room Air 06/08/25 12:06/08/25 12:06/08/25 12:06/08/25 12:06/08/25 12:00 06/08/25 12:00 Narrative Exam GENERAL APPEARANCE: alert and oriented x 4, well-developed, well-nourished, no acute distress HEENT: Normocephalic, atraumatic; pupils equal, round, reactive to light; EOMI; mucous membranes pink, moist; oropharynx clear NECK: Supple LUNGS: CTABL; no wheezes, no rales, no rhonchi HEART: Regular rate, regular rhythm; normal S1, S2; no murmurs ABDOMEN: non distended; normal BS; soft, no tenderness, no guarding, no rebound; no masses, no organomegaly, no hernia BACK: no CVA tenderness EXTREMITIES: atraumatic; no edema NEUROLOGIC: awake; alert and oriented x4; cranial nerves II-XII grossly intact; no focal sensory or motor deficits PSYCHIATRIC: appropriate mood and affect SKIN: warm, dry, normal color; no rashes Discharge Plan Plan Patient Disposition: HOME (Self Care) Patient condition on transfer: Stable Care Plan Goals: Discharge Instructions: Follow up with your PCP within 1-2 weeks Take your medicines as prescribed I am resending you your h pylori medicines, take as prescribed Make sure you retest for h pylori with a urea breath test or a stool test within 2-4 weeks of completing h pylori Return to ER if your symptoms worsen or return Avoid drinking alcohol at all costs Prescriptions/Referrals Prescriptions/Med Rec: New lansoprazole 30 mg capsule,delayed release(DR/EC) 30 mg PO BID 10 Days Qty: 20 0RF Rx Instructions: Take one capsule by mouth twice a day bismuth subcit [id number] 140-125-125 mg capsule 3 cap PO QID 10 Days Qty: 120 0RF Rx Instructions: Take 3 capsules by mouth four times a day Referrals: No Primary/Family,Physician [Primary Care Provider] - Patient/Caregiver Discharge Instructions Discharge Activity: activity as tolerated Education Materials: Abdominal Pain, Understanding H. pylori and Ulcers, Alcohol Withdrawal: What to Expect, Understanding H Pylori and ... Print Language: Nepalese Stand Alone Forms: Nicole Award Info., Patient Portal Info Letter Discharge Order Discharge Orders: Discharge (Routine); Ordered 06/08/25 Ordered By: Melissa Vincent Quality Discharge Quality Measures VTE prophylaxis Attestestation Attestation I discussed with and supervised the resident physician who took care of this patient. I agree with the assessment and discharge plan as above.
== END 2025-06-08 13:05 | disposition home or self-care (01) | DRG 775 ==
LOC: SERX 10:08 → SERHOLD 15:24 → S3NX 18:08
PROVIDERS: Admitting Provider Internal Medicine; Emergency Provider Emergency Medicine; Visit Provider Internal Medicine
DX: F10.239 Alcohol dependence with withdrawal, unspecified (principal); Y90.8 Blood alcohol level of 240 mg/100 ml or more; B96.81 Helicobacter pylori [H. pylori] as the cause of diseases classified elsewhere; D50.9 Iron deficiency anemia, unspecified; K76.0 Fatty (change of) liver, not elsewhere classified; Z87.19 Personal history of other diseases of the digestive system; K29.70 Gastritis, unspecified, without bleeding
CPT/HCPCS: 36415; 74176; 80053; 80061; 80307; 80320; 81001; 81025; 83036; 83540; 83550; 83605; 83690; 83735; 84100; 84439; 84443; 85025; 85610; 85730; 87081; 93005; 96360; 96361; 99284; J2470; J3360; J3475; J3490; J7030; J7120; A9270; G0480

== ENCOUNTER 2025-06-08 17:06 | Emergency (ER) | payer MEDICAID, SELFPAY ==
[2025-06-08 17:17] VITALS: BP 124/88; PULSE 104; RESP 18; TEMP 37.2; O2SAT 98; BMI 30.2
--- NOTE | 2025-06-08 17:26 | PD.EDRME ---
Rapid Medical Screening Exam RME Arrival date/time: 06/08/25 17:06 Chief Complaint: Nausea/Vomiting/Diarrhea Vital signs: Vital Signs Temperature 99 F 06/08/25 17:17 Pulse Rate 104 H 06/08/25 17:17 Respiratory Rate 18 06/08/25 17:17 Blood Pressure 124/88 H 06/08/25 17:17 Pulse Oximetry (%) 98 06/08/25 17:17 Oxygen Delivery Method Room Air 06/08/25 17:17 Pulse ox 98% room air Vital signs reviewed by provider: Yes RME Narrative: Patient was admitted to the hospital for 3 days and then discharged at 1400 this afternoon. Patient tells me that she had a couple of episodes of blacking out, feels worse than when she was admitted.
[2025-06-08 17:49] LABS: Basophils # (Auto) 0.0 Thou/mm3 (0.0-0.2); Basophils % (Auto) 0 % (0-2.5); Eosinophils # (Auto) 0.2 Thou/mm3 (0.0-0.5); Eosinophils % (Auto) 3 % (0-10); Hematocrit 29.7 % (36.0-46.0); Immature Granulocytes Auto 0.01 Thou/mm3 (0.00-0.00); Lymphocytes # (Auto) 1.1 Thou/mm3 (1.0-4.8); Lymphocytes % (Auto) 18 % (10-50); Mean Corpuscular HGB Conc 29.3 g/dl (31.0-37.0); Mean Corpuscular Hemoglobin 20.5 pg (25.0-35.0); Mean Corpuscular Volume 70 fL (80-100); Monocytes # (Auto) 0.4 Thou/mm3 (0.0-0.8); Monocytes % (Auto) 6 % (0-12); Neutrophils # (Auto) 4.7 Thou/mm3 (1.8-7.7); Neutrophils % (Auto) 74 % (37-80); Nucleated Red Blood Cell # 0.00 Thou/mm3 (0.00-0.00); Nucleated Red Blood Cell % 0 /100 WBC (0); Platelet Count 236 Thou/mm3 (140-440); RDW Standard Deviation 53.1 fL (36.4-46.3); Red Blood Count 4.24 Miln/mm3 (4.00-5.20); White Blood Count 6.4 Thou/mm3 (3.6-11.0)
[2025-06-08 17:50] LABS: Hemoglobin 8.7 g/dL (12.0-16.0)
[2025-06-08 18:13] LABS: Alanine Aminotransferase 30 U/L (10-49); Albumin, Serum 4.2 gm/dL (3.5-5.0); Albumin/Globulin Ratio 1.2 (1.2-2.2); Alkaline Phosphatase 115 U/L (46-116); Anion Gap 10 (7-16); Aspartate Amino Transferase 37 U/L (0-34); BUN/Creatinine Ratio 7 Ratio (12-20); Bilirubin,Total 0.6 mg/dL (0.3-1.2); Blood Urea Nitrogen < 5 mg/dL (9-23); Calcium 9.1 mg/dL (8.3-10.6); Calcium (Corrected) 9.1 mg/dL (8.5-10.1); Carbon Dioxide 21.9 mMol/L (20.0-31.0); Chloride 104 mMol/L (98-107); Creatinine (Component) 0.7 mg/dL (0.6-1.3); Estimated Creatinine Clearance 103.2 mL/min (>60); Globulin 3.6 gm/dL (2.3-3.5); Glucose 104 mg/dL (74-106); LDH (Lactate Dehydrogenase) 164 U/L (120-246); Lipase 54 U/L (12-53); Osmolality,Calculated 269 (275-295); Potassium 3.8 mMol/L (3.4-5.1); Procalcitonin 0.06 ng/ml (0.0-0.49); Sodium 136 mMol/L (136-145); Total Protein 7.8 gm/dL (5.7-8.2); eGFR > 60 See Note
[2025-06-08 18:33] LABS: Collection Type, Urine Clean Catch
[2025-06-08 18:44] LABS: Amorphous Crystals,Urine Present (Absent); Bacteria,Urine Rare; Bilirubin,Urine Negative (Negative); Blood,Urine Negative (Negative); Clarity,Urine Turbid (Clear/Hazy); Color,Urine Yellow (Lt Yel-Yel); Glucose, Urine Negative (Negative); Hyaline Casts,Urine 1 /hpf (0-1); Ketones,Urine 2+ (Negative); Leukocyte Esterase,Urine Negative (Negative); Nitrite,Urine Negative (Negative); PH,Urine 8.0 (5.0-7.0); Protein,Urine Trace (Neg - Trace); RBC,Urine 2 /hpf (0-3); Specific Gravity,Urine 1.015 (1.001-1.035); Squamous Epithelial Cell,Urine 11 /hpf (0-5); Urobilinogen,Urine Negative mg/dL (0.0-1.0); WBC,Urine 3 /hpf (0-5)
--- NOTE | 2025-06-08 19:55 | PC.NURSE ---
PT LEAVING AMA, HAS TO GO [employer]. SIGNED AMA FORM BUT REFUSED TO TAKE COPY
== END 2025-06-08 19:58 | disposition left against medical advice (07) ==
LOC: SERX 17:30
PROVIDERS: Physician Assistant; Emergency Provider Family Medicine
DX: R11.2 Nausea with vomiting, unspecified (principal); R19.7 Diarrhea, unspecified; Z53.29 Procedure and treatment not carried out because of patient's decision for other reasons
CPT/HCPCS: 36415; 80053; 81001; 83615; 83690; 84145; 85025; 99283

== ENCOUNTER 2025-07-09 21:25 | Emergency (ER) | payer MEDICAID, SELFPAY ==
[2025-07-09 21:28] VITALS: BP 110/77; PULSE 98; RESP 18; TEMP 36.6; O2SAT 97
[2025-07-09 21:39] VITALS: PULSE 92; RESP 18; O2SAT 98
[2025-07-09 21:41] VITALS: BMI 30.2
--- NOTE | 2025-07-09 22:00 | PD.EDRME ---
Rapid Medical Screening Exam RME Arrival date/time: 07/09/25 21:25 This is a 35-year-old female that comes into the emergency room with complaints of alcohol intoxication. Patient was seen here and admitted for dehydration and GI bleed in the past. Patient states she does not know how many boxes of wine she drank today. Patient states she binge drinks. Patient states she wants to stop. Patient complains of abdominal pain. Patient reports that she had some blood in her vomit not today but yesterday she did. I have greeted and performed a focused initial assessment of this patient. Initial appropriate labs ordered at this time. A comprehensive ED assessment and evaluation of the patient and analysis of all test and completion of medical decision making process will be conducted by additional ED provider. Chief Complaint: Alcohol Time Seen by Provider: 07/09/25 21:50 Vital signs: Vital Signs Temperature 97.9 F 07/09/25 21:28 Pulse Rate 98 07/09/25 21:28 Respiratory Rate 18 07/09/25 21:28 Blood Pressure 110/77 07/09/25 21:28 Pulse Oximetry (%) 97 07/09/25 21:28 Oxygen Delivery Method Room Air 07/09/25 21:28
[2025-07-09 22:20] LABS: Basophils # (Auto) 0.0 Thou/mm3 (0.0-0.2); Basophils % (Auto) 1 % (0-2.5); Eosinophils # (Auto) 0.0 Thou/mm3 (0.0-0.5); Eosinophils % (Auto) 0 % (0-10); Hematocrit 31.4 % (36.0-46.0); Hemoglobin 9.4 g/dL (12.0-16.0); Immature Granulocytes Auto 0.02 Thou/mm3 (0.00-0.00); Lymphocytes # (Auto) 2.2 Thou/mm3 (1.0-4.8); Lymphocytes % (Auto) 32 % (10-50); Mean Corpuscular HGB Conc 29.9 g/dl (31.0-37.0); Mean Corpuscular Hemoglobin 19.9 pg (25.0-35.0); Mean Corpuscular Volume 66 fL (80-100); Monocytes # (Auto) 0.3 Thou/mm3 (0.0-0.8); Monocytes % (Auto) 4 % (0-12); Neutrophils # (Auto) 4.4 Thou/mm3 (1.8-7.7); Neutrophils % (Auto) 64 % (37-80); Nucleated Red Blood Cell # 0.00 Thou/mm3 (0.00-0.00); Nucleated Red Blood Cell % 0 /100 WBC (0); Platelet Count 321 Thou/mm3 (140-440); RDW Standard Deviation 47.4 fL (36.4-46.3); Red Blood Count 4.73 Miln/mm3 (4.00-5.20); White Blood Count 6.9 Thou/mm3 (3.6-11.0)
[2025-07-09 22:39] LABS: INR 1.0 (0.9-1.3); Prothrombin Time 11.4 Seconds (9.0-12.2)
--- NOTE | 2025-07-09 22:43 | PD.EDALCOH ---
ED Alcohol RME/HPI General Chief Complaint: Alcohol Stated Complaint: DIZZINESS Time Seen by Provider: 07/09/25 21:50 Arrival date/time: 07/09/25 21:25 RME / HPI RME / HPI narrative: 07/09/25 21:25 This is a 35-year-old female that comes into the emergency room with complaints of alcohol intoxication. Patient was seen here and admitted for dehydration and GI bleed in the past. Patient states she does not know how many boxes of wine she drank today. Patient states she binge drinks. Patient states she wants to stop. Patient complains of abdominal pain. Patient reports that she had some blood in her vomit not today but yesterday she did. I have greeted and performed a focused initial assessment of this patient. Initial appropriate labs ordered at this time. A comprehensive ED assessment and evaluation of the patient and analysis of all test and completion of medical decision making process will be conducted by additional ED provider. DR. MILLS MAIN ED EVALUATION: 35 y/o female with Hx of Alcohol Abuse presents to ED c/o alcohol intoxication x 1 day and vomiting blood x 2 days ago. Patient last consumed alcohol approximatelt 11 hours ago. No other concerns or complaints expressed at this time. MD complaint: alcohol intoxication Last drink: Hours (ago) (11) Chronic alcohol use: Yes Previous visits for alcohol intoxication: Yes Recent trauma: No Associated symptoms: vomiting Treatments prior to arrival: none Related Data Allergies Allergy/AdvReac Type Severity Reaction Status Date / Time No Known Allergies Allergy Verified 06/08/25 17:11 Review of Systems Review of Systems Systems Reviewed: All systems reviewed, normal except as documented Past Medical History Past Medical History GASTROINTESTINAL: Positive Ulcerative Colitis and Ulcer REPRODUCTIVE: Positive Previous Pregnancies HEMATOLOGIC: Positive Blood Disorders and Anemia PSYCHO/SOCIAL: Positive Anxiety Social History SECOND HAND EXPOSURE: Yes ALCOHOL: Current ALCOHOL FREQUENCY: 3 or More Drinks per Day ALCOHOL LAST INTAKE: Hours (ago) (11) ED Exam Narrative Physical exam: Generally patient is sleeping but easily arousable and in no obvious distress head is normocephalic atraumatic eyes pupils equal round reactive to light heart regular rate and rhythm lungs auscultation equal bilaterally abdomen soft bowel sounds present times and nontender skin is warm and dry neurologic exam patient is obviously intoxicated on alcohol without focal motor deficits. She obeys commands and answers questions appropriately. Course Quality Measures none Orders Category Date Time Status Alcohol, Blood Medical Stat Lab 07/09/25 22:12 Completed CBC Stat Lab 07/09/25 22:12 Completed Comprehensive Metabolic Panel Stat Lab 07/09/25 22:12 Completed PT [Prothrombin Time with INR] Stat Lab 07/09/25 22:12 Completed Type and Screen Stat Lab 07/09/25 22:12 Results Vital Signs Vital signs: Vital Signs Temperature 97.9 F 07/09/25 21:28 Pulse Rate 98 07/09/25 21:28 Respiratory Rate 18 07/09/25 21:28 Blood Pressure 110/77 07/09/25 21:28 Pulse Oximetry (%) 97 07/09/25 21:28 Oxygen Delivery Method Room Air 07/09/25 21:28 Discharge Plan Plan Patient Disposition: HOME (Self Care) Prescriptions/Referrals Referrals: No Primary/Family,Physician [Primary Care Provider] - In 1 week Problem List Clinical Impression: Alcohol intoxication Patient/Caregiver Discharge Instructions Education Materials: ED Alcohol Intoxication Additional Instructions: Decrease your alcohol consumption in the future. Patient is stable for discharge once she becomes ambulatory and has a safe ride home. Print Language: Mohawk Stand Alone Forms: Nicole Award Info., Patient Portal Info Letter Alcohol MDM Narrative MDM Narrative: Scribe Attestation: ISis, am scribing for and in the presence of Dr. Mills. Provider Notation: Although this document has been carefully reviewed, there may still be some phonetic and other typographical errors. These errors are purely grammatical due to imperfections in the software program and should not be construed in any way to compromise the substance of the patient's medical care during this visit. I interpreted all labs. Patient is not an alcoholic ketoacidosis. Blood alcohol level is 402. All of these labs were protocoled prior to me seeing the patient. Patient is obviously intoxicated. She will be allowed to sober up. Once she becomes ambulated and has a ride home she will be discharged. Patient data External records reviewed:: [facility] previous records (Reviewed prior ED records from 06/08/25. Patient was seen for Nausea with vomiting, unspecified.) and EMS form Clinical information provided by:: patient and EMS Social determinants that could affect healthcare access:: alcohol use Patient has the following chronic illnesses:: Ulcerative Colitis, Ulcer, Anemia, Anxiety How is presenting disease/condition affected by chronic disease/condition?: exacerbated by Evaluation data The following diagnostics were reviewed and interpreted by me:: lab results Lab and/or radiology exams considered but not ordered:: None Interpretation Summary: See MDM above. Medications / Prescriptions Medications or Prescriptions considered but not ordered:: None Medication administrations:: See above if any. Consultations Consultation(s) initiated? (list below): No Diagnosis Differential diagnosis alcohol: alcohol withdrawal delirium, hypomagnesemia, alcohol intoxication, alcohol ketoacidosis, alcohol withdrawal syndrome and alcohol withdrawal seizure Most likely diagnosis given after review of the tests above:: None Admission Indicated Admission indicated?: not indicated Admission Request Was there a request for admission?: No Disposition Plan Disposition Plan: Discharge Discharge Attestation Discharge Attestation: The patient and all family members were given an opportunity to ask questions and understood the discharge instructions. Discharge instructions specifically effects, indications for sooner follow up or return to the emergency department, and the expected course of current diagnosis. Patient condition: Stable
[2025-07-09 22:52] LABS: Alanine Aminotransferase 23 U/L (10-49); Albumin, Serum 4.0 gm/dL (3.5-5.0); Albumin/Globulin Ratio 1.1 (1.2-2.2); Alkaline Phosphatase 117 U/L (46-116); Anion Gap 16 (7-16); Aspartate Amino Transferase 39 U/L (0-34); BUN/Creatinine Ratio 14 Ratio (12-20); Bilirubin,Total 0.2 mg/dL (0.3-1.2); Blood Urea Nitrogen 10 mg/dL (9-23); Calcium 8.3 mg/dL (8.3-10.6); Calcium (Corrected) 8.3 mg/dL (8.5-10.1); Carbon Dioxide 20.7 mMol/L (20.0-31.0); Chloride 106 mMol/L (98-107); Creatinine (Component) 0.7 mg/dL (0.6-1.3); Estimated Creatinine Clearance 103.2 mL/min (>60); Globulin 3.8 gm/dL (2.3-3.5); Glucose 93 mg/dL (74-106); Osmolality,Calculated 283 (275-295); Potassium 3.8 mMol/L (3.4-5.1); Sodium 143 mMol/L (136-145); Total Protein 7.8 gm/dL (5.7-8.2); eGFR > 60 See Note
[2025-07-09 22:54] LABS: Alcohol, Blood Medical 402.8 mg/dL (0-10.0)
--- NOTE | 2025-07-10 01:40 | PC.NURSE ---
ASSUMED CARE OF PATIENT, PT APPEARS TO BE SLEEPING, PT CAME INTO ER INTOXICATED, PT HAS BEEN DISCHARGED PENDING PATIENT CAN AMBULATE AND WALK OUT OF DEPARTMENT ON HER OWN. PT STATES THAT SHE DOES NOT HAVE A RIDE. WILL RE-EVAL IN A FEW HOURS AND SEE HOW PATIENT IS DOING AND SEE IF SHE CAN FIND A RIDE IN AM OR WHEN DAYLIGHT.
[2025-07-10 03:30] VITALS: PULSE 90; RESP 18; O2SAT 99
--- NOTE | 2025-07-10 05:57 | PC.NURSE ---
THIS RN AMBULATED PT TO NURSING STATION. PT WAS ABLE TO AMBULATE WITHOUT ANY ISSUES. GAIT WAS STEADY. PT DENIES SOB OR DIZZINESS WHILE AMBULATING. PT DENIES N/V
[2025-07-10 05:58] VITALS: PULSE 97; RESP 18; O2SAT 98
== END 2025-07-10 05:59 | disposition home or self-care (01) ==
PROVIDERS: Nurse Practitioner Family; Emergency Provider Emergency Medicine
DX: F10.129 Alcohol abuse with intoxication, unspecified (principal); Y90.8 Blood alcohol level of 240 mg/100 ml or more
CPT/HCPCS: 36415; 80053; 80307; 80320; 81001; 81025; 85025; 85610; 86850; 86900; 86901; 99283; G0480

== ENCOUNTER 2025-07-10 10:32 | Emergency (ER) | payer MEDICAID, SELFPAY ==
--- NOTE | 2025-07-10 10:45 | EDNOTE_ITS ---
ED Weakness RME/HPI General Chief complaint: Weakness Stated complaint: WEAKNESS Time Seen by Provider: 07/10/25 10:45 Arrival date/time: 07/10/25 10:32 RME / HPI RME / HPI Narrative: 35 year old female with history of anemia, gastritis, esophagitis and alcohol use disorder presents to the ED for evaluation of abdominal pain this morning. Described as aching in sensation that is located most to the epigastric region without radiation. Accompanied by nausea and vomiting. Additionally complains of feeling I'm going to pass out . Denies fevers, chills, diarrhea, constipation. Denies cough, shortness of breath. Denies dysuria, urinary frequency and urgency. Related Data Previous Rx's ?Medication ?Instructions ?Recorded famotidine 40 mg tablet 40 mg PO .bedtime #30 tabs 0 07/10/25 folic acid 1 mg tablet 1 mg PO QDAY #90 tabs lorazepam 2 mg tablet (Ativan) 2 mg PO Q8H #9 tabs 12/03 multivitamin 1 tab PO QDAY #90 tabs 07/10 omeprazole 40 mg capsule,delayed 40 mg PO QDAY #30 cap s 07/10/25 release ondansetron 4 mg disintegrating 4 mg PO TID PRN nausea and 07/10/25 tablet vomiting 30 days #10 tabs thiamine HCl (vitamin B1) 50 mg 50 mg PO QDAY #90 tabs 07/10/25 tablet ferrous sulfate 325 mg (65 mg 325 mg PO Q OTHER DAY 30 days #15 07/21/25 iron) tablet tabs Allergies Allergy/AdvReac Type Severity Reaction Status Date / Time No Known Allergies Allergy Verified 07/19/25 14:48 Review of Systems Review of Systems Systems Reviewed: All systems reviewed, normal except as documented Past Medical History Past Medical History GASTROINTESTINAL: Positive Ulcerative Colitis and Ulcer REPRODUCTIVE: Positive Previous Pregnancies HEMATOLOGIC: Positive Blood Disorders and Anemia PSYCHO/SOCIAL: Positive Anxiety Family History FAMILY HISTORY: Negative Family Psychiatric Problems, Family Respiratory Disorders, Family Cardiac Disorders, Family Gastrointestinal Problems, Family Cancer, Family Surgery or Family Anesthesia Reaction Surgical History SURGICAL: Negative Section Social History SMOKING STATUS: Never smoker SECOND HAND EXPOSURE: Yes ED Exam Narrative Physical exam: GENERAL APPEARANCE: alert and oriented x 4, well-developed, well-nourished, no acute distress HEENT: Normocephalic, atraumatic; pupils equal, round, reactive to light; EOMI; mucous membranes pink, moist; oropharynx clear NECK: Supple LUNGS: CTABL; no wheezes, no rales, no rhonchi HEART: Regular rate, regular rhythm; normal S1, S2; no murmurs ABDOMEN: non distended; normal BS; soft, no tenderness, no guarding, no rebound; no masses, no organomegaly, no hernia BACK: no CVA tenderness EXTREMITIES: atraumatic; no edema NEUROLOGIC: awake; alert and oriented x4; cranial nerves II-XII grossly intact; no focal sensory or motor deficits PSYCHIATRIC: appropriate mood and affect SKIN: warm, dry, normal color; no rashes Course Quality Measures none Orders Category Date Time Status Bedside COVID-19 Antigen Test NOW Care 07/10/25 18:37 Completed Bedside Influenza A&B Antigen Test NOW Care 07/10/25 18:37 Completed Care Services Manager NOW Care 07/10/25 18:13 Completed EKG (ED ONLY) *Do not use* NOW Care 07/10/25 18:13 Completed Saline [Insert IV] NOW Care 07/10/25 18:37 Completed Straight [In and Out Catheter] X1 Care 07/10/25 18:37 Completed EKG (ED Only) Stat Exams 07/10/25 18:13 Draft XR chest 1V portable Stat Exams 07/10/25 18:13 Completed Alcohol, Blood Medical Stat Lab 07/10/25 18:27 Completed Amylase Stat Lab 07/10/25 18:27 Completed B-Type Natriuretic Peptide Stat Lab 07/10/25 18:27 Completed CBC Stat Lab 07/10/25 18:27 Completed Comprehensive Metabolic Panel Stat Lab 07/10/25 18:27 Completed Drug Screen,Urine Stat Lab 07/10/25 21:20 Completed HCG,Qualitative Serum Stat Lab 07/10/25 18:27 Completed Lipase Stat Lab 07/10/25 18:27 Completed Magnesium Stat Lab 07/10/25 18:27 Completed Partial Thromboplastin Time Stat Lab 07/10/25 18:27 Completed Prothrombin Time with INR Stat Lab 07/10/25 18:27 Completed Troponin I Stat Lab 07/10/25 18:27 Completed UA, C/S IF [Urinalysis, C/S if Indicated] Stat Lab 07/10/25 21:20 Completed Urine Culture Stat Lab 07/10/25 21:20 Completed Diazepam Inj [Valium Inj] Med 07/10/25 21:32 Discontinued 10 mg IVP X1 ONE Famotidine Inj [Pepcid Inj] Med 07/10/25 18:37 Discontinued 20 mg IVP X1 ONE LORazepam [Ativan] Med 07/10/25 10:46 Discontinued 1 mg PO X1 ONE Lidocaine 2% Viscous [Xylocaine 2% Viscous] Med 07/10/25 10:46 Discontinued 15 ml PO X1 ONE Ondansetron Inj [Zofran Inj] Med 07/10/25 18:37 Discontinued 4 mg IVP X1 ONE Ondansetron Inj [Zofran Inj] Med 07/10/25 21:32 Discontinued 4 mg IVP X1 ONE Ondansetron Odt [Zofran Odt] Med 07/10/25 10:46 Discontinued 4 mg PO X1 ONE Pantoprazole Inj [Protonix Inj] Med 07/10/25 18:37 Discontinued 40 mg IVP X1 ONE Sodium Chloride 0.9% 1000 ml [Ns] 1,000 ml Med 07/10/25 18:37 Discontinued IV 999 mls/hr Sodium Chloride 0.9% 1000 ml [Ns] 1,000 ml Med 07/10/25 21:32 Discontinued IV 999 mls/hr Thiamine Inj [Vitamin B-1 Inj] Med 07/10/25 18:37 Discontinued 100 mg IVP X1 ONE cefTRIAXone/D5w 1gm IV premix [Rocephin/D5w 1gm IV Med 07/10/25 22:40 Discontinued premix] 1 g in 50 ml IV X1 mg Hyd/Al Hyd/Ernestina Susp [Maalox Susp] Med 07/10/25 10:46 Discontinued 30 ml PO X1 ONE Vital Signs Vital signs: Vital Signs Temperature 98.2 F 07/10/25 10:53 Pulse Rate 62 07/10/25 10:53 Respiratory Rate 18 07/10/25 10:53 Blood Pressure 120/82 07/10/25 10:53 Pulse Oximetry (%) 98 07/10/25 10:53 Oxygen Delivery Method Room Air 07/10/25 10:53 Pulse ox is 98% on room air which is adequate. Weakness MDM Narrative MDM Narrative:: Naya Castro, emilie scribing for and in the presence of Dr. Guerrier. 1800: On reassessment, the patient reports no improvement after receiving medications. Reports feeling dizzy and intermittent torso pain. Patient signed out to Dr. Miranda pending final disposition. Patient data External records reviewed:: [facility] previous records (I reviewed ED visit from yesterday 07/09/2025 ) and EMS form Clinical information provided by:: patient and EMS Social determinants that could affect healthcare access:: alcohol use Patient has the following chronic illnesses:: anemia, gastritis, esophagitis and alcohol use disorder How is presenting disease/condition affected by chronic disease/condition?: exacerbated by Evaluation data The following diagnostics were reviewed and interpreted by me:: other (specify) (No diagnostics ordered ) Lab and/or radiology exams considered but not ordered:: None Interpretation Summary: N/A Medications / Prescriptions Medications or Prescriptions considered but not ordered:: None Medication administrations:: Medication Administration History Discontinued Medications Al Hydrox/Mg Hydrox/Simethicone (Mg Hyd/Al Hyd/Ernestina (Maalox Reg) Susp 30 Ml Udc) 30 ml PO X1 ONE Stop: 07/10/25 10:47 Last Admin: 07/10/25 10:56 Dose: 30 ml Documented By: JOSE J Diazepam (Diazepam Inj 5 Mg/Ml Vial 2 Ml) 10 mg IVP X1 ONE Stop: 07/10/25 21:33 Last Admin: 07/10/25 22:27 Dose: 10 mg Documented By: ESA Famotidine (Famotidine Inj 10 Mg/Ml Vial 2 Ml) 20 mg IVP X1 ONE Stop: 07/10/25 18:38 Last Admin: 07/10/25 19:30 Dose: 20 mg Documented By: ESA Sodium Chloride (Ns) 1,000 mls @ 999 mls/hr IV .Q1H1M ONE Stop: 07/10/25 19:37 Last Infusion: 07/10/25 20:45 Dose: Infused Documented By: Admin: 07/10/25 19:25 Dose: 999 mls/hr Documented By: ESA Sodium Chloride (Ns) 1,000 mls @ 999 mls/hr IV .Q1H1M ONE Stop: 07/10/25 22:32 Last Infusion: 07/10/25 23:32 Dose: Infused Documented By: Admin: 07/10/25 22:27 Dose: 999 mls/hr Documented By: ESA Ceftriaxone Sodium/Dextrose (Rocephin/D5w 1gm Iv Premix) 1 g in 50 mls @ 100 mls/hr IV X1 ONE Stop: 07/10/25 23:09 Last Infusion: 07/11/25 00:16 Dose: Infused Documented By: Admin: 07/10/25 23:32 Dose: 100 mls/hr Documented By: ESA Lidocaine HCl (Lidocaine Viscous 2% 15 Ml Udc) 15 ml PO X1 ONE Stop: 07/10/25 10:47 Last Admin: 07/10/25 10:56 Dose: 15 ml Documented By: JOSE J Lorazepam (Lorazepam 0.5 Mg Tablet) 1 mg PO X1 ONE Stop: 07/10/25 10:47 Last Admin: 07/10/25 10:56 Dose: 1 mg Documented By: JOSE J Ondansetron HCl (Ondansetron Odt 4 Mg Tabrap) 4 mg PO X1 ONE; Protocol Stop: 07/10/25 10:47 Last Admin: 07/10/25 10:56 Dose: 4 mg Documented By: JOSE J Ondansetron HCl (Ondansetron Inj 2 Mg/Ml Inj 2 Ml) 4 mg IVP X1 ONE; Protocol Stop: 07/10/25 18:38 Last Admin: 07/10/25 19:28 Dose: 4 mg Documented By: ESA Ondansetron HCl (Ondansetron Inj 2 Mg/Ml Inj 2 Ml) 4 mg IVP X1 ONE; Protocol Stop: 07/10/25 21:33 Last Admin: 07/10/25 22:27 Dose: Not Given Documented By: ESA Non-Admin Reason: Patient Refused Pantoprazole Sodium (Pantoprazole Inj 40 Mg Vial) 40 mg IVP X1 ONE Stop: 07/10/25 18:38 Last Admin: 07/10/25 19:33 Dose: 40 mg Documented By: ESA Thiamine HCl (Thiamine Inj 100 Mg/Ml Vial 2 Ml) 100 mg IVP X1 ONE Stop: 07/10/25 18:38 Last Admin: 07/10/25 19:25 Dose: 100 mg Documented By: ESA See above Consultations Consultation(s) initiated? (list below): No Diagnosis Weakness Differential Diagnosis: hypothyroidism, dehydration and other (alcohol intoxication, vertigo ) Most likely diagnosis given after review of the tests above:: Alcohol intoxication Admission Indicated Admission indicated?: not indicated Admission Request Was there a request for admission?: No Disposition Plan Disposition Plan: other (specify) (Signed out to Dr. Miranda ) Discharge Plan Prescriptions/Referrals Prescriptions/Med Rec: New multivitamin Tablet 1 tab PO QDAY Qty: 90 3RF famotidine 40 mg tablet 40 mg PO .bedtime Qty: 30 0RF omeprazole 40 mg capsule,delayed release(DR/EC) 40 mg PO QDAY Qty: 30 0RF lorazepam [Ativan] 2 mg tablet 2 mg PO Q8H Qty: 9 0RF folic acid 1 mg tablet 1 mg PO QDAY Qty: 90 3RF ondansetron 4 mg tablet,disintegrating 4 mg PO TID PRN (Reason: nausea and vomiting) 30 Days Qty: 10 0RF thiamine HCl (vitamin B1) 50 mg tablet 50 mg PO QDAY Qty: 90 1RF No Action ferrous sulfate 325 mg (65 mg iron) tablet 325 mg PO Q OTHER DAY 30 Days Qty: 15 0RF Referrals: No Primary/Family,Physician [Primary Care Provider] - In 1 week Problem List Clinical Impression: Alcohol abuse Patient/Caregiver Discharge Instructions Print Language: Jamaican
[2025-07-10 10:50] VITALS: BMI 28.3
[2025-07-10 10:53] VITALS: BP 120/82; PULSE 62; RESP 18; TEMP 36.8; O2SAT 98
[2025-07-10] MEDS: LIDOCAINE VISCOUS 2% 15 ML UDC PO (10:56)
[2025-07-10] MEDS: MG HYD/AL HYD/SIME (Maalox Reg) SUSP 30 ML UDC PO (10:56)
[2025-07-10] MEDS: ONDANSETRON ODT 4 MG TABRAP PO (10:56)
--- NOTE | 2025-07-10 11:03 | PC.NURSE ---
BIBA FROM HOME, DRANK WINE YESTERDAY, NOW HAVING, BANKS, DIZZINES AND ABD PAIN. ST ON TELE, BP ELEVATED
[2025-07-10 13:11] VITALS: BP 120/80; PULSE 101; RESP 18; TEMP 36.8; O2SAT 99
[2025-07-10 15:03] VITALS: BP 119/83; PULSE 107; RESP 18; O2SAT 99
[2025-07-10 18:08] VITALS: BP 114/83; PULSE 96; RESP 18; TEMP 36.8; O2SAT 100
--- NOTE | 2025-07-10 18:13 | EKG_ITS ---
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
--- NOTE | 2025-07-10 18:13 | XR_ITS ---
Examination: AP portable chest single view Technique: AP upright portable chest single view. Date and time: July 10, 2025 1816 hrs., Comparison May 25, 2025. Indications: Chest pain beginning 2 days ago. Findings: Normal heart size. Lungs are clear. Mild osteopenia. Impression: No active disease.
--- NOTE | 2025-07-10 18:40 | EDNOTE_ITS ---
Emergency Room Addendum <Sis Saleh - Last Filed: 07/10/25 23:51> Addendum Narrative: I took over the care from previous shift physician at 6 PM on 07/10/2025. See previous notes for complete H & P and ED course. I reviewed all diagnostic test results. My interpretation of the EKG: NSR (96 bpm) with no ST-T changes. My interpretation of the chest x-ray is NAD. Covid/Influenza: Negative. Diagnoses include: Alcohol Abuse. Treatment here included IVF, Vitamin B-1 100 mg, Protonix 40 mg, Zofran 4 mg. Recommended outpatient care. Based on my best medical judgment, made decision no further evaluation or treatment indicated at this time. Patient understands and agrees to the discharge instructions customized and printed, see below. Discharge Instructions from Dr. Miranda printed for you: 1. To help prevent alcohol withdrawal, take Ativan 2 mg every 8 hours as prescribed. 2. To prevent serious and potentially fatal future injuries and illnesses, quit alcohol at all cost. 3. Eat regular nutritious meals. For good hydration, increase oral fluid and maintain clear urine. If dark or yellow, increase oral fluid. Zofran for nausea/vomiting. Cefdinir for UTI. 4. Take multivitamin and folic acid and thiamine every day as prescribed. 5. Take omeprazole every morning and famotidine every evening for alcohol induced stomach ulcer. 6. See a private doctor on 07/11/2025 for recheck and further care. Ask for help to quit alcohol without alcohol withdrawal. You may need more prescription for Ativan. Ask to review all test results and official radiology reports, to make sure you receive all necessary followups and monitoring. To make sure there is no serious intra-abdominal condition, ask for help with more investigation not available here in the ER. Such as EGD or scoping the stomach, colonoscopy or scoping the colon, and referral to see architectural design professor. 7. Seek immediate medical care with worsening or with any concerns. Anastacio Miranda MD <Anastacio Miranda MD - Last Filed: 07/11/25 01:44> Addendum Narrative: I took over the care from previous shift physician at 6 PM on 07/10/2025. See previous notes for complete H & P and ED course. I reviewed all diagnostic test results. My interpretation of the EKG: NSR (96 bpm) with no ST-T changes. My interpretation of the chest x-ray is NAD. Blood tests unremarkable, including negative serum alcohol level. UA showed leukocyte esterase and RBC and WBC and bacteria. Covid/Influenza: Negative. Diagnoses include: History of severe alcohol abuse High risk for alcohol withdrawal UTI Treatment from me here included: IVF, thiamine 100 mg IV, Protonix 40 mg IV, famotidine 2 mg IV, Zofran 4 mg, Rocephin 1 g IV, and diazepam 10 mg IV Patient remained stable. Prescribed Ativan to prevent alcohol withdrawal and recommended more outpatient care. Based on my best medical judgment, made decision no further evaluation or treatment indicated at this time. Patient understands and agrees to the discharge instructions customized and printed, see below. Discharge Instructions from Dr. Miranda printed for you: 1. To help prevent alcohol withdrawal, take Ativan 2 mg every 8 hours as prescribed. 2. To prevent serious and potentially fatal future injuries and illnesses, quit alcohol at all cost. 3. Eat regular nutritious meals. For good hydration, increase oral fluid and maintain clear urine. If dark or yellow, increase oral fluid. Zofran for nausea/vomiting. Cefdinir for UTI. 4. Take multivitamin and folic acid and thiamine every day as prescribed. 5. Take omeprazole every morning and famotidine every evening for alcohol induced stomach ulcer. 6. See a private doctor on 07/11/2025 for recheck and further care. Ask for help to quit alcohol without alcohol withdrawal. You may need more prescription for Ativan. Ask to review all test results and official radiology reports, to make sure you receive all necessary followups and monitoring. To make sure there is no serious intra-abdominal condition, ask for help with more investigation not available here in the ER. Such as EGD or scoping the stomach, colonoscopy or scoping the colon, and referral to see architectural design professor. 7. Seek immediate medical care with worsening or with any concerns. Anastacio Miranda MD
[2025-07-10 18:46] LABS: Basophils # (Auto) 0.0 Thou/mm3 (0.0-0.2); Basophils % (Auto) 1 % (0-2.5); Eosinophils # (Auto) 0.0 Thou/mm3 (0.0-0.5); Eosinophils % (Auto) 0 % (0-10); Hematocrit 26.7 % (36.0-46.0); Immature Granulocytes Auto 0.01 Thou/mm3 (0.00-0.00); Lymphocytes # (Auto) 1.5 Thou/mm3 (1.0-4.8); Lymphocytes % (Auto) 30 % (10-50); Mean Corpuscular HGB Conc 30.0 g/dl (31.0-37.0); Mean Corpuscular Hemoglobin 19.9 pg (25.0-35.0); Mean Corpuscular Volume 66 fL (80-100); Monocytes # (Auto) 0.6 Thou/mm3 (0.0-0.8); Monocytes % (Auto) 11 % (0-12); Neutrophils # (Auto) 2.8 Thou/mm3 (1.8-7.7); Neutrophils % (Auto) 58 % (37-80); Nucleated Red Blood Cell # 0.00 Thou/mm3 (0.00-0.00); Nucleated Red Blood Cell % 0 /100 WBC (0); Platelet Count 227 Thou/mm3 (140-440); RDW Standard Deviation 47.8 fL (36.4-46.3); Red Blood Count 4.02 Miln/mm3 (4.00-5.20); White Blood Count 4.9 Thou/mm3 (3.6-11.0)
[2025-07-10 18:57] LABS: INR 1.1 (0.9-1.3); Partial Thromboplastin Time 22.8 Seconds (22.0-36.0); Prothrombin Time 11.7 Seconds (9.0-12.2)
[2025-07-10 18:58] LABS: Hemoglobin 8.0 g/dL (12.0-16.0)
[2025-07-10 19:00] LABS: B-Type Natriuretic Peptide < 20 pg/mL (0-100)
[2025-07-10 19:14] LABS: HCG,Qualitative Serum Negative
[2025-07-10] MEDS: SODIUM CHLORIDE 0.9% 1000 ML 1,000 ML 999 ML IV ×2 (19:25→22:27)
[2025-07-10] MEDS: THIAMINE INJ 100 MG/ML VIAL 2 ML IVP (19:25)
[2025-07-10] MEDS: ONDANSETRON INJ 2 MG/ML INJ 2 ML 4 MG IVP (19:28)
[2025-07-10] MEDS: FAMOTIDINE INJ 10 MG/ML VIAL 2 ML 20 MG IVP (19:30)
[2025-07-10 21:06] LABS: Alanine Aminotransferase 21 U/L (10-49); Albumin, Serum 3.9 gm/dL (3.5-5.0); Albumin/Globulin Ratio 1.1 (1.2-2.2); Alcohol, Blood Medical < 3.0 mg/dL (0-10.0); Alkaline Phosphatase 111 U/L (46-116); Anion Gap 12 (7-16); Aspartate Amino Transferase 34 U/L (0-34); BUN/Creatinine Ratio 28 Ratio (12-20); Bilirubin,Total 1.0 mg/dL (0.3-1.2); Blood Urea Nitrogen 17 mg/dL (9-23); Calcium 9.0 mg/dL (8.3-10.6); Calcium (Corrected) 9.1 mg/dL (8.5-10.1); Carbon Dioxide 23.3 mMol/L (20.0-31.0); Chloride 103 mMol/L (98-107); Creatinine (Component) 0.6 mg/dL (0.6-1.3); Estimated Creatinine Clearance 116.6 mL/min (>60); Globulin 3.4 gm/dL (2.3-3.5); Glucose 81 mg/dL (74-106); Lipase 29 U/L (12-53); Magnesium 1.7 mg/dL (1.6-2.6); Osmolality,Calculated 276 (275-295); Potassium 4.1 mMol/L (3.4-5.1); Sodium 138 mMol/L (136-145); Total Protein 7.3 gm/dL (5.7-8.2); Troponin I < 0.002 ng/mL (0.0-0.045); eGFR > 60 See Note
[2025-07-10 21:18] LABS: Amylase 23 U/L (30-118)
[2025-07-10 21:24] VITALS: BP 151/100; PULSE 103; RESP 19; TEMP 37.3; O2SAT 99
[2025-07-10 21:28] LABS: Collection Type, Urine Clean Catch
[2025-07-10 21:43] LABS: Amphetamine/Methamp Scrn,U Negative (Negative); Bacteria,Urine 1+; Barbiturate Screen,Urine Negative (Negative); Benzodiazepines Screen,Urine Negative (Negative); Benzoylecgonine Screen, Ur Negative (Negative); Bilirubin,Urine Negative (Negative); Blood,Urine Negative (Negative); Clarity,Urine Clear (Clear/Hazy); Color,Urine Yellow (Lt Yel-Yel); Fentanyl Screen,Urine Negative (Negative); Glucose, Urine Negative (Negative); Hyaline Casts,Urine < 1 /hpf (0-1); Ketones,Urine 4+ (Negative); Leukocyte Esterase,Urine Positive (Negative); Nitrite,Urine Negative (Negative); Opiate Screen,Urine Negative (Negative); PH,Urine 6.5 (5.0-7.0); Protein,Urine 1+ (Neg - Trace); RBC,Urine 14 /hpf (0-3); Specific Gravity,Urine 1.035 (1.001-1.035); Squamous Epithelial Cell,Urine 5 /hpf (0-5); THC Screen,Urine Negative (Negative); Urobilinogen,Urine Negative mg/dL (0.0-1.0); WBC,Urine 2 /hpf (0-5)
[2025-07-10 22:02] LABS: Culture Indicated,Urine Yes
[2025-07-10] MEDS: DIAZEPAM INJ 5 MG/ML VIAL 2 ML 10 MG IVP (22:27)
[2025-07-10 22:29] VITALS: BP 122/85; PULSE 80; RESP 16; O2SAT 98
[2025-07-10] MEDS: cefTRIAXone/D5w 1gm IV premix 1 G/50 ML BAG IV (23:32)
[2025-07-11 00:57] VITALS: BP 118/80; PULSE 89; RESP 16; TEMP 37.4; O2SAT 98
== END 2025-07-11 00:58 | disposition home or self-care (01) ==
PROVIDERS: Emergency Medicine; Emergency Provider Emergency Medicine
DX: F10.10 Alcohol abuse, uncomplicated (principal); N39.0 Urinary tract infection, site not specified; Y90.0 Blood alcohol level of less than 20 mg/100 ml; R11.2 Nausea with vomiting, unspecified; R07.9 Chest pain, unspecified; K25.9 Gastric ulcer, unspecified as acute or chronic, without hemorrhage or perforation; B96.89 Other specified bacterial agents as the cause of diseases classified elsewhere
CPT/HCPCS: 36415; 71045; 80053; 80307; 80320; 81001; 82150; 83690; 83735; 83880; 84484; 84703; 85025; 85610; 85730; 87086; 87400; 87811; 93005; 96361; 96365; 96375; 99284; J0696; J2405; J2470; J3360; J3411; J3490; J7030; Q0162; A9270; G0480

== ENCOUNTER 2025-07-19 14:09 | Observation (INO) | payer MEDICAID, SELFPAY ==
[2025-07-19 14:44] VITALS: BP 136/99; PULSE 113; PULSE 122; RESP 16; RESP 20; TEMP 36.7; O2SAT 96; O2SAT 99; BMI 29.2
[2025-07-19 15:00] VITALS: PULSE 110
--- NOTE | 2025-07-19 15:28 | EKG_ITS ---
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1990 Requested By: Shelia Canales Order Number: [id number] Reading MD: Shelia Canales Measurements Intervals [place] Rate: 107 P: 79 [place]: 189 QRS: 68 QRSD: 79 T: 32 QT: 361 QTc: 484 Interpretive Statements SINUS TACHYCARDIA INDETERMINATE AXIS LOW QRS VOLTAGE IN PRECORDIAL LEADS [QRS DEFLECTION < 1.0 mV IN CHEST LEADS] POSSIBLE RIGHT VENTRICULAR CONDUCTION DELAY [RSR (QR) IN V1/V2] SEPTAL MYOCARDIAL INFARCTION , OF INDETERMINATE AGE [40+ ms Q WAVE IN V1/V2] Compared to ECG 07/10/2025 18:49:07 Indeterminate axis now present Low QRS voltage now present Myocardial infarct finding now present Sinus rhythm no longer present /store/S0/[id number]
--- NOTE | 2025-07-19 15:28 | XR_ITS ---
Examination: AP chest single view Technique one AP portable semiupright chest single view Date and time: July 19, 2025 1557 hours INDICATIONS: Coughing choking today. FINDINGS: Normal heart size. No aspiration pneumonia. No pulmonary edema. Mild osteopenia IMPRESSION: Negative for aspiration pneumonia
--- NOTE | 2025-07-19 15:34 | PD.EDALCOH ---
ED Alcohol RME/HPI General Chief Complaint: Alcohol Stated Complaint: ALCOHOL INTOXICATION Time Seen by Provider: 07/19/25 14:39 Arrival date/time: 07/19/25 14:09 RME / HPI RME / HPI narrative: Ms. Tinoco is a 35-year-old female with past medical history of alcohol use disorder, pancreatitis gastritis, H. pylori and esophagitis presented to [facility] ED 07/19/2025 with a chief complaint of not feeling well. Patient reports that she drinks alcohol daily, reports that her last drink was earlier this morning, reports drinking 2 bottles of wine daily, reports drinking about 1 bottle of wine earlier this morning. Patient seems intoxicated currently unable to provide history, patient just reports that she is feeling unwell denies any abdominal pain, complains of some nausea, tachycardic and mildly hypertensive. MD complaint: alcohol intoxication Last drink: Hours (ago) (Earlier this morning) Amount of alcohol consumed: About 1 bottle of wine Chronic alcohol use: Yes Previous visits for alcohol intoxication: Yes Recent trauma: No Associated symptoms: nausea and vomiting Treatments prior to arrival: none Related Data Previous Rx's ?Medication ?Instructions ?Recorded cefdinir 300 mg capsule 300 mg PO BID #14 caps 07/10/25 famotidine 40 mg tablet 40 mg PO .bedtime #30 tabs 07/10/25 folic acid 1 mg tablet 1 mg PO QDAY #90 tabs 07/10/25 lorazepam 2 mg tablet (Ativan) 2 mg PO Q8H #9 tabs 07/10/25 multivitamin 1 tab PO QDAY #90 tabs 07/10/25 omeprazole 40 mg capsule,delayed 40 mg PO QDAY #30 caps 07/10/25 release ondansetron 4 mg disintegrating 4 mg PO TID PRN nausea and 07/10/25 tablet vomiting 30 days #10 tabs thiamine HCl (vitamin B1) 50 mg 50 mg PO QDAY #90 tabs 07/10/25 tablet Allergies Allergy/AdvReac Type Severity Reaction Status Date / Time No Known Allergies Allergy Verified 07/19/25 14:48 Review of Systems Review of Systems ROS Unobtainable: unobtainable due to mental status (Currently intoxicated) Past Medical History Past Medical History GASTROINTESTINAL: Positive Ulcerative Colitis and Ulcer REPRODUCTIVE: Positive Previous Pregnancies HEMATOLOGIC: Positive Blood Disorders and Anemia PSYCHO/SOCIAL: Positive Anxiety Family History FAMILY HISTORY: Negative Family Psychiatric Problems, Family Respiratory Disorders, Family Cardiac Disorders, Family Gastrointestinal Problems, Family Cancer, Family Surgery or Family Anesthesia Reaction Surgical History SURGICAL: Negative Section Social History SMOKING STATUS: Never smoker SECOND HAND EXPOSURE: Yes ALCOHOL LAST INTAKE: Hours (ago) (Earlier this morning) ED Exam Narrative Physical exam: GENERAL APPEARANCE: alert and oriented x 3, acutely intoxicated, well-developed, well-nourished, no acute distress HEENT: Normocephalic, atraumatic; pupils equal, round, reactive to light; EOMI; mucous membranes pink, moist; oropharynx clear NECK: Supple LUNGS: CTABL; no wheezes, no rales, no rhonchi HEART: Sinus tachycardia; normal S1, S2; no murmurs ABDOMEN: non distended; normal BS; soft, no tenderness, no guarding, no rebound; no masses, no organomegaly, no hernia BACK: no CVA tenderness EXTREMITIES: atraumatic; no edema NEUROLOGIC: awake; alert and oriented x3; cranial nerves II-XII grossly intact; no focal sensory or motor deficits PSYCHIATRIC: appropriate mood and affect SKIN: warm, dry, normal color; no rashes Course Quality Measures none Orders Category Date Time Status [employer] Manager Q4H START 00 Care 07/19/25 15:31 Active Continuous Pulse Oximetry NOW Care 07/19/25 15:31 Completed EKG (ED ONLY) *Do not use* NOW Care 07/19/25 15:28 Completed Fingerstick [Bedside Blood Glucose] NOW Care 07/19/25 15:31 Active CXRP [XR chest 1V portable] Stat Exams 07/19/25 15:28 Completed EKG (ED Only) Stat Exams 07/19/25 15:28 Draft Alcohol, Blood Medical Stat Lab 07/19/25 15:01 Results CBC Stat Lab 07/19/25 15:01 Completed CMP [Comprehensive Metabolic Panel] Stat Lab 07/19/25 15:01 Results Drug Screen,Urine Stat Lab 07/19/25 15:27 Ordered HCG Qualitative,Urine Stat Lab 07/19/25 15:27 Ordered HCG,Qualitative Serum Stat Lab 07/19/25 15:01 Results INR [Prothrombin Time with INR] Stat Lab 07/19/25 15:01 Completed Magnesium Stat Lab 07/19/25 15:01 Results PTT [Partial Thromboplastin Time] Stat Lab 07/19/25 15:01 Completed Phosphorous Stat Lab 07/19/25 15:01 Results Urinalysis, C/S if Indicated Stat Lab 07/19/25 15:27 Ordered Folic Acid Inj Med 07/19/25 15:30 Discontinued 1 mg IVP X1 ONE Magnesium Sulfate 2 GM Ivpb [Magnesium Sulfate Ivpb] Med 07/19/25 15:30 Discontinued 2 gm in 50 ml IV X1 Ondansetron Inj [Zofran Inj] Med 07/19/25 15:29 Discontinued 4 mg IVP X1 ONE Pantoprazole Inj [Protonix Inj] Med 07/19/25 15:29 Discontinued 40 mg IVP X1 ONE Ringers Lactated 1000 ml [Lactated Ringers] 1,000 ml Med 07/19/25 15:30 Discontinued IV 999 mls/hr Thiamine Inj [Vitamin B-1 Inj] Med 07/19/25 15:30 Discontinued 100 mg IVP X1 ONE Vital Signs Vital signs: Vital Signs Temperature 98.1 F 07/19/25 14:44 Pulse Rate 113 H 07/19/25 14:44 Respiratory Rate 20 07/19/25 14:44 Blood Pressure 136/99 H 07/19/25 14:44 Pulse Oximetry (%) 96 07/19/25 14:44 Oxygen Delivery Method Room Air 07/19/25 14:44 Discharge Plan Prescriptions/Referrals Prescriptions/Med Rec: No Action multivitamin Tablet 1 tab PO QDAY Qty: 90 3RF famotidine 40 mg tablet 40 mg PO .bedtime Qty: 30 0RF omeprazole 40 mg capsule,delayed release(DR/EC) 40 mg PO QDAY Qty: 30 0RF lorazepam [Ativan] 2 mg tablet 2 mg PO Q8H Qty: 9 0RF folic acid 1 mg tablet 1 mg PO QDAY Qty: 90 3RF ondansetron 4 mg tablet,disintegrating 4 mg PO TID PRN (Reason: nausea and vomiting) 30 Days Qty: 10 0RF cefdinir 300 mg capsule 300 mg PO BID Qty: 14 0RF thiamine HCl (vitamin B1) 50 mg tablet 50 mg PO QDAY Qty: 90 1RF Referrals: No Primary/Family,Physician [Primary Care Provider] - In 1 week Problem List Clinical Impression: Alcoholic intoxication Patient/Caregiver Discharge Instructions Print Language: Ukrainian Attestation Attestation I, Dr. Anguiano, have reviewed the history, exam, and assessment of the patient. I have evaluated the patient independently and agree with the plan of care documented by Dr. Canales. All diagnostic studies were reviewed and discussed. I confirm the diagnosis as documented by the Resident. I was present during the Medical Decision Making for this patient. The patient's plan of care was created between myself and the Resident and consistent with our discussion of the patient's case. Alcohol MDM Narrative MDM Narrative: #Acute alcohol intoxication #Alcohol use disorder Chief complaint of not feeling well. Patient reports that she drinks alcohol daily, reports that her last drink was earlier this morning, reports drinking 2 bottles of wine daily, reports drinking about 1 bottle of wine earlier this morning. Patient seems intoxicated currently unable to provide history, patient just reports that she is feeling unwell denies any abdominal pain, complains of some nausea, tachycardic and mildly hypertensive. CBC shows hemoglobin 8.9, hematocrit 29.9, MCV 68, MCH 20.1, MCHC 29.8, RDW 49.6 CMP pending, INR 1.0 normal, APTT 20.8 Chest x-ray negative for aspiration pneumonia, EKG pending Patient was given 1 mg IV folic acid, Zofran 4 mg IV x 1, thiamine 100 mg IV x 1, pantoprazole 40 mg IV x 1, magnesium sulfate 2 g, lactate 1 L bolus Signed off to Night ED Physician, labs pending Case discussed with Attending Physician Dr. Silvio Canales MD Internal Medicine PGY-2 Disclaimer: This note was dictated by speech recognition. Minor errors in skin washer may be present due to voice recognition software. Patient data External records reviewed:: [facility] previous records Clinical information provided by:: patient Social determinants that could affect healthcare access:: alcohol use Patient has the following chronic illnesses:: As Above How is presenting disease/condition affected by chronic disease/condition?: exacerbated by Evaluation data The following diagnostics were reviewed and interpreted by me:: lab results and radiology exam(s) Lab and/or radiology exams considered but not ordered:: None Interpretation Summary: CBC shows hemoglobin 8.9, hematocrit 29.9, MCV 68, MCH 20.1, MCHC 29.8, RDW 49.6 CMP pending, INR 1.0 normal, APTT 20.8 Chest x-ray negative for aspiration pneumonia, EKG pending Medications / Prescriptions Medications or Prescriptions considered but not ordered:: Not applicable Medication administrations:: Medication Administration History Discontinued Medications Folic Acid (Folic Acid Inj 1 Mg/0.2 Ml) 1 mg IVP X1 ONE Stop: 07/19/25 15:31 Last Admin: 07/19/25 15:58 Dose: 1 mg Documented By: GM Magnesium Sulfate (Magnesium Sulfate Ivpb) 2 gm in 50 mls @ 25 mls/hr IV X1 ONE Stop: 07/19/25 17:29 Last Admin: 07/19/25 16:11 Dose: 25 mls/hr Documented By: GM Lactated Ringer's (Lactated Ringers) 1,000 mls @ 999 mls/hr IV .Q1H1M ONE Stop: 07/19/25 16:30 Last Infusion: 07/19/25 17:21 Dose: Infused Documented By: Admin: 07/19/25 16:12 Dose: 999 mls/hr Documented By: Ondansetron HCl (Ondansetron Inj 2 Mg/Ml Inj 2 Ml) 4 mg IVP X1 ONE; Protocol Stop: 07/19/25 15:30 Last Admin: 07/19/25 16:01 Dose: 4 mg Documented By: Pantoprazole Sodium (Pantoprazole Inj 40 Mg Vial) 40 mg IVP X1 ONE Stop: 07/19/25 15:30 Last Admin: 07/19/25 16:07 Dose: 40 mg Documented By: Thiamine HCl (Thiamine Inj 100 Mg/Ml Vial 2 Ml) 100 mg IVP X1 ONE Stop: 07/19/25 15:31 Last Admin: 07/19/25 16:03 Dose: 100 mg Documented By: As above Consultations Consultation(s) initiated? (list below): No Diagnosis Differential diagnosis alcohol: alcohol intoxication and alcohol withdrawal syndrome Most likely diagnosis given after review of the tests above:: Alcohol intoxication Admission Indicated Admission indicated?: not indicated Admission Request Was there a request for admission?: No Disposition Plan Disposition Plan: other (specify) (Will be signed out to night ED physician pending CMP and EKG.)
[2025-07-19] MEDS: FOLIC ACID INJ 1 MG/0.2 ML IVP (15:58)
[2025-07-19] MEDS: ONDANSETRON INJ 2 MG/ML INJ 2 ML 4 MG IVP ×2 (16:01→20:20)
[2025-07-19] MEDS: THIAMINE INJ 100 MG/ML VIAL 2 ML IVP (16:03)
[2025-07-19] MEDS: Magnesium Sulfate 2 GM Ivpb 2 GM/50 ML BAG IV (16:11)
[2025-07-19] MEDS: RINGERS LACTATED 1000 ML 1,000 ML 999 ML IV (16:12)
[2025-07-19 16:18] LABS: Basophils # (Auto) 0.0 Thou/mm3 (0.0-0.2); Basophils % (Auto) 1 % (0-2.5); Eosinophils # (Auto) 0.0 Thou/mm3 (0.0-0.5); Eosinophils % (Auto) 0 % (0-10); Hematocrit 29.9 % (36.0-46.0); Hemoglobin 8.9 g/dL (12.0-16.0); Immature Granulocytes Auto 0.02 Thou/mm3 (0.00-0.00); Lymphocytes # (Auto) 1.5 Thou/mm3 (1.0-4.8); Lymphocytes % (Auto) 28 % (10-50); Mean Corpuscular HGB Conc 29.8 g/dl (31.0-37.0); Mean Corpuscular Hemoglobin 20.1 pg (25.0-35.0); Mean Corpuscular Volume 68 fL (80-100); Monocytes # (Auto) 0.3 Thou/mm3 (0.0-0.8); Monocytes % (Auto) 5 % (0-12); Neutrophils # (Auto) 3.4 Thou/mm3 (1.8-7.7); Neutrophils % (Auto) 65 % (37-80); Nucleated Red Blood Cell # 0.00 Thou/mm3 (0.00-0.00); Nucleated Red Blood Cell % 0 /100 WBC (0); Platelet Count 228 Thou/mm3 (140-440); RDW Standard Deviation 49.6 fL (36.4-46.3); Red Blood Count 4.43 Miln/mm3 (4.00-5.20); White Blood Count 5.2 Thou/mm3 (3.6-11.0)
[2025-07-19 16:31] LABS: HCG,Qualitative Serum Negative
[2025-07-19 16:36] LABS: INR 1.0 (0.9-1.3); Partial Thromboplastin Time 20.8 Seconds (22.0-36.0); Prothrombin Time 11.0 Seconds (9.0-12.2)
[2025-07-19 16:50] LABS: Alanine Aminotransferase 20 U/L (10-49); Albumin, Serum 4.3 gm/dL (3.5-5.0); Albumin/Globulin Ratio 1.3 (1.2-2.2); Alkaline Phosphatase 121 U/L (46-116); Anion Gap 18 (7-16); Aspartate Amino Transferase 30 U/L (0-34); BUN/Creatinine Ratio 10 Ratio (12-20); Bilirubin,Total 0.4 mg/dL (0.3-1.2); Blood Urea Nitrogen 6 mg/dL (9-23); Calcium 9.2 mg/dL (8.3-10.6); Calcium (Corrected) 9.2 mg/dL (8.5-10.1); Carbon Dioxide 23.3 mMol/L (20.0-31.0); Chloride 104 mMol/L (98-107); Creatinine (Component) 0.6 mg/dL (0.6-1.3); Estimated Creatinine Clearance 118.4 mL/min (>60); Globulin 3.4 gm/dL (2.3-3.5); Glucose 99 mg/dL (74-106); Magnesium 2.1 mg/dL (1.6-2.6); Osmolality,Calculated 286 (275-295); Phosphorous 3.6 mg/dL (2.4-5.1); Potassium 3.4 mMol/L (3.4-5.1); Sodium 145 mMol/L (136-145); Total Protein 7.7 gm/dL (5.7-8.2); eGFR > 60 See Note
[2025-07-19 18:03] LABS: Alcohol, Blood Medical 449.6 mg/dL (0-10.0)
--- NOTE | 2025-07-19 18:07 | PD.EDADDENDU ---
Emergency Room Addendum <Aleja Harmon - Last Filed: 07/20/25 05:07> Addendum Narrative: I took over the care from Dr. Canales, attending Dr. Anguiano at 6 PM on 07/19/2025, see his notes for complete H&P and ED course. I reviewed all diagnostic test results. At this point, diagnoses include: Alcohol withdrawal Treatment here included: IV fluid Zofran Valium 10mg IVP I discussed the case with our hospitalist. About the presentation and exam and diagnostics and treatments here. And need of further care in the hospital. Will accept the patient. Anastacio Miranda MD <Anastacio Miranda MD - Last Filed: 07/20/25 05:12> Addendum Narrative: I took over the care from Dr. Canales, attending Dr. Anguiano, at 6 PM on 07/19/2025, see his notes for complete H&P and ED course. I reviewed all diagnostic test results. At this point, diagnoses include: Alcohol intoxication at presentation Alcohol withdrawal as EtOH level decreased I discussed the case with our hospitalist. About the presentation and exam and diagnostics and treatments here. And need of further care in the hospital. Will accept the patient. Anastacio Miranda MD
[2025-07-19 18:24] VITALS: BP 118/74; PULSE 106; RESP 14; TEMP 36.7; O2SAT 97
[2025-07-19 19:19] LABS: Collection Type, Urine Clean Catch
[2025-07-19 19:28] VITALS: BP 114/85; PULSE 100; RESP 18; O2SAT 97
[2025-07-19 19:30] LABS: Amphetamine/Methamp Scrn,U Negative (Negative); Barbiturate Screen,Urine Negative (Negative); Benzodiazepines Screen,Urine Negative (Negative); Benzoylecgonine Screen, Ur Negative (Negative); Fentanyl Screen,Urine Negative (Negative); Opiate Screen,Urine Negative (Negative); THC Screen,Urine Negative (Negative)
[2025-07-19 19:31] LABS: Bacteria,Urine Rare; Bilirubin,Urine Negative (Negative); Blood,Urine Negative (Negative); Clarity,Urine Clear (Clear/Hazy); Color,Urine Colorless (Lt Yel-Yel); Culture Indicated,Urine Not Indicated; Glucose, Urine Negative (Negative); Ketones,Urine Negative (Negative); Leukocyte Esterase,Urine Negative (Negative); Nitrite,Urine Negative (Negative); PH,Urine 6.5 (5.0-7.0); Protein,Urine Negative (Neg - Trace); RBC,Urine 1 /hpf (0-3); Specific Gravity,Urine 1.008 (1.001-1.035); Squamous Epithelial Cell,Urine < 1 /hpf (0-5); Urobilinogen,Urine Negative mg/dL (0.0-1.0); WBC,Urine < 1 /hpf (0-5)
[2025-07-19] MEDS: RINGERS LACTATED 1000 ML 1,000 ML 100 ML IV (20:21)
[2025-07-19 20:34] LABS: Amylase 46 U/L (30-118)
[2025-07-19 20:36] LABS: HCG Qualitative,Urine Negative
[2025-07-19 21:23] VITALS: BP 115/84; PULSE 105; RESP 18; O2SAT 100
[2025-07-19 23:41] VITALS: BP 130/73; PULSE 110; RESP 20; TEMP 37.1; O2SAT 97
[2025-07-20] VITALS (10 sets, daily range): BP systolic 113–140; BP diastolic 75–94; PULSE 88–117; RESP 15–18; TEMP 36.3–36.9; O2SAT 96–99
[2025-07-20 00:32] LABS: Lipase 55 U/L (12-53)
[2025-07-20] MEDS: DIAZEPAM INJ 5 MG/ML VIAL 2 ML 10 MG IVP (02:07)
[2025-07-20 04:13] LABS: Alcohol, Blood Medical 51.3 mg/dL (0-10.0); Anion Gap 12 (7-16); BUN/Creatinine Ratio 12 Ratio (12-20); Blood Urea Nitrogen 6 mg/dL (9-23); Calcium 8.4 mg/dL (8.3-10.6); Carbon Dioxide 24.2 mMol/L (20.0-31.0); Chloride 107 mMol/L (98-107); Creatinine (Component) 0.5 mg/dL (0.6-1.3); Estimated Creatinine Clearance 142.1 mL/min (>60); Glucose 74 mg/dL (74-106); Osmolality,Calculated 281 (275-295); Potassium 4.0 mMol/L (3.4-5.1); Sodium 143 mMol/L (136-145); eGFR > 60 See Note
--- NOTE | 2025-07-20 05:00 | ESHP_ITS ---
<Statement entered by Marvin Calles MD - 07/20/25 05:26> I have discussed and was present for the essential components of the history, physical examination, diagnosis, and treatment plan with the resident. I agree with the patient's care as documented by the resident and amended herein by me. Marvin Calles MD FACP. Documentation for date of: 07/20/25 HPI History of Present Illness History of present illness: A 35-year-old female with a history of alcohol use disorder, pancreatitis, gastritis, H. pylori, and esophagitis presented to the [facility] ED on 07/19/2025 with a chief complaint of feeling unwell. The patient reports daily alcohol consumption, with her last drink earlier this morning. She states she typically drinks two bottles of wine daily, and had consumed about one bottle earlier today. The patient appears intoxicated and is unable to provide a detailed history, only mentioning that she feels unwell. She denies any abdominal pain but complains of mild nausea. On examination, she is tachycardic and mildly hypertensive. The patient reports heavy alcohol consumption, drinking three bottles of white wine in the past three days. She also mentions significant life stress, including recently from her . Her alcohol intake prior to this episode was about 1?2 glasses of wine per day. She denies smoking or drug use. Family history is unremarkable. In the ED, her vital signs showed tachycardia. Lab work indicated anemia and mild elevations in liver enzymes and lipase, suggesting chronic pancreatitis. She received IV fluids, ibuprofen, and lorazepam. She was admitted for alcohol withdrawal. Past Medical History: * As above. Past Surgical History: * None. Medications: * LANSOPRAZOLE 30 mg BID, bismuth subcit [id number] 140-125-125 mg capsule. Allergies: * NKA. Family History: * Noncontributory. Social History: * Lives at home. She has 2 kids but they live with her . Currently not working. Lots of stressors in life, recently from since December of this year[place] Prior to this week patient was drinking approximately 1 to 2 glasses of wine per day. No smoking, no drug use history. Reason for admission: Alcohol withdrawal with moderate CIWA. Exam Vital Signs Temp Pulse Resp BP Pulse Ox O2 Del Method 98.5 F 91 18 113/76 96 Room Air 07/20/25 01:51 07/20/25 04:07 07/20/25 04:07 07/20/25 04:07 07/20/25 04:07 07/20/25 04:07 Narrative Exam GENERAL APPEARANCE: alert and oriented x 4, well-developed, moderate CIWA HEENT: Normocephalic, atraumatic; pupils equal, round, reactive to light; EOMI; mucous membranes pink, moist; oropharynx clear NECK: Supple LUNGS: CTABL; no wheezes, no rales, no rhonchi HEART: Regular rate, regular rhythm; normal S1, S2; no murmurs ABDOMEN: non distended; normal BS; soft, no tenderness, no guarding, no rebound; no masses, no organomegaly, no hernia BACK: no CVA tenderness EXTREMITIES: atraumatic; no edema NEUROLOGIC: awake; alert and oriented x4; cranial nerves II-XII grossly intact; no focal sensory or motor deficits PSYCHIATRIC: appropriate mood and affect SKIN: warm, dry, normal color; no rashes Results: Labs 07/19/25 15:01 07/20/25 03:40 Labs: Short CBC 07/19/25 Range/Units 15:01 WBC 5.2 (3.6-11.0) Thou/mm3 Hgb 8.9 L (12.0-16.0) g/dL Hct 29.9 L (36.0-46.0) % Plt Count 228 (140-440) Thou/mm3 BMP 07/19/25 07/20/25 15:01 03:40 Sodium 145 143 Potassium 3.4 4.0 D Chloride 104 107 Carbon Dioxide 23.3 24.2 BUN 6 L 6 L Creatinine 0.6 0.5 L Glucose 99 74 Calcium 9.2 8.4 Liver Function 07/19/25 Range/Units 15:01 Total Bilirubin 0.4 (0.3-1.2) mg/dL AST 30 (0-34) U/L ALT 20 (10-49) U/L Alkaline Phosphatase 121 H (46-116) U/L Albumin 4.3 (3.5-5.0) gm/dL Urine 07/19/25 Range/Units 19:06 Urine Color Colorless A (Lt Yel-Yel) Urine Clarity Clear (Clear/Hazy) Urine pH 6.5 (5.0-7.0) Ur Specific [place] 1.008 (1.001-1.035) Urine Protein Negative (Neg - Trace) Urine Glucose (UA) Negative (Negative) Quality Measures Quality Measures none Medications Home Medications and Allergies Allergies Allergy/AdvReac Type Severity Reaction Status Date / Time No Known Allergies Allergy Verified 07/19/25 14:48 Visit Medications Lactated Ringer's (Lactated Ringers) 1,000 mls @ 100 mls/hr IV .Q10H ONE Stop: 07/20/25 05:55 Last Infusion: 07/20/25 04:57 Dose: Infused Discontinued Medications Diazepam (Diazepam Inj 5 Mg/Ml Vial 2 Ml) 10 mg IVP X1 ONE Stop: 07/20/25 01:54 Last Admin: 07/20/25 02:07 Dose: 10 mg Folic Acid (Folic Acid Inj 1 Mg/0.2 Ml) 1 mg IVP X1 ONE Stop: 07/19/25 15:31 Last Admin: 07/19/25 15:58 Dose: 1 mg Magnesium Sulfate (Magnesium Sulfate Ivpb) 2 gm in 50 mls @ 25 mls/hr IV X1 ONE Stop: 07/19/25 17:29 Last Infusion: 07/19/25 18:24 Dose: Infused Lactated Ringer's (Lactated Ringers) 1,000 mls @ 999 mls/hr IV .Q1H1M ONE Stop: 07/19/25 16:30 Last Infusion: 07/19/25 17:21 Dose: Infused Ondansetron HCl (Ondansetron Inj 2 Mg/Ml Inj 2 Ml) 4 mg IVP X1 ONE; Protocol Stop: 07/19/25 15:30 Last Admin: 07/19/25 16:01 Dose: 4 mg Ondansetron HCl (Ondansetron Inj 2 Mg/Ml Inj 2 Ml) 4 mg IVP X1 ONE; Protocol Stop: 07/19/25 19:57 Last Admin: 07/19/25 20:20 Dose: 4 mg Pantoprazole Sodium (Pantoprazole Inj 40 Mg Vial) 40 mg IVP X1 ONE Stop: 07/19/25 15:30 Last Admin: 07/19/25 16:07 Dose: 40 mg Thiamine HCl (Thiamine Inj 100 Mg/Ml Vial 2 Ml) 100 mg IVP X1 ONE Stop: 07/19/25 15:31 Last Admin: 07/19/25 16:03 Dose: 100 mg Assessment & Plan Plan 35-year-old female with a history of anemia, gastritis, esophagitis and alcohol use disorder, H. pylori incomplete treatment admitted for alcohol withdrawal management. Alcohol withdrawal Alcohol use disorder Alcohol dependency since 3 years ago, drinks about a box of wine daily. State has been drinking more that usual lately. Wants to quit drinking but unable to, going thru divorce currently. Has multiple admission for same symptoms. Denies chest pain or sob. CIWA score moderate, denies hallucination. ? CIWA protocol ? Seizure precautions ? Consultation given, states motivated to quit ? Refer to secondary social studies teacher ? THIAMINE 100 mg IV BID Isolated Elevated Lipase Likely chronic pancreatitis, currently asymptomatic, low concern for acute pancreatitis. ? LR maintanance at 10 cc/h ? Monitor for worsening symptoms History of H. pylori?incomplete eradication Patient did not complete H. pylori antibiotic course last month ? Patient is currently n.p.o. ? Will resume antibiotics for eradication once out of n.p.o. ? PROTONIX 40 mg twice daily Anemia Likely iron deficiency Patient states has a history of iron deficiency anemia Plan ? Follow-up on iron panel ? Trend CBC Health Maintenance: Diet: N.p.o. GI prophylaxis: PROTONIX DVT prophylaxis: None as Bebo score 0 Antibiotics: None at this stage CODE STATUS: Full Disposition: Tele Case was discussed with attending physician. Ama Richardson DO PGY II This document was transcribed using voice recognition technology. Minor inaccuracies may be present. Attending Provider Attestation/Addendum 35-year-old female with alcohol use disorder admitted for epigastric pain radiating to her back. The patient has pancreatitis. She has history of H. pylori infection. She is also being admitted for alcohol withdrawal symptoms. I discussed with and supervised the resident physician who took care of this patient. I agree with the assessment and plan as above.
[2025-07-20] MEDS: RINGERS LACTATED 1000 ML 1,000 ML 125 ML IV (05:14)
[2025-07-20 06:21] LABS: Basophils # (Auto) 0.0 Thou/mm3 (0.0-0.2); Basophils % (Auto) 0 % (0-2.5); Eosinophils # (Auto) 0.1 Thou/mm3 (0.0-0.5); Eosinophils % (Auto) 2 % (0-10); Hematocrit 26.0 % (36.0-46.0); Immature Granulocytes Auto 0.01 Thou/mm3 (0.00-0.00); Lymphocytes # (Auto) 1.4 Thou/mm3 (1.0-4.8); Lymphocytes % (Auto) 41 % (10-50); Mean Corpuscular HGB Conc 30.0 g/dl (31.0-37.0); Mean Corpuscular Hemoglobin 20.1 pg (25.0-35.0); Mean Corpuscular Volume 67 fL (80-100); Monocytes # (Auto) 0.4 Thou/mm3 (0.0-0.8); Monocytes % (Auto) 13 % (0-12); Neutrophils # (Auto) 1.5 Thou/mm3 (1.8-7.7); Neutrophils % (Auto) 44 % (37-80); Nucleated Red Blood Cell # 0.00 Thou/mm3 (0.00-0.00); Nucleated Red Blood Cell % 0 /100 WBC (0); Platelet Count 191 Thou/mm3 (140-440); RDW Standard Deviation 49.1 fL (36.4-46.3); Red Blood Count 3.88 Miln/mm3 (4.00-5.20); White Blood Count 3.4 Thou/mm3 (3.6-11.0)
[2025-07-20 06:22] LABS: Hemoglobin 7.8 g/dL (12.0-16.0)
[2025-07-20 06:42] LABS: Alanine Aminotransferase 16 U/L (10-49); Albumin, Serum 3.8 gm/dL (3.5-5.0); Albumin/Globulin Ratio 1.2 (1.2-2.2); Alkaline Phosphatase 110 U/L (46-116); Anion Gap 10 (7-16); Aspartate Amino Transferase 26 U/L (0-34); BUN/Creatinine Ratio 12 Ratio (12-20); Bilirubin,Total 0.7 mg/dL (0.3-1.2); Blood Urea Nitrogen 7 mg/dL (9-23); Calcium 8.9 mg/dL (8.3-10.6); Calcium (Corrected) 9.1 mg/dL (8.5-10.1); Carbon Dioxide 25.8 mMol/L (20.0-31.0); Chloride 106 mMol/L (98-107); Creatinine (Component) 0.6 mg/dL (0.6-1.3); Estimated Creatinine Clearance 118.4 mL/min (>60); Globulin 3.1 gm/dL (2.3-3.5); Glucose 77 mg/dL (74-106); Magnesium 2.0 mg/dL (1.6-2.6); Osmolality,Calculated 280 (275-295); Phosphorous 3.1 mg/dL (2.4-5.1); Potassium 3.7 mMol/L (3.4-5.1); Sodium 142 mMol/L (136-145); Total Protein 6.9 gm/dL (5.7-8.2); eGFR > 60 See Note
--- NOTE | 2025-07-20 08:07 | PC.NURSE ---
Current CIWA 8, cannot medicate at this time. pt. already medicated by used car managerJose Antonio Gaming
[2025-07-20 08:53] LABS: Iron 46 mcg/dL (50-170); Percent Iron Saturation 10 % (20-55); Total Iron Binding Capacity 447 mcg/dL (250-425)
[2025-07-20 08:54] LABS: Ferritin 11 ng/mL (7.3-270.7); Unsaturated Iron Binding 401 (225-295)
[2025-07-20] MEDS: DOCUSATE SOD 100 MG CAPSULE PO ×2 (09:37→21:17)
[2025-07-20] MEDS: THIAMINE INJ 100 MG/ML VIAL 2 ML IVP ×2 (09:37→21:17)
--- NOTE | 2025-07-20 09:45 | PC.NURSE ---
Pt. has Plan B pill at bedside. pt. asking if she can take it now. Per Dr. Michelle tell her no for now, we will be at bedside to see pt. in a few hours and will discuss it then.
--- NOTE | 2025-07-20 10:56 | PC.SS ---
Patient Mary Jo Tinoco is a 35-year-old female admitted to Med Surg for Alcohol Withdrawal. SS met with patient at bedside to contact with patient to complete initial assessment and to discuss discharge planning. Role and reason explained. Patient confirmed demographic information. Patient identifies Rowdy Lynch [phone] as her surrogate decision maker. Pt states she is able to complete all ADL?s independently. No need for any source of DME. Pts PCP is Mariusz Ferrell. Pharmacy of choice is [facility]. Discharge options discussed and the pt wishes to return home. AOD resources provided, patient is receptive to ETOH resources. Patient reports regular wine consumption with episodes of binge drinking. SS provided Community resources for patient. No further intervention required at this time. Patient reports she will need assistance with transportation. social media assistant would be available to address any further concerns. DC Plan: Home Contact: Rowdy PCP: Mariusz
--- NOTE | 2025-07-20 11:41 | PC.NURSE ---
Pt. 1130 bedside glucose reading was 530. Dr. Cassidy aware, pt. given sliding scale 4 units due to pt. history of glucose suddenly dropping. Dr. Cassidy orders to give 4 units sliding scale but recheck glucose in 1 hour and notify of result.
--- NOTE | 2025-07-20 12:03 | ESPR_ITS ---
<Statement entered by Shandra Curry MD - 07/20/25 17:07> Patient seen and examined at bedside. No acute overnight events reported. Patient CIWA score has been around 8 in last 24 hours. Urine test was negative however is concerned about possible in the future, and Plan B which she brought with her. Will have patient take a one-time dose of Plan B. Continue to monitor patient's hemoglobin and follow-up FOBT and stool H. pylori antigen. Dissipate discharge within 24 to 48 hours. I discussed with and supervised the unpaid intern physician who took care of this patient. I personally saw and examined the patient and discussed the assessment and plan with the entire medicine team, including my attending Dr. Gonzalez, I agree with most of the assessment and plan as documented below Shandra Curry M.D. PGY-3 Disclaimer: Despite multiple revisions, due to the dictation software being used, the document bellow may not be free of grammatical errors including phonetic/typographic errors. However, this does not deter from our commitment to providing health care in the patient's best interest in mind. Documentation for date of: 07/20/25 Subjective Subjective Interval history: A 35-year-old female with a history of alcohol use disorder, pancreatitis, gastritis, H. pylori, and esophagitis presented to the [facility] ED on 07/19/2025 with a chief complaint of feeling unwell. The patient reports daily alcohol consumption, with her last drink earlier this morning. She states she typically drinks two bottles of wine daily, and had consumed about one bottle earlier today. The patient appears intoxicated and is unable to provide a detailed history, only mentioning that she feels unwell. She denies any abdominal pain but complains of mild nausea. On examination, she is tachycardic and mildly hypertensive. The patient reports heavy alcohol consumption, drinking three bottles of white wine in the past three days. She also mentions significant life stress, including recently from her . Her alcohol intake prior to this episode was about 1?2 glasses of wine per day. She denies smoking or drug use. Family history is unremarkable. In the ED, her vital signs showed tachycardia. Lab work indicated anemia and mild elevations in liver enzymes and lipase, suggesting chronic pancreatitis. She received IV fluids, ibuprofen, and lorazepam. She was admitted for alcohol withdrawal. * Lives at home. She has 2 kids but they live with her . Currently not working. Lots of stressors in life, recently from since December of this year. [place] Prior to this week patient was drinking approximately 1 to 2 glasses of wine per day. No smoking, no drug use history. 07/20/2025: patient seen and examined at bedside. her mood is slighly depressed, she endorses feeling tremulous. She states that she has had unprotected sex in the past 24 hrs prior to presenting to the ED. (plan to give plan B that patient has today), Urine test negative upon admission. Hgb is low 7.8, pt states that she occationally takes iron supplements at home, she denies having heavy menses. She endorses having blood tinged stool intermittently that is red and mixed into the stool. she reports history of gastric ulcers seen on EGD (april 2025). CIWA 8, last drink was 07/19 prior to presenting to the ED. pending fobt, pending stool hpylori antigen Exam Vital Signs Temp Pulse Resp BP Pulse Ox O2 Del Method 97.7 F 105 H 16 133/81 H 99 Room Air 07/20/25 07:45 07/20/25 09:37 07/20/25 07:45 07/20/25 07:45 07/20/25 07:45 07/20/25 07:45 Narrative Exam GENERAL: no acute distress, AAO x3, comfortably laying in bed HEENT: Head AT/ NC. Mucous membranes dry. PERRL. , no tongue fasiculations appreciated on exam NECK: Supple, no lymphadenopathy, no carotid bruits. CARDIOVASCULAR: RRR. Normal S1/S2, No m/r/g. No pitting edema of bilateral LEs. RESPIRATORY: CTAB. No wheezing, rhonchi, crackles. GASTROINTESTINAL: Abdomen soft, mild epigastric tenderness. no rebound, no guarding. no palpable masses. Bowel sounds present MUSCULOSKELETAL:? No cyanosis or edema, no visible joint swelling. NEUROLOGICAL: CN II-XII grossly intact. No focal deficits. Sensation intact, symmetric. some mild tremors in BUE PSYCHIATRIC: Awake and alert, not agitated, depressed mood and affect , SKIN: No obvious rashes, no jaundice, normal turgor. Objective Labs 07/20/25 15:10 07/20/25 05:58 Labs: Laboratory Results - last 24 hr 07/19/25 07/19/25 07/20/25 15:01 19:06 03:40 WBC 5.2 RBC 4.43 Hgb 8.9 L Hct 29.9 L MCV 68 L MCH 20.1 L MCHC 29.8 L RDW Std Deviation 49.6 H Plt Count 228 Neut % (Auto) 65 Lymph % (Auto) 28 [place] % (Auto) 5 Eos % (Auto) 0 Baso % (Auto) 1 Neut # (Auto) 3.4 Lymph # (Auto) 1.5 [place] # (Auto) 0.3 Eos # (Auto) 0.0 Baso # (Auto) 0.0 Immature Gran # (Auto) 0.02 H Absolute Nucleated RBC 0.00 Immature Gran % 0 Nucleated RBC % 0 PT 11.0 INR 1.0 APTT 20.8 L Sodium 145 143 Potassium 3.4 4.0 D Chloride 104 107 Carbon Dioxide 23.3 24.2 Anion Gap 18 H 12 BUN 6 L 6 L Creatinine 0.6 0.5 L Estim Creat Clear Calc 118.4 142.1 eGFR > 60 > 60 BUN/Creatinine Ratio 10 L 12 Glucose 99 74 Calculated Osmolality 286 281 Calcium 9.2 8.4 Corrected Calcium 9.2 Phosphorus 3.6 Magnesium 2.1 Iron TIBC Iron Saturation Unsat Iron Binding Ferritin Total Bilirubin 0.4 AST 30 ALT 20 Alkaline Phosphatase 121 H Total Protein 7.7 Albumin 4.3 Globulin 3.4 Albumin/Globulin Ratio 1.3 Amylase 46 Lipase 55 H HCG, Qual Negative Ur Collection Type Clean Catch Urine Color Colorless A Urine Clarity Clear Urine pH 6.5 Ur Specific Abrams 1.008 Urine Protein Negative Urine Glucose (UA) Negative Urine Ketones Negative Urine Blood Negative Urine Nitrite Negative Urine Bilirubin Negative Urine Urobilinogen (Auto) Negative Ur Leukocyte Esterase Negative Urine RBC 1 Urine WBC < 1 Ur Squamous Epith Cells < 1 Urine Bacteria Rare Ur Culture Indicated? Not Indicated Urine HCG, Qual Negative Urine Opiates Screen Negative Urine Fentanyl Screen Negative Ur Barbiturates Screen Negative U Amphetamin/Meth Scrn Negative U Benzodiazepines Scrn Negative U Cocaine Metab Screen Negative U Marijuana (THC) Screen Negative Ethyl Alcohol 449.6 H* 51.3 H 07/20/25 05:58 WBC 3.4 L RBC 3.88 L Hgb 7.8 L Hct 26.0 L MCV 67 L MCH 20.1 L MCHC 30.0 L RDW Std Deviation 49.1 H Plt Count 191 D Neut % (Auto) 44 Lymph % (Auto) 41 [place] % (Auto) 13 H Eos % (Auto) 2 Baso % (Auto) 0 Neut # (Auto) 1.5 L Lymph # (Auto) 1.4 [place] # (Auto) 0.4 Eos # (Auto) 0.1 Baso # (Auto) 0.0 Immature Gran # (Auto) 0.01 H Absolute Nucleated RBC 0.00 Immature Gran % 0 Nucleated RBC % 0 PT INR APTT Sodium 142 Potassium 3.7 Chloride 106 Carbon Dioxide 25.8 Anion Gap 10 BUN 7 L Creatinine 0.6 Estim Creat Clear Calc 118.4 eGFR > 60 BUN/Creatinine Ratio 12 Glucose 77 Calculated Osmolality 280 Calcium 8.9 Corrected Calcium 9.1 Phosphorus 3.1 Magnesium 2.0 Iron 46 L TIBC 447 H Iron Saturation 10 L Unsat Iron Binding 401 H Ferritin 11 Total Bilirubin 0.7 AST 26 ALT 16 Alkaline Phosphatase 110 Total Protein 6.9 Albumin 3.8 D Globulin 3.1 Albumin/Globulin Ratio 1.2 Amylase Lipase HCG, Qual Ur Collection Type Urine Color Urine Clarity Urine pH Ur Specific Abrams Urine Protein Urine Glucose (UA) Urine Ketones Urine Blood Urine Nitrite Urine Bilirubin Urine Urobilinogen (Auto) Ur Leukocyte Esterase Urine RBC Urine WBC Ur Squamous Epith Cells Urine Bacteria Ur Culture Indicated? Urine HCG, Qual Urine Opiates Screen Urine Fentanyl Screen Ur Barbiturates Screen U Amphetamin/Meth Scrn U Benzodiazepines Scrn U Cocaine Metab Screen U Marijuana (THC) Screen Ethyl Alcohol Quality Measures Quality Measures VTE prophylaxis Assessment & Plan Assessment Current Active Medications: Generic Name Dose Route Start Last Admin Trade Name Freq PRN Reason Stop Dose Admin Acetaminophen 650 mg 07/20/25 04:53 Acetaminophen 325 Mg Tablet PO 08/19/25 04:52 Q6H PRN PAIN SCALE 1-3 (mild Acetaminophen 650 mg 07/20/25 04:53 Acetaminophen 325 Mg Tablet PO 08/19/25 04:52 Q6H PRN Fever >100.4 Chlordiazepoxide HCl 25 mg 07/20/25 06:00 07/20/25 06:17 Chlordiazepoxide Hcl 25 Mg Capsule PO 07/25/25 05:59 25 mg Q8HR CHYNA Administration Diazepam 5 mg 07/20/25 04:53 Diazepam Inj 5 Mg/Ml Vial 2 Ml IVP 07/25/25 04:52 Q2HR PRN CIWA SCORE 14-19 Diazepam 10 mg 07/20/25 04:53 Diazepam Inj 5 Mg/Ml Vial 2 Ml IVP 07/25/25 04:52 Q1HR PRN CIWA 20-25 Docusate Sodium 100 mg 07/20/25 09:00 07/20/25 09:37 Docusate Sod 100 Mg Capsule PO 08/19/25 08:59 100 mg BID CHYNA Administration Protocol Lactated Ringer's 1,000 mls @ 125 mls/hr 07/20/25 05:00 07/20/25 05:14 Lactated Ringers IV 07/20/25 12:59 125 mls/hr .Q8H CHYNA Administration Lorazepam 0.5 mg 07/20/25 04:53 Lorazepam 0.5 Mg Tablet PO 07/25/25 04:52 Q4HR PRN CIWA Score 2-6 Lorazepam 1 mg 07/20/25 04:53 07/20/25 11:24 Lorazepam 0.5 Mg Tablet PO 07/25/25 04:52 1 mg Q4HR PRN Administration CIWA SCORE 7-11 Lorazepam 2 mg 07/20/25 04:53 Lorazepam 0.5 Mg Tablet PO 07/25/25 04:52 Q4HR PRN CIWA SCORE 12-15 Ondansetron HCl 4 mg 07/20/25 04:53 Ondansetron Inj 2 Mg/Ml Inj 2 Ml IVP 08/19/25 04:52 Q6H PRN NAUSEA OR VOMITING Protocol Pantoprazole Sodium 40 mg 07/20/25 09:00 07/20/25 09:37 Pantoprazole Inj 40 Mg Vial IVP 08/19/25 08:59 40 mg QDAY CHYNA Administration Sennosides 1 tab 07/20/25 09:00 07/20/25 09:38 Senna Tablet PO 08/19/25 08:59 Not Given QDAY CHYNA Protocol Thiamine HCl 100 mg 07/20/25 09:00 07/20/25 09:37 Thiamine Inj 100 Mg/Ml Vial 2 Ml IVP 08/19/25 08:59 100 mg BID CHYNA Administration Plan 35-year-old female with a history of anemia, gastritis, esophagitis and alcohol use disorder, H. pylori incomplete treatment admitted for alcohol withdrawal management. Alcohol withdrawal Alcohol use disorder Alcohol dependency since 3 years ago, drinks about a box of wine daily. State has been drinking more that usual lately. Wants to quit drinking but unable to, going thru divorce currently. Has multiple admission for same symptoms. Denies chest pain or sob. CIWA score moderate 8 denies hallucination. ? CIWA protocol ? Seizure precautions ? Consultation given, states motivated to quit ? Refer to social worker assistant ? Thiamine 100 mg IV BID Mildly elevated lipase Likely2/2 recent etoh use. low concern for acute pancreatitis. very mild epigastric pain on exam ? cont IVF as needed ? Monitor for worsening symptoms History of H. pylori?incomplete eradication Patient did not complete H. pylori antibiotic course last month - hold cefdinir 300 mg BID ? Protonix 40 mg twice daily Anemia Likely iron deficiency ?lower GI bleed hx of gastric ulcers seen on EGD 04/2025 Patient states has a history of iron deficiency anemia takes iron intermittently at home, pt endorses having prior gastric ulcers, states that she notices mixed in red blood in her stool, denies heavy menses. no hx of esophageal varicies. - iron panel LOW, ferritin wnl - hgb 7.8, type and screen done Plan ? repeat h and h - FOBT ordered - give IV iron succrose 200 mg IV (follow up outpatient for additional IV iron injections, Total treatment course dose:?1000 mg. Total treatment course dose: 1000 mg. Administer on 5 different occasions within a 14 day period to achieve a total cumulative dose of 1000 mg within the 14- day period Health Maintenance: Diet: regular diet GI prophylaxis: PROTONIX 40 IV QD DVT prophylaxis: SCDS CODE STATUS: Full Disposition: Tele, on ciwa protocol Plan discussed with Dr Curry, and Dr. Lisa Michelle MD PGY1
--- NOTE | 2025-07-20 14:55 | PC.NURSE ---
Called to pharmacy for new prescriptions ordered.
[2025-07-20] MEDS: LEVONORGESTREL PO (15:12)
[2025-07-20 15:22] LABS: Hematocrit 25.5 % (36.0-46.0)
[2025-07-20 15:23] LABS: Hemoglobin 7.5 g/dL (12.0-16.0)
[2025-07-20] MEDS: IRON SUCROSE CPLX INJ 20 MG/ML VIAL 5 ML 200 MG IVP (15:31)
[2025-07-21] VITALS: BP 117/78; PULSE 80; RESP 15; TEMP 36.3; O2SAT 99
[2025-07-21 00:22] VITALS: PULSE 82
[2025-07-21 04:00] VITALS: BP 123/61; PULSE 85; RESP 15; TEMP 36.2; O2SAT 99
[2025-07-21 04:23] VITALS: PULSE 85
[2025-07-21 06:20] LABS: Basophils # (Auto) 0.0 Thou/mm3 (0.0-0.2); Basophils % (Auto) 0 % (0-2.5); Eosinophils # (Auto) 0.1 Thou/mm3 (0.0-0.5); Eosinophils % (Auto) 3 % (0-10); Hematocrit 25.8 % (36.0-46.0); Immature Granulocytes Auto 0.01 Thou/mm3 (0.00-0.00); Lymphocytes # (Auto) 1.0 Thou/mm3 (1.0-4.8); Lymphocytes % (Auto) 25 % (10-50); Mean Corpuscular HGB Conc 29.8 g/dl (31.0-37.0); Mean Corpuscular Hemoglobin 20.3 pg (25.0-35.0); Mean Corpuscular Volume 68 fL (80-100); Monocytes # (Auto) 0.4 Thou/mm3 (0.0-0.8); Monocytes % (Auto) 9 % (0-12); Neutrophils # (Auto) 2.7 Thou/mm3 (1.8-7.7); Neutrophils % (Auto) 63 % (37-80); Nucleated Red Blood Cell # 0.00 Thou/mm3 (0.00-0.00); Nucleated Red Blood Cell % 0 /100 WBC (0); Platelet Count 187 Thou/mm3 (140-440); RDW Standard Deviation 49.2 fL (36.4-46.3); Red Blood Count 3.80 Miln/mm3 (4.00-5.20); White Blood Count 4.2 Thou/mm3 (3.6-11.0)
[2025-07-21 06:24] LABS: Hemoglobin 7.7 g/dL (12.0-16.0)
[2025-07-21 06:42] LABS: Alanine Aminotransferase 14 U/L (10-49); Albumin, Serum 3.9 gm/dL (3.5-5.0); Albumin/Globulin Ratio 1.3 (1.2-2.2); Alkaline Phosphatase 104 U/L (46-116); Anion Gap 11 (7-16); Aspartate Amino Transferase 24 U/L (0-34); BUN/Creatinine Ratio 14 Ratio (12-20); Bilirubin,Total 0.9 mg/dL (0.3-1.2); Blood Urea Nitrogen 7 mg/dL (9-23); Calcium 9.2 mg/dL (8.3-10.6); Calcium (Corrected) 9.3 mg/dL (8.5-10.1); Carbon Dioxide 25.7 mMol/L (20.0-31.0); Chloride 101 mMol/L (98-107); Creatinine (Component) 0.5 mg/dL (0.6-1.3); Estimated Creatinine Clearance 145.5 mL/min (>60); Globulin 3.0 gm/dL (2.3-3.5); Glucose 89 mg/dL (74-106); Magnesium 1.8 mg/dL (1.6-2.6); Osmolality,Calculated 272 (275-295); Phosphorous 3.4 mg/dL (2.4-5.1); Potassium 3.7 mMol/L (3.4-5.1); Sodium 138 mMol/L (136-145); Total Protein 6.9 gm/dL (5.7-8.2); eGFR > 60 See Note
[2025-07-21 08:00] VITALS: BP 133/99; PULSE 86; PULSE 93; RESP 14; TEMP 36.3; O2SAT 99
--- NOTE | 2025-07-21 08:08 | PD.RESPRO ---
Documentation for date of: 07/21/25 Exam Vital Signs Temp Pulse Resp BP Pulse Ox O2 Del Method 97.1 F 85 15 123/61 99 Room Air 07/21/25 04:00 07/21/25 04:23 07/21/25 04:00 07/21/25 04:00 07/21/25 04:00 07/21/25 04:00 Objective Labs 07/21/25 04:04 07/21/25 04:04 Labs: Laboratory Results - last 24 hr 07/20/25 07/20/25 07/21/25 05:58 15:10 04:04 WBC 4.2 RBC 3.80 L Hgb 7.5 L 7.7 L Hct 25.5 L 25.8 L MCV 68 L MCH 20.3 L MCHC 29.8 L RDW Std Deviation 49.2 H Plt Count 187 Neut % (Auto) 63 Lymph % (Auto) 25 [place] % (Auto) 9 Eos % (Auto) 3 Baso % (Auto) 0 Neut # (Auto) 2.7 Lymph # (Auto) 1.0 [place] # (Auto) 0.4 Eos # (Auto) 0.1 Baso # (Auto) 0.0 Immature Gran # (Auto) 0.01 H Absolute Nucleated RBC 0.00 Immature Gran % 0 Nucleated RBC % 0 Sodium 138 Potassium 3.7 Chloride 101 Carbon Dioxide 25.7 Anion Gap 11 BUN 7 L Creatinine 0.5 L Estim Creat Clear Calc 145.5 eGFR > 60 BUN/Creatinine Ratio 14 Glucose 89 Calculated Osmolality 272 L Calcium 9.2 Corrected Calcium 9.3 Phosphorus 3.4 Magnesium 1.8 Iron 46 L TIBC 447 H Iron Saturation 10 L Unsat Iron Binding 401 H Ferritin 11 Total Bilirubin 0.9 AST 24 ALT 14 Alkaline Phosphatase 104 Total Protein 6.9 Albumin 3.9 Globulin 3.0 Albumin/Globulin Ratio 1.3 Quality Measures Quality Measures VTE prophylaxis Assessment & Plan Assessment Current Active Medications: Generic Name Dose Route Start Last Admin Trade Name Freq PRN Reason Stop Dose Admin Acetaminophen 650 mg 07/20/25 04:53 Acetaminophen 325 Mg Tablet PO 08/19/25 04:52 Q6H PRN PAIN SCALE 1-3 (mild Acetaminophen 650 mg 07/20/25 04:53 Acetaminophen 325 Mg Tablet PO 08/19/25 04:52 Q6H PRN Fever >100.4 Chlordiazepoxide HCl 25 mg 07/21/25 21:00 Chlordiazepoxide Hcl 25 Mg Capsule PO 07/26/25 20:59 BID CHYNA Diazepam 5 mg 07/20/25 04:53 Diazepam Inj 5 Mg/Ml Vial 2 Ml IVP 07/25/25 04:52 Q2HR PRN CIWA SCORE 14-19 Diazepam 10 mg 07/20/25 04:53 Diazepam Inj 5 Mg/Ml Vial 2 Ml IVP 07/25/25 04:52 Q1HR PRN CIWA 20-25 Docusate Sodium 100 mg 07/20/25 09:00 07/20/25 21:17 Docusate Sod 100 Mg Capsule PO 08/19/25 08:59 100 mg BID CHYNA Administration Protocol Magnesium Sulfate 4 gm in 50 mls @ 12.5 mls/hr 07/21/25 08:01 Magnesium Sulfate Ivpb IV 07/21/25 12:00 X1 ONE Lorazepam 0.5 mg 07/20/25 04:53 Lorazepam 0.5 Mg Tablet PO 07/25/25 04:52 Q4HR PRN CIWA Score 2-6 Lorazepam 1 mg 07/20/25 04:53 07/20/25 11:24 Lorazepam 0.5 Mg Tablet PO 07/25/25 04:52 1 mg Q4HR PRN Administration CIWA SCORE 7-11 Lorazepam 2 mg 07/20/25 04:53 Lorazepam 0.5 Mg Tablet PO 07/25/25 04:52 Q4HR PRN CIWA SCORE 12-15 Ondansetron HCl 4 mg 07/20/25 04:53 Ondansetron Inj 2 Mg/Ml Inj 2 Ml IVP 08/19/25 04:52 Q6H PRN NAUSEA OR VOMITING Protocol Pantoprazole Sodium 40 mg 07/20/25 09:00 07/20/25 09:37 Pantoprazole Inj 40 Mg Vial IVP 08/19/25 08:59 40 mg QDAY CHYNA Administration Sennosides 1 tab 07/20/25 09:00 07/20/25 09:38 Senna Tablet PO 08/19/25 08:59 Not Given QDAY CHYNA Protocol Thiamine HCl 100 mg 07/20/25 09:00 07/20/25 21:17 Thiamine Inj 100 Mg/Ml Vial 2 Ml IVP 08/19/25 08:59 100 mg BID CHYNA Administration
[2025-07-21] MEDS: Magnesium Sulfate 4 GM Ivpb 4 GM/50 ML BAG IV (09:19)
[2025-07-21] MEDS: DOCUSATE SOD 100 MG CAPSULE PO (09:20)
[2025-07-21] MEDS: THIAMINE INJ 100 MG/ML VIAL 2 ML IVP (09:21)
--- NOTE | 2025-07-21 11:43 | ESDS_ITS ---
<Statement entered by Gudelia Read MD - 07/21/25 15:57> Note reviewed, I agree with most of its contents and agree with the patient's care as documented by Dr. Michelle. The patient's management plan was discussed with my attending physician Dr. Gonzalez. Gudelia Read, PGY-2 Planned Discharge Date 07/21/25 DS: Providers Provider Date of admission: 07/20/25 04:53 Primary care physician: Physician No Primary/Family Admitting Provider: Marvin Calles MD Attending Provider on Admission: Francisco Javier Gonzalez DO Attending Provider on DC: Francisco Javier Gonzalez DO Discharging Provider: Francisco Javier Gonzalez DO DS: Diagnosis Problem List Completed Was Problem List Reviewed/Reconciled?: Yes Hospital Course Hospital Course Hospital course: Reason for admission Alcohol withdrawal Hospital course Ms Tinoco is a 35-year-old female with a history of alcohol use disorder, pancreatitis, gastritis, H. pylori, and esophagitis presented to the [facility] ED on 07/19/2025 with a chief complaint of feeling unwell. The patient reports daily alcohol consumption, with her last drink earlier this morning. She states she typically drinks two bottles of wine daily, and had consumed about one bottle earlier today. The patient appeared intoxicated and is unable to provide a detailed history, only mentioning that she feels unwell. She denies any abdominal pain but complains of mild nausea. On examination, she is tachycardic and mildly hypertensive. The patient reports heavy alcohol consumption, drinking three bottles of white wine in the past three days. She also mentions significant life stress, including recently from her . Her alcohol intake prior to this episode was about 1?2 glasses of wine per day. she has had prior admissions for etoh withdrawl. In the ED, her vital signs showed tachycardia. Lab work indicated anemia and mild elevations in liver enzymes and lipase,. She received IV fluids, ibuprofen, and lorazepam. She was admitted for alcohol withdrawal. CIWA scores were initially moderate (8). she was given librium q8hr, and her withdrawl symptoms were well managed. She stated that she has had unprotected sex in the past 24 hrs prior to presenting to the ED and was given plan B from patients own medications. Urine test negative upon admission. Hgb is low 7.8,she was given 2 days of IV iron succrose 200 mg infusions, and thiamine injections twice a day. pt was safe and stable for discharge Discharge plan: Resume previous medications. Start taking ferrous sulfate every other day for anemia. and continue taking PPI It is very important that you do not drink alcohol after discharge. If you feel urge to drink, please contact support group other resources for aid. take a follow up test in the next 2 weeks. Follow up with your PCP over the next week to repeat H pylori urine antigen testing. You will needed to be started on that treatment right away if test is positive. follow up with PCP for more iron injections and for occult blood testing of your stool Plan discussed with Dr. Read and Dr. Lisa Michelle MD PGY1 Time Spent with Patient Time attestation: Total time spent providing and/or coordinating discharge services: Time spent: Greater than 30 minutes Exam Vital Signs Temp Pulse Resp BP Pulse Ox O2 Del Method 97.4 F 93 14 133/99 H 99 Room Air 07/21/25 08:00 07/21/25 08:00 07/21/25 08:00 07/21/25 08:00 07/21/25 08:00 07/21/25 08:00 Narrative Exam GENERAL: no acute distress, AAO x3, comfortably laying in bed HEENT: Head AT/ NC. Mucous membranes dry. PERRL. , no tongue fasiculations appreciated on exam NECK: Supple, no lymphadenopathy, no carotid bruits. CARDIOVASCULAR: RRR. Normal S1/S2, No m/r/g. No pitting edema of bilateral LEs. RESPIRATORY: CTAB. No wheezing, rhonchi, crackles. GASTROINTESTINAL: Abdomen soft, mild epigastric tenderness. no rebound, no guarding. no palpable masses. Bowel sounds present MUSCULOSKELETAL:? No cyanosis or edema, no visible joint swelling. NEUROLOGICAL: CN II-XII grossly intact. No focal deficits. Sensation intact, symmetric. no tremors noted on exam PSYCHIATRIC: Awake and alert, not agitated, depressed mood and affect , SKIN: No obvious rashes, no jaundice, normal turgor. Discharge Plan Plan Patient Disposition: HOME (Self Care) Patient condition on transfer: Stable Prescriptions/Referrals Prescriptions/Med Rec: New ferrous sulfate 325 mg (65 mg iron) tablet 325 mg PO Q OTHER DAY 30 Days Qty: 15 0RF Continued multivitamin Tablet 1 tab PO QDAY Qty: 90 3RF famotidine 40 mg tablet 40 mg PO .bedtime Qty: 30 0RF omeprazole 40 mg capsule,delayed release(DR/EC) 40 mg PO QDAY Qty: 30 0RF lorazepam [Ativan] 2 mg tablet 2 mg PO Q8H Qty: 9 0RF folic acid 1 mg tablet 1 mg PO QDAY Qty: 90 3RF ondansetron 4 mg tablet,disintegrating 4 mg PO TID PRN (Reason: nausea and vomiting) 30 Days Qty: 10 0RF thiamine HCl (vitamin B1) 50 mg tablet 50 mg PO QDAY Qty: 90 1RF Referrals: Mekhi Awad, RN [Emergency Nurse] No Primary/Family,Physician [Primary Care Provider] Patient/Caregiver Discharge Instructions Other Discharge Activity Instructions:: Resume previous medications. Start taking ferrous sulfate every other day for anemia. It is very important that you do not drink alcohol after discharge. If you feel urge to drink, please contact support group other resources for aid. Follow up with your PCP over the next week to repeat H pylori urine antigen testing. You will needed to be started on that treatment right away if test is positive. Education Materials: Alcohol Withdrawal: What to Expect, Bacterial Gastroenteritis Print Language: Argentine Stand Alone Forms: Nicole Award Info., Patient Portal Info Letter Discharge Order Discharge Orders: Discharge (Routine); Ordered 07/21/25 Ordered By: Gudelia Read Quality Discharge Quality Measures VTE prophylaxis Attestestation Attestation I have discussed and was present for the essential components of the discharge history, physical examination, diagnosis, and discharge treatment plan with the resident. I agree with the patient's discharge care as documented by the resident and amended herein by me. Michael Gonzalez, . The patient understood all discharge instructions, all questions were answered satisfactorily. The patient was instructed to return to the Emergency Department is symptoms worsened or persisted. Patient significantly improved, no subjective complaints on day of admission, hemoglobin was low but stable at 7.7. Patient did have an upper endoscopy in April 2025 demonstrating esophageal ulcers, she also has a history of H. pylori which I am unclear if was actually treated or not. Patient did not have a bowel movement however I do recommend she get an H. pylori stool antigen study done in the outpatient setting to c onfirm whether she has the infection and can be treated appropriately with antibiotics. The patient was stable, afebrile, tolerating p.o. intake and ambulatory at time of discharge home. Of note, we did strongly advise and counseled the patient on the necessity for alcohol cessation in which she understood. Although this document has been carefully reviewed, there may still be some phonetic and other typographical errors. These errors are purely grammatical due to imperfections in the software program and should not be construed in any way to compromise the substance of the patient's medical care during this visit.
[2025-07-21 12:00] VITALS: BP 127/98; PULSE 111; PULSE 98; RESP 12; TEMP 36.3; O2SAT 98
[2025-07-21] MEDS: IRON SUCROSE CPLX INJ 20 MG/ML VIAL 5 ML 200 MG IVP (12:28)
--- NOTE | 2025-07-21 15:11 | PC.SS ---
[facility]BER set up for pt going home to [address] arredondo 6min RN Yakelin made aware
== END 2025-07-21 15:12 | disposition home or self-care (01) ==
LOC: SERX 07-20 05:07 → SERHOLD 07-20 07:24 → S3SX 07-20 09:39 → SERHOLD 07-21 12:27
PROVIDERS: Admitting Provider Internal Medicine; Emergency Provider Emergency Medicine; Visit Provider Student in an Organized Health Care Education/Training Program
DX: F10.239 Alcohol dependence with withdrawal, unspecified (principal); F10.229 Alcohol dependence with intoxication, unspecified; Y90.8 Blood alcohol level of 240 mg/100 ml or more; K86.1 Other chronic pancreatitis; Z86.19 Personal history of other infectious and parasitic diseases; D50.9 Iron deficiency anemia, unspecified; I10 Essential (primary) hypertension; R00.0 Tachycardia, unspecified; R74.8 Abnormal levels of other serum enzymes; D64.9 Anemia, unspecified; Z63.5 Disruption of family by separation and divorce
CPT/HCPCS: 36415; 71045; 80048; 80053; 80307; 80320; 81001; 81025; 82150; 82728; 83540; 83550; 83690; 83735; 84100; 84703; 85014; 85018; 85025; 85610; 85730; 87338; 93005; 93225; 96361; 96365; 96366; 96375; 96376; 99285; G0378; J1756; J2405; J2470; J3360; J3411; J3475; J3490; J7120; A9270; G0480

== ENCOUNTER 2025-07-22 01:59 | Emergency (ER) | payer MEDICAID, SELFPAY ==
[2025-07-22 02:04] VITALS: PULSE 104; RESP 16; O2SAT 98
[2025-07-22 02:06] VITALS: BMI 30.2
[2025-07-22 02:30] VITALS: BP 120/76; PULSE 114; RESP 14; TEMP 36.6; O2SAT 96
[2025-07-22 02:41] LABS: Basophils # (Auto) 0.0 Thou/mm3 (0.0-0.2); Basophils % (Auto) 0 % (0-2.5); Eosinophils # (Auto) 0.2 Thou/mm3 (0.0-0.5); Eosinophils % (Auto) 3 % (0-10); Hematocrit 29.9 % (36.0-46.0); Immature Granulocytes Auto 0.02 Thou/mm3 (0.00-0.00); Lymphocytes # (Auto) 1.7 Thou/mm3 (1.0-4.8); Lymphocytes % (Auto) 32 % (10-50); Mean Corpuscular HGB Conc 29.1 g/dl (31.0-37.0); Mean Corpuscular Hemoglobin 19.7 pg (25.0-35.0); Mean Corpuscular Volume 68 fL (80-100); Monocytes # (Auto) 0.4 Thou/mm3 (0.0-0.8); Monocytes % (Auto) 7 % (0-12); Neutrophils # (Auto) 3.1 Thou/mm3 (1.8-7.7); Neutrophils % (Auto) 57 % (37-80); Nucleated Red Blood Cell # 0.02 Thou/mm3 (0.00-0.00); Nucleated Red Blood Cell % 0 /100 WBC (0); Platelet Count 245 Thou/mm3 (140-440); RDW Standard Deviation 48.9 fL (36.4-46.3); Red Blood Count 4.41 Miln/mm3 (4.00-5.20); White Blood Count 5.4 Thou/mm3 (3.6-11.0)
[2025-07-22 02:42] LABS: Hemoglobin 8.7 g/dL (12.0-16.0)
[2025-07-22] MEDS: SODIUM CHLORIDE 0.9% 1000 ML 1,000 ML 999 ML IV (02:55)
[2025-07-22 03:05] LABS: Alanine Aminotransferase 16 U/L (10-49); Albumin, Serum 4.8 gm/dL (3.5-5.0); Albumin/Globulin Ratio 1.4 (1.2-2.2); Alcohol, Blood Medical 273.0 mg/dL (0-10.0); Alkaline Phosphatase 121 U/L (46-116); Anion Gap 15 (7-16); Aspartate Amino Transferase 26 U/L (0-34); BUN/Creatinine Ratio 7 Ratio (12-20); Bilirubin,Total 0.3 mg/dL (0.3-1.2); Blood Urea Nitrogen < 5 mg/dL (9-23); Calcium 9.7 mg/dL (8.3-10.6); Calcium (Corrected) 9.7 mg/dL (8.5-10.1); Carbon Dioxide 20.4 mMol/L (20.0-31.0); Chloride 107 mMol/L (98-107); Creatinine (Component) 0.7 mg/dL (0.6-1.3); Estimated Creatinine Clearance 103.2 mL/min (>60); Globulin 3.4 gm/dL (2.3-3.5); Glucose 107 mg/dL (74-106); Osmolality,Calculated 280 (275-295); Potassium 3.8 mMol/L (3.4-5.1); Sodium 142 mMol/L (136-145); Total Protein 8.2 gm/dL (5.7-8.2); eGFR > 60 See Note
--- NOTE | 2025-07-22 04:23 | PD.EDALCOH ---
ED Alcohol RME/HPI General Chief Complaint: Alcohol Stated Complaint: Alcohol Intoxication Time Seen by Provider: 07/22/25 02:03 Arrival date/time: 07/22/25 01:59 Mode of arrival: EMS RME / HPI RME / HPI narrative: DR. GTZ MAIN ED EVALUATION: Patient with long standing alcohol dependence discharged from [facility] after being treated for alcohol withdrawal. Patient was sent home with Librium and immediately began drinking at home. Patient is suffering psycho-social stressors at home. No suicidal ideation. No visual or auditory hallucinations. EMS transported patient to ED as patient was found to be inebriated. Upon arrival, patient was somulant and easily arousable to loud vocal and tactile stimuli. Guards regarding further inquiry. PMHx includes long-standing alcohol dependence. SHx is non-contributory. Social history includes alcohol dependence, but no illicit drug use. MD complaint: alcohol intoxication Chronic alcohol use: Yes Previous visits for alcohol intoxication: Yes Recent trauma: No Treatments prior to arrival: none Related Data Previous Rx's ?Medication ?Instructions ?Recorded famotidine 40 mg tablet 40 mg PO .bedtime #30 tabs 07/10/25 folic acid 1 mg tablet 1 mg PO QDAY #90 tabs 07/10/25 lorazepam 2 mg tablet (Ativan) 2 mg PO Q8H #9 tabs 07/10/25 multivitamin 1 tab PO QDAY #90 tabs 07/10/25 omeprazole 40 mg capsule,delayed 40 mg PO QDAY #30 caps 07/10/25 release ondansetron 4 mg disintegrating 4 mg PO TID PRN nausea and 07/10/25 tablet vomiting 30 days #10 tabs thiamine HCl (vitamin B1) 50 mg 50 mg PO QDAY #90 tabs 07/10/25 tablet ferrous sulfate 325 mg (65 mg 325 mg PO Q OTHER DAY 30 days #15 07/21/25 iron) tablet tabs Allergies Allergy/AdvReac Type Severity Reaction Status Date / Time No Known Allergies Allergy Verified 07/19/25 14:48 Review of Systems Review of Systems Systems Reviewed: All systems reviewed, normal except as documented Past Medical History Past Medical History GASTROINTESTINAL: Positive Ulcerative Colitis and Ulcer REPRODUCTIVE: Positive Previous Pregnancies HEMATOLOGIC: Positive Blood Disorders and Anemia PSYCHO/SOCIAL: Positive Anxiety Social History ALCOHOL: Current ALCOHOL FREQUENCY: 3 or More Drinks per Day ED Exam Narrative Physical exam: GEN. APPEARANCE: The patient is somnolent in no distress, lying down comfortably, does not look ill/toxic. Patient has good eye contact. Patient is cooperative. Patient is somnolent and arousable, can follow simple commands, requesting detox. VITALS: All vitals were reviewed and the pulse ox is 96% on room air which is normal according to my interpretation. HEENT: Normocephalic, atraumatic. Pupils are equal and reactive. Oral mucosa is moist. Patent Nares//pos nystagmus NECK: Supple, nontender, no thyromegaly, no meningismus, no JVD, no step offs CHEST: Symmetrical, atraumatic, and with equal expansion , Nontender on palpation no deformity and no crepitus. CARDIOVASCULAR: Heart regular rhythm no murmur or gallop rub or extra beats. LUNGS: Clear to auscultation bilaterally with symmetrical chest rise. No laboring tachypnea or wheezing. No intercostal subcostal retraction. No rales and no rhonchi. ABDOMEN: Soft, flat, nontender to palpation, no guarding or rebound tenderness. There are no abnormal masses palpated. Active and normal bowel sounds. EXTREMITIES: Nontender. No edema. No cyanosis. Patient is able to move all 4 extremities well, with full ROM and good CSM. SKIN: Warm and dry, no jaundice or rashes noted. MUSCULOSKELETAL: No lubar or midline bony tenderness. There is no CVA tenderness. No paraspinal muscle spasm or tenderness. NEURO: Patient is HALEY x 4, Cranial nerves II through XII grossly intact. There is no focal neurologic deficits noted. GCS is 15, PNS and MANUAL EQUIPMENT MECHANIC appear grossly intact. PSYCHIATRIC: Affect is depressed/withdrawn speech is goal-oriented patientcooperative, no SI or HI or hallucinations. Course Quality Measures none Orders Category Date Time Status Consult Cheesemaker Helper NOW Care 07/22/25 05:34 Active Alcohol, Blood Medical Stat Lab 07/22/25 02:25 Completed CBC [CBC] Stat Lab 07/22/25 02:25 Completed CMP [Comprehensive Metabolic Panel] Stat Lab 07/22/25 02:25 Completed Urinalysis, C/S if Indicated Stat Lab 07/22/25 02:10 Ordered Sodium Chloride 0.9% 1000 ml [Ns] 1,000 ml Med 07/22/25 02:10 Discontinued IV 999 mls/hr Vital Signs Vital signs: Vital Signs Temperature 97.9 F 07/22/25 02:30 Pulse Rate 114 H 07/22/25 02:30 Respiratory Rate 14 07/22/25 02:30 Blood Pressure 120/76 07/22/25 02:30 Pulse Oximetry (%) 96 07/22/25 02:30 Oxygen Delivery Method Room Air 07/22/25 02:30 Discharge Plan Prescriptions/Referrals Prescriptions/Med Rec: No Action multivitamin Tablet 1 tab PO QDAY Qty: 90 3RF famotidine 40 mg tablet 40 mg PO .bedtime Qty: 30 0RF omeprazole 40 mg capsule,delayed release(DR/EC) 40 mg PO QDAY Qty: 30 0RF lorazepam [Ativan] 2 mg tablet 2 mg PO Q8H Qty: 9 0RF folic acid 1 mg tablet 1 mg PO QDAY Qty: 90 3RF ondansetron 4 mg tablet,disintegrating 4 mg PO TID PRN (Reason: nausea and vomiting) 30 Days Qty: 10 0RF thiamine HCl (vitamin B1) 50 mg tablet 50 mg PO QDAY Qty: 90 1RF ferrous sulfate 325 mg (65 mg iron) tablet 325 mg PO Q OTHER DAY 30 Days Qty: 15 0RF Referrals: No Primary/Family,Physician [Primary Care Provider] - In 1 week Problem List Clinical Impression: Alcohol intoxication, Alcohol dependence, Drug interaction Patient/Caregiver Discharge Instructions Print Language: Bhutanese Alcohol MDM Narrative MDM Narrative: Scribe Attestation: Sis Castro am scribing for and in the presence of Dr. Gtz. Provider Notation: Although this document has been carefully reviewed, there may still be some phonetic and other typographical errors. These errors are purely grammatical due to imperfections in the software program and should not be construed in any way to compromise the substance of the patient's medical care during this visit. Please see PE findings. Laboratory markers, demonstrate stable anemia hemoglobin 8.7 no leukocytosis or thrombocytosis. Serum chemistries essentially negative. UA without signs of infection and alcohol of .27. Patient placed on cardiac cath rn and observed for extended amount of time. No seizures or signs of withdrawal at this time. Patient inquiring about detox protocols and reports high motivation for sobriety. Will contact social service to determine options this AM. Final diagnosis includes alcohol dependence, medication interaction, ethanol intoxication. Patient data External records reviewed:: [facility] previous records (Reviewed prior ED records from 07/19/25. Patient was seen for Alcohol withdrawal.) and EMS form Clinical information provided by:: patient and EMS Social determinants that could affect healthcare access:: alcohol use Patient has the following chronic illnesses:: Ulcerative Colitis, Ulcer, Anemia, Anxiety How is presenting disease/condition affected by chronic disease/condition?: exacerbated by Evaluation data The following diagnostics were reviewed and interpreted by me:: lab results Lab and/or radiology exams considered but not ordered:: None Interpretation Summary: See MDM above Medications / Prescriptions Medications or Prescriptions considered but not ordered:: None Medication administrations:: Medication Administration History Discontinued Medications Sodium Chloride (Ns) 1,000 mls @ 999 mls/hr IV .Q1H1M ONE Stop: 07/22/25 03:10 Last Infusion: 07/22/25 04:02 Dose: Infused Documented By: Admin: 07/22/25 02:55 Dose: 999 mls/hr Documented By: BETTE See above if any Consultations Consultation(s) initiated? (list below): No Diagnosis Differential diagnosis alcohol: alcohol withdrawal delirium, hypomagnesemia, alcohol intoxication, alcohol ketoacidosis, alcohol withdrawal syndrome and alcohol withdrawal seizure Most likely diagnosis given after review of the tests above:: Alcohol dependence, medication interaction, ethanol intoxication. Admission Indicated Admission indicated?: not indicated Explain why admission is indicated or not indicated:: Patient does not meet admission criteria Admission Request Was there a request for admission?: No Disposition Plan Disposition Plan: other (specify) (Signed out to oncoming ED physician at 6 AM.)
[2025-07-22 06:55] VITALS: BP 105/71; PULSE 100; RESP 19
--- NOTE | 2025-07-22 08:07 | EDNOTE_ITS ---
<Statement entered by Melodie Guerrier MD - 07/22/25 11:20> As co-signing physician, I was present and available for consult prn. I concur with the plan and care as documented by the midlevel provider. ED Alcohol RME/HPI General Chief Complaint: Alcohol Stated Complaint: Alcohol Intoxication Time Seen by Provider: 07/22/25 02:03 Arrival date/time: 07/22/25 01:59 Mode of arrival: EMS Limitations: no limitations RME / HPI RME / HPI narrative: DR. GTZ MAIN ED EVALUATION: Patient with long standing alcohol dependence discharged from [place] after being treated for alcohol withdrawal. Patient was sent home with Librium and immediately began drinking at home. Patient is suffering psycho-social stressors at home. No suicidal ideation. No visual or auditory hallucinations. EMS transported patient to ED as patient was found to be inebriated. Upon arrival, patient was somulant and easily arousable to loud vocal and tactile stimuli. Guards regarding further inquiry. PMHx includes long-standing alcohol dependence. SHx is non-contributory. Social history includes alcohol dependence, but no illicit drug use. 35yo female well known to the department for ETOH abuse. here to talk to social organization professor for resources however found to be initially intoxicated. No headinjury. She was arousable and conversational. Previous visits for alcohol intoxication: Yes Recent trauma: No Treatments prior to arrival: none Related Data Previous Rx's ?Medication ?Instructions ?Recorded famotidine 40 mg tablet 40 mg PO .bedtime #30 tabs 0 07/10/25 folic acid 1 mg tablet 1 mg PO QDAY #90 tabs lorazepam 2 mg tablet (Ativan) 2 mg PO Q8H #9 tabs 12/03 multivitamin 1 tab PO QDAY #90 tabs 07/10 omeprazole 40 mg capsule,delayed 40 mg PO QDAY #30 cap s 07/10/25 release ondansetron 4 mg disintegrating 4 mg PO TID PRN nausea and 07/10/25 tablet vomiting 30 days #10 tabs thiamine HCl (vitamin B1) 50 mg 50 mg PO QDAY #90 tabs 07/10/25 tablet ferrous sulfate 325 mg (65 mg 325 mg PO Q OTHER DAY 30 days #15 07/21/25 iron) tablet tabs Allergies Allergy/AdvReac Type Severity Reaction Status Date / Time No Known Allergies Allergy Verified 07/19/25 14:48 Review of Systems Review of Systems Systems Reviewed: All systems reviewed, normal except as documented Eyes Eyes: Denies eye discharge Neurologic Neurologic: Reports as per HPI ED Exam General Limitations: Present no limitations General appearance: Present alert and appears intoxicated (however verbal and responsed to questions) Head Head exam: Present atraumatic Eye Eye exam: Present normal appearance, PERRL and EOMI ENT ENT exam: Present normal exam, normal oropharynx and mucous membranes moist Neck Neck exam: Present normal inspection, full ROM and trachea midline Chest Chest inspection: Present normal inspection and symmetric chest wall rise Respiratory Respiratory exam: Present normal lung sounds bilaterally Cardiovascular Cardiovascular exam: Present regular rate, normal rhythm and normal heart sounds Abdominal Exam Abdominal exam: Present soft and normal bowel sounds Extremities Exam Extremities exam: Present normal inspection and full ROM Back Exam Back exam: Present normal inspection and full ROM Neurological Exam Neurological exam: Present alert (appears under the influence ) and oriented X3 Psychiatric Psychiatric exam: Present normal affect and normal mood Skin Skin exam: Present warm, dry, intact and normal color Course Quality Measures none Orders Category Date Time Status Consult Diesel Engine Mechanic Apprentice NOW Care 07/22/25 05:34 Completed Alcohol, Blood Medical Stat Lab 07/22/25 02:25 Completed CBC [CBC] Stat Lab 07/22/25 02:25 Completed CMP [Comprehensive Metabolic Panel] Stat Lab 07/22/25 02:25 Completed Urinalysis, C/S if Indicated Stat Lab 07/22/25 02:10 Ordered Sodium Chloride 0.9% 1000 ml [Ns] 1,000 ml Med 07/22/25 02:10 Discontinued IV 999 mls/hr Reevaluation(s) Reevaluation #1: pt spoke with social organization professor and ready to go home Time: 08:05 Vital Signs Vital signs: Vital Signs Temperature 97.9 F 07/22/25 02:30 Pulse Rate 114 H 07/22/25 02:30 Respiratory Rate 14 07/22/25 02:30 Blood Pressure 120/76 07/22/25 02:30 Pulse Oximetry (%) 96 07/22/25 02:30 Oxygen Delivery Method Room Air 07/22/25 02:30 Discharge Plan Plan Patient Disposition: HOME (Self Care) Discharge Disposition comment: f/u with pcp Prescriptions/Referrals Prescriptions/Med Rec: No Action multivitamin Tablet 1 tab PO QDAY Qty: 90 3RF famotidine 40 mg tablet 40 mg PO .bedtime Qty: 30 0RF omeprazole 40 mg capsule,delayed release(DR/EC) 40 mg PO QDAY Qty: 30 0RF lorazepam [Ativan] 2 mg tablet 2 mg PO Q8H Qty: 9 0RF folic acid 1 mg tablet 1 mg PO QDAY Qty: 90 3RF ondansetron 4 mg tablet,disintegrating 4 mg PO TID PRN (Reason: nausea and vomiting) 30 Days Qty: 10 0RF thiamine HCl (vitamin B1) 50 mg tablet 50 mg PO QDAY Qty: 90 1RF ferrous sulfate 325 mg (65 mg iron) tablet 325 mg PO Q OTHER DAY 30 Days Qty: 15 0RF Referrals: No Primary/Family,Physician [Primary Care Provider] - In 1 week Problem List Clinical Impression: Alcohol intoxication, Alcohol dependence Patient/Caregiver Discharge Instructions Education Materials: Alcoholism Resources Print Language: Lithuanian Stand Alone Forms: [employer] Info., Patient Portal Info Letter PA/CLINICAL MANAGER HOME CARE Supervising Physician PA/CLINICAL MANAGER HOME CARE Supervising Physician: Dr. geovanna Hull MDM Narrative MDM Narrative: Well-known patient to the emergency department. Known alcohol dependence. Not in withdrawal does not qualify for admission. Follow-up PCP return if symptoms worsen Patient data External records reviewed:: [facility] previous records Clinical information provided by:: patient Social determinants that could affect healthcare access:: alcohol use Patient has the following chronic illnesses:: Alcoholism How is presenting disease/condition affected by chronic disease/condition?: caused by Evaluation data The following diagnostics were reviewed and interpreted by me:: lab results Lab and/or radiology exams considered but not ordered:: Neuroimaging considered however unlikely to change the prognosis or decision to discharge Interpretation Summary: Blood alcohol elevated, signs of anemia otherwise unremarkable labs Medications / Prescriptions Medications or Prescriptions considered but not ordered:: Results were considered however given patient has failed outpatient Librium in the past unlikely to benefit at this time Medication administrations:: Medication Administration History Discontinued Medications Sodium Chloride (Ns) 1,000 mls @ 999 mls/hr IV .Q1H1M ONE Stop: 07/22/25 03:10 Last Infusion: 07/22/25 04:02 Dose: Infused Documented By: Admin: 07/22/25 02:55 Dose: 999 mls/hr Documented By: BETTE See above Consultations Consultation(s) initiated? (list below): No Diagnosis Differential diagnosis alcohol: alcohol withdrawal delirium, hypomagnesemia, alcohol intoxication and alcohol withdrawal seizure Most likely diagnosis given after review of the tests above:: Acute alcohol intoxication with history of dependence Admission Indicated Admission indicated?: not indicated Admission Request Was there a request for admission?: No Disposition Plan Disposition Plan: Discharge Discharge Attestation Discharge Attestation: The patient and all family members were given an opportunity to ask questions and understood the discharge instructions. Discharge instructions specifically effects, indications for sooner follow up or return to the emergency department, and the expected course of current diagnosis. Patient condition: Stable
[2025-07-22 08:09] VITALS: PULSE 97; RESP 18; O2SAT 96
--- NOTE | 2025-07-22 08:19 | PC.CC ---
Stonemason made contact with Pt bedside. Stonemason introduced self, role, and reason for contact. Stonemason disclosed limits of confidentiality. Pt was sleeping but was able to sit up on gurney and appeared alert and oriented to self, place, and situation. Pt made appropriate eye contact with this aligner typewriter. Pts mood appeared to be tired and remained engaged in assessment, pt had good insight and judgment. No signs of delusions, paranoid or V/h. Pt reported she has been struggling with alcohol abuse due to recent divorce. Stonemason reviewed community resources, mental health resources available to Pt. Stonemason offered to submit referrals to local mental health agency- Pt refused referral but agreed to take home resources.
[2025-07-22 10:21] VITALS: BP 123/68; PULSE 62; RESP 16; TEMP 36.4; O2SAT 98
[2025-07-22 12:39] LABS: Collection Type, Urine Clean Catch
[2025-07-22 13:12] LABS: Bacteria,Urine 3+; Bilirubin,Urine Negative (Negative); Blood,Urine Negative (Negative); Clarity,Urine Turbid (Clear/Hazy); Color,Urine Yellow (Lt Yel-Yel); Culture Indicated,Urine Contaminated; Glucose, Urine Negative (Negative); Hyaline Casts,Urine < 1 /hpf (0-1); Ketones,Urine Negative (Negative); Leukocyte Esterase,Urine Negative (Negative); Nitrite,Urine Negative (Negative); PH,Urine 6.0 (5.0-7.0); Protein,Urine Trace (Neg - Trace); RBC,Urine 3 /hpf (0-3); Specific Gravity,Urine 1.034 (1.001-1.035); Squamous Epithelial Cell,Urine 37 /hpf (0-5); Urobilinogen,Urine 2.0 mg/dL (0.0-1.0); WBC,Urine 4 /hpf (0-5)
== END 2025-07-22 10:22 | disposition home or self-care (01) ==
PROVIDERS: Emergency Provider Emergency Medicine
DX: F10.229 Alcohol dependence with intoxication, unspecified (principal); D64.9 Anemia, unspecified
CPT/HCPCS: 36415; 80053; 80320; 81001; 85025; 96360; 99283; J7030; G0480

== ENCOUNTER 2025-07-25 19:40 | Emergency (ER) | payer MEDICAID, SELFPAY ==
[2025-07-25 19:43] VITALS: BP 125/82; PULSE 128; RESP 18; TEMP 37.3; O2SAT 96; BMI 28.3
[2025-07-25 19:44] VITALS: PULSE 140
--- NOTE | 2025-07-25 20:01 | EDNOTE_ITS ---
ED General RME/HPI General Chief complaint: Nausea/Vomiting/Diarrhea Stated complaint: NAUSEA & VOMITING Time Seen by Provider: 07/25/25 19:49 Arrival date/time: 07/25/25 19:40 CC: Alcohol intoxication and 2-3 2 mg of Ativan tablets (patient acknowledge she only had 9 Ativan tablets prescribed to her.) HPI patient presents to the ER with slurred speech via EMS reports stable vital signs. Stating that she feels like she is going to . Patient denies suicidal ideation and homicidal ideation. When questioned regarding why she did this the patient states that she does not want to discuss it. Last menstrual cycle was 4 months ago patient states she is not . Repeat review of the medical record show the patient has been in the emergency room multiple times for alcohol intoxication and suicidal ideation. Mode of arrival: EMS Related Data Previous Rx's ?Medication ?Instructions ?Recorded famotidine 40 mg tablet 40 mg PO .bedtime #30 tabs 0 07/10/25 folic acid 1 mg tablet 1 mg PO QDAY #90 tabs lorazepam 2 mg tablet (Ativan) 2 mg PO Q8H #9 tabs 12/03 multivitamin 1 tab PO QDAY #90 tabs 07/10 omeprazole 40 mg capsule,delayed 40 mg PO QDAY #30 cap s 07/10/25 release ondansetron 4 mg disintegrating 4 mg PO TID PRN nausea and 07/10/25 tablet vomiting 30 days #10 tabs thiamine HCl (vitamin B1) 50 mg 50 mg PO QDAY #90 tabs 07/10/25 tablet ferrous sulfate 325 mg (65 mg 325 mg PO Q OTHER DAY 30 days #15 07/21/25 iron) tablet tabs Allergies Allergy/AdvReac Type Severity Reaction Status Date / Time No Known Allergies Allergy Verified 07/25/25 19:44 Review of Systems Review of Systems ROS Unobtainable: unobtainable due to mental status Past Medical History Past Medical History NEUROLOGIC: Negative Neurological Disorders or Seizures CARDIAC: Negative Cardiac Disorders or Congestive Heart Failure RESPIRATORY: Negative Chronic Obstructive Pulmonary Disease (COPD) or Asthma GASTROINTESTINAL: Positive Ulcerative Colitis and Ulcer; Negative Hepatitis, Cirrhosis or Colorectal Cancer GENITOURINARY: Negative Genitourinary Disorders, Renal Disease or Prostate Cancer REPRODUCTIVE: Positive Previous Pregnancies; Negative Breast Cancer, Endometriosis, Pelvic Inflammatory Disease, Testicular Cancer or Uterine Prolapse MUSCULOSKELETAL: Negative Musculoskeletal Disorders or Bone Cancer ENDOCRINE: Negative Endocrine Disorders, Diabetes Mellitus Type 1 or Diabetes Mellitus Type 2 HEMATOLOGIC: Positive Blood Disorders and Anemia; Negative Sickle Cell Disease PSYCHO/SOCIAL: Positive Anxiety; Negative Depression OTHER HISTORY: Negative Hospitalization, Autoimmune Disease, Down Syndrome, Developmental Delay, Shingles, Falls, Blood Transfusions, Anesthesia Reactions, Chemotherapy, Radiation Therapy, Hyperbaric Therapy, MRSA, VRSA, Vancomycin- Resistant Enterococci, Human Immunodeficiency Virus (HIV), Chicken Pox, Measles, Mumps, Rubella (Wolof Measles), Pertussis, Clostridium Difficile, Breast Cancer, Cervical Cancer, Colorectal Cancer, Lung Cancer, Prostate Cancer or Testicular Cancer Family History FAMILY HISTORY: Negative Family Psychiatric Problems, Family Respiratory Disorders, Family Cardiac Disorders, Family Gastrointestinal Problems, Family Cancer, Family Surgery or Family Anesthesia Reaction Surgical History SURGICAL: Negative Section Social History SMOKING STATUS: Never smoker SECOND HAND EXPOSURE: Yes ED Exam Narrative Physical exam: [General: Not in any acute distress Head normocephalic HEENT: Within acceptable limits Neck is supple nontender Chest equal chest rise nontender to palpation Respiratory: Clear to auscultation no wheezes crackles or rubs CV: Rate rhythm is regular no murmurs rubs or clicks Abdomen is soft nontender no masses positive bowel sounds all 4 quadrants Back: No CVA tenderness no spinous process tenderness from cervical spine thoracic and lumbar spine Skin: Intact no petechiae rash induration ulceration or crepitus Extremities: Moving all extremity against resistance cap refill less than 2 seconds neurosensory intact Neuro: Awake alert oriented x2, person and place, Glascow coma 15 no focal deficits] Course Quality Measures none Orders Category Date Time Status Alcohol, Blood Medical Stat Lab 07/25/25 20:03 Completed B-Type Natriuretic Peptide Stat Lab 07/25/25 20:03 Completed CBC Stat Lab 07/25/25 20:03 Completed Comprehensive Metabolic Panel Stat Lab 07/25/25 20:03 Completed Drug Screen,Urine Stat Lab 07/25/25 21:28 Completed HCG Qualitative,Urine Stat Lab 07/25/25 21:28 Completed Magnesium Stat Lab 07/25/25 20:03 Completed Partial Thromboplastin Time Stat Lab 07/25/25 20:03 Completed Prothrombin Time with INR Stat Lab 07/25/25 20:03 Completed Urinalysis, C/S if Indicated Stat Lab 07/25/25 21:28 Completed Folic Acid Inj Med 07/25/25 21:08 Discontinued 1 mg IVP X1 ONE Ringers Lactated 1000 ml [Lactated Ringers] 1,000 ml Med 07/25/25 21:08 Discontinued IV 999 mls/hr Ringers Lactated 1000 ml [Lactated Ringers] 1,000 ml Med 07/25/25 21:08 Discontinued IV 999 mls/hr Thiamine Inj [Vitamin B-1 Inj] 250 mg Med 07/25/25 21:09 Discontinued Sodium Chloride 0.9% [Ns] 100 ml IV X1 Vital Signs Vital signs: Vital Signs Temperature 99.2 F 07/25/25 19:43 Pulse Rate 128 H 07/25/25 19:43 Respiratory Rate 18 07/25/25 19:43 Blood Pressure 125/82 07/25/25 19:43 Pulse Oximetry (%) 96 07/25/25 19:43 Oxygen Delivery Method Room Air 07/25/25 19:43 Discharge Plan Plan Patient Disposition: HOME (Self Care) Patient condition on transfer: Stable Prescriptions/Referrals Prescriptions/Med Rec: No Action multivitamin Tablet 1 tab PO QDAY Qty: 90 3RF famotidine 40 mg tablet 40 mg PO .bedtime Qty: 30 0RF omeprazole 40 mg capsule,delayed release(DR/EC) 40 mg PO QDAY Qty: 30 0RF lorazepam [Ativan] 2 mg tablet 2 mg PO Q8H Qty: 9 0RF folic acid 1 mg tablet 1 mg PO QDAY Qty: 90 3RF ondansetron 4 mg tablet,disintegrating 4 mg PO TID PRN (Reason: nausea and vomiting) 30 Days Qty: 10 0RF thiamine HCl (vitamin B1) 50 mg tablet 50 mg PO QDAY Qty: 90 1RF ferrous sulfate 325 mg (65 mg iron) tablet 325 mg PO Q OTHER DAY 30 Days Qty: 15 0RF Referrals: Arnulfo Harmon MD [Primary Care Provider, Family Practice] - In 1 week Problem List Clinical Impression: Alcoholic intoxication, Benzodiazepine abuse Patient/Caregiver Discharge Instructions Education Materials: ED Alcohol Intoxication, ED Abuse Drug Narcotic Sedative Rx Additional Instructions: Stop drinking alcohol follow-up with your primary care. Print Language: Macedonian Stand Alone Forms: Nicole Award Info., Patient Portal Info Letter PA/PASSENGER RELATIONS REPRESENTATIVE Supervising Physician PA/PASSENGER RELATIONS REPRESENTATIVE Supervising Physician: Quang Salazar ENP [facility] Clinical Information Provided by patient and EMS Medical Records Reviewed [facility] and EMS Meds/Rx Considered, not Ordered None Labs/Rad/Tests considered, not Ordered None Chronic Illness/Social Conditions which may negatively complicate care or outcome(s)-explain: Mental health and ETOH/drugs/substance abuse EKG EKG Interpretation narrative: EKG performed at 1942 shows a ventricular rate of 123 TX interval 168 QRS of 7 0 QTc of 373 this is sinus tachycardia. Medication Administration(s) Medication Administration History Discontinued Medications Folic Acid (Folic Acid Inj 1 Mg/0.2 Ml) 1 mg IVP X1 ONE Stop: 07/25/25 21:09 Last Admin: 07/25/25 21:28 Dose: 1 mg Documented By: BD Lactated Ringer's (Lactated Ringers) 1,000 mls @ 999 mls/hr IV .Q1H1M ONE Stop: 07/25/25 22:08 Last Infusion: 07/25/25 22:27 Dose: Infused Documented By: Admin: 07/25/25 21:27 Dose: 999 mls/hr Documented By: BD Lactated Ringer's (Lactated Ringers) 1,000 mls @ 999 mls/hr IV .Q1H1M ONE Stop: 07/25/25 22:08 Last Infusion: 07/25/25 22:28 Dose: Infused Documented By: Admin: 07/25/25 21:28 Dose: 999 mls/hr Documented By: BD Thiamine HCl 250 mg/ Sodium (Chloride) 102.5 mls @ 205 mls/hr IV X1 ONE Stop: 07/25/25 21:38 Last Infusion: 07/25/25 22:14 Dose: Infused Documented By: Admin: 07/25/25 21:29 Dose: 205 mls/hr Documented By: BD
[2025-07-25 20:23] LABS: Basophils # (Auto) 0.1 Thou/mm3 (0.0-0.2); Basophils % (Auto) 1 % (0-2.5); Eosinophils # (Auto) 0.1 Thou/mm3 (0.0-0.5); Eosinophils % (Auto) 1 % (0-10); Hematocrit 29.4 % (36.0-46.0); Immature Granulocytes Auto 0.01 Thou/mm3 (0.00-0.00); Lymphocytes # (Auto) 1.8 Thou/mm3 (1.0-4.8); Lymphocytes % (Auto) 36 % (10-50); Mean Corpuscular HGB Conc 29.9 g/dl (31.0-37.0); Mean Corpuscular Hemoglobin 20.3 pg (25.0-35.0); Mean Corpuscular Volume 68 fL (80-100); Monocytes # (Auto) 0.5 Thou/mm3 (0.0-0.8); Monocytes % (Auto) 10 % (0-12); Neutrophils # (Auto) 2.7 Thou/mm3 (1.8-7.7); Neutrophils % (Auto) 52 % (37-80); Nucleated Red Blood Cell # 0.00 Thou/mm3 (0.00-0.00); Nucleated Red Blood Cell % 0 /100 WBC (0); Platelet Count 266 Thou/mm3 (140-440); RDW Standard Deviation 47.1 fL (36.4-46.3); Red Blood Count 4.34 Miln/mm3 (4.00-5.20); White Blood Count 5.1 Thou/mm3 (3.6-11.0)
[2025-07-25 20:37] LABS: INR 1.0 (0.9-1.3); Partial Thromboplastin Time 20.1 Seconds (22.0-36.0); Prothrombin Time 11.2 Seconds (9.0-12.2)
[2025-07-25 20:42] LABS: B-Type Natriuretic Peptide < 0 pg/mL (0-100)
[2025-07-25 20:53] LABS: Alanine Aminotransferase 19 U/L (10-49); Albumin, Serum 4.6 gm/dL (3.5-5.0); Albumin/Globulin Ratio 1.4 (1.2-2.2); Alkaline Phosphatase 116 U/L (46-116); Anion Gap 16 (7-16); Aspartate Amino Transferase 43 U/L (0-34); BUN/Creatinine Ratio 7 Ratio (12-20); Bilirubin,Total 0.3 mg/dL (0.3-1.2); Blood Urea Nitrogen 5 mg/dL (9-23); Calcium 8.9 mg/dL (8.3-10.6); Calcium (Corrected) 8.9 mg/dL (8.5-10.1); Carbon Dioxide 22.8 mMol/L (20.0-31.0); Chloride 105 mMol/L (98-107); Creatinine (Component) 0.7 mg/dL (0.6-1.3); Estimated Creatinine Clearance 99.9 mL/min (>60); Globulin 3.4 gm/dL (2.3-3.5); Glucose 174 mg/dL (74-106); Magnesium 1.9 mg/dL (1.6-2.6); Osmolality,Calculated 288 (275-295); Potassium 4.1 mMol/L (3.4-5.1); Sodium 144 mMol/L (136-145); Total Protein 8.0 gm/dL (5.7-8.2); eGFR > 60 See Note
[2025-07-25 20:57] LABS: Alcohol, Blood Medical 472.4 mg/dL (0-10.0)
[2025-07-25 21:19] LABS: Hemoglobin 8.8 g/dL (12.0-16.0)
[2025-07-25] MEDS: RINGERS LACTATED 1000 ML 1,000 ML 999 ML IV ×2 (21:27→21:28)
[2025-07-25] MEDS: FOLIC ACID INJ 1 MG/0.2 ML IVP (21:28)
[2025-07-25] MEDS: THIAMINE INJ 250 MG in SODIUM CHLORIDE 0.9% 100 ML 205 MG IV (21:29)
[2025-07-25 21:41] LABS: Collection Type, Urine Clean Catch
[2025-07-25 21:52] LABS: HCG Qualitative,Urine Negative
[2025-07-25 21:54] LABS: Amphetamine/Methamp Scrn,U Negative (Negative); Bacteria,Urine Rare; Barbiturate Screen,Urine Negative (Negative); Benzodiazepines Screen,Urine Positive (Negative); Benzoylecgonine Screen, Ur Negative (Negative); Bilirubin,Urine Negative (Negative); Blood,Urine Negative (Negative); Clarity,Urine Clear (Clear/Hazy); Color,Urine Lt-Yellow (Lt Yel-Yel); Culture Indicated,Urine Not Indicated; Fentanyl Screen,Urine Negative (Negative); Glucose, Urine Negative (Negative); Ketones,Urine Negative (Negative); Leukocyte Esterase,Urine Negative (Negative); Nitrite,Urine Negative (Negative); Opiate Screen,Urine Negative (Negative); PH,Urine 6.0 (5.0-7.0); Protein,Urine Negative (Neg - Trace); RBC,Urine 1 /hpf (0-3); Specific Gravity,Urine 1.006 (1.001-1.035); Squamous Epithelial Cell,Urine 1 /hpf (0-5); THC Screen,Urine Negative (Negative); Urobilinogen,Urine Negative mg/dL (0.0-1.0); WBC,Urine 1 /hpf (0-5)
--- NOTE | 2025-07-25 22:58 | PC.NURSE ---
PROVIDED PT WITH FOOD WAS ABLE TO EAT FOOD AND HAS STEADY GAIT WITH AMBULATION PT IS AAOX4
[2025-07-25 23:03] VITALS: BP 137/88; PULSE 135; RESP 19; TEMP 37.4; O2SAT 98
== END 2025-07-25 23:25 | disposition home or self-care (01) ==
PROVIDERS: Registered Nurse General Practice; Emergency Provider Emergency Medicine; PCP Family Medicine
DX: F10.129 Alcohol abuse with intoxication, unspecified (principal); F13.10 Sedative, hypnotic or anxiolytic abuse, uncomplicated; Y90.8 Blood alcohol level of 240 mg/100 ml or more
CPT/HCPCS: 36415; 80053; 80307; 80320; 81001; 81025; 83735; 83880; 85025; 85610; 85730; 96365; 96375; 99283; J3411; J3490; J7050; J7120; G0480

== ENCOUNTER 2025-07-26 12:53 | Emergency (ER) | payer MEDICAID, SELFPAY ==
[2025-07-26 12:58] VITALS: BP 128/87; PULSE 103; PULSE 120; RESP 18; RESP 19; TEMP 36.9; O2SAT 97; O2SAT 98; BMI 29.0
--- NOTE | 2025-07-26 13:34 | EDNOTE_ITS ---
<Statement entered by Melodie Guerrier MD - 08/14/25 06:07> As co-signing physician, I was present and available for consult prn. I concur with the plan and care as documented by the midlevel provider. ED Alcohol RME/HPI General Chief Complaint: Fall Stated Complaint: NEAR SYNCOPE Time Seen by Provider: 07/26/25 13:26 Arrival date/time: 07/26/25 12:53 RME / HPI RME / HPI narrative: 35-year-old female patient was brought in by EMS for evaluation regarding dizziness and near syncope. Incident happened earlier today. Patient is known to this emergency room for chronic alcoholism. Patient admits of drinking 3 tall cans of beer today. Patient also complaining of epigastric pain, especially after drinking. Denies any vomiting denies any anxiety-like symptoms denies any other complaints. Denies any homicidal or suicidal ideation. Related Data Previous Rx's ?Medication ?Instructions ?Recorded famotidine 40 mg tablet 40 mg PO .bedtime #30 tabs 0 07/10/25 folic acid 1 mg tablet 1 mg PO QDAY #90 tabs lorazepam 2 mg tablet (Ativan) 2 mg PO Q8H #9 tabs 12/03 multivitamin 1 tab PO QDAY #90 tabs 07/10 omeprazole 40 mg capsule,delayed 40 mg PO QDAY #30 cap s 07/10/25 release ondansetron 4 mg disintegrating 4 mg PO TID PRN nausea and 07/10/25 tablet vomiting 30 days #10 tabs thiamine HCl (vitamin B1) 50 mg 50 mg PO QDAY #90 tabs 07/10/25 tablet ferrous sulfate 325 mg (65 mg 325 mg PO Q OTHER DAY 30 days #15 07/21/25 iron) tablet tabs ondansetron HCl 4 mg tablet 4 mg PO Q8H PRN nausea and 07/26/25 vomiting 5 days #20 tabs pantoprazole 40 mg tablet,delayed 40 mg PO QDAY #20 ta bs 07/26/25 release (Protonix) Allergies Allergy/AdvReac Type Severity Reaction Status Date / Time No Known Allergies Allergy Verified 07/25/25 19:44 Review of Systems Review of Systems Narrative Review of Systems: Review of system reviewed and within normal limits except mentioned in HPI ED Exam Narrative Physical exam: VITAL SIGNS: Reviewed. GENERAL APPEARANCE: Alert and interactive, follows commands, no acute distress, HEAD AND FACE: Non-traumatic. ENT: PERRL, pink conjunctivitis, eyelid no trauma, Mucous membrane moist. NECK: Supple, nontender, no nuchal rigidity. CHEST: No tenderness, no crepitus, no paradoxical movement, no retractions. LUNGS: Clear, well ventilated, symmetric, no rales, no wheezing, no ronchi, no stridor, good breath sounds bilaterally. HEART: Regular rate, regular rhythm, no murmur, no gallops. ABDOMEN: Soft, positive bowel sounds, nondistended, no guarding, nontender, no rebound, no masses, RECTAL: Deferred. GENITAL: Deferred. NEUROLOGICAL: Gross motor function intact sensory function intact, Appropriate for age. MUSCULOSKELETAL: low back nontender, full range of motion. EXTREMITIES: Nontender, full range of motion. SKIN: Color pink, dry, no rash, no lacerations, no abrasions, no contusions. LYMPHATICS: Deferred. Course Quality Measures none Orders Category Date Time Status Ondansetron Odt [Zofran Odt] Med 07/26/25 13:34 Discontinued 4 mg PO X1 ONE mg Hyd/Al Hyd/Ernestina Susp [Maalox Susp] Med 07/26/25 13:34 Discontinued 30 ml PO X1 ONE Vital Signs Vital signs: Vital Signs Temperature 98.5 F 07/26/25 12:58 Pulse Rate 103 H 07/26/25 12:58 Respiratory Rate 19 07/26/25 12:58 Blood Pressure 128/87 H 07/26/25 12:58 Pulse Oximetry (%) 97 07/26/25 12:58 Oxygen Delivery Method Room Air 07/26/25 12:58 Discharge Plan Plan Patient Disposition: HOME (Self Care) Discharge Disposition comment: Stable Prescriptions/Referrals Prescriptions/Med Rec: New pantoprazole [Protonix] 40 mg tablet,delayed release (DR/EC) 40 mg PO QDAY Qty: 20 0RF ondansetron HCl 4 mg tablet 4 mg PO Q8H PRN (Reason: nausea and vomiting) 5 Days Qty: 20 0RF No Action multivitamin Tablet 1 tab PO QDAY Qty: 90 3RF famotidine 40 mg tablet 40 mg PO .bedtime Qty: 30 0RF omeprazole 40 mg capsule,delayed release(DR/EC) 40 mg PO QDAY Qty: 30 0RF lorazepam [Ativan] 2 mg tablet 2 mg PO Q8H Qty: 9 0RF folic acid 1 mg tablet 1 mg PO QDAY Qty: 90 3RF ondansetron 4 mg tablet,disintegrating 4 mg PO TID PRN (Reason: nausea and vomiting) 30 Days Qty: 10 0RF thiamine HCl (vitamin B1) 50 mg tablet 50 mg PO QDAY Qty: 90 1RF ferrous sulfate 325 mg (65 mg iron) tablet 325 mg PO Q OTHER DAY 30 Days Qty: 15 0RF Referrals: No Primary/Family,Physician [Primary Care Provider] - In 1 week Problem List Clinical Impression: Alcoholism, chronic, Near syncope Patient/Caregiver Discharge Instructions Discharge Activity: activity as tolerated Education Materials: Alcoholism Resources Additional Instructions: Thank you for the opportunity for serving you today. You are stable for discharged . You are advised to: Follow-up with your PCP in 1 to 2 days Return to ED for worsening of symptoms Increase oral fluids Please stop drinking alcohol Print Language: Luxembourgish Stand Alone Forms: [employer] Info., Patient Portal Info Letter PA/REFUSE COLLECTOR Supervising Physician PA/BIB Supervising Physician: MD Sherrill Alcohol MDM Narrative MDM Narrative: 35-year-old female patient was brought in by EMS for evaluation regarding dizziness and near syncope. Incident happened earlier today. Patient is known to this emergency room for chronic alcoholism. Patient admits of drinking 3 tall cans of beer today. Patient also complaining of epigastric pain, especially after drinking. Denies any vomiting denies any anxiety-like symptoms denies any other complaints. Denies any homicidal or suicidal ideation. Reports workup however imaging is not needed at this time. Patient denies show any sign of alcohol withdrawal symptoms at this time. Patient is ambulatory with no recurrence of near syncope. Patient was given Zofran Maalox and was drinking water with no complaints. I was advised her to stop refrain from drinking alcohol every day. Patient agrees with the plan. She is stable for discharge home Patient data External records reviewed:: None Clinical information provided by:: patient Social determinants that could affect healthcare access:: alcohol use Patient has the following chronic illnesses:: None How is presenting disease/condition affected by chronic disease/condition?: no chronic disease Evaluation data The following diagnostics were reviewed and interpreted by me:: other (specify) Lab and/or radiology exams considered but not ordered:: None Interpretation Summary: None Medications / Prescriptions Medications or Prescriptions considered but not ordered:: None Medication administrations:: Medication Administration History Discontinued Medications Al Hydrox/Mg Hydrox/Simethicone (Mg Hyd/Al Hyd/Renestina (Maalox Reg) Susp 30 Ml Udc) 30 ml PO X1 ONE Stop: 07/26/25 13:35 Last Admin: 07/26/25 14:36 Dose: 30 ml Documented By: ED Ondansetron HCl (Ondansetron Odt 4 Mg Tabrap) 4 mg PO X1 ONE; Protocol Stop: 07/26/25 13:35 Last Admin: 07/26/25 14:36 Dose: 4 mg Documented By: ED Kati and Jamilah Consultations Consultation(s) initiated? (list below): No Diagnosis Differential diagnosis alcohol: alcohol intoxication and alcohol withdrawal syndrome Most likely diagnosis given after review of the tests above:: Near syncope, chronic alcoholism Admission Indicated Admission indicated?: not indicated Admission Request Was there a request for admission?: No Disposition Plan Disposition Plan: Discharge Discharge Attestation Discharge Attestation: The patient was given an opportunity to ask questions and understood the discharge instructions. Discharge instructions specifically effects, indications for sooner follow up or return to the emergency department, and the expected course of current diagnosis. Patient condition: Stable
[2025-07-26] MEDS: MG HYD/AL HYD/SIME (Maalox Reg) SUSP 30 ML UDC PO (14:36)
[2025-07-26] MEDS: ONDANSETRON ODT 4 MG TABRAP PO (14:36)
--- NOTE | 2025-07-26 14:40 | PC.NURSE ---
Gave pt. water and juice, pt. states thank you and apologizes. Pt. states she is so embarrassed. Pt. states she drank 3 [place]'s this morning. Pt. states she feels like she is going to , pt. states she has nausea. Pt. laying in bed in room 19.
[2025-07-26 14:53] VITALS: BP 116/81; PULSE 99; RESP 20; TEMP 36.7; O2SAT 96
[2025-07-26 15:39] VITALS: BP 108/91; PULSE 98; RESP 14; TEMP 36.7; O2SAT 99
== END 2025-07-26 16:00 | disposition home or self-care (01) ==
PROVIDERS: Emergency Provider Emergency Medicine
DX: F10.20 Alcohol dependence, uncomplicated (principal); R55 Syncope and collapse
CPT/HCPCS: 99282; Q0162; A9270

== ENCOUNTER 2025-07-26 21:04 | Emergency (ER) | payer MEDICAID, SELFPAY ==
[2025-07-26 21:08] VITALS: PULSE 97; RESP 14; O2SAT 98; BMI 30.2
[2025-07-26 21:17] VITALS: BP 127/90; PULSE 98; RESP 19; TEMP 36.7; O2SAT 97
--- NOTE | 2025-07-26 21:41 | PD.EDALCOH ---
ED Alcohol RME/HPI General Chief Complaint: Alcohol Stated Complaint: INTOXICATED Arrival date/time: 07/26/25 21:04 RME / HPI RME / HPI narrative: DR. MILLS MAIN ED EVALUATION: 35 y/o intoxicated female with Hx of Alcohol Abuse presents to ED c/o seeing red and green lights after drinking 5 [place]s and 1 Ativan just HOSPITAL SUPERINTENDENT. Patient expresses fear of alcohol withdrawal seizure and . Per EMS, BS was 229 mg/dL on scene. No other concerns or complaints expressed at this time. MD complaint: alcohol intoxication and alcohol dependence Last drink: Just Prior to Arrival Chronic alcohol use: Yes Previous visits for alcohol intoxication: Yes Recent trauma: No Treatments prior to arrival: none Related Data Previous Rx's ?Medication ?Instructions ?Recorded famotidine 40 mg tablet 40 mg PO .bedtime #30 tabs 07/10/25 folic acid 1 mg tablet 1 mg PO QDAY #90 tabs 07/10/25 lorazepam 2 mg tablet (Ativan) 2 mg PO Q8H #9 tabs 07/10/25 multivitamin 1 tab PO QDAY #90 tabs 07/10/25 omeprazole 40 mg capsule,delayed 40 mg PO QDAY #30 caps 07/10/25 release ondansetron 4 mg disintegrating 4 mg PO TID PRN nausea and 07/10/25 tablet vomiting 30 days #10 tabs thiamine HCl (vitamin B1) 50 mg 50 mg PO QDAY #90 tabs 07/10/25 tablet ferrous sulfate 325 mg (65 mg 325 mg PO Q OTHER DAY 30 days #15 07/21/25 iron) tablet tabs ondansetron HCl 4 mg tablet 4 mg PO Q8H PRN nausea and 07/26/25 vomiting 5 days #20 tabs pantoprazole 40 mg tablet,delayed 40 mg PO QDAY #20 tabs 07/26/25 release (Protonix) Allergies Allergy/AdvReac Type Severity Reaction Status Date / Time No Known Allergies Allergy Verified 07/25/25 19:44 Review of Systems Review of Systems Systems Reviewed: All systems reviewed, normal except as documented Past Medical History Past Medical History GASTROINTESTINAL: Positive Ulcerative Colitis and Ulcer REPRODUCTIVE: Positive Previous Pregnancies HEMATOLOGIC: Positive Blood Disorders and Anemia PSYCHO/SOCIAL: Positive Anxiety Social History SECOND HAND EXPOSURE: Yes ALCOHOL: Current ALCOHOL FREQUENCY: 3 or More Drinks per Day ALCOHOL LAST INTAKE: Just Prior to Arrival ED Exam Narrative Physical exam: Generally patient is alert oriented, heart regular rate and rhythm, lungs clear to auscultation equal bilaterally, abdomen soft bowel sounds present no send nontender neurologic exam Tolu Coma Scale of 15. Patient is not tremulous. No focal motor deficits. Course Quality Measures none Vital Signs Vital signs: Vital Signs Temperature 98.1 F 07/26/25 21:17 Pulse Rate 98 07/26/25 21:17 Respiratory Rate 19 07/26/25 21:17 Blood Pressure 127/90 H 07/26/25 21:17 Pulse Oximetry (%) 97 07/26/25 21:17 Oxygen Delivery Method Room Air 07/26/25 21:17 Discharge Plan Plan Patient Disposition: HOME (Self Care) Prescriptions/Referrals Prescriptions/Med Rec: No Action multivitamin Tablet 1 tab PO QDAY Qty: 90 3RF famotidine 40 mg tablet 40 mg PO .bedtime Qty: 30 0RF omeprazole 40 mg capsule,delayed release(DR/EC) 40 mg PO QDAY Qty: 30 0RF lorazepam [Ativan] 2 mg tablet 2 mg PO Q8H Qty: 9 0RF folic acid 1 mg tablet 1 mg PO QDAY Qty: 90 3RF ondansetron 4 mg tablet,disintegrating 4 mg PO TID PRN (Reason: nausea and vomiting) 30 Days Qty: 10 0RF thiamine HCl (vitamin B1) 50 mg tablet 50 mg PO QDAY Qty: 90 1RF pantoprazole [Protonix] 40 mg tablet,delayed release (DR/EC) 40 mg PO QDAY Qty: 20 0RF ondansetron HCl 4 mg tablet 4 mg PO Q8H PRN (Reason: nausea and vomiting) 5 Days Qty: 20 0RF ferrous sulfate 325 mg (65 mg iron) tablet 325 mg PO Q OTHER DAY 30 Days Qty: 15 0RF Referrals: No Primary/Family,Physician [Primary Care Provider] - In 1 week Problem List Clinical Impression: Alcohol abuse Patient/Caregiver Discharge Instructions Education Materials: ED Alcohol Abuse Additional Instructions: Decrease your alcohol consumption. Return to ER for signs of withdrawal such as hallucinations, fast heart rate, palpitations, sweating, tremulousness. Print Language: Ivorian Stand Alone Forms: Nicole Award Info., Patient Portal Info Letter Alcohol MDM Narrative MDM Narrative: Scribe Attestation: I, Sis Saleh, am scribing for and in the presence of Dr. Mills. Provider Notation: Although this document has been carefully reviewed, there may still be some phonetic and other typographical errors. These errors are purely grammatical due to imperfections in the software program and should not be construed in any way to compromise the substance of the patient's medical care during this visit. Patient is not dyspneic or tachypneic. I do not believe this patient to be an alcoholic ketoacidosis. Blood sugar was 226 taken by paramedics. I do long discussion with the patient. She needs to stop drinking alcohol. If she feels as if she is going through withdrawals she may return to the emergency room and at that time the patient may be started on benzodiazepine therapy. However at this time while the patient is actively drinking I do not think it is prudent to start the patient on benzodiazepine therapy. Patient data External records reviewed:: [facility] previous records (Reviewed prior ED records from earlier Today. Patient was seen for Alcoholism, chronic.) and EMS form Clinical information provided by:: patient and EMS Social determinants that could affect healthcare access:: alcohol use Patient has the following chronic illnesses:: Ulcerative Colitis, Ulcer, Anemia, Anxiety How is presenting disease/condition affected by chronic disease/condition?: exacerbated by Evaluation data The following diagnostics were reviewed and interpreted by me:: other (specify) Lab and/or radiology exams considered but not ordered:: None Interpretation Summary: None Medications / Prescriptions Medications or Prescriptions considered but not ordered:: None Medication administrations:: See above if any Consultations Consultation(s) initiated? (list below): No Diagnosis Differential diagnosis alcohol: alcohol withdrawal delirium, hypomagnesemia, alcohol intoxication, alcohol ketoacidosis, alcohol withdrawal syndrome and alcohol withdrawal seizure Most likely diagnosis given after review of the tests above:: None Admission Indicated Admission indicated?: not indicated Explain why admission is indicated or not indicated:: Patient does not meet admission criteria Admission Request Was there a request for admission?: No Disposition Plan Disposition Plan: Discharge Discharge Attestation Discharge Attestation: The patient and all family members were given an opportunity to ask questions and understood the discharge instructions. Discharge instructions specifically effects, indications for sooner follow up or return to the emergency department, and the expected course of current diagnosis. Patient condition: Stable
[2025-07-27 00:12] VITALS: BP 116/85; PULSE 95; RESP 14; TEMP 37; O2SAT 99
== END 2025-07-27 00:13 | disposition home or self-care (01) ==
PROVIDERS: Emergency Provider Emergency Medicine
DX: F10.129 Alcohol abuse with intoxication, unspecified (principal)
CPT/HCPCS: 99281

== ENCOUNTER 2025-07-27 01:18 | Emergency (ER) | payer MEDICAID, SELFPAY ==
[2025-07-27 01:19] VITALS: BMI 28.3
[2025-07-27 01:30] VITALS: BP 118/80; PULSE 101; RESP 16; TEMP 37.1; O2SAT 97
--- NOTE | 2025-07-27 02:58 | PD.EDRME ---
Rapid Medical Screening Exam RME Arrival date/time: 07/27/25 01:18 35F with history of alcohol abuse presents to ED with alcohol withdrawal symptoms. This is patient's 3rd visit. Patient would like to talk to psych and/or high school social studies teacher in the morning. Chief Complaint: Alcohol Vital signs: Vital Signs Temperature 98.8 F 07/27/25 01:30 Pulse Rate 101 H 07/27/25 01:30 Respiratory Rate 16 07/27/25 01:30 Blood Pressure 118/80 07/27/25 01:30 Pulse Oximetry (%) 97 07/27/25 01:30 Oxygen Delivery Method Room Air 07/27/25 01:30
[2025-07-27 09:24] VITALS: BP 134/83; PULSE 112; RESP 17; TEMP 36.9; O2SAT 98
--- NOTE | 2025-07-27 11:47 | EKG_ITS ---
[facility] Test Date: 2025-07-27 Pat Name: JESSICA ADLER Department: Room: - Gender: Female Veneer Sander: : 1990 Requested By: Chris Evans Order Number: [id number] Reading MD: Chris Evans Measurements Intervals [place] Rate: 111 P: 49 [place]: 165 QRS: 45 QRSD: 69 T: 16 QT: 336 QTc: 457 Interpretive Statements SINUS TACHYCARDIA ABNORMAL RHYTHM ECG Compared to ECG 07/19/2025 17:51:00 Indeterminate axis no longer present Myocardial infarct finding no longer present /store/[id number]
--- NOTE | 2025-07-27 11:56 | PD.EDALCOH ---
ED Alcohol RME/HPI General Chief Complaint: Alcohol Stated Complaint: ETOH WITHDRAWALS Time Seen by Provider: 07/27/25 10:14 Arrival date/time: 07/27/25 01:18 Limitations: no limitations RME / HPI RME / HPI narrative: 07/27/25 01:18 35F with history of alcohol abuse presents to ED with alcohol withdrawal symptoms. This is patient's 3rd visit. Patient would like to talk to psych and/or social services counselor in the morning. DR. COSME MAIN ED EVALUATION: 35 year old female with history of alcohol abuse presents to the ED for possible alcohol withdrawal. Patient described feeling unwell and shaky. Patient is requesting to be admitted for 1 day for alcohol withdrawal. No nausea or vomiting. Patient mentioned she drinks heavily daily and last had alcohol 24 hours ago. Related Data Previous Rx's ?Medication ?Instructions ?Recorded famotidine 40 mg tablet 40 mg PO .bedtime #30 tabs 07/10/25 folic acid 1 mg tablet 1 mg PO QDAY #90 tabs 07/10/25 lorazepam 2 mg tablet (Ativan) 2 mg PO Q8H #9 tabs 07/10/25 multivitamin 1 tab PO QDAY #90 tabs 07/10/25 omeprazole 40 mg capsule,delayed 40 mg PO QDAY #30 caps 07/10/25 release ondansetron 4 mg disintegrating 4 mg PO TID PRN nausea and 07/10/25 tablet vomiting 30 days #10 tabs thiamine HCl (vitamin B1) 50 mg 50 mg PO QDAY #90 tabs 07/10/25 tablet ferrous sulfate 325 mg (65 mg 325 mg PO Q OTHER DAY 30 days #15 07/21/25 iron) tablet tabs ondansetron HCl 4 mg tablet 4 mg PO Q8H PRN nausea and 07/26/25 vomiting 5 days #20 tabs pantoprazole 40 mg tablet,delayed 40 mg PO QDAY #20 tabs 07/26/25 release (Protonix) chlordiazepoxide HCl 25 mg capsule 25 mg PO Q6H ALCOHOL WITHDRAWAL 07/27/25 #30 caps Allergies Allergy/AdvReac Type Severity Reaction Status Date / Time No Known Allergies Allergy Verified 07/25/25 19:44 Review of Systems Review of Systems Systems Reviewed: All systems reviewed, normal except as documented Past Medical History Past Medical History GASTROINTESTINAL: Positive Ulcerative Colitis and Ulcer REPRODUCTIVE: Positive Previous Pregnancies HEMATOLOGIC: Positive Blood Disorders and Anemia PSYCHO/SOCIAL: Positive Anxiety Family History FAMILY HISTORY: Negative Family Psychiatric Problems, Family Respiratory Disorders, Family Cardiac Disorders, Family Gastrointestinal Problems, Family Cancer, Family Surgery or Family Anesthesia Reaction Surgical History SURGICAL: Negative Section Social History SMOKING STATUS: Never smoker SECOND HAND EXPOSURE: Yes ED Exam General Limitations: Present no limitations General appearance: Present alert, anxious and other (When I initially arrived to the patients room, she was laying calmly in bed then afer talking to her she began shaking her legs and arms. ) Head Head exam: Present atraumatic, normocephalic and normal inspection Eye Eye exam: Present normal appearance, PERRL and EOMI ENT ENT exam: Present normal exam, normal oropharynx and mucous membranes moist Neck Neck exam: Present normal inspection, full ROM and trachea midline Chest Chest inspection: Present normal inspection and symmetric chest wall rise Respiratory Respiratory exam: Present normal lung sounds bilaterally Cardiovascular Cardiovascular exam: Present regular rate, normal rhythm and normal heart sounds Abdominal Exam Abdominal exam: Present soft and normal bowel sounds Extremities Exam Extremities exam: Present normal inspection and full ROM Back Exam Back exam: Present normal inspection and full ROM Neurological Exam Neurological exam: Present alert, oriented X3, CN II-XII intact and other (No tremor or flap. 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 NOW Care 07/27/25 11:47 Active Continuous Pulse Oximetry NOW Care 07/27/25 11:47 Active EKG (ED ONLY) *Do not use* NOW Care 07/27/25 11:47 Completed Insert IV NOW Care 07/27/25 11:47 Active EKG (ED Only) Stat Exams 07/27/25 11:47 Draft Alcohol, Blood Medical Stat Lab 07/27/25 11:59 Completed CBC Stat Lab 07/27/25 11:59 Completed Comprehensive Metabolic Panel Stat Lab 07/27/25 11:59 Completed Partial Thromboplastin Time Stat Lab 07/27/25 11:59 Completed Prothrombin Time with INR Stat Lab 07/27/25 11:59 Completed Urinalysis Stat Lab 07/27/25 11:47 Ordered Folic Acid Med 07/27/25 11:49 Discontinued 1 mg PO X1 ONE Sodium Chloride 0.9% 1000 ml [Ns] 1,000 ml Med 07/27/25 11:47 Discontinued IV 999 mls/hr Thiamine [Vitamin B-1] Med 07/27/25 11:49 Discontinued 100 mg PO X1 ONE chlordiazePOXIDE HCl [Librium] Med 07/27/25 11:47 Discontinued 25 mg PO X1 ONE chlordiazePOXIDE HCl [Librium] Med 07/27/25 15:32 Discontinued 25 mg PO X1 ONE Referral Florist Manager NOW 07/27/25 02:57 Active Vital Signs Vital signs: Vital Signs Temperature 98.8 F 07/27/25 01:30 Pulse Rate 101 H 07/27/25 01:30 Respiratory Rate 16 07/27/25 01:30 Blood Pressure 118/80 07/27/25 01:30 Pulse Oximetry (%) 97 07/27/25 01:30 Oxygen Delivery Method Room Air 07/27/25 01:30 Pulse ox is 97% on room air which is adequate. Discharge Plan Plan Patient Disposition: HOME (Self Care) Patient condition on transfer: Stable Prescriptions/Referrals Prescriptions/Med Rec: New chlordiazepoxide HCl 25 mg capsule 25 mg PO Q6H MDD 4 Qty: 30 0RF No Action multivitamin Tablet 1 tab PO QDAY Qty: 90 3RF famotidine 40 mg tablet 40 mg PO .bedtime Qty: 30 0RF omeprazole 40 mg capsule,delayed release(DR/EC) 40 mg PO QDAY Qty: 30 0RF lorazepam [Ativan] 2 mg tablet 2 mg PO Q8H Qty: 9 0RF folic acid 1 mg tablet 1 mg PO QDAY Qty: 90 3RF ondansetron 4 mg tablet,disintegrating 4 mg PO TID PRN (Reason: nausea and vomiting) 30 Days Qty: 10 0RF thiamine HCl (vitamin B1) 50 mg tablet 50 mg PO QDAY Qty: 90 1RF pantoprazole [Protonix] 40 mg tablet,delayed release (DR/EC) 40 mg PO QDAY Qty: 20 0RF ondansetron HCl 4 mg tablet 4 mg PO Q8H PRN (Reason: nausea and vomiting) 5 Days Qty: 20 0RF ferrous sulfate 325 mg (65 mg iron) tablet 325 mg PO Q OTHER DAY 30 Days Qty: 15 0RF Referrals: Arnulfo Harmon MD [Primary Care Provider, Family Practice] - In 1 week Problem List Clinical Impression: Alcohol withdrawal Patient/Caregiver Discharge Instructions Discharge Activity: activity as tolerated Education Materials: Alcoholism and Family History, Alcoholism: Getting Help, Alcohol Withdrawal: What to Expect, Addiction Recovery Counseling Additional Instructions: Take your medication every 6 hours for withdrawal symptoms as needed. Do not drink anything any wine or other alcohol. Consider seeking with a program like help alcoholic synonymous. Please follow-up with your primary care doctor for discussion of your alcoholism and any referrals they may be able to provide for counseling. Print Language: Italian Stand Alone Forms: Nicole Award Info., Patient Portal Info Letter Alcohol MDM Narrative MDM Narrative: Naya Castro am scribing for and in the presence of Dr. Cosme. CIWA score of 8. Patient data External records reviewed:: [facility] previous records (I reviewed ED visit from earlier today. ) Clinical information provided by:: patient Social determinants that could affect healthcare access:: alcohol use Patient has the following chronic illnesses:: Alcohol abuse How is presenting disease/condition affected by chronic disease/condition?: exacerbated by Evaluation data The following diagnostics were reviewed and interpreted by me:: lab results and EKG tracing(s) (EKG @ 12:55h sinus tachycardia, rate 111, no acute ischemic changes, no STEMI, QT/QTc 336/401ms ) Lab and/or radiology exams considered but not ordered:: None Interpretation Summary: H/H chronically low CMP within normal limits Medications / Prescriptions Medications or Prescriptions considered but not ordered:: None Medication administrations:: Medication Administration History Discontinued Medications Chlordiazepoxide HCl (Chlordiazepoxide Hcl 25 Mg Capsule) 25 mg PO X1 ONE Stop: 07/27/25 11:48 Last Admin: 07/27/25 12:35 Dose: 25 mg Documented By: AMAN Chlordiazepoxide HCl (Chlordiazepoxide Hcl 25 Mg Capsule) 25 mg PO X1 ONE Stop: 07/27/25 15:33 Folic Acid (Folic Acid 1 Mg Tablet) 1 mg PO X1 ONE Stop: 07/27/25 11:50 Last Admin: 07/27/25 12:35 Dose: 1 mg Documented By: AMAN Sodium Chloride (Ns) 1,000 mls @ 999 mls/hr IV .Q1H1M ONE Stop: 07/27/25 12:47 Last Admin: 07/27/25 13:05 Dose: 999 mls/hr Documented By: AMAN Thiamine HCl (Thiamine 100 Mg Tablet) 100 mg PO X1 ONE Stop: 07/27/25 11:50 Last Admin: 07/27/25 12:35 Dose: 100 mg Documented By: CS See above Consultations Consultation(s) initiated? (list below): No Diagnosis Most likely diagnosis given after review of the tests above:: Alcohol withdrawal Admission Indicated Admission indicated?: not indicated Admission Request Was there a request for admission?: No Disposition Plan Disposition Plan: Discharge Discharge Attestation Discharge Attestation: The patient and all family members were given an opportunity to ask questions and understood the discharge instructions. Discharge instructions specifically effects, indications for sooner follow up or return to the emergency department, and the expected course of current diagnosis. Patient condition: Stable
[2025-07-27 12:08] LABS: Basophils # (Auto) 0.0 Thou/mm3 (0.0-0.2); Basophils % (Auto) 1 % (0-2.5); Eosinophils # (Auto) 0.1 Thou/mm3 (0.0-0.5); Eosinophils % (Auto) 1 % (0-10); Hematocrit 29.6 % (36.0-46.0); Immature Granulocytes Auto 0.01 Thou/mm3 (0.00-0.00); Lymphocytes # (Auto) 1.1 Thou/mm3 (1.0-4.8); Lymphocytes % (Auto) 27 % (10-50); Mean Corpuscular HGB Conc 29.7 g/dl (31.0-37.0); Mean Corpuscular Hemoglobin 20.8 pg (25.0-35.0); Mean Corpuscular Volume 70 fL (80-100); Monocytes # (Auto) 0.4 Thou/mm3 (0.0-0.8); Monocytes % (Auto) 10 % (0-12); Neutrophils # (Auto) 2.5 Thou/mm3 (1.8-7.7); Neutrophils % (Auto) 62 % (37-80); Nucleated Red Blood Cell # 0.00 Thou/mm3 (0.00-0.00); Nucleated Red Blood Cell % 0 /100 WBC (0); Platelet Count 215 Thou/mm3 (140-440); RDW Standard Deviation 50.5 fL (36.4-46.3); Red Blood Count 4.23 Miln/mm3 (4.00-5.20); White Blood Count 4.0 Thou/mm3 (3.6-11.0)
[2025-07-27 12:12] LABS: Hemoglobin 8.8 g/dL (12.0-16.0)
[2025-07-27 12:25] LABS: INR 1.1 (0.9-1.3); Partial Thromboplastin Time 21.4 Seconds (22.0-36.0); Prothrombin Time 11.9 Seconds (9.0-12.2)
[2025-07-27 12:30] LABS: Alanine Aminotransferase 17 U/L (10-49); Albumin, Serum 4.1 gm/dL (3.5-5.0); Albumin/Globulin Ratio 1.2 (1.2-2.2); Alcohol, Blood Medical < 10.0 mg/dL (0-10.0); Alkaline Phosphatase 116 U/L (46-116); Anion Gap 11 (7-16); Aspartate Amino Transferase 32 U/L (0-34); BUN/Creatinine Ratio 8 Ratio (12-20); Bilirubin,Total 0.7 mg/dL (0.3-1.2); Blood Urea Nitrogen < 5 mg/dL (9-23); Calcium 9.0 mg/dL (8.3-10.6); Calcium (Corrected) 9.0 mg/dL (8.5-10.1); Carbon Dioxide 26.1 mMol/L (20.0-31.0); Chloride 105 mMol/L (98-107); Creatinine (Component) 0.6 mg/dL (0.6-1.3); Estimated Creatinine Clearance 116.6 mL/min (>60); Globulin 3.3 gm/dL (2.3-3.5); Glucose 97 mg/dL (74-106); Osmolality,Calculated 280 (275-295); Potassium 3.7 mMol/L (3.4-5.1); Sodium 142 mMol/L (136-145); Total Protein 7.4 gm/dL (5.7-8.2); eGFR > 60 See Note
[2025-07-27] MEDS: THIAMINE 100 MG TABLET PO (12:35)
[2025-07-27] MEDS: FOLIC ACID 1 MG TABLET PO (12:35)
[2025-07-27 13:00] VITALS: BP 114/80; PULSE 107; RESP 17; TEMP 36.9; O2SAT 100
[2025-07-27] MEDS: SODIUM CHLORIDE 0.9% 1000 ML 1,000 ML 999 ML IV (13:05)
--- NOTE | 2025-07-27 13:41 | PC.NURSE ---
DR. QUEEN MADE AWARE OF PT CWIA, NO NEW ORDERS GIVEN
[2025-07-27 15:00] VITALS: BP 115/78; PULSE 101; RESP 20; TEMP 37.2; O2SAT 97
[2025-07-27 18:12] VITALS: BP 134/88; PULSE 106; RESP 20; TEMP 36.8; O2SAT 97
== END 2025-07-27 18:25 | disposition home or self-care (01) ==
PROVIDERS: Emergency Provider Family Medicine; PCP Family Medicine
DX: F10.239 Alcohol dependence with withdrawal, unspecified (principal); Y90.0 Blood alcohol level of less than 20 mg/100 ml; R00.0 Tachycardia, unspecified
CPT/HCPCS: 36415; 80053; 80320; 81001; 85025; 85610; 85730; 93005; 99284; J7030; A9270; G0480

== ENCOUNTER 2025-10-17 18:18 | Emergency (ER) | payer MEDICAID, SELFPAY ==
--- NOTE | 2025-10-17 18:22 | EKG_ITS ---
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
[2025-10-17 18:36] VITALS: BP 143/97; PULSE 129; RESP 22; TEMP 37.6; O2SAT 99
--- NOTE | 2025-10-17 18:48 | XR_ITS ---
EXAMINATION: PA lateral chest 2 views TECHNIQUE: Upright PA lateral chest 2 views Date and time: October 17, 2025, 1923 hours, comparison July 19, 2025 INDICATIONS: Chest pain shortness of breath dizziness today. FINDINGS: Normal heart size Lungs are clear Osseous structures are intact IMPRESSION: No active disease
--- NOTE | 2025-10-17 18:50 | EDNOTE_ITS ---
ED Alcohol RME/HPI General Chief Complaint: Alcohol Stated Complaint: ALCOHOL WITHDRAWL, CHEST PAIN, SOB, DIZZY Time Seen by Provider: 10/17/25 18:48 Arrival date/time: 10/17/25 18:18 35F with history of alcoholism presents to ED with 2 days of alcohol withdrawal symptoms including CP, SOB, dizziness and tremors. Possible URI symptoms. Patient has been sober for the past 3 months, but relapsed 2 days ag Limitations: no limitations Related Data Previous Rx's ?Medication ?Instructions ?Recorded famotidine 40 mg tablet 40 mg PO .bedtime #30 tabs 0 07/10/25 folic acid 1 mg tablet 1 mg PO QDAY #90 tabs lorazepam 2 mg tablet (Ativan) 2 mg PO Q8H #9 tabs 12/03 multivitamin 1 tab PO QDAY #90 tabs 07/10 omeprazole 40 mg capsule,delayed 40 mg PO QDAY #30 cap s 07/10/25 release thiamine HCl (vitamin B1) 50 mg 50 mg PO QDAY #90 tabs 07/10/25 tablet pantoprazole 40 mg tablet,delayed 40 mg PO QDAY #20 ta bs 07/26/25 release (Protonix) chlordiazepoxide HCl 25 mg capsule 25 mg PO Q6H ALCOHO L WITHDRAWAL 07/27/25 #30 caps chlordiazepoxide HCl 25 mg capsule 25 mg PO BID PRN al cohol 10/18/25 withdrawal #14 caps pantoprazole 40 mg tablet,delayed 40 mg PO QDAY #30 ta bs 10/18/25 release Allergies Allergy/AdvReac Type Severity Reaction Status Date / Time No Known Allergies Allergy Verified 10/17/25 18:21 Review of Systems Review of Systems Systems Reviewed: All systems reviewed, normal except as documented ENT Ears, Nose, Mouth, and Throat: Reports vertigo Cardiovascular Cardiovascular: Reports as per HPI, Reports chest pain and Reports dyspnea Respiratory Respiratory: Reports as per HPI and Reports dyspnea Neurologic Neurologic: Reports as per HPI, Reports tremor(s) and Reports vertigo Past Medical History Past Medical History NEUROLOGIC: Negative Neurological Disorders or Seizures CARDIAC: Negative Cardiac Disorders or Congestive Heart Failure RESPIRATORY: Negative Chronic Obstructive Pulmonary Disease (COPD) or Asthma GASTROINTESTINAL: Positive Ulcerative Colitis and Ulcer; Negative Hepatitis, Cirrhosis or Colorectal Cancer GENITOURINARY: Negative Genitourinary Disorders, Renal Disease or Prostate Cancer REPRODUCTIVE: Positive Previous Pregnancies; Negative Breast Cancer, Endometriosis, Pelvic Inflammatory Disease, Testicular Cancer or Uterine Prolapse MUSCULOSKELETAL: Negative Musculoskeletal Disorders or Bone Cancer ENDOCRINE: Negative Endocrine Disorders, Diabetes Mellitus Type 1 or Diabetes Mellitus Type 2 HEMATOLOGIC: Positive Blood Disorders and Anemia; Negative Sickle Cell Disease PSYCHO/SOCIAL: Positive Anxiety; Negative Depression OTHER HISTORY: Negative Hospitalization, Autoimmune Disease, Down Syndrome, Developmental Delay, Shingles, Falls, Blood Transfusions, Anesthesia Reactions, Chemotherapy, Radiation Therapy, Hyperbaric Therapy, MRSA, VRSA, Vancomycin- Resistant Enterococci, Human Immunodeficiency Virus (HIV), Chicken Pox, Measles, Mumps, Rubella (Upper Sor[place] Measles), Pertussis, Clostridium Difficile, Breast Cancer, Cervical Cancer, Colorectal Cancer, Lung Cancer, Prostate Cancer or Testicular Cancer Family History FAMILY HISTORY: Negative Family Psychiatric Problems, Family Respiratory Disorders, Family Cardiac Disorders, Family Gastrointestinal Problems, Family Cancer, Family Surgery or Family Anesthesia Reaction Surgical History SURGICAL: Negative Section Social History SMOKING STATUS: Never smoker SECOND HAND EXPOSURE: Yes ED Exam General Limitations: Present no limitations General appearance: Present alert and anxious Head Head exam: Present atraumatic Neck Neck exam: Present normal inspection, full ROM and trachea midline Chest Chest inspection: Present normal inspection and symmetric chest wall rise Respiratory Respiratory exam: Present normal lung sounds bilaterally Neurological Exam Neurological exam: Present alert and oriented X3 Psychiatric Psychiatric exam: Present normal affect and anxious Skin Skin exam: Present warm, dry, intact and normal color Course Quality Measures none Orders Category Date Time Status Bedside COVID-19 Antigen Test NOW Care 10/17/25 18:49 Completed Bedside Influenza A&B Antigen Test NOW Care 10/17/25 18:[address] Screening NOW Care 10/17/25 20:53 Completed EKG (ED ONLY) *Do not use* NOW Care 10/17/25 18:22 Completed Insert IV NOW Care 10/17/25 20:[address] angio chest Stat Exams 10/17/25 20:53 Completed EKG (ED Only) Stat Exams 10/17/25 18:22 Draft XR chest 2V Stat Exams 10/17/25 18:48 Completed Alcohol, Blood Medical Stat Lab 10/17/25 19:21 Completed B-Type Natriuretic Peptide Stat Lab 10/17/25 19:21 Completed CBC Stat Lab 10/17/25 19:21 Completed Comprehensive Metabolic Panel Stat Lab 10/17/25 19:21 Completed D-Dimer Stat Lab 10/17/25 19:21 Completed Drug Screen,Urine Stat Lab 10/17/25 20:45 Completed HCG Qualitative,Urine Stat Lab 10/17/25 20:45 Completed Lactate (Lactic Acid) Stat Lab 10/17/25 19:21 Completed Lactic Acid, 3 HR Stat Lab 10/17/25 23:15 Completed Lipase Stat Lab 10/17/25 19:21 Completed Magnesium Stat Lab 10/17/25 19:21 Completed Partial Thromboplastin Time Stat Lab 10/17/25 19:21 Completed Procalcitonin Stat Lab 10/17/25 19:21 Completed Prothrombin Time with INR Stat Lab 10/17/25 19:21 Completed Thyroid Stimulating Hormone Stat Lab 10/17/25 19:21 Completed Troponin I Stat Lab 10/17/25 19:21 Completed Urinalysis, C/S if Indicated Stat Lab 10/17/25 20:45 Completed Diazepam Inj [Valium Inj] Med 10/18/25 01:50 Discontinued 5 mg IVP X1 ONE Diazepam [Valium] Med 10/17/25 18:50 Discontinued 10 mg PO X1 ONE Pantoprazole Inj [Protonix Inj] Med 10/18/25 02:22 Discontinued 40 mg IVP X1 ONE Sodium Chloride 0.9% 1000 ml [Ns] 1,000 ml Med 10/18/25 00:55 Discontinued IV 500 mls/hr Sodium Chloride 0.9% 1000 ml [Ns] 1,000 ml Med 10/17/25 20:53 Discontinued IV 999 mls/hr Thiamine Inj [Vitamin B-1 Inj] Med 10/17/25 21:00 Discontinued 100 mg IV X1 ONE Vital Signs Vital signs: Vital Signs Temperature 99.7 F 10/17/25 18:36 Pulse Rate 129 H 10/17/25 18:36 Respiratory Rate 22 H 10/17/25 18:36 Blood Pressure 143/97 H 10/17/25 18:36 Pulse Oximetry (%) 99 10/17/25 18:36 Oxygen Delivery Method Room Air 10/17/25 18:36 O2 at 99% on RA and WNLs Discharge Plan Plan Patient Disposition: HOME (Self Care) Discharge Disposition comment: Stable Prescriptions/Referrals Prescriptions/Med Rec: New chlordiazepoxide HCl 25 mg capsule 25 mg PO BID MDD 2 PRN (Reason: alcohol withdrawal) Qty: 14 0RF pantoprazole 40 mg tablet,delayed release (DR/EC) 40 mg PO QDAY Qty: 30 0RF No Action multivitamin Tablet 1 tab PO QDAY Qty: 90 3RF famotidine 40 mg tablet 40 mg PO .bedtime Qty: 30 0RF omeprazole 40 mg capsule,delayed release(DR/EC) 40 mg PO QDAY Qty: 30 0RF lorazepam [Ativan] 2 mg tablet 2 mg PO Q8H Qty: 9 0RF folic acid 1 mg tablet 1 mg PO QDAY Qty: 90 3RF thiamine HCl (vitamin B1) 50 mg tablet 50 mg PO QDAY Qty: 90 1RF pantoprazole [Protonix] 40 mg tablet,delayed release (DR/EC) 40 mg PO QDAY Qty: 20 0RF chlordiazepoxide HCl 25 mg capsule 25 mg PO Q6H MDD 4 Qty: 30 0RF Referrals: Arnulfo Harmon MD [Primary Care Provider, [facility]] - In 1 week Problem List Clinical Impression: Alcohol withdrawal, Esophagitis Patient/Caregiver Discharge Instructions Education Materials: Esophagitis, Alcohol Withdrawal: What to Expect Additional Instructions: Please follow-up with PCP within 24-48 hours and return immediately if symptoms worsen. Stop drinking. Reach out to AA, if you haven't done so yet. Print Language: Niuean Stand Alone Forms: Patient Portal Info Letter PA/ELECTRIC MOTOR CONTROL ASSEMBLER Supervising Physician PA/ELECTRIC MOTOR CONTROL ASSEMBLER Supervising Physician: Dr. Ruth Hull MDM Narrative MDM Narrative: 35F with history of alcoholism presents to ED with 2 days of alcohol withdrawal symptoms including CP, SOB, dizziness and tremors. Possible URI symptoms. Patient has been sober for the past 3 months, but relapsed 2 days ago. Physical exam reveals clear lungs and normal WOB. Some tremors. Patient is afe brile, alert, but anxious. EKG is sinus tach of 126. CXR unremarkable. Trop and BNP normal. D-dimer elevated. CMP unremarkable. Mag normal. Lactate mildly elevated, but procal normal. UA unremarkable. HCG neg. Lactate returned to WNLs without IVFs. Telerad CTA reveals no PE, but possible esophagitis likely 2/2 to alcohol use. Meds and public relations counselor given. Patient data External records reviewed:: [facility] previous records Clinical information provided by:: patient Social determinants that could affect healthcare access:: alcohol use Patient has the following chronic illnesses:: alcohol use How is presenting disease/condition affected by chronic disease/condition?: exacerbated by Evaluation data The following diagnostics were reviewed and interpreted by me:: lab results, radiology exam(s) and EKG tracing(s) Lab and/or radiology exams considered but not ordered:: ordered Interpretation Summary: above Medications / Prescriptions Medications or Prescriptions considered but not ordered:: ordered Medication administrations:: Medication Administration History Discontinued Medications Diazepam (Diazepam 5 Mg Tablet) 10 mg PO X1 ONE Stop: 10/17/25 18:51 Last Admin: 10/17/25 19:32 Dose: 10 mg Documented By: Diazepam (Diazepam Inj 5 Mg/Ml Vial 2 Ml) 5 mg IVP X1 ONE Stop: 10/18/25 01:51 Last Admin: 10/18/25 04:08 Dose: 5 mg Documented By: SE Sodium Chloride (Ns) 1,000 mls @ 999 mls/hr IV .Q1H1M ONE Stop: 10/17/25 21:53 Last Infusion: 10/18/25 01:08 Dose: Infused Documented By: Admin: 10/17/25 23:42 Dose: 999 mls/hr Documented By: SE Sodium Chloride (Ns) 1,000 mls @ 500 mls/hr IV .Q2H ONE Stop: 10/18/25 02:54 Last Admin: 10/18/25 02:40 Dose: 500 mls/hr Documented By: SE Pantoprazole Sodium (Pantoprazole Inj 40 Mg Vial) 40 mg IVP X1 ONE Stop: 10/18/25 02:23 Last Admin: 10/18/25 02:40 Dose: 40 mg Documented By: SE Thiamine HCl (Thiamine Inj 100 Mg/Ml Vial 2 Ml) 100 mg IV X1 ONE Stop: 10/17/25 21:01 Last Admin: 10/17/25 23:44 Dose: 100 mg Documented By: SE above Consultations Consultation(s) initiated? (list below): No Diagnosis Differential diagnosis alcohol: alcohol withdrawal delirium, hypomagnesemia, alcohol intoxication, alcohol ketoacidosis, alcohol withdrawal syndrome, alcohol withdrawal seizure and other (PE, esophagitis) Most likely diagnosis given after review of the tests above:: alcohol withdrawal and esophagitis Admission Indicated Admission indicated?: not indicated Admission Request Was there a request for admission?: No Disposition Plan Disposition Plan: Discharge Discharge Attestation Discharge Attestation: The patient and all family members were given an opportunity to ask questions and understood the discharge instructions. Discharge instructions specifically effects, indications for sooner follow up or return to the emergency department, and the expected course of current diagnosis. Patient condition: Stable
[2025-10-17] MEDS: DIAZEPAM 5 MG TABLET 10 MG PO (19:32)
[2025-10-17 19:56] LABS: Lactate (Lactic Acid) 2.4 mMol/L (0.4-2.0)
[2025-10-17 20:00] LABS: Basophils # (Auto) 0.0 Thou/mm3 (0.0-0.2); Basophils % (Auto) 1 % (0-2.5); Eosinophils # (Auto) 0.0 Thou/mm3 (0.0-0.5); Eosinophils % (Auto) 0 % (0-10); Hematocrit 34.2 % (36.0-46.0); Hemoglobin 10.6 g/dL (12.0-16.0); Immature Granulocytes Auto 0.02 Thou/mm3 (0.00-0.00); Lymphocytes # (Auto) 1.4 Thou/mm3 (1.0-4.8); Lymphocytes % (Auto) 21 % (10-50); Mean Corpuscular HGB Conc 31.0 g/dl (31.0-37.0); Mean Corpuscular Hemoglobin 22.4 pg (25.0-35.0); Mean Corpuscular Volume 72 fL (80-100); Monocytes # (Auto) 0.9 Thou/mm3 (0.0-0.8); Monocytes % (Auto) 14 % (0-12); Neutrophils # (Auto) 4.2 Thou/mm3 (1.8-7.7); Neutrophils % (Auto) 64 % (37-80); Nucleated Red Blood Cell # 0.00 Thou/mm3 (0.00-0.00); Nucleated Red Blood Cell % 0 /100 WBC (0); Platelet Count 390 Thou/mm3 (140-440); RDW Standard Deviation 54.3 fL (36.4-46.3); Red Blood Count 4.74 Miln/mm3 (4.00-5.20); White Blood Count 6.6 Thou/mm3 (3.6-11.0)
[2025-10-17 20:12] LABS: INR 1.0 (0.9-1.3); Partial Thromboplastin Time 21.4 Seconds (22.0-36.0); Prothrombin Time 10.9 Seconds (9.0-12.2)
[2025-10-17 20:24] LABS: D-Dimer 1890 ng/mL (<600)
[2025-10-17 20:28] LABS: B-Type Natriuretic Peptide < 20 pg/mL (0-100)
[2025-10-17 20:50] LABS: Alanine Aminotransferase 16 U/L (10-49); Albumin, Serum 5.1 gm/dL (3.5-5.0); Albumin/Globulin Ratio 1.3 (1.2-2.2); Alcohol, Blood Medical < 3.0 mg/dL (0-10.0); Alkaline Phosphatase 117 U/L (46-116); Anion Gap 13 (7-16); Aspartate Amino Transferase 28 U/L (0-34); BUN/Creatinine Ratio 16 Ratio (12-20); Bilirubin,Total 0.9 mg/dL (0.3-1.2); Blood Urea Nitrogen 13 mg/dL (9-23); Calcium 10.9 mg/dL (8.3-10.6); Calcium (Corrected) 10.9 mg/dL (8.5-10.1); Carbon Dioxide 26.0 mMol/L (20.0-31.0); Chloride 97 mMol/L (98-107); Creatinine (Component) 0.8 mg/dL (0.6-1.3); Globulin 3.9 gm/dL (2.3-3.5); Glucose 98 mg/dL (74-106); Lipase 39 U/L (12-53); Magnesium 1.8 mg/dL (1.6-2.6); Osmolality,Calculated 272 (275-295); Potassium 4.2 mMol/L (3.4-5.1); Procalcitonin < 0.04 ng/ml (0.0-0.49); Sodium 136 mMol/L (136-145); Thyroid Stimulating Hormone 6.63 uIU/mL (0.55-4.78); Total Protein 9.0 gm/dL (5.7-8.2); Troponin I < 0.002 ng/mL (0.0-0.045); eGFR > 60 See Note
--- NOTE | 2025-10-17 20:53 | XR_ITS ---
Examination: CT angio of the chest on 10/18/2025 at 1:14 a.m. CTA chest with intravenous contrast 2-D reconstructions 3-D reconstructions, vascular Date and time of exam: CTDI: vol (mGy) the CTDI is 9.10 DLP: (mGycm) the DLP is 343 Technique: Multiple axial sections of the thorax have been obtained. 3 mm slice thickness, from below the hemidiaphragms to above the apices of the lungs. Mediastinal and lung density settings have been obtained. 2-D sagittal and coronal reconstructions. 3-D angiographic renderings, 3-D volume renderings, 3D post processing, vascular maximum intensity projections obtained. Contrast administered is 100 mL of Isovue 370. Low dose protocols were performed. One or more of the following dose reduction techniques were used; automated exposure control, adjustment of the mA and/or KV according to patient size, use of iterative reconstruction technique. Findings: On sequence 6, coronal image #71, there is an exquisitely tiny 2 mm diameter area of low density surrounded by the contrast in the pulmonary artery. However careful examination of the sagittal sequences 8, image 103 shows that this relates to a small collection of fat interposed between 2 branching pulmonary arteries. There is no defect in this area. All other pulmonary arteries in the central and peripheral portion of both right and left lungs are nicely opacified with contrast and appear perfectly normal. No abnormalities are seen involving the heart or mediastinum or hilar regions. Both lungs are well expanded and clear there is no pleural fluid seen on either side. Mollities are seen in the chest and I do not see any abnormalities in the upper half of the abdomen. All visible bones on this study have a normal CT appearance. IMPRESSION: 1. Normal CT angiogram of the chest. Please see above for more detail
[2025-10-17 21:04] LABS: Collection Type, Urine Clean Catch
[2025-10-17 21:10] LABS: HCG Qualitative,Urine Negative
[2025-10-17 21:13] LABS: Amorphous Crystals,Urine Present (Absent); Bacteria,Urine Rare; Bilirubin,Urine Negative (Negative); Blood,Urine Trace (Negative); Clarity,Urine Turbid (Clear/Hazy); Color,Urine Yellow (Lt Yel-Yel); Culture Indicated,Urine Not Indicated; Glucose, Urine Negative (Negative); Ketones,Urine 2+ (Negative); Leukocyte Esterase,Urine Positive (Negative); Nitrite,Urine Negative (Negative); PH,Urine 6.0 (5.0-7.0); Protein,Urine 1+ (Neg - Trace); RBC,Urine 6 /hpf (0-3); Specific Gravity,Urine 1.025 (1.001-1.035); Squamous Epithelial Cell,Urine 2 /hpf (0-5); Urobilinogen,Urine Negative mg/dL (0.0-1.0); WBC,Urine 9 /hpf (0-5)
[2025-10-17 21:27] LABS: Amphetamine/Methamp Scrn,U Negative (Negative); Barbiturate Screen,Urine Negative (Negative); Benzodiazepines Screen,Urine Positive (Negative); Benzoylecgonine Screen, Ur Negative (Negative); Fentanyl Screen,Urine Negative (Negative); Opiate Screen,Urine Negative (Negative); THC Screen,Urine Negative (Negative)
[2025-10-17 22:30] VITALS: BP 144/92; PULSE 98; RESP 18; TEMP 36.7; O2SAT 98
[2025-10-17 22:53] LABS: Reflex Lactate? Y
[2025-10-17 23:19] LABS: Lactic Acid, 3 HR 0.8 mMol/L (0.4-2.0)
[2025-10-17] MEDS: SODIUM CHLORIDE 0.9% 1000 ML 1,000 ML 999 ML IV (23:42)
[2025-10-17] MEDS: THIAMINE INJ 100 MG/ML VIAL 2 ML IV (23:44)
[2025-10-18] VITALS: BP 124/75; PULSE 111; RESP 19; TEMP 37.2; O2SAT 100
--- NOTE | 2025-10-18 02:17 | PRELIM_ITS ---
CT angiogram of the chest with intravenous contrast (axial sections with sagittal and coronal reformats) October 18, 2025 at 0113 hours Clinical History: Chest pain / shortness of breath, elevated D-dimer Technique:Helical axial sections with sagittal and coronal reformats of the chest were obtained with intravenous contrast. Iterative reconstruction technique was employed to reduce patient radiation exposure. 3D/MIP reconstructed images were also provided. Comparison: Reference is made to the prior noncontrast CT chest, abdomen and pelvis report dated April 30, 2025. Findings: There is no evidence of pulmonary thromboembolism in the central pulmonary arteries. However, evaluation of the peripheral vessels is limited by a suboptimal bolus of contrast and small peripheral emboli cannot be entirely excluded. The mediastinum demonstrates no evidence of mass or lymphadenopathy. T he thoracic aorta is unremarkable. There is no pericardial effusion. The lungs are clear. No evidence of pleural effusion or pneumothorax. The osseous structures are unremarkable. There is wall thickening of the lower thoracic esophagus, which may be due to reflux esophagitis or due to other inflammatory pathology. Fatty infiltration of the liver is noted. The other upper abdominal viscera are unremarkable to the extent visualized. Impression: 1. No evidence of pulmonary thromboembolism in the central pulmonary arteries. However, evaluation of the peripheral vessels is limited by a suboptimal bolus of contrast and small peripheral emboli cannot be entirely excluded. 2. Wall thickening of the lower thoracic esophagus, which may be due to reflux esophagitis or due to other inflammatory pathology. 3. Other findings as described above. Suggest clinical correlation and follow up accordingly. Report Electronically Signed By: Tien Jacobo 10/18/2025 2:16:42 AM [EST]
[2025-10-18] MEDS: SODIUM CHLORIDE 0.9% 1000 ML 1,000 ML 500 ML IV (02:40)
[2025-10-18 03:09] VITALS: BP 129/86; PULSE 83; RESP 17; TEMP 37; O2SAT 100
[2025-10-18] MEDS: DIAZEPAM INJ 5 MG/ML VIAL 2 ML IVP (04:08)
[2025-10-18 04:30] VITALS: BP 117/72; PULSE 74; RESP 20; TEMP 37.1; O2SAT 99
[2025-10-18 06:10] VITALS: BP 124/86; PULSE 81; RESP 18; TEMP 36.9; O2SAT 97
== END 2025-10-18 06:14 | disposition home or self-care (01) ==
PROVIDERS: Physician Assistant; Emergency Provider Emergency Medicine; PCP Family Medicine
DX: K20.90 Esophagitis, unspecified without bleeding (principal); F10.939 Alcohol use, unspecified with withdrawal, unspecified; R00.0 Tachycardia, unspecified; R07.9 Chest pain, unspecified; R06.02 Shortness of breath; R42 Dizziness and giddiness; Y90.0 Blood alcohol level of less than 20 mg/100 ml
CPT/HCPCS: 36415; 71046; 71275; 80053; 80307; 80320; 81001; 81025; 83605; 83690; 83735; 83880; 84145; 84443; 84484; 85025; 85379; 85610; 85730; 87502; 87635; 93005; 96361; 96374; 96375; 99284; A4649; J2470; J3360; J3411; J7030; Q9967; A9270; G0480

== ENCOUNTER 2025-10-28 21:48 | Emergency (ER) | payer MEDICAID, SELFPAY ==
[2025-10-28 21:49] VITALS: BP 124/72; PULSE 108; RESP 18; TEMP 36.7; O2SAT 95
[2025-10-28 21:51] VITALS: PULSE 120; RESP 20; O2SAT 98
--- NOTE | 2025-10-28 22:08 | EKG_ITS ---
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
--- NOTE | 2025-10-28 22:08 | XR_ITS ---
EXAMINATION: AP chest single view TECHNIQUE: AP portable upright chest single view Date and time: October 28, 2025, 10:37 p.m. INDICATIONS: Shortness of breath chest pain today. FINDINGS: Normal heart size Lungs are clear. Intact osseous structures IMPRESSION: No active disease
[2025-10-28 23:20] LABS: Basophils # (Auto) 0.1 Thou/mm3 (0.0-0.2); Basophils % (Auto) 1 % (0-2.5); Eosinophils # (Auto) 0.1 Thou/mm3 (0.0-0.5); Eosinophils % (Auto) 2 % (0-10); Hematocrit 36.8 % (36.0-46.0); Hemoglobin 11.0 g/dL (12.0-16.0); Immature Granulocytes Auto 0.01 Thou/mm3 (0.00-0.00); Lactate (Lactic Acid) 4.5 mMol/L (0.4-2.0); Lymphocytes # (Auto) 2.5 Thou/mm3 (1.0-4.8); Lymphocytes % (Auto) 38 % (10-50); Mean Corpuscular HGB Conc 29.9 g/dl (31.0-37.0); Mean Corpuscular Hemoglobin 22.2 pg (25.0-35.0); Mean Corpuscular Volume 74 fL (80-100); Monocytes # (Auto) 0.3 Thou/mm3 (0.0-0.8); Monocytes % (Auto) 5 % (0-12); Neutrophils # (Auto) 3.7 Thou/mm3 (1.8-7.7); Neutrophils % (Auto) 55 % (37-80); Nucleated Red Blood Cell # 0.00 Thou/mm3 (0.00-0.00); Nucleated Red Blood Cell % 0 /100 WBC (0); Platelet Count 396 Thou/mm3 (140-440); RDW Standard Deviation 54.0 fL (36.4-46.3); Red Blood Count 4.96 Miln/mm3 (4.00-5.20); White Blood Count 6.7 Thou/mm3 (3.6-11.0)
[2025-10-28 23:44] LABS: B-Type Natriuretic Peptide < 0 pg/mL (0-100)
[2025-10-28 23:47] LABS: Alanine Aminotransferase 16 U/L (10-49); Albumin, Serum 4.8 gm/dL (3.5-5.0); Albumin/Globulin Ratio 1.2 (1.2-2.2); Alkaline Phosphatase 120 U/L (46-116); Anion Gap 15 (7-16); Aspartate Amino Transferase 27 U/L (0-34); BUN/Creatinine Ratio 9 Ratio (12-20); Bilirubin,Total 0.2 mg/dL (0.3-1.2); Blood Urea Nitrogen 6 mg/dL (9-23); Calcium 8.9 mg/dL (8.3-10.6); Calcium (Corrected) 8.9 mg/dL (8.5-10.1); Carbon Dioxide 22.2 mMol/L (20.0-31.0); Chloride 109 mMol/L (98-107); Creatinine (Component) 0.7 mg/dL (0.6-1.3); Globulin 4.1 gm/dL (2.3-3.5); Glucose 95 mg/dL (74-106); LDH (Lactate Dehydrogenase) 196 U/L (120-246); Osmolality,Calculated 288 (275-295); Potassium 4.4 mMol/L (3.4-5.1); Sodium 146 mMol/L (136-145); Total Protein 8.9 gm/dL (5.7-8.2); Troponin I < 0.002 ng/mL (0.0-0.045); eGFR > 60 See Note
[2025-10-28 23:50] LABS: Alcohol, Blood Medical 431.5 mg/dL (0-10.0)
[2025-10-29 00:41] LABS: Collection Type, Urine Voided
[2025-10-29 00:51] LABS: HCG Qualitative,Urine Negative
[2025-10-29 00:53] LABS: Bacteria,Urine 1+; Bilirubin,Urine Negative (Negative); Blood,Urine Negative (Negative); Clarity,Urine Clear (Clear/Hazy); Color,Urine Colorless (Lt Yel-Yel); Glucose, Urine Negative (Negative); Ketones,Urine Negative (Negative); Leukocyte Esterase,Urine Negative (Negative); Nitrite,Urine Negative (Negative); PH,Urine 5.5 (5.0-7.0); Protein,Urine Negative (Neg - Trace); RBC,Urine 1 /hpf (0-3); Specific Gravity,Urine 1.004 (1.001-1.035); Squamous Epithelial Cell,Urine 1 /hpf (0-5); Urobilinogen,Urine Negative mg/dL (0.0-1.0); WBC,Urine 1 /hpf (0-5)
[2025-10-29 01:25] LABS: Amphetamine/Methamp Scrn,U Negative (Negative); Barbiturate Screen,Urine Negative (Negative); Benzodiazepines Screen,Urine Negative (Negative); Benzoylecgonine Screen, Ur Negative (Negative); Fentanyl Screen,Urine Negative (Negative); Opiate Screen,Urine Negative (Negative); THC Screen,Urine Negative (Negative)
[2025-10-29 02:14] LABS: Reflex Lactate? Y
--- NOTE | 2025-10-29 02:25 | PD.EDRME ---
Rapid Medical Screening Exam RME Arrival date/time: 10/28/25 21:48 This is a case of 35-year-old female who came in in the emergency room due to chest pain and chest weakness positive alcohol intoxication Chief Complaint: Alcohol Time Seen by Provider: 10/28/25 22:08 Vital signs: Vital Signs Temperature 98.1 F 10/28/25 21:49 Pulse Rate 108 H 10/28/25 21:49 Respiratory Rate 18 10/28/25 21:49 Blood Pressure 124/72 10/28/25 21:49 Pulse Oximetry (%) 95 10/28/25 21:49 Oxygen Delivery Method Room Air 10/28/25 21:49 Exam: Awake alert oriented x 4 clear breath sound normal rate regular rate regular rhythm no murmur Clinical Impression: Chest pain EtOH
[2025-10-29 03:05] LABS: Lactic Acid, 3 HR 3.5 mMol/L (0.4-2.0)
[2025-10-29 03:22] LABS: D-Dimer 337 ng/mL (<600)
--- NOTE | 2025-10-29 03:37 | PD.EDALCOH ---
ED Alcohol RME/HPI General Chief Complaint: Alcohol Stated Complaint: ETOH Time Seen by Provider: 10/28/25 22:08 Arrival date/time: 10/28/25 21:48 RME / HPI RME / HPI narrative: 10/28/25 21:48 This is a case of 35-year-old female who came in in the emergency room due to chest pain and chest weakness positive alcohol intoxication Patient has been here approximately 6 hours prior to my evaluation. She is very well-known to this emergency room for her alcohol consumption and intoxication. Tonight she is complaining of chest pain which she has complained of in the past. She is not specific with the chest pain or when it started. She denies trauma. Exam: Awake alert oriented x 4 clear breath sound normal rate regular rate regular rhythm no murmur Impression: Chest pain EtOH Related Data Previous Rx's ?Medication ?Instructions ?Recorded famotidine 40 mg tablet 40 mg PO .bedtime #30 tabs 07/10/25 folic acid 1 mg tablet 1 mg PO QDAY #90 tabs 07/10/25 lorazepam 2 mg tablet (Ativan) 2 mg PO Q8H #9 tabs 07/10/25 multivitamin 1 tab PO QDAY #90 tabs 07/10/25 omeprazole 40 mg capsule,delayed 40 mg PO QDAY #30 caps 07/10/25 release thiamine HCl (vitamin B1) 50 mg 50 mg PO QDAY #90 tabs 07/10/25 tablet pantoprazole 40 mg tablet,delayed 40 mg PO QDAY #20 tabs 07/26/25 release (Protonix) chlordiazepoxide HCl 25 mg capsule 25 mg PO Q6H ALCOHOL WITHDRAWAL 07/27/25 #30 caps chlordiazepoxide HCl 25 mg capsule 25 mg PO BID PRN alcohol 10/18/25 withdrawal #14 caps pantoprazole 40 mg tablet,delayed 40 mg PO QDAY #30 tabs 10/18/25 release Allergies Allergy/AdvReac Type Severity Reaction Status Date / Time No Known Allergies Allergy Verified 10/17/25 18:21 Review of Systems Review of Systems Systems Reviewed: All systems reviewed, normal except as documented ED Exam Narrative Physical exam: Generally patient currently is alert and oriented converses and in no obvious distress, heart regular rate and rhythm, lungs clear to auscultation equal bilaterally, chest shows no crepitance no subcu air no wounds, abdomen is soft bowel sounds are present and is nontender neurologic exam shows [place] Coma Scale of 15 without focal motor deficit, skin is cool pale and dry Course Quality Measures none Orders Category Date Time Status CT Screening NOW Care 10/29/25 02:15 Active EKG (ED ONLY) *Do not use* NOW Care 10/28/25 22:08 Completed EKG (ED Only) Stat Exams 10/28/25 22:08 Draft XR chest 1V Stat Exams 10/28/25 22:08 Completed Alcohol, Blood Medical Stat Lab 10/28/25 23:07 Completed BNP [B-Type Natriuretic Peptide] Stat Lab 10/28/25 23:07 Completed CBC Stat Lab 10/28/25 23:07 Completed CMP [Comprehensive Metabolic Panel] Stat Lab 10/28/25 23:07 Completed D-Dimer Stat Lab 10/29/25 02:45 Completed Drug Screen,Urine Stat Lab 10/28/25 22:08 Completed HCG Qualitative,Urine Stat Lab 10/28/25 22:08 Completed LDH (Lactate Dehydrogenase) Stat Lab 10/28/25 23:07 Completed Lactate (Lactic Acid) Stat Lab 10/28/25 23:07 Completed Lactic Acid, 3 HR Stat Lab 10/29/25 02:45 Completed Troponin I Stat Lab 10/28/25 23:07 Completed Urinalysis Stat Lab 10/28/25 22:08 Completed Vital Signs Vital signs: Vital Signs Temperature 98.1 F 10/28/25 21:49 Pulse Rate 108 H 10/28/25 21:49 Respiratory Rate 18 10/28/25 21:49 Blood Pressure 124/72 10/28/25 21:49 Pulse Oximetry (%) 95 10/28/25 21:49 Oxygen Delivery Method Room Air 10/28/25 21:49 Discharge Plan Plan Patient Disposition: HOME (Self Care) Prescriptions/Referrals Prescriptions/Med Rec: No Action multivitamin Tablet 1 tab PO QDAY Qty: 90 3RF famotidine 40 mg tablet 40 mg PO .bedtime Qty: 30 0RF omeprazole 40 mg capsule,delayed release(DR/EC) 40 mg PO QDAY Qty: 30 0RF lorazepam [Ativan] 2 mg tablet 2 mg PO Q8H Qty: 9 0RF folic acid 1 mg tablet 1 mg PO QDAY Qty: 90 3RF thiamine HCl (vitamin B1) 50 mg tablet 50 mg PO QDAY Qty: 90 1RF pantoprazole [Protonix] 40 mg tablet,delayed release (DR/EC) 40 mg PO QDAY Qty: 20 0RF chlordiazepoxide HCl 25 mg capsule 25 mg PO Q6H MDD 4 Qty: 30 0RF chlordiazepoxide HCl 25 mg capsule 25 mg PO BID MDD 2 PRN (Reason: alcohol withdrawal) Qty: 14 0RF pantoprazole 40 mg tablet,delayed release (DR/EC) 40 mg PO QDAY Qty: 30 0RF Referrals: No Primary/Family,Physician [Primary Care Provider] - In 1 week Problem List Clinical Impression: Alcohol abuse Patient/Caregiver Discharge Instructions Education Materials: Alcohol Addiction Additional Instructions: Slowly decrease your consumption of alcohol. Print Language: Chadian Stand Alone Forms: Nicole Award Info., Patient Portal Info Letter Alcohol MDM Narrative MDM Narrative: I interpreted all labs. I do not believe this patient to be septic. Troponin is not elevated. EKG shows sinus tachycardia without ischemia. D-dimer was not elevated. Of note the patient did undergo a CT angiogram of the chest approximately 12 days ago and it was normal. Patient's blood alcohol level is 431. Patient is stable for discharge. She is completely alert and oriented x 4 at this time. She will be discharged when ambulatory. Patient data External records reviewed:: Other (specify) Clinical information provided by:: none Social determinants that could affect healthcare access:: none Patient has the following chronic illnesses:: None How is presenting disease/condition affected by chronic disease/condition?: no chronic disease Evaluation data The following diagnostics were reviewed and interpreted by me:: other (specify) Lab and/or radiology exams considered but not ordered:: None Interpretation Summary: None Medications / Prescriptions Medications or Prescriptions considered but not ordered:: None Medication administrations:: None Consultations Consultation(s) initiated? (list below): No Diagnosis Most likely diagnosis given after review of the tests above:: None Admission Indicated Admission indicated?: not indicated Admission Request Was there a request for admission?: No Disposition Plan Disposition Plan: Discharge Discharge Attestation Discharge Attestation: The patient and all family members were given an opportunity to ask questions and understood the discharge instructions. Discharge instructions specifically effects, indications for sooner follow up or return to the emergency department, and the expected course of current diagnosis. Patient condition: Stable
--- NOTE | 2025-10-29 03:52 | PC.NURSE ---
LILA UNABLE TO GET A RIDE AT THIS TIME.
[2025-10-29 07:38] VITALS: BP 118/76; PULSE 98; RESP 16; TEMP 36.7; O2SAT 98
[2025-10-29 08:22] VITALS: BP 112/77; PULSE 115; RESP 19; TEMP 36.8; O2SAT 97
== END 2025-10-29 08:23 | disposition home or self-care (01) ==
PROVIDERS: Nurse Practitioner Family; Emergency Provider Emergency Medicine
DX: F10.10 Alcohol abuse, uncomplicated (principal); R06.02 Shortness of breath; R07.9 Chest pain, unspecified; Y90.8 Blood alcohol level of 240 mg/100 ml or more
CPT/HCPCS: 36415; 71045; 80053; 80307; 80320; 81001; 81025; 83605; 83615; 83880; 84484; 85025; 85379; 93005; 99283; G0480

== ENCOUNTER 2025-11-08 14:25 | Emergency (ER) | payer MEDICAID, SELFPAY ==
[2025-11-08] VITALS (8 sets, daily range): BP systolic 102–138; BP diastolic 61–98; PULSE 83–115; RESP 16–19; TEMP 36.7–36.9; O2SAT 94–99; BMI 30.2
--- NOTE | 2025-11-08 15:26 | EKG_ITS ---
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
--- NOTE | 2025-11-08 15:26 | XR_ITS ---
EXAMINATION: AP chest single view TECHNIQUE: AP portable chest single view Date and time: November 08, 2025: 1529 hours INDICATION: Shortness of breath today. FINDINGS: Normal heart size Lungs are clear. Intact osseous structures IMPRESSION: No active disease
--- NOTE | 2025-11-08 15:29 | PD.EDALCOH ---
ED Alcohol RME/HPI General Chief Complaint: Alcohol Stated Complaint: ETOH Arrival date/time: 11/08/25 14:25 RME / HPI RME / HPI narrative: See [facility] for Dr. Miranda's HPI documentation. Related Data Previous Rx's ?Medication ?Instructions ?Recorded famotidine 40 mg tablet 40 mg PO .bedtime #30 tabs 07/10/25 folic acid 1 mg tablet 1 mg PO QDAY #90 tabs 07/10/25 lorazepam 2 mg tablet (Ativan) 2 mg PO Q8H #9 tabs 07/10/25 multivitamin 1 tab PO QDAY #90 tabs 07/10/25 omeprazole 40 mg capsule,delayed 40 mg PO QDAY #30 caps 07/10/25 release thiamine HCl (vitamin B1) 50 mg 50 mg PO QDAY #90 tabs 07/10/25 tablet pantoprazole 40 mg tablet,delayed 40 mg PO QDAY #20 tabs 07/26/25 release (Protonix) chlordiazepoxide HCl 25 mg capsule 25 mg PO Q6H ALCOHOL WITHDRAWAL 07/27/25 #30 caps chlordiazepoxide HCl 25 mg capsule 25 mg PO BID PRN alcohol 10/18/25 withdrawal #14 caps pantoprazole 40 mg tablet,delayed 40 mg PO QDAY #30 tabs 10/18/25 release Allergies Allergy/AdvReac Type Severity Reaction Status Date / Time No Known Allergies Allergy Verified 11/08/25 14:37 Review of Systems Review of Systems Systems Reviewed: All systems reviewed, normal except as documented Past Medical History Past Medical History GASTROINTESTINAL: Positive Ulcerative Colitis and Ulcer REPRODUCTIVE: Positive Previous Pregnancies HEMATOLOGIC: Positive Blood Disorders and Anemia PSYCHO/SOCIAL: Positive Anxiety Family History FAMILY HISTORY: Negative Family Psychiatric Problems, Family Respiratory Disorders, Family Cardiac Disorders, Family Gastrointestinal Problems, Family Cancer, Family Surgery or Family Anesthesia Reaction Surgical History SURGICAL: Negative Section Social History SMOKING STATUS: Never smoker SECOND HAND EXPOSURE: Yes ED Exam Narrative Physical exam: See [facility] for Dr. Miranda's physical exam documentation. Course Quality Measures none Orders Category Date Time Status EKG (ED ONLY) *Do not use* NOW Care 11/08/25 15:26 Completed Saline [Insert IV] NOW Care 11/08/25 15:25 Active EKG (ED Only) Stat Exams 11/08/25 15:26 Draft XR chest 1V portable Stat Exams 11/08/25 15:26 Completed Acetaminophen Stat Lab 11/08/25 16:10 Completed Alcohol, Blood Medical Stat Lab 11/08/25 16:10 Completed Ammonia Stat Lab 11/08/25 16:10 Completed Amylase Stat Lab 11/08/25 16:10 Completed BNP [B-Type Natriuretic Peptide] Stat Lab 11/08/25 16:10 Completed Beta Hydroxybutyrate Stat Lab 11/08/25 16:10 Completed Bilirubin,Direct Stat Lab 11/08/25 16:10 Completed CBC Stat Lab 11/08/25 16:10 Completed CK [Creatine Kinase] Stat Lab 11/08/25 16:10 Completed CMP [Comprehensive Metabolic Panel] Stat Lab 11/08/25 16:10 Completed Drug Screen,Urine Stat Lab 11/08/25 15:09 Completed Free T3 Stat Lab 11/08/25 16:10 Completed Free T4 (Free Thyroxine) Stat Lab 11/08/25 16:10 Completed HCG Qualitative,Urine Stat Lab 11/08/25 15:09 Completed Hemoglobin A1C [Glycohemoglobin w (eAG)] Stat Lab 11/08/25 16:10 Completed Lipase Stat Lab 11/08/25 16:10 Completed Magnesium Stat Lab 11/08/25 16:10 Completed PT [Prothrombin Time with INR] Stat Lab 11/08/25 16:10 Completed PTT [Partial Thromboplastin Time] Stat Lab 11/08/25 16:10 Completed Salicylate Stat Lab 11/08/25 16:10 Completed TSH [Thyroid Stimulating Hormone] Stat Lab 11/08/25 16:10 Completed Troponin I Stat Lab 11/08/25 16:10 Completed UA, C/S IF [Urinalysis, C/S if Indicated] Stat Lab 11/08/25 15:09 Completed Metoprolol Tartrate [Lopressor] Med 11/08/25 15:25 Discontinued 25 mg PO X1 ONE Ondansetron Inj [Zofran Inj] Med 11/08/25 15:25 Discontinued 4 mg IVP X1 ONE Sodium Chloride 0.9% 1000 ml [Ns] 1,000 ml Med 11/08/25 15:25 Discontinued IV 999 mls/hr Sodium Chloride 0.9% 1000 ml [Ns] 1,000 ml Med 11/08/25 17:25 Ordered IV 999 mls/hr Vital Signs Vital signs: Vital Signs Temperature 98.5 F 11/08/25 14:32 Pulse Rate 98 11/08/25 14:32 Respiratory Rate 16 11/08/25 14:32 Blood Pressure 115/79 11/08/25 14:32 Pulse Oximetry (%) 98 11/08/25 14:32 Oxygen Delivery Method Room Air 11/08/25 14:32 Pulse ox is 98% on room air which is adequate. Discharge Plan Prescriptions/Referrals Prescriptions/Med Rec: No Action multivitamin Tablet 1 tab PO QDAY Qty: 90 3RF famotidine 40 mg tablet 40 mg PO .bedtime Qty: 30 0RF omeprazole 40 mg capsule,delayed release(DR/EC) 40 mg PO QDAY Qty: 30 0RF lorazepam [Ativan] 2 mg tablet 2 mg PO Q8H Qty: 9 0RF folic acid 1 mg tablet 1 mg PO QDAY Qty: 90 3RF thiamine HCl (vitamin B1) 50 mg tablet 50 mg PO QDAY Qty: 90 1RF pantoprazole [Protonix] 40 mg tablet,delayed release (DR/EC) 40 mg PO QDAY Qty: 20 0RF chlordiazepoxide HCl 25 mg capsule 25 mg PO Q6H MDD 4 Qty: 30 0RF chlordiazepoxide HCl 25 mg capsule 25 mg PO BID MDD 2 PRN (Reason: alcohol withdrawal) Qty: 14 0RF pantoprazole 40 mg tablet,delayed release (DR/EC) 40 mg PO QDAY Qty: 30 0RF Referrals: Arnulfo Harmon MD [Primary Care Provider, Family Practice] - In 1 week Problem List Clinical Impression: Alcoholic intoxication Patient/Caregiver Discharge Instructions Print Language: [place]an Alcohol MDM Narrative MDM Narrative: This section includes all my notes and documentations, including HPI, PE, and ED course. Anastacio Miranda MD HPI: 35-year-old female requesting help for her alcohol problem. Reports drinking regularly for over 6 months, including today. Reports of vomiting and diffuse pain. Difficult to obtain accurate history, probably due to alcohol intoxication. She reports no thoughts of hurting herself or others. She reports no hallucinations. No other complaints. ROS: All negative except as documented in HPI. Physical Exam: General:? Alert and oriented.? Appears intoxicated. Eyes:? Conjunctivae and lids clear.? EOMI.? PERRL. ENT:? No signs of head trauma. Neck:? Supple.? No tenderness. Heart:? RRR. Lungs:? No respiratory distress.? Good air movement.? No rhonchi, wheezing, rales.? Chest:? No tenderness. Abdomen:? Soft and nontender.? Normal bowel sounds.? No distension.? No rebound or guarding.? Back:? No tenderness.? Skin:? Warm and dry.? Neuro:? Alert and oriented X 3.? Cranial Nerves II-XII grossly intact.? No peripheral motor deficits. Musculoskeletal:? All major joints and bones are not tender with no limited ROM. I reviewed EMS notes. I reviewed all diagnostic test results: My interpretation of the EKG is: Sinus tachycardia (104 bpm) with nonspecific ST-T changes. My interpretation of the chest x-ray is: NAD. Blood/urine tests remarkable for serum alcohol 391. At this point, diagnoses include: Alcohol intoxication Treatment here from me included: IVF Metoprolol 25 mg PO Zofran 4 mg IV At 6 PM on 11/08/25, the care of the patient was transferred to Dr. Mccoy. Anastacio Miranda MD Patient data External records reviewed:: [facility] previous records and EMS form Clinical information provided by:: patient and EMS Social determinants that could affect healthcare access:: alcohol use Patient has the following chronic illnesses:: anemia, gastritis, esophagitis and alcohol use disorder How is presenting disease/condition affected by chronic disease/condition?: exacerbated by Evaluation data The following diagnostics were reviewed and interpreted by me:: lab results, radiology exam(s) and EKG tracing(s) (My interpretation of the EKG is: Sinus tachycardia (104 bpm) with nonspecific ST-T changes. Anastacio Miranda MD) Lab and/or radiology exams considered but not ordered:: None Interpretation Summary: I reviewed all diagnostic test results: My interpretation of the EKG is: Sinus tachycardia (104 bpm) with nonspecific ST-T changes. My interpretation of the chest x-ray is: NAD. Blood/urine tests remarkable for serum alcohol 391. Medications / Prescriptions Medications or Prescriptions considered but not ordered:: None Medication administrations:: Medication Administration History Sodium Chloride (Ns) 1,000 mls @ 999 mls/hr IV .Q1H1M ONE Stop: 11/08/25 18:25 Discontinued Medications Sodium Chloride (Ns) 1,000 mls @ 999 mls/hr IV .Q1H1M ONE Stop: 11/08/25 16:25 Last Admin: 11/08/25 16:18 Dose: 999 mls/hr Documented By: SONIA Metoprolol Tartrate (Metoprolol Tartrate 25 Mg Tablet) 25 mg PO X1 ONE Stop: 11/08/25 15:26 Last Admin: 11/08/25 16:17 Dose: 25 mg Documented By: SONIA Ondansetron HCl (Ondansetron Inj 2 Mg/Ml Inj 2 Ml) 4 mg IVP X1 ONE; Protocol Stop: 11/08/25 15:26 Last Admin: 11/08/25 16:15 Dose: 4 mg Documented By: SONIA Treatment here from id included: IVF Metoprolol 25 mg PO Zofran 4 mg IV Consultations Consultation(s) initiated? (list below): No Diagnosis Differential diagnosis alcohol: alcohol withdrawal delirium, hypomagnesemia, alcohol intoxication, alcohol ketoacidosis, alcohol withdrawal syndrome and alcohol withdrawal seizure Most likely diagnosis given after review of the tests above:: Alcohol intoxication Admission Indicated Admission indicated?: not indicated Explain why admission is indicated or not indicated:: Complete treatment pending. Admission Request Was there a request for admission?: No Disposition Plan Disposition Plan: other (specify) (At 6 PM on 11/08/25, the care of the patient was transferred to Dr. Mccoy.)
[2025-11-08 15:48] LABS: Collection Type, Urine Clean Catch
[2025-11-08 15:53] LABS: HCG Qualitative,Urine Negative
[2025-11-08 15:57] LABS: Bilirubin,Urine Negative (Negative); Blood,Urine Negative (Negative); Clarity,Urine Clear (Clear/Hazy); Color,Urine Colorless (Lt Yel-Yel); Culture Indicated,Urine Not Indicated; Glucose, Urine Negative (Negative); Ketones,Urine 1+ (Negative); Leukocyte Esterase,Urine Negative (Negative); Nitrite,Urine Negative (Negative); PH,Urine 6.0 (5.0-7.0); Protein,Urine Negative (Neg - Trace); RBC,Urine < 1 /hpf (0-3); Specific Gravity,Urine 1.005 (1.001-1.035); Squamous Epithelial Cell,Urine < 1 /hpf (0-5); Urobilinogen,Urine Negative mg/dL (0.0-1.0); WBC,Urine 1 /hpf (0-5)
[2025-11-08 16:01] LABS: Amphetamine/Methamp Scrn,U Negative (Negative); Barbiturate Screen,Urine Negative (Negative); Benzodiazepines Screen,Urine Positive (Negative); Benzoylecgonine Screen, Ur Negative (Negative); Fentanyl Screen,Urine Negative (Negative); Opiate Screen,Urine Negative (Negative); THC Screen,Urine Negative (Negative)
[2025-11-08] MEDS: ONDANSETRON INJ 2 MG/ML INJ 2 ML 4 MG IVP (16:15)
[2025-11-08] MEDS: METOPROLOL TARTRATE 25 MG TABLET PO (16:17)
[2025-11-08] MEDS: SODIUM CHLORIDE 0.9% 1000 ML 1,000 ML 999 ML IV ×2 (16:18→17:45)
[2025-11-08 16:20] LABS: Basophils # (Auto) 0.0 Thou/mm3 (0.0-0.2); Basophils % (Auto) 1 % (0-2.5); Eosinophils # (Auto) 0.0 Thou/mm3 (0.0-0.5); Eosinophils % (Auto) 0 % (0-10); Hematocrit 35.0 % (36.0-46.0); Hemoglobin 10.8 g/dL (12.0-16.0); Immature Granulocytes Auto 0.01 Thou/mm3 (0.00-0.00); Lymphocytes # (Auto) 1.3 Thou/mm3 (1.0-4.8); Lymphocytes % (Auto) 25 % (10-50); Mean Corpuscular HGB Conc 30.9 g/dl (31.0-37.0); Mean Corpuscular Hemoglobin 22.4 pg (25.0-35.0); Mean Corpuscular Volume 73 fL (80-100); Monocytes # (Auto) 0.2 Thou/mm3 (0.0-0.8); Monocytes % (Auto) 4 % (0-12); Neutrophils # (Auto) 3.7 Thou/mm3 (1.8-7.7); Neutrophils % (Auto) 70 % (37-80); Nucleated Red Blood Cell # 0.00 Thou/mm3 (0.00-0.00); Nucleated Red Blood Cell % 0 /100 WBC (0); Platelet Count 233 Thou/mm3 (140-440); RDW Standard Deviation 51.1 fL (36.4-46.3); Red Blood Count 4.83 Miln/mm3 (4.00-5.20); White Blood Count 5.3 Thou/mm3 (3.6-11.0)
[2025-11-08 16:37] LABS: Beta Hydroxybutyrate 0.8 mmol/L (<0.6); Glucose Estimated Average 97 mg/dL (80-131); Hemoglobin A1C 5.0 % Hgb (4.8-6.0)
[2025-11-08 16:38] LABS: Ammonia 18 uMol/L (11-32)
[2025-11-08 16:47] LABS: INR 1.0 (0.9-1.3); Partial Thromboplastin Time 25.5 Seconds (22.0-36.0); Prothrombin Time 10.3 Seconds (9.0-12.2)
[2025-11-08 16:58] LABS: Acetaminophen < 2.0 mcg/mL (10.0-20.0); Alanine Aminotransferase 18 U/L (10-49); Albumin, Serum 4.7 gm/dL (3.5-5.0); Albumin/Globulin Ratio 1.1 (1.2-2.2); Alcohol, Blood Medical 391.0 mg/dL (0-10.0); Alkaline Phosphatase 144 U/L (46-116); Amylase 38 U/L (30-118); Anion Gap 18 (7-16); Aspartate Amino Transferase 45 U/L (0-34); BUN/Creatinine Ratio 10 Ratio (12-20); Bilirubin,Direct < 0.1 mg/dL (0.0-0.3); Bilirubin,Total 0.3 mg/dL (0.3-1.2); Blood Urea Nitrogen 6 mg/dL (9-23); Calcium 8.6 mg/dL (8.3-10.6); Calcium (Corrected) 8.6 mg/dL (8.5-10.1); Carbon Dioxide 20.2 mMol/L (20.0-31.0); Chloride 103 mMol/L (98-107); Creatine Kinase 97 U/L (34-171); Creatinine (Component) 0.6 mg/dL (0.6-1.3); Estimated Creatinine Clearance 120.4 mL/min (>60); Free T3 2.2 pg/mL (2.3-4.2); Free T4 (Free Thyroxine) 1.03 ng/dL (0.89-1.76); Globulin 4.2 gm/dL (2.3-3.5); Glucose 79 mg/dL (74-106); Lipase 52 U/L (12-53); Magnesium 2.0 mg/dL (1.6-2.6); Osmolality,Calculated 277 (275-295); Potassium 5.3 mMol/L (3.4-5.1); Salicylate < 3.0 mg/dL; Sodium 141 mMol/L (136-145); Thyroid Stimulating Hormone 4.27 uIU/mL (0.55-4.78); Total Protein 8.9 gm/dL (5.7-8.2); Troponin I < 0.002 ng/mL (0.0-0.045); eGFR > 60 See Note
[2025-11-08 17:10] LABS: B-Type Natriuretic Peptide < 0 pg/mL (0-100)
--- NOTE | 2025-11-08 18:03 | PD.EDADDENDU ---
Emergency Room Addendum <Aleja Harmon - Last Filed: 11/08/25 18:03> Addendum Narrative: 1800: Care assumed from Dr. Miranda, the previous shift emergency physician. Past medical, surgical, social and family history reviewed. Vitals and home medications reviewed. Results and treatment plan discussed. I will assume the care of the patient at this time and will follow the patient. Please refer to the emergency department record for history and examination from initial visit. <Boris Mccoy DO - Last Filed: 11/08/25 18:21> Addendum Narrative: 1800: Care assumed from Dr. Miranda, the previous shift emergency physician. Past medical, surgical, social and family history reviewed. Vitals and home medications reviewed. Results and treatment plan discussed. I will assume the care of the patient at this time and will follow the patient. Please refer to the emergency department record for history and examination from initial visit. I reviewed the chart and labs. Patient will be discharged when she becomes alert oriented and ambulatory.
== END 2025-11-08 22:50 | disposition home or self-care (01) ==
PROVIDERS: Emergency Provider Emergency Medicine; PCP Family Medicine
DX: F10.929 Alcohol use, unspecified with intoxication, unspecified (principal); R06.02 Shortness of breath; R00.0 Tachycardia, unspecified; Y90.8 Blood alcohol level of 240 mg/100 ml or more
CPT/HCPCS: 36415; 71045; 80053; 80307; 80320; 80329; 81001; 81025; 82010; 82140; 82150; 82248; 82550; 83036; 83690; 83735; 83880; 84439; 84443; 84481; 84484; 85025; 85610; 85730; 93005; 96361; 96374; 99284; J2405; J7030; A9270; G0480